=== PATIENT | male | born 1930 | race Hispanic/Latino ===

== ENCOUNTER 2020-04-16 14:28 | Emergency (ER) | payer MEDICARE ==
[2020-04-16] MEDS ORDERED: LORazepam 2 MG/ML VIAL ONE ×2 (16:59→21:58)
[2020-04-16] MEDS ORDERED: LORazepam 2 MG/ML VIAL IM ONE ×2 (17:03→17:38)
--- NOTE | 2020-04-16 17:49 | Emergency Department Report ---
ED Altered Mental Status HPI - General Chief Complaint: Altered Mental Status Stated Complaint: ALTERED MENTAL STATUS Time Seen by Provider: 04/16/20 16:28 Source: EMS Mode of arrival: Stretcher Limitations: Other - History of Present Illness Initial Comments: 89-year-old male, history of cervical radiculopathy, chronic back pain, diabetes, CHF, hypothyroidism sent from [facility] for mental health evaluation. Patient was apparently refusing care and being combative. He was found naked in the hallway, yelling, and pouring urine all over the floor. Patient was admitted to the facility 5 days ago. 3 days ago, patient was observed throwing things out of the window and attempting to climb out of the window. Note from [facility] states that patient's behaviors continue to be irrational and aggressive with periods of combativeness. MD Complaint: altered mental status -: days(s) (3) Severity: moderate Consistency of Symptoms: getting worse Context: unknown Associated Symptoms: denies: chest pain, headaches, nausea/vomiting, shortness of breath - Related Data Home Medications Medication Instructions Recorded Confirmed Last Taken Alogliptin Benzoate 25 mg PO DAILY 04/18/20 04/18/20 Unknown Docusate Sodium [Colace CAP] 100 mg PO BID 04/18/20 04/18/20 Unknown Ferrous Fumarate (Nf) 324 mg PO DAILY 04/18/20 04/18/20 Unknown Furosemide 20 mg PO DAILY 04/18/20 04/18/20 Unknown Lantus Solostar 100 units SQ QPM 04/18/20 04/18/20 Unknown Lisinopril 5 mg PO DAILY 04/18/20 04/18/20 Unknown Melatonin 3 mg PO QHS 04/18/20 04/18/20 Unknown Omeprazole 40 mg PO DAILY 04/18/20 04/18/20 Unknown Tylenol 650 mg PO Q6H PRN 04/18/20 04/18/20 Unknown Vitamin D3 1,000 unit PO DAILY 04/18/20 04/18/20 Unknown metFORMIN 500 mg PO BID 04/18/20 04/18/20 Unknown traMADoL [Ultram] 50 mg PO Q6HR PRN 04/18/20 04/18/20 Unknown Previous Rx's Medication Instructions Recorded Last Taken Type risperiDONE [RisperDAL] 0.25 mg PO QAM #30 tab 04/17/20 Unknown Rx risperiDONE [RisperDAL] 0.5 mg PO QPM #30 tablet 04/17/20 Unknown Rx Allergies Allergy/AdvReac Type Severity Reaction Status Date / Time aspirin Allergy Unknown Verified 04/16/20 14:46 ED Review of Systems ROS: Stated complaint: ALTERED MENTAL STATUS Other details as noted in HPI Comment: All other systems reviewed and negative Respiratory: denies: shortness of breath Cardiovascular: denies: chest pain Gastrointestinal: denies: abdominal pain, vomiting, diarrhea Musculoskeletal: other (reports chronic back pain) Neurological: denies: headache ED Past Medical Hx - Past Medical History Previous Medical History?: Yes Hx Congestive Heart Failure: Yes Hx Diabetes: Yes 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 - Social History Smoking Status: Unknown if ever smoked - Medications Home Medications: Home Medications Medication Instructions Recorded Confirmed Last Taken Type risperiDONE [RisperDAL] 0.25 mg PO QAM #30 tab 04/17/20 04/18/20 Unknown Rx risperiDONE [RisperDAL] 0.5 mg PO QPM #30 tablet 04/17/20 04/18/20 Unknown Rx Alogliptin Benzoate 25 mg PO DAILY 04/18/20 04/18/20 Unknown History Docusate Sodium [Colace CAP] 100 mg PO BID 04/18/20 04/18/20 Unknown History Ferrous Fumarate (Nf) 324 mg PO DAILY 04/18/20 04/18/20 Unknown History Furosemide 20 mg PO DAILY 04/18/20 04/18/20 Unknown History Lantus Solostar 100 units SQ QPM 04/18/20 04/18/20 Unknown History Lisinopril 5 mg PO DAILY 04/18/20 04/18/20 Unknown History Melatonin 3 mg PO QHS 04/18/20 04/18/20 Unknown History Omeprazole 40 mg PO DAILY 04/18/20 04/18/20 Unknown History Tylenol 650 mg PO Q6H PRN 04/18/20 04/18/20 Unknown History Vitamin D3 1,000 unit PO DAILY 04/18/20 04/18/20 Unknown History metFORMIN 500 mg PO BID 04/18/20 04/18/20 Unknown History traMADoL [Ultram] 50 mg PO Q6HR PRN 04/18/20 04/18/20 Unknown History ED Physical Exam - General Limitations: Other General appearance: alert, in no apparent distress - Head Head exam: Present: atraumatic, normocephalic - Eye Eye exam: Present: normal appearance, EOMI - ENT ENT exam: Present: mucous membranes moist - Neck Neck exam: Present: normal inspection - Respiratory Respiratory exam: Present: normal lung sounds bilaterally. Absent: respiratory distress - Cardiovascular Cardiovascular Exam: Present: regular rate, normal rhythm - GI/Abdominal GI/Abdominal exam: Present: soft. Absent: distended, tenderness - Extremities Exam Extremities exam: Present: normal inspection - Neurological Exam Neurological exam: Present: alert, altered (confused) - Psychiatric Psychiatric exam: Present: agitated - Skin Skin exam: Present: warm, dry, intact, normal color ED Course Vital Signs 04/16/20 04/16/20 04/17/20 14:41 22:07 01:08 Temperature 97.7 F Pulse Rate 69 74 74 Respiratory 18 17 17 Rate Blood Pressure 139/71 121/78 145/45 [Left] O2 Sat by Pulse 100 97 97 Oximetry 04/17/20 04/17/20 04/17/20 04:08 08:39 13:57 Temperature Pulse Rate 71 65 55 L Respiratory 16 16 16 Rate Blood Pressure 139/71 135/51 115/52 [Left] O2 Sat by Pulse 98 95 98 Oximetry 04/17/20 17:44 Temperature Pulse Rate 84 Respiratory 16 Rate Blood Pressure 123/46 [Left] O2 Sat by Pulse 96 Oximetry - Lab Data Result diagrams: 04/16/20 18:09 04/16/20 18:09 Lab Results 04/16/20 04/16/20 04/16/20 Range/Units 18:09 18:09 18:09 WBC 7.1 (4.5-11.0) K/mm3 RBC 4.06 (3.65-5.03) M/mm3 Hgb 9.5 L (11.8-15.2) gm/dl Hct 30.0 L (35.5-45.6) % MCV 74 L (84-94) fl MCH 23 L (28-32) pg MCHC 32 (32-34) % RDW 16.9 H (13.2-15.2) % Plt Count 237 (140-440) K/mm3 Lymph % (Auto) 11.3 L (13.4-35.0) % [place] % (Auto) 9.6 H (0.0-7.3) % Eos % (Auto) 2.2 (0.0-4.3) % Baso % (Auto) 0.2 (0.0-1.8) % Lymph # 0.8 L (1.2-5.4) K/mm3 [place] # 0.7 (0.0-0.8) K/mm3 Eos # 0.2 (0.0-0.4) K/mm3 Baso # 0.0 (0.0-0.1) K/mm3 Seg Neutrophils % 76.7 H (40.0-70.0) % Seg Neutrophils # 5.4 (1.8-7.7) K/mm3 Sodium 132 L (137-145) mmol/L Potassium 4.8 (3.6-5.0) mmol/L Chloride 95.1 L (98-107) mmol/L Carbon Dioxide 23 (22-30) mmol/L Anion Gap 19 mmol/L BUN 34 H (9-20) mg/dL Creatinine 1.1 (0.8-1.5) mg/dL Estimated GFR > 60 ml/min BUN/Creatinine Ratio 31 % Glucose 205 H (75-100) mg/dL POC Glucose (70-105) Calcium 9.4 (8.4-10.2) mg/dL Total Bilirubin 0.30 (0.1-1.2) mg/dL Direct Bilirubin < 0.2 (0-0.2) mg/dL Indirect Bilirubin 0.1 mg/dL AST 21 (5-40) units/L ALT 18 (7-56) units/L Alkaline Phosphatase 70 (35-129) units/L Total Protein 6.9 (6.3-8.2) g/dL Albumin 3.6 L (3.9-5) g/dL Albumin/Globulin Ratio 1.1 % Urine Color (Yellow) Urine Turbidity (Clear) Urine pH (5.0-7.0) Ur Specific [employer] (1.003-1.030) Urine Protein (Negative) mg/dL Urine Glucose (UA) (Negative) mg/dL Urine Ketones (Negative) mg/dL Urine Blood (Negative) Urine Nitrite (Negative) Urine Bilirubin (Negative) Urine Urobilinogen (<2.0) mg/dL Ur Leukocyte Esterase (Negative) Urine WBC (Auto) (0.0-6.0) /HPF Urine RBC (Auto) (0.0-6.0) /HPF U Epithel Cells (Auto) (0-13.0) /HPF Salicylates < 0.3 L (2.8-20.0) mg/dL Urine Opiates Screen Urine Methadone Screen Acetaminophen (10.0-30.0) ug/mL Ur Barbiturates Screen Ur Phencyclidine Scrn Ur Amphetamines Screen U Benzodiazepines Scrn Urine Cocaine Screen U Marijuana (THC) Screen Drugs of Abuse Note Plasma/Serum Alcohol (0-0.07) % 04/16/20 04/16/20 04/16/20 Range/Units 18:09 18:09 18:53 WBC (4.5-11.0) K/mm3 RBC (3.65-5.03) M/mm3 Hgb (11.8-15.2) gm/dl Hct (35.5-45.6) % MCV (84-94) fl MCH (28-32) pg MCHC (32-34) % RDW (13.2-15.2) % Plt Count (140-440) K/mm3 Lymph % (Auto) (13.4-35.0) % [place] % (Auto) (0.0-7.3) % Eos % (Auto) (0.0-4.3) % Baso % (Auto) (0.0-1.8) % Lymph # (1.2-5.4) K/mm3 [place] # (0.0-0.8) K/mm3 Eos # (0.0-0.4) K/mm3 Baso # (0.0-0.1) K/mm3 Seg Neutrophils % (40.0-70.0) % Seg Neutrophils # (1.8-7.7) K/mm3 Sodium (137-145) mmol/L Potassium (3.6-5.0) mmol/L Chloride (98-107) mmol/L Carbon Dioxide (22-30) mmol/L Anion Gap mmol/L BUN (9-20) mg/dL Creatinine (0.8-1.5) mg/dL Estimated GFR ml/min BUN/Creatinine Ratio % Glucose (75-100) mg/dL POC Glucose (70-105) Calcium (8.4-10.2) mg/dL Total Bilirubin (0.1-1.2) mg/dL Direct Bilirubin (0-0.2) mg/dL Indirect Bilirubin mg/dL AST (5-40) units/L ALT (7-56) units/L Alkaline Phosphatase (35-129) units/L Total Protein (6.3-8.2) g/dL Albumin (3.9-5) g/dL Albumin/Globulin Ratio % Urine Color Straw (Yellow) Urine Turbidity Clear (Clear) Urine pH 6.0 (5.0-7.0) Ur Specific [employer] 1.006 (1.003-1.030) Urine Protein <15 mg/dl (Negative) mg/dL Urine Glucose (UA) Neg (Negative) mg/dL Urine Ketones Neg (Negative) mg/dL Urine Blood Neg (Negative) Urine Nitrite Neg (Negative) Urine Bilirubin Neg (Negative) Urine Urobilinogen < 2.0 (<2.0) mg/dL Ur Leukocyte Esterase Neg (Negative) Urine WBC (Auto) 1.0 (0.0-6.0) /HPF Urine RBC (Auto) < 1.0 (0.0-6.0) /HPF U Epithel Cells (Auto) < 1.0 (0-13.0) /HPF Salicylates (2.8-20.0) mg/dL Urine Opiates Screen Urine Methadone Screen Acetaminophen < 5.0 L (10.0-30.0) ug/mL Ur Barbiturates Screen Ur Phencyclidine Scrn Ur Amphetamines Screen U Benzodiazepines Scrn Urine Cocaine Screen U Marijuana (THC) Screen Drugs of Abuse Note Plasma/Serum Alcohol < 0.01 (0-0.07) % 04/16/20 04/17/20 04/17/20 Range/Units 18:53 18:16 21:07 WBC (4.5-11.0) K/mm3 RBC (3.65-5.03) M/mm3 Hgb (11.8-15.2) gm/dl Hct (35.5-45.6) % MCV (84-94) fl MCH (28-32) pg MCHC (32-34) % RDW (13.2-15.2) % Plt Count (140-440) K/mm3 Lymph % (Auto) (13.4-35.0) % [place] % (Auto) (0.0-7.3) % Eos % (Auto) (0.0-4.3) % Baso % (Auto) (0.0-1.8) % Lymph # (1.2-5.4) K/mm3 [place] # (0.0-0.8) K/mm3 Eos # (0.0-0.4) K/mm3 Baso # (0.0-0.1) K/mm3 Seg Neutrophils % (40.0-70.0) % Seg Neutrophils # (1.8-7.7) K/mm3 Sodium (137-145) mmol/L Potassium (3.6-5.0) mmol/L Chloride (98-107) mmol/L Carbon Dioxide (22-30) mmol/L Anion Gap mmol/L BUN (9-20) mg/dL Creatinine (0.8-1.5) mg/dL Estimated GFR ml/min BUN/Creatinine Ratio % Glucose (75-100) mg/dL POC Glucose 355 H 385 H (70-105) Calcium (8.4-10.2) mg/dL Total Bilirubin (0.1-1.2) mg/dL Direct Bilirubin (0-0.2) mg/dL Indirect Bilirubin mg/dL AST (5-40) units/L ALT (7-56) units/L Alkaline Phosphatase (35-129) units/L Total Protein (6.3-8.2) g/dL Albumin (3.9-5) g/dL Albumin/Globulin Ratio % Urine Color (Yellow) Urine Turbidity (Clear) Urine pH (5.0-7.0) Ur Specific [employer] (1.003-1.030) Urine Protein (Negative) mg/dL Urine Glucose (UA) (Negative) mg/dL Urine Ketones (Negative) mg/dL Urine Blood (Negative) Urine Nitrite (Negative) Urine Bilirubin (Negative) Urine Urobilinogen (<2.0) mg/dL Ur Leukocyte Esterase (Negative) Urine WBC (Auto) (0.0-6.0) /HPF Urine RBC (Auto) (0.0-6.0) /HPF U Epithel Cells (Auto) (0-13.0) /HPF Salicylates (2.8-20.0) mg/dL Urine Opiates Screen Presumptive negative Urine Methadone Screen Presumptive negative Acetaminophen (10.0-30.0) ug/mL Ur Barbiturates Screen Presumptive negative Ur Phencyclidine Scrn Presumptive negative Ur Amphetamines Screen Presumptive negative U Benzodiazepines Scrn Presumptive negative Urine Cocaine Screen Presumptive negative U Marijuana (THC) Screen Presumptive negative Drugs of Abuse Note Disclamer Plasma/Serum Alcohol (0-0.07) % - Radiology Data Radiology results: report reviewed, image reviewed - Medical Decision Making 89 yo M sent to ED for mental health examination due to bizarre behavior. Workup in ED unremarkable. No evidence of infection. Sodium slightly low, so IV fluids given. Pt is medically clear for mental health evaluation. - Differential Diagnosis dementia, UTI, intracranial abnormality Critical care attestation.: If time is entered above; I have spent that time in minutes in the direct care of this critically ill patient, excluding procedure time. ED Disposition Clinical Impression: Behavioral disorder Disposition: DC-01 TO HOME OR SELFCARE Is pt being admited?: No Condition: Stable Prescriptions: risperiDONE [RisperDAL] 0.25 mg PO QAM #30 tab risperiDONE [RisperDAL] 0.5 mg PO QPM #30 tablet Referrals: BUNNY VASQUEZ MD [Primary Care Provider] - 3-5 Days
[2020-04-16 18:33] LABS: Basophils % (Auto) 0.2 % (0.0-1.8); Eosinophils # (Auto) 0.2 K/mm3 (0.0-0.4); Eosinophils % (Auto) 2.2 % (0.0-4.3); Hemoglobin 9.5 gm/dl (11.8-15.2); Lymphocytes # (Auto) 0.8 K/mm3 (1.2-5.4); Lymphocytes % (Auto) 11.3 % (13.4-35.0); Mean Corpuscular HGB Conc 32 % (32-34); Mean Corpuscular Volume 74 fl (84-94); Monocytes # (Auto) 0.7 K/mm3 (0.0-0.8); Monocytes % (Auto) 9.6 % (0.0-7.3); Platelet Count 237 K/mm3 (140-440); Red Blood Count 4.06 M/mm3 (3.65-5.03); Red Cell Distribution Width 16.9 % (13.2-15.2)
[2020-04-16 18:47] LABS: Alanine Aminotransferase 18 units/L (7-56); Albumin 3.6 g/dL (3.9-5); BUN/Creatinine Ratio 31; Blood Urea Nitrogen 34 mg/dL (9-20); Calcium 9.4 mg/dL (8.4-10.2); Hemolysis Index 5
[2020-04-16 18:48] LABS: Bilirubin,Direct < 0.2 mg/dL (0-0.2)
[2020-04-16 19:07] LABS: Bilirubin,Urine NEG (Negative); Blood,Urine NEG (Negative); Color,Urine Straw (Yellow); Protein,Urine <15 mg/dL mg/dL (Negative); RBC,Urine < 1.0 /HPF (0.0-6.0); Urobilinogen,Urine < 2.0 mg/dL (<2.0)
[2020-04-16 19:15] LABS: Amphetamine Screen,Urine PRESUMPTIVE NEGATIVE; Benzodiazepines Screen,Urine PRESUMPTIVE NEGATIVE; Cannabinoid Screen,Urine PRESUMPTIVE NEGATIVE; Cocaine Screen,Urine PRESUMPTIVE NEGATIVE; Methadone Screen,Urine PRESUMPTIVE NEGATIVE; Opiate Screen,Urine PRESUMPTIVE NEGATIVE
[2020-04-16] MEDS ORDERED: SODIUM CHLORIDE 0.9% 1000 ML 1,000 ML IV ONE (19:37)
--- NOTE | 2020-04-16 20:38 | Cat Scan Report ---
CT HEAD WITHOUT CONTRAST INDICATION / CLINICAL INFORMATION: AMS. TECHNIQUE: All CT scans at this location are performed using CT dose reduction for ALARA by means of automated e xposure control. COMPARISON: None available. FINDINGS: HEMORRHAGE: No evidence of intracranial hemorrhage or extra-axial fluid collection. EXTRA-AXIAL SPACES: Cortical sulci and sylvian fissures are enlarged reflecting a degree of parenchym al volume loss which is within normal limits for the patient's age of . Basilar cisterns have an unre markable appearance. VENTRICULAR SYSTEM: The third and lateral ventricles are enlarged reflecting presence of age related parenchymal volume loss. CEREBRAL PARENCHYMA: Periventricular and deep white matter lucency is observed. This is probably seco ndary to microvascular ischemic change. There is no indication of recent infarction. No areas of ence phalomalacia are identified. MIDLINE SHIFT OR HERNIATION: There is no mass effect. CEREBELLUM / BRAINSTEM: Brainstem has an unremarkable appearance. Age related cerebellar atrophy is n oted. INTRACRANIAL VESSELS:Calcified atherosclerotic plaque is present along the course of the cavernous se gments of both internal carotid arteries. Similar findings are seen at the distal vertebral arteries. ORBITS: visualized portions of the orbits have an unremarkable appearance. SOFT TISSUES of HEAD: No significant abnormality. CALVARIUM: Evaluation of bone windows reveals no abnormalities. PARANASAL SINUSES / MASTOID AIR CELLS: Opacification of the left frontal sinus is noted. Possibility of left frontal sinusitis should be considered. Paranasal sinuses otherwise appear clear. Normal pneu matization of the mastoid air cells and middle ear cavities is observed. ADDITIONAL FINDINGS: None. IMPRESSION: 1. Age-related involutional changes of parenchymal volume loss and microvascular ischemic change. 2. Opacification of the left frontal sinus. Consider possible left frontal sinusitis. 3. No acute intracranial abnormality. Signer Name: Dat Woodall MD Signed: 04/16/2020 8:34 PM Workstation Name: [id number]
[2020-04-16] MEDS ORDERED: LORazepam 2 MG/ML VIAL IV ONE (22:07)
--- NOTE | 2020-04-17 11:22 | Consultation ---
History of Present Illness - Reason for Consult Consult date: 04/17/20 Reason for consult: MHE Requesting physician: LENNY LAGUNAS - Chief Complaint Chief complaint: AMS - History of Present Psychiatric Illness Per ED Provider: 89-year-old male, history of cervical radiculopathy, chronic back pain, diabetes, CHF, hypothyroidism sent from [facility] for mental health evaluation. Patient was apparently refusing care and being combative. He was found naked in the hallway, yelling, and pouring urine all over the floor. Patient was admitted to the facility 5 days ago. 3 days ago, patient was observed throwing things out of the window and attempting to climb out of the window. Note from intermediate states that patient's behaviors continue to be irrational and aggressive with periods of combativeness. HPI Patient is a 89 year old male with no known past psychiatric history, presented from nursing facility due to combative behavior and altered mental status. 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 ED Providers and previous medical records reviewed. PAST PSYCHIATRIC HISTORY Diagnoses: None indicated Suicide attempts or Self-harm behavior: n/a Prior psychiatric hospitalizations: unknown Substance Abuse history: n/a Previous psychiatric medications tried: n/a Outpatient treatment: n/a PAST MEDICAL HISTORY: DM, CHF, and hypothyroidsm. Family Psychiatric History: None reported or documented SOCIAL HISTORY Marital Status: unknown Living Arrangements: From Nursing Facility Employment Status: unemployed based on history Access to guns/weapons: n/a Education: n/a History of Abuse: n/a Legal History: n/a REVIEW OF SYSTEMS ROS cannot be reliably obtained from the patient due to her confusion and somnolence. MENTAL STATUS EXAMINATION General Appearance and Behavior: Age appropriate, good hygiene, naked, lying in bed, poor eye contact, polite but uncooperative with questioning Psychomotor Behavior: No Psychomotor agitation Mood: n/a Affect and affective range: flat Thought Process: Tangential, Illogical, Fragmented and Loose associations Thought Content: Illogical Speech: low volume, difficulty to understand, abnormalities in production of speech, confused Intellectual Functioning: Poor Suicidal Ideation: n/a Homicidal Ideation: n/a Impulse Control: Impaired Insight and Judgment: Impaired Memory: Short term memory impaired, half-way memory impaired, and Prospective memory impaired Attention: Sustained attention impaired, and Divided attention impaired Orientation: Alert, confused, and demented RECOMMENDATIONS MEDICATIONS: Continue pt home meds Risks, benefits and alternatives of medications discussed with the patient, questions answered and consent obtained from patient. PSYCHOTHERAPY: Supportive psychotherapy provided MEDICAL: Per primary team DELIRIUM PRECAUTIONS: Please re-orient patient frequently, keep lights on during the day, and minimize benzodiazepines and opiates as these medications could worsen patient's confusion. 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 If cleared by neuro, can be admitted for dementia with Beh distrubatxes LEGAL STATUS: 1013 rescinded FOLLOW-UP: Will Sign off Thank you for the consult. Please contact with any questions and/or concerns. Medications and Allergies Allergies Allergy/AdvReac Type Severity Reaction Status Date / Time aspirin Allergy Unknown Verified 04/16/20 14:46 Mental Status Exam - Vital signs Last Vital Signs Temp 97.7 F 04/16/20 14:41 Pulse 65 04/17/20 08:39 Resp 16 04/17/20 08:39 BP 135/51 04/17/20 08:39 Pulse Ox 95 04/17/20 08:39 Results Result Diagrams: 04/16/20 18:09 04/16/20 18:09 Abnormal lab results 04/16/20 04/16/20 04/16/20 Range/Units 18:09 18:09 18:09 Hgb 9.5 L (11.8-15.2) gm/dl Hct 30.0 L (35.5-45.6) % MCV 74 L (84-94) fl MCH 23 L (28-32) pg RDW 16.9 H (13.2-15.2) % Lymph % (Auto) 11.3 L (13.4-35.0) % [place] % (Auto) 9.6 H (0.0-7.3) % Lymph # 0.8 L (1.2-5.4) K/mm3 Seg Neutrophils % 76.7 H (40.0-70.0) % Sodium 132 L (137-145) mmol/L Chloride 95.1 L (98-107) mmol/L BUN 34 H (9-20) mg/dL Glucose 205 H (75-100) mg/dL Albumin 3.6 L (3.9-5) g/dL Salicylates < 0.3 L (2.8-20.0) mg/dL Acetaminophen (10.0-30.0) ug/mL 04/16/20 Range/Units 18:09 Hgb (11.8-15.2) gm/dl Hct (35.5-45.6) % MCV (84-94) fl MCH (28-32) pg RDW (13.2-15.2) % Lymph % (Auto) (13.4-35.0) % [place] % (Auto) (0.0-7.3) % Lymph # (1.2-5.4) K/mm3 Seg Neutrophils % (40.0-70.0) % Sodium (137-145) mmol/L Chloride (98-107) mmol/L BUN (9-20) mg/dL Glucose (75-100) mg/dL Albumin (3.9-5) g/dL Salicylates (2.8-20.0) mg/dL Acetaminophen < 5.0 L (10.0-30.0) ug/mL All other labs normal.
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
[2020-04-17 17:45] VITALS: BP 123/46
--- NOTE | 2020-04-17 19:33 | XRay Report ---
CHEST 1 VIEW INDICATION: Altered mental status. Rule out infection. COMPARISON: None FINDINGS: SUPPORT DEVICES: None. HEART: Within normal limits. LUNGS/PLEURA: No acute air space or interstitial disease. ADDITIONAL FINDINGS: None. IMPRESSION: 1. No acute findings. Signer Name: Oskar Bird MD Signed: 04/17/2020 7:29 PM Workstation Name: [id number]
--- NOTE | 2020-04-17 20:10 | Event Note ---
Date: 04/17/20 Patient was evaluated at 6 PM Patient able to move all 4 extremities Not agitated Coherent Wants to go back to the [facility] Alert and oriented to time and place and person. Patient pleading that he wants to go back to [facility] facility Patient has history of dementia with agitation which can be treated at the [facility] facility The family does not want admission to [facility] for stabilization They want to sign out AMA if necessary. Patient stable for discharge MRI can be done as an outpatient but at this point it is not necessary Risperdal 0.2 5 in the morning and 1.5 at 6 PM as discharge medication.
[2020-04-17] MEDS ORDERED: INSULIN REGULAR, HUMAN 100 UNITS/1 ML SUB-Q ONE (20:57)
== END 2020-04-17 21:08 | disposition home or self-care (01) ==
LOC: ED 14:28 → UNDOADMIN 04-17 22:55 → 5A 04-17 22:55
DX: F91.9 Conduct disorder, unspecified (principal); I50.9 Heart failure, unspecified; E11.9 Type 2 diabetes mellitus without complications; Z79.899 Other long term (current) drug therapy; Z88.6 Allergy status to analgesic agent
CPT/HCPCS: 36415; 70450; 71045; 80048; 80076; 80307; 81001; 82962; 85025; 95819; 96361; 96372; 96374; 99285; J2060; J7030; 80320; G0480; J1815

== ENCOUNTER 2020-04-18 14:05 | Inpatient (IN) | payer MEDICARE ==
[2020-04-18] MEDS ORDERED: SODIUM CHLORIDE 0.9% 1000 ML 1,000 ML IV ONE ×3 (16:03→16:10)
--- NOTE | 2020-04-18 16:46 | Event Note ---
Date: 04/18/20 Called for consultation patient had been prior seen by my colleague adjusted insulin therapy as blood sugar is elevated. Called back about some work-up that needs to be done in acute care setting and also need admission is required notified my colleague Dr. Arriaga.
[2020-04-18] MEDS ORDERED: NON-FORMULARY EACH (Omeprazole 40 MG) PO SCH (22:00)
[2020-04-18] MEDS ORDERED: VITAMIN D3 1000 UNIT PO SCH (22:00)
[2020-04-19] MEDS ORDERED: DEXTROSE 50% IN WATER (25GM) 50 ML SYRINGE IV PRN (00:54)
[2020-04-19] MEDS: INSULIN REGULAR, HUMAN 100 UNITS/1 ML SUB-Q SCH ×5 (01:18→21:50)
[2020-04-19] MEDS: risperiDONE 0.25 MG TAB PO SCH ×3 (01:20→21:49)
[2020-04-19] MEDS: DOCUSATE SODIUM 100 MG CAP PO SCH ×3 (01:20→21:49)
[2020-04-19 06:14] LABS: Basophils % (Auto) 0.7 % (0.0-1.8); Eosinophils # (Auto) 0.1 K/mm3 (0.0-0.4); Eosinophils % (Auto) 1.9 % (0.0-4.3); Hematocrit 25.9 % (35.5-45.6); Hemoglobin 8.2 gm/dl (11.8-15.2); Lymphocytes # (Auto) 0.9 K/mm3 (1.2-5.4); Lymphocytes % (Auto) 14.2 % (13.4-35.0); Mean Corpuscular HGB Conc 32 % (32-34); Mean Corpuscular Volume 74 fl (84-94); Monocytes # (Auto) 0.6 K/mm3 (0.0-0.8); Monocytes % (Auto) 9.8 % (0.0-7.3); Platelet Count 234 K/mm3 (140-440); Red Blood Count 3.48 M/mm3 (3.65-5.03)
[2020-04-19 07:10] LABS: Alanine Aminotransferase 15 units/L (7-56); Albumin 3.1 g/dL (3.9-5); BUN/Creatinine Ratio 27; Blood Urea Nitrogen 27 mg/dL (9-20); Calcium 8.9 mg/dL (8.4-10.2); Chol/HDL Ratio 2.67 %; HDL Cholesterol 49 mg/dL (40-59); Hemolysis Index 9; LDL Cholesterol,Direct 76 mg/dL (50-130)
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
[2020-04-19] MEDS ORDERED: SODIUM CHLORIDE 0.9% 1000 ML 1,000 ML IV SCH (07:30)
[2020-04-19] MEDS: LORazepam 2 MG/ML VIAL IV PRN (08:00)
--- NOTE | 2020-04-19 09:20 | History and Physical Report ---
History of Present Illness Date of examination: 04/18/20 Date of admission: 04/18/20 14:09 Chief complaint: Altered sensorium and agitation History of present illness: 89-year-old male was apparently doing well till 1 week ago. Became very agitated and altered sensorium. Sudden onset. Patient evaluated in the emergency room and there is a concern for acute cerebrovascular accident with a differential diagnosis of meningeal infection. Patient was admitted to [facility] and transferred to regular medical floor for further evaluation and treatment. Past History Past Medical History: diabetes, heart failure, hypertension Past Surgical History: Other Social history: full code Family history: hypertension Medications and Allergies Allergies Allergy/AdvReac Type Severity Reaction Status Date / Time aspirin Allergy Unknown Verified 04/16/20 14:46 Home Medications Medication Instructions Recorded Confirmed Last Taken Type Alogliptin Benzoate 25 mg PO DAILY 04/18/20 04/18/20 Unknown History Docusate Sodium [Colace CAP] 100 mg PO BID 04/18/20 04/18/20 Unknown History Ferrous Fumarate (Nf) 324 mg PO DAILY 04/18/20 04/18/20 Unknown History Furosemide 20 mg PO DAILY 04/18/20 04/18/20 Unknown History Insulin Regular, Human [HumuLIN R] 0 units SUB-Q ACHS units 04/18/20 Unknown Rx Lantus Solostar 100 units SQ QPM 04/18/20 04/18/20 Unknown History Lisinopril 5 mg PO DAILY 04/18/20 04/18/20 Unknown History Melatonin 3 mg PO QHS 04/18/20 04/18/20 Unknown History Omeprazole 40 mg PO DAILY 04/18/20 04/18/20 Unknown History Vitamin D3 1,000 unit PO DAILY 04/18/20 04/18/20 Unknown History metFORMIN 500 mg PO BID 04/18/20 04/18/20 Unknown History risperiDONE [RisperDAL] 0.5 mg PO BID #60 tablet 04/18/20 Unknown Rx traMADoL [Ultram 50 MG tab] 50 mg PO Q6HR PRN 04/18/20 04/18/20 Unknown History Active Meds: Active Medications Acetaminophen (Tylenol) 650 mg PO Q4H PRN PRN Reason: Pain MILD(1-3)/Fever >100.5/[place] Atorvastatin Calcium (Lipitor) 40 mg PO QHS [facility] Cholecalciferol (Vitamin D3) 1,000 unit PO DAILY [facility] Dextrose (D50w (25gm) Syringe) 50 ml IV Q30MIN PRN; Protocol PRN Reason: Hypoglycemia Docusate Sodium (Colace) 100 mg PO BID [facility] Last Admin: 04/19/20 01:20 Dose: 100 mg Documented by: Ferrous Sulfate (Feosol) 325 mg PO DAILY [facility] Furosemide (Lasix) 20 mg PO DAILY [facility] Sodium Chloride (Nacl 0.9% 1000 Ml) 1,000 mls @ 75 mls/hr IV DIRECT JOSELIN Stop: 04/19/20 20:49 Insulin Glargine (Lantus) 15 units SUB-Q QHS [facility] Insulin Human Regular (Humulin R) 0 units SUB-Q ACHS JOSELIN; Protocol Last Admin: 04/19/20 07:30 Dose: 8 units Documented by: Levothyroxine Sodium (Synthroid) 50 mcg PO DAILY@0600 [facility] Lisinopril (Zestril) 5 mg PO DAILY [facility] Lorazepam (Ativan) 1 mg IV Q4H PRN PRN Reason: Seizures Last Admin: 04/19/20 08:00 Dose: 1 mg Documented by: Miscellaneous Medication (Alogliptin Benzoate) 25 mg PO DAILY [facility] Ondansetron HCl (Zofran) 4 mg IV Q8H PRN PRN Reason: Nausea And Vomiting Pantoprazole Sodium (Protonix) 40 mg PO DAILY [facility] Risperidone (Risperdal) 0.5 mg PO BID [facility] Last Admin: 04/19/20 01:20 Dose: 0.5 mg Documented by: Sodium Chloride (Sodium Chloride Flush Syringe 10 Ml) 10 ml IV BID [facility] Last Admin: 04/19/20 01:20 Dose: 10 ml Documented by: Sodium Chloride (Sodium Chloride Flush Syringe 10 Ml) 10 ml IV PRN PRN PRN Reason: LINE FLUSH Last Admin: 04/19/20 01:19 Dose: 10 ml Documented by: Tramadol HCl (Ultram) 50 mg PO Q6HR PRN PRN Reason: Pain, Moderate (4-6) Review of Systems All systems: negative Neurological: change in mentation, memory loss, balance difficulties, other (Agitation) Psychiatric: memory loss, disorientation Exam - Constitutional Vitals: Temp Pulse Resp BP Pulse Ox 98.7 F 73 19 102/51 100 04/19/20 05:40 04/19/20 05:40 04/19/20 05:40 04/19/20 05:40 04/19/20 05:40 General appearance: Present: no acute distress, well-nourished - EENT Eyes: Present: PERRL ENT: hearing intact, clear oral mucosa - Neck Neck: Present: supple, normal ROM - Respiratory Respiratory effort: normal Respiratory: bilateral: CTA - Cardiovascular Heart rate: 76 Rhythm: regular (76) Heart Sounds: Present: S1 & S2. Absent: rub, click - Extremities Extremities: no ischemia, pulses intact, pulses symmetrical, No edema Peripheral Pulses: within normal limits - Abdominal General gastrointestinal: Present: soft, non-tender, non-distended, normal bowel sounds Male genitourinary: Present: normal - Rectal Rectal Exam: deferred - Integumentary Integumentary: Present: clear, warm, dry - Musculoskeletal Musculoskeletal: gait normal, strength equal bilaterally - Psychiatric Psychiatric: appropriate mood/affect, intact judgment & insight - Neurologic Neurologic: CNII-XII intact, moves all extremities - Allied Health Allied health notes reviewed: nursing, case management Results - Labs CBC & Chem 7: 04/19/20 05:14 04/19/20 05:14 Labs: Laboratory Last Values WBC 6.6 K/mm3 (4.5-11.0) 04/19/20 05:14 RBC 3.48 M/mm3 (3.65-5.03) L 04/19/20 05:14 Hgb 8.2 gm/dl (11.8-15.2) L 04/19/20 05:14 Hct 25.9 % (35.5-45.6) L 04/19/20 05:14 MCV 74 fl (84-94) L 04/19/20 05:14 MCH 24 pg (28-32) L 04/19/20 05:14 MCHC 32 % (32-34) 04/19/20 05:14 RDW 17.0 % (13.2-15.2) H 04/19/20 05:14 Plt Count 234 K/mm3 (140-440) 04/19/20 05:14 Lymph % (Auto) 14.2 % (13.4-35.0) 04/19/20 05:14 [place] % (Auto) 9.8 % (0.0-7.3) H 04/19/20 05:14 Eos % (Auto) 1.9 % (0.0-4.3) 04/19/20 05:14 Baso % (Auto) 0.7 % (0.0-1.8) 04/19/20 05:14 Lymph # 0.9 K/mm3 (1.2-5.4) L 04/19/20 05:14 [place] # 0.6 K/mm3 (0.0-0.8) 04/19/20 05:14 Eos # 0.1 K/mm3 (0.0-0.4) 04/19/20 05:14 Baso # 0.0 K/mm3 (0.0-0.1) 04/19/20 05:14 Seg Neutrophils % 73.4 % (40.0-70.0) H 04/19/20 05:14 Seg Neutrophils # 4.8 K/mm3 (1.8-7.7) 04/19/20 05:14 Sodium 135 mmol/L (137-145) L 04/19/20 05:14 Potassium 4.4 mmol/L (3.6-5.0) 04/19/20 05:14 Chloride 99.1 mmol/L (98-107) 04/19/20 05:14 Carbon Dioxide 24 mmol/L (22-30) 04/19/20 05:14 Anion Gap 16 mmol/L 04/19/20 05:14 BUN 27 mg/dL (9-20) H 04/19/20 05:14 Creatinine 1.0 mg/dL (0.8-1.5) 04/19/20 05:14 Estimated GFR > 60 ml/min 04/19/20 05:14 BUN/Creatinine Ratio 27 % 04/19/20 05:14 Glucose 325 mg/dL (75-100) H 04/19/20 05:14 POC Glucose 331 (70-105) H 04/19/20 08:01 Calcium 8.9 mg/dL (8.4-10.2) 04/19/20 05:14 Total Bilirubin 0.20 mg/dL (0.1-1.2) 04/19/20 05:14 AST 21 units/L (5-40) 04/19/20 05:14 ALT 15 units/L (7-56) 04/19/20 05:14 Alkaline Phosphatase 61 units/L (35-129) 04/19/20 05:14 Total Protein 5.9 g/dL (6.3-8.2) L 04/19/20 05:14 Albumin 3.1 g/dL (3.9-5) L 04/19/20 05:14 Albumin/Globulin Ratio 1.1 % 04/19/20 05:14 Triglycerides 103 mg/dL (2-149) 04/19/20 05:14 Cholesterol 131 mg/dL (50-199) 04/19/20 05:14 LDL Cholesterol Direct 76 mg/dL (50-130) 04/19/20 05:14 HDL Cholesterol 49 mg/dL (40-59) 04/19/20 05:14 Cholesterol/HDL Ratio 2.67 % 04/19/20 05:14 TSH 10.080 mlU/mL (0.270-4.200) H 04/19/20 07:57 Free T4 1.20 ng/dL (0.76-1.46) 04/19/20 07:57 - Imaging and Cardiology EKG: report reviewed CT Scan - head: report reviewed Imaging and Cardiology: Head CT 8 evaluated involutional changes of parenchymal volume loss and microvascular ischemic change Opacification of the left frontal sinus. Consider possible left frontal sinusitis No acute intracranial abnormality Prado/IV: Voiding Method Urinal IV Catheter Type [Right Peripheral IV Antecubital] Assessment and Plan Advance Directives: Yes (Full code) VTE prophylaxis?: Chemical Plan of care discussed with patient/family: Yes - Patient Problems (1) Acute encephalopathy Current Visit: Yes Status: Acute Plan to address problem: Differential diagnosis of cerebrovascular accident and meningeal infection Stroke work-up initiated LP if necessary (2) Acute CVA (cerebrovascular accident) Current Visit: Yes Status: Acute Plan to address problem: Possible frontal stroke cough and dementia and confusion Check MRI carotid duplex scan and echocardiogram Neurology consult requested (3) Hypertension Current Visit: Yes Status: Chronic Qualifiers: Hypertension type: essential hypertension Qualified Code(s): I10 - Essent ial (primary) hypertension Plan to address problem: Continue antihypertensives (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: Yes Status: Chronic Plan to address problem: Continue Lantus and short-acting insulin Check hemoglobin A1c Adjust insulin dosage (5) Agitation due to dementia Current Visit: Yes Status: Acute Plan to address problem: Psychiatric consultation (6) DVT prophylaxis Current Visit: Yes Status: Acute Plan to address problem: On heparin and GI prophylaxis
--- NOTE | 2020-04-19 09:32 | Progress Note ---
Assessment and Plan Day #2 CVA work-up in progress Patient is still agitated and confused psych consult requested - Patient Problems (1) Acute encephalopathy Current Visit: Yes Status: Acute Plan to address problem: Differential diagnosis of cerebrovascular accident and meningeal infection Stroke work-up initiated LP if necessary (2) Acute CVA (cerebrovascular accident) Current Visit: Yes Status: Acute Plan to address problem: Possible frontal stroke cough and dementia and confusion Check MRI carotid duplex scan and echocardiogram Neurology consult requested (3) Hypertension Current Visit: Yes Status: Chronic Qualifiers: Hypertension type: essential hypertension Qualified Code(s): I10 - Essential (primary) hypertension Plan to address problem: Continue antihypertensives (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: Yes Status: Chronic Plan to address problem: Continue Lantus and short-acting insulin Check hemoglobin A1c Adjust insulin dosage (5) Agitation due to dementia Current Visit: Yes Status: Acute Plan to address problem: Psychiatric consultation (6) DVT prophylaxis Current Visit: Yes Status: Acute Plan to address problem: On heparin and GI prophylaxis Subjective Date of service: 04/19/20 Principal diagnosis: Acute encephalopathy Interval history: Patient admitted for acute onset of confusion and agitation. Transferred from [facility] for evaluation of possible cerebrovascular accident and rule out meningeal infection. No fever. No neck stiffness. Work-up in progress. Objective - Constitutional Vitals: Vital Signs - 12hr 04/18/20 04/19/20 04/19/20 23:20 03:19 03:37 Temperature 98.5 F Pulse Rate 73 61 Pulse Rate [ 57 L Right Radial] Respiratory 18 Rate Blood Pressure 103/40 Blood Pressure 117/55 [Left] O2 Sat by Pulse 96 99 Oximetry 04/19/20 05:40 Temperature 98.7 F Pulse Rate 73 Pulse Rate [ Right Radial] Respiratory 19 Rate Blood Pressure 102/51 Blood Pressure [Left] O2 Sat by Pulse 100 Oximetry General appearance: Present: no acute distress, well-nourished - EENT Eyes: PERRL, EOM intact ENT: hearing intact, clear oral mucosa Ears: bilateral: normal - Neck Neck: supple, normal ROM - Respiratory Respiratory effort: normal Respiratory: bilateral: CTA - Breasts Breasts: normal - Cardiovascular Heart rate: 78 Rhythm: regular Heart Sounds: Present: S1 & S2. Absent: gallop, rub Extremities: pulses intact, No edema, normal color, Full ROM - Gastrointestinal General gastrointestinal: Present: soft, non-tender, non-distended, normal bowel sounds - Genitourinary Male genitourinary: normal - Integumentary Integumentary: clear, warm, dry - Musculoskeletal Musculoskeletal: 1, strength equal bilaterally - Neurologic Neurologic: CNII-XII intact, moves all extremities - Psychiatric Psychiatric: agitated, other (Intermittently alert and oriented) - Labs CBC & Chem 7: 04/19/20 05:14 04/19/20 05:14 Labs: Abnormal lab results 04/18/20 04/19/20 04/19/20 Range/Units 21:58 05:14 05:14 RBC 3.48 L (3.65-5.03) M/mm3 Hgb 8.2 L (11.8-15.2) gm/dl Hct 25.9 L (35.5-45.6) % MCV 74 L (84-94) fl MCH 24 L (28-32) pg RDW 17.0 H (13.2-15.2) % [place] % (Auto) 9.8 H (0.0-7.3) % Lymph # 0.9 L (1.2-5.4) K/mm3 Seg Neutrophils % 73.4 H (40.0-70.0) % Sodium 135 L (137-145) mmol/L BUN 27 H (9-20) mg/dL Glucose 325 H (75-100) mg/dL POC Glucose 330 H (70-105) Total Protein 5.9 L (6.3-8.2) g/dL Albumin 3.1 L (3.9-5) g/dL TSH (0.270-4.200) mlU/mL 04/19/20 04/19/20 Range/Units 07:57 08:01 RBC (3.65-5.03) M/mm3 Hgb (11.8-15.2) gm/dl Hct (35.5-45.6) % MCV (84-94) fl MCH (28-32) pg RDW (13.2-15.2) % [place] % (Auto) (0.0-7.3) % Lymph # (1.2-5.4) K/mm3 Seg Neutrophils % (40.0-70.0) % Sodium (137-145) mmol/L BUN (9-20) mg/dL Glucose (75-100) mg/dL POC Glucose 331 H (70-105) Total Protein (6.3-8.2) g/dL Albumin (3.9-5) g/dL TSH 10.080 H (0.270-4.200) mlU/mL
[2020-04-19] MEDS ORDERED: ALOGLIPTIN BENZOATE 25 MG PO SCH (10:00)
[2020-04-19] MEDS: LISINOPRIL 5 MG TAB PO SCH (10:00)
[2020-04-19] MEDS: FUROSEMIDE 20 MG TAB PO SCH (10:00)
[2020-04-19] MEDS: PANTOPRAZOLE 40 MG TAB PO SCH (10:00)
[2020-04-19] MEDS: FERROUS SULFATE 325 MG TAB PO SCH (10:00)
[2020-04-19] MEDS ORDERED: LISINOPRIL 5 MG PO SCH (10:00)
[2020-04-19] MEDS: CHOLECALCIFEROL (VIT D3) 1000 UNIT (25 mcg) TAB PO SCH (10:00)
[2020-04-19] MEDS ORDERED: FAMOTIDINE 20 MG/2 ML INJ IV SCH (10:00)
[2020-04-19] MEDS ORDERED: FERROUS FUMARATE 324 MG PO SCH (10:00)
[2020-04-19] MEDS ORDERED: ASPIRIN 325 MG TAB PO SCH (10:00)
[2020-04-19] MEDS ORDERED: NON-FORMULARY EACH (Furosemide 20 MG) PO SCH (10:00)
--- NOTE | 2020-04-19 11:36 | Consultation ---
History of Present Illness Consult date: 04/19/20 History of present illness: 89-year-old male and agitation presenting with altered mental status. Admitted for elevated blood sugar and further management. Patient denies any cardiac history. Past History Past Medical History: diabetes, heart failure, hypertension Past Surgical History: Other. denies: No surgical history Social history: full code. denies: no significant social history Family history: hypertension Medications and Allergies Allergies Allergy/AdvReac Type Severity Reaction Status Date / Time aspirin Allergy Unknown Verified 04/16/20 14:46 Home Medications Medication Instructions Recorded Confirmed Last Taken Type Alogliptin Benzoate 25 mg PO DAILY 04/18/20 04/18/20 Unknown History Docusate Sodium [Colace CAP] 100 mg PO BID 04/18/20 04/18/20 Unknown History Ferrous Fumarate (Nf) 324 mg PO DAILY 04/18/20 04/18/20 Unknown History Furosemide 20 mg PO DAILY 04/18/20 04/18/20 Unknown History Insulin Regular, Human [HumuLIN R] 0 units SUB-Q ACHS units 04/18/20 Unknown Rx Lantus Solostar 100 units SQ QPM 04/18/20 04/18/20 Unknown History Lisinopril 5 mg PO DAILY 04/18/20 04/18/20 Unknown History Melatonin 3 mg PO QHS 04/18/20 04/18/20 Unknown History Omeprazole 40 mg PO DAILY 04/18/20 04/18/20 Unknown History Vitamin D3 1,000 unit PO DAILY 04/18/20 04/18/20 Unknown History metFORMIN 500 mg PO BID 04/18/20 04/18/20 Unknown History risperiDONE [RisperDAL] 0.5 mg PO BID #60 tablet 04/18/20 Unknown Rx traMADoL [Ultram 50 MG tab] 50 mg PO Q6HR PRN 04/18/20 04/18/20 Unknown History Active Meds: Active Medications Acetaminophen (Tylenol) 650 mg PO Q4H PRN PRN Reason: Pain MILD(1-3)/Fever >100.5/[place] Atorvastatin Calcium (Lipitor) 40 mg PO QHS [facility] Cholecalciferol (Vitamin D3) 1,000 unit PO DAILY [facility] Last Admin: 04/19/20 10:00 Dose: 1,000 unit Documented by: Dextrose (D50w (25gm) Syringe) 50 ml IV Q30MIN PRN; Protocol PRN Reason: Hypoglycemia Docusate Sodium (Colace) 100 mg PO BID [facility] Last Admin: 04/19/20 10:00 Dose: 100 mg Documented by: Ferrous Sulfate (Feosol) 325 mg PO DAILY [facility] Last Admin: 04/19/20 10:00 Dose: 325 mg Documented by: Furosemide (Lasix) 20 mg PO DAILY [facility] Last Admin: 04/19/20 10:00 Dose: 20 mg Documented by: Sodium Chloride (Nacl 0.9% 1000 Ml) 1,000 mls @ 75 mls/hr IV DIRECT [facility] Stop: 04/19/20 20:49 Insulin Glargine (Lantus) 15 units SUB-Q QHS [facility] Insulin Human Regular (Humulin R) 0 units SUB-Q ACHS [facility]; Protocol Last Admin: 04/19/20 07:30 Dose: 8 units Documented by: Levothyroxine Sodium (Synthroid) 50 mcg PO DAILY@0600 [facility] Lisinopril (Zestril) 5 mg PO DAILY [facility] Last Admin: 04/19/20 10:00 Dose: 5 mg Documented by: Lorazepam (Ativan) 1 mg IV Q4H PRN PRN Reason: Seizures Last Admin: 04/19/20 08:00 Dose: 1 mg Documented by: Miscellaneous Medication (Alogliptin Benzoate) 25 mg PO DAILY [facility] Ondansetron HCl (Zofran) 4 mg IV Q8H PRN PRN Reason: Nausea And Vomiting Pantoprazole Sodium (Protonix) 40 mg PO DAILY [facility] Last Admin: 04/19/20 10:00 Dose: 40 mg Documented by: Risperidone (Risperdal) 0.5 mg PO BID [facility] Last Admin: 04/19/20 10:20 Dose: 0.5 mg Documented by: Sodium Chloride (Sodium Chloride Flush Syringe 10 Ml) 10 ml IV BID [facility] Last Admin: 04/19/20 10:00 Dose: 10 ml Documented by: Sodium Chloride (Sodium Chloride Flush Syringe 10 Ml) 10 ml IV PRN PRN PRN Reason: LINE FLUSH Last Admin: 04/19/20 01:19 Dose: 10 ml Documented by: Tramadol HCl (Ultram) 50 mg PO Q6HR PRN PRN Reason: Pain, Moderate (4-6) Physical Examination Vital Signs BP 72/39 04/18/20 17:45 HEENT: Positive: PERRL, Normocephaly, Mucus Membranes Moist Cardiac: Positive: Regular Rate, S1/S2, PMI, Laterally Displaced Lungs: Positive: clear to auscultation, No Wheeze, Rales, Rhonchi Neuro: Positive: Other (altered mental status) Abdomen: Positive: Soft Extremities: Absent: edema Results 04/19/20 05:14 04/19/20 05:14 Cardiac Enzymes 04/19/20 Range/Units 05:14 AST 21 (5-40) units/L Lipids 04/19/20 Range/Units 05:14 Triglycerides 103 (2-149) mg/dL Cholesterol 131 (50-199) mg/dL HDL Cholesterol 49 (40-59) mg/dL Cholesterol/HDL Ratio 2.67 % CBC 04/19/20 Range/Units 05:14 WBC 6.6 (4.5-11.0) K/mm3 RBC 3.48 L (3.65-5.03) M/mm3 Hgb 8.2 L (11.8-15.2) gm/dl Hct 25.9 L (35.5-45.6) % Plt Count 234 (140-440) K/mm3 Lymph # 0.9 L (1.2-5.4) K/mm3 [place] # 0.6 (0.0-0.8) K/mm3 Eos # 0.1 (0.0-0.4) K/mm3 Baso # 0.0 (0.0-0.1) K/mm3 Comprehensive Metabolic Panel 04/19/20 Range/Units 05:14 Sodium 135 L (137-145) mmol/L Potassium 4.4 (3.6-5.0) mmol/L Chloride 99.1 (98-107) mmol/L Carbon Dioxide 24 (22-30) mmol/L BUN 27 H (9-20) mg/dL Creatinine 1.0 (0.8-1.5) mg/dL Glucose 325 H (75-100) mg/dL Calcium 8.9 (8.4-10.2) mg/dL AST 21 (5-40) units/L ALT 15 (7-56) units/L Alkaline Phosphatase 61 (35-129) units/L Total Protein 5.9 L (6.3-8.2) g/dL Albumin 3.1 L (3.9-5) g/dL EKG interpretations - Telemetry EKG Rhythm: Sinus Rhythm Assessment and Plan 1. Altered mental status etiology probably metabolic 2. Type 2 diabetes mellitus 3. Prerenal azotemia likely secondary to dehydration 4. History of heart failure currently not in congestive heart failure Plan. Check BNP, check chest x-ray, check echocardiogram, check 12-lead EKG
--- NOTE | 2020-04-19 12:09 | Progress Note ---
Subjective Date of service: 04/19/20 Principal diagnosis: Acute encephalopathy Interval history: went over the EEG and there is diffuse slowing likely from encelphaloapthy plan to check the CT and In will follow patient with you Objective - Vital Sign Vital Signs - 12hr 04/19/20 04/19/20 04/19/20 03:19 03:37 05:40 Temperature 98.7 F Pulse Rate 61 73 Pulse Rate [ 57 L Right Radial] Respiratory 19 Rate Blood Pressure 103/40 102/51 O2 Sat by Pulse 99 100 Oximetry - Laboratory Findings CBC and BMP: 04/19/20 05:14 04/19/20 05:14 Abnormal Lab Findings: Abnormal Labs 04/18/20 04/19/20 04/19/20 21:58 05:14 05:14 RBC 3.48 L Hgb 8.2 L Hct 25.9 L MCV 74 L MCH 24 L RDW 17.0 H [place] % (Auto) 9.8 H Lymph # 0.9 L Seg Neutrophils % 73.4 H Sodium 135 L BUN 27 H Glucose 325 H POC Glucose 330 H Total Protein 5.9 L Albumin 3.1 L TSH 04/19/20 04/19/20 04/19/20 07:57 08:01 11:33 RBC Hgb Hct MCV MCH RDW [place] % (Auto) Lymph # Seg Neutrophils % Sodium BUN Glucose POC Glucose 331 H 195 H Total Protein Albumin TSH 10.080 H
[2020-04-19] MEDS: INSULIN GLARGINE 100 UNITS/ML SUB-Q SCH (21:49)
[2020-04-20] MEDS: LORazepam 2 MG/ML VIAL IV PRN (04:02)
[2020-04-20] MEDS: LEVOTHYROXINE 50 MCG TAB PO SCH (05:09)
[2020-04-20 05:14] LABS: Hematocrit 27.9 % (35.5-45.6); Hemoglobin 8.7 gm/dl (11.8-15.2); Mean Corpuscular HGB Conc 31 % (32-34); Mean Corpuscular Volume 74 fl (84-94); Platelet Count 264 K/mm3 (140-440); Red Blood Count 3.77 M/mm3 (3.65-5.03); Red Cell Distribution Width 16.9 % (13.2-15.2)
[2020-04-20 05:23] LABS: BUN/Creatinine Ratio 28; Blood Urea Nitrogen 22 mg/dL (9-20); Calcium 9.2 mg/dL (8.4-10.2); Hemolysis Index 1
[2020-04-20] MEDS: INSULIN REGULAR, HUMAN 100 UNITS/1 ML SUB-Q SCH ×4 (07:30→21:47)
[2020-04-20] MEDS: FUROSEMIDE 20 MG TAB PO SCH (09:34)
[2020-04-20] MEDS: CHOLECALCIFEROL (VIT D3) 1000 UNIT (25 mcg) TAB PO SCH (09:34)
[2020-04-20] MEDS: FERROUS SULFATE 325 MG TAB PO SCH (09:34)
[2020-04-20] MEDS: PANTOPRAZOLE 40 MG TAB PO SCH (09:34)
[2020-04-20] MEDS: LINAGLIPTIN 5 MG TAB PO SCH (09:34)
[2020-04-20] MEDS: LISINOPRIL 5 MG TAB PO SCH (09:34)
[2020-04-20] MEDS: DOCUSATE SODIUM 100 MG CAP PO SCH ×2 (09:34→21:45)
[2020-04-20] MEDS: risperiDONE 0.25 MG TAB PO SCH ×2 (09:34→21:44)
--- NOTE | 2020-04-20 09:58 | Progress Note ---
Assessment and Plan 1. Altered mental status etiology probably metabolic 2. Type 2 diabetes mellitus 3. Prerenal azotemia likely secondary to dehydration 4. History of heart failure currently not in congestive heart failure 5. Hypothyroid Plan. BNP 397 TSH 10.7 check chest x-ray, check echocardiogram, check 12-lead EKG Subjective Date of service: 04/20/20 Principal diagnosis: Acute encephalopathy Interval history: Alert confused Objective Vital Signs Temp Pulse Pulse Resp Resp BP Pulse Ox 04/20/20 05:27 98.1 F 75 18 117/63 97 04/19/20 22:19 98.5 F 73 18 128/62 95 04/19/20 22:00 67 17 17 97 04/19/20 15:45 97.2 F L 79 18 108/55 96 04/19/20 11:19 97.7 F 78 19 98/54 96 - Physical Examination HEENT: Positive: PERRL, Normocephaly, Mucus Membranes Moist Neck: Positive: neck supple. Negative: JVD/HJR Cardiac: Positive: Regular Rate, S1/S2, PMI, Dilated, Laterally Displaced Lungs: Positive: clear to auscultation, No Wheeze, Rales, Rhonchi Neuro: Positive: Other (altered mental status) Abdomen: Positive: Soft Extremities: Absent: edema - Labs and Meds CBC 04/20/20 Range/Units 04:39 WBC 4.9 (4.5-11.0) K/mm3 RBC 3.77 (3.65-5.03) M/mm3 Hgb 8.7 L (11.8-15.2) gm/dl Hct 27.9 L (35.5-45.6) % Plt Count 264 (140-440) K/mm3 Comprehensive Metabolic Panel 04/20/20 Range/Units 04:39 Sodium 139 (137-145) mmol/L Potassium 4.1 (3.6-5.0) mmol/L Chloride 102.7 (98-107) mmol/L Carbon Dioxide 25 (22-30) mmol/L BUN 22 H (9-20) mg/dL Creatinine 0.8 (0.8-1.5) mg/dL Glucose 171 H (75-100) mg/dL Calcium 9.2 (8.4-10.2) mg/dL - Imaging and Cardiology EKG: report reviewed
--- NOTE | 2020-04-20 11:12 | Consultation ---
History of Present Illness - Reason for Consult Consult date: 04/20/20 Reason for consult: AMS - History of Present Psychiatric Illness The patient's medical record was reviewed and the patient's progress discussed with the nursing staff. The nurse note states the patient was awake in bed agitated and trying to get out of bed and removing remote throwing it on the shabnam or also screaming, medicated with Ativan 1mg iv per MD order. Jj Hidalgo is an 89y/o male patient who is known to me from his recent admit to the [facility] floor. I attempted to interview the patient this morning, he is lying in bed. He is in restraints. He is asleep. He arouses, but would not e ngage long enough to complete the interview. His speech is garbled. The patient says he "feels terrible" when asked how was he feeling. He could not give any insight or history as to what is going on with him. He just stares off for the rest of the interview. PAST PSYCHIATRIC HISTORY Unable to give PAST MEDICAL HISTORY: Family Psychiatric History: None reported or documented SOCIAL HISTORY Unable to give REVIEW OF SYSTEMS Unable to obtain. MENTAL STATUS EXAMINATION unable to assess Assessment and Plan Dementia w/Behavioral Disturbance Treatment Plan No changes at this time Medical: Per primary Sitter: Defer to primary Disposition: TBD, it is my clinical opinion that the patient's sudden change in mental condition is likely due to underlying medical conditions. Will follow the patient's progress Thank you for this consult Medications and Allergies Allergies Allergy/AdvReac Type Severity Reaction Status Date / Time aspirin Allergy Unknown Verified 04/16/20 14:46 Home Medications Medication Instructions Recorded Confirmed Last Taken Type Alogliptin Benzoate 25 mg PO DAILY 04/18/20 04/18/20 Unknown History Docusate Sodium [Colace CAP] 100 mg PO BID 04/18/20 04/18/20 Unknown History Ferrous Fumarate (Nf) 324 mg PO DAILY 04/18/20 04/18/20 Unknown History Furosemide 20 mg PO DAILY 04/18/20 04/18/20 Unknown History Insulin Regular, Human [HumuLIN R] 0 units SUB-Q ACHS units 04/18/20 Unknown Rx Lantus Solostar 100 units SQ QPM 04/18/20 04/18/20 Unknown History Lisinopril 5 mg PO DAILY 04/18/20 04/18/20 Unknown History Melatonin 3 mg PO QHS 04/18/20 04/18/20 Unknown History Omeprazole 40 mg PO DAILY 04/18/20 04/18/20 Unknown History Vitamin D3 1,000 unit PO DAILY 04/18/20 04/18/20 Unknown History metFORMIN 500 mg PO BID 04/18/20 04/18/20 Unknown History risperiDONE [RisperDAL] 0.5 mg PO BID #60 tablet 04/18/20 Unknown Rx traMADoL [Ultram 50 MG tab] 50 mg PO Q6HR PRN 04/18/20 04/18/20 Unknown History Active Meds: Active Medications Acetaminophen (Tylenol) 650 mg PO Q4H PRN PRN Reason: Pain MILD(1-3)/Fever >100.5/[place] Atorvastatin Calcium (Lipitor) 40 mg PO QHS [facility] Last Admin: 04/19/20 21:49 Dose: 40 mg Documented by: Cholecalciferol (Vitamin D3) 1,000 unit PO DAILY [facility] Last Admin: 04/20/20 09:34 Dose: 1,000 unit Documented by: Dextrose (D50w (25gm) Syringe) 50 ml IV Q30MIN PRN; Protocol PRN Reason: Hypoglycemia Docusate Sodium (Colace) 100 mg PO BID [facility] Last Admin: 04/20/20 09:34 Dose: 100 mg Documented by: Ferrous Sulfate (Feosol) 325 mg PO DAILY [facility] Last Admin: 04/20/20 09:34 Dose: 325 mg Documented by: Furosemide (Lasix) 20 mg PO DAILY [facility] Last Admin: 04/20/20 09:34 Dose: 20 mg Documented by: Insulin [facility] ([facility]) [facility] Admin: 04/19/20 21:49 Dose: 15 units Documented by: Insulin Human Regular (Humulin R) 0 units SUB-Q [facility]; Protocol Last Admin: 04/20/20 07:30 Dose: 3 units Documented by: Levothyroxine Sodium (Synthroid) 50 mcg PO DAILY@0600 [facility] Last Admin: 04/20/20 05:09 Dose: 50 mcg Documented by: Linagliptin (Tradjenta) 5 mg PO QDAY [facility] Last Admin: 04/20/20 09:34 Dose: 5 mg Documented by: Lisinopril (Zestril) 5 mg PO DAILY [facility] Last Admin: 04/20/20 09:34 Dose: 5 mg Documented by: Lorazepam (Ativan) 1 mg IV Q4H PRN PRN Reason: Seizures Last Admin: 04/20/20 04:02 Dose: 1 mg Documented by: Ondansetron HCl (Zofran) 4 mg IV Q8H PRN PRN Reason: Nausea And Vomiting Pantoprazole Sodium (Protonix) 40 mg PO DAILY [facility] Last Admin: 04/20/20 09:34 Dose: 40 mg Documented by: Risperidone (Risperdal) 0.5 mg PO BID [facility] Last Admin: 04/20/20 09:34 Dose: 0.5 mg Documented by: Sodium Chloride (Sodium Chloride Flush Syringe 10 Ml) 10 ml IV BID [facility] Last Admin: 04/20/20 09:35 Dose: 10 ml Documented by: Sodium Chloride (Sodium Chloride Flush Syringe 10 Ml) 10 ml IV PRN PRN PRN Reason: LINE FLUSH Last Admin: 04/19/20 01:19 Dose: 10 ml Documented by: Tramadol HCl (Ultram) 50 mg PO Q6HR PRN PRN Reason: Pain, Moderate (4-6) Mental Status Exam - Vital signs Last Vital Signs Temp 98.1 F 04/20/20 05:27 Pulse 75 04/20/20 05:27 Resp 18 04/20/20 05:27 BP 117/63 04/20/20 05:27 Pulse Ox 97 04/20/20 05:27 Results Result Diagrams: 04/20/20 04:39 04/20/20 04:39 Abnormal lab results 04/19/20 04/19/20 04/19/20 Range/Units 11:33 15:56 21:42 Hgb (11.8-15.2) gm/dl Hct (35.5-45.6) % MCV (84-94) fl MCH (28-32) pg MCHC (32-34) % RDW (13.2-15.2) % BUN (9-20) mg/dL Glucose (75-100) mg/dL POC Glucose 195 H 185 H 321 H (70-105) 04/20/20 04/20/20 04/20/20 Range/Units 04:39 04:39 07:30 Hgb 8.7 L (11.8-15.2) gm/dl Hct 27.9 L (35.5-45.6) % MCV 74 L (84-94) fl MCH 23 L (28-32) pg MCHC 31 L (32-34) % RDW 16.9 H (13.2-15.2) % BUN 22 H (9-20) mg/dL Glucose 171 H (75-100) mg/dL POC Glucose 211 H (70-105) All other labs normal.
--- NOTE | 2020-04-20 17:42 | Vascular Lab Report ---
"DUPLEX DOPPLER ULTRASOUND CAROTID, BILATERAL INDICATION: stroke. FINDINGS: RIGHT CAROTID: Mild plaque Right CCA velocity: 89 cm/sec. Right ICA peak systolic velocity: 100 cm/sec. ICA/CCA PSV Ratio: 1.1. Right Vertebral Artery: Antegrade flow. LEFT CAROTID: Mild plaque Left CCA velocity: 96 cm/sec. Left ICA peak systolic velocity: 107 cm/sec. ICA/CCA PSV Ratio: 1.1. Left Vertebral Artery: Antegrade flow. IMPRESSION: 1. Right Internal Carotid Artery: Less than 50% diameter stenosis. 2. Left Internal Carotid Artery: Less than 50% diameter stenosis. Velocity criteria are extrapolated from diameter data as defined by the Society of Radiologists in Ul trasound Consensus Conference, Radiology 2003; 229;340-346. Degree of Stenosis (%) || ICA PSV (cm/sec) || Plaque estimate (%) || ICA/CCA PSV Ratio Normal <125 None <2.0 <50 <125 <50 <2.0 50-69 125-230 50 2.0-4.0 70 but less than 100 >230 50 >4.0 Near occlusion High, low, or none visible variable Total occlusion None visible; no lumen N/A Signer Name: Hitesh Raygoza MD Signed: 04/20/2020 5:37 PM Workstation Name: [id number]"
--- NOTE | 2020-04-20 19:23 | Progress Note ---
Assessment and Plan Day #2 CVA work-up in progress Patient is still agitated and confused psych consult requested Day #3 Waiting for MRI - Patient Problems (1) Acute encephalopathy Current Visit: Yes Status: Acute Plan to address problem: Differential diagnosis of cerebrovascular accident and meningeal infection Stroke work-up initiated LP if necessary (2) Acute CVA (cerebrovascular accident) Current Visit: Yes Status: Acute Plan to address problem: Possible frontal stroke cough and dementia and confusion Check MRI carotid duplex scan and echocardiogram Neurology consult requested (3) Hypertension Current Visit: Yes Status: Chronic Qualifiers: Hypertension type: essential hypertension Qualified Code(s): I10 - Essenti al (primary) hypertension Plan to address problem: Continue antihypertensives (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: Yes Status: Chronic Plan to address problem: Continue Lantus and short-acting insulin Check hemoglobin A1c Adjust insulin dosage (5) Agitation due to dementia Current Visit: Yes Status: Acute Plan to address problem: Psychiatric consultation (6) DVT prophylaxis Current Visit: Yes Status: Acute Plan to address problem: On heparin and GI prophylaxis Subjective Date of service: 04/20/20 Principal diagnosis: Acute encephalopathy Interval history: Patient admitted for acute onset of confusion and agitation. Transferred from [facility] for evaluation of possible cerebrovascular accident and rule out meningeal infection. No fever. No neck stiffness. Work-up in progress. Objective - Constitutional Vitals: Vital Signs - 12hr 04/20/20 04/20/20 11:35 17:04 Temperature 97.3 F L 97.6 F Pulse Rate 70 91 H Respiratory 18 18 Rate Blood Pressure 107/51 116/50 O2 Sat by Pulse 99 97 Oximetry General appearance: Present: no acute distress, well-nourished - EENT Eyes: PERRL, EOM intact ENT: hearing intact, clear oral mucosa Ears: bilateral: normal - Neck Neck: supple, normal ROM - Respiratory Respiratory effort: normal Respiratory: bilateral: CTA - Breasts Breasts: normal - Cardiovascular Rhythm: regular Heart Sounds: Present: S1 & S2. Absent: gallop, rub Extremities: pulses intact, No edema, normal color, Full ROM - Gastrointestinal General gastrointestinal: Present: soft, non-tender, non-distended, normal bowel sounds - Genitourinary Male genitourinary: normal - Integumentary Integumentary: clear, warm, dry - Musculoskeletal Musculoskeletal: 1, strength equal bilaterally - Neurologic Neurologic: moves all extremities - Psychiatric Psychiatric: memory intact, appropriate mood/affect, intact judgment & insight - Labs CBC & Chem 7: 04/20/20 04:39 04/20/20 04:39 Labs: Abnormal lab results 04/19/20 04/20/20 04/20/20 Range/Units 21:42 04:39 04:39 Hgb 8.7 L (11.8-15.2) gm/dl Hct 27.9 L (35.5-45.6) % MCV 74 L (84-94) fl MCH 23 L (28-32) pg MCHC 31 L (32-34) % RDW 16.9 H (13.2-15.2) % BUN 22 H (9-20) mg/dL Glucose 171 H (75-100) mg/dL POC Glucose 321 H (70-105) 04/20/20 04/20/20 04/20/20 Range/Units 07:30 11:47 17:19 Hgb (11.8-15.2) gm/dl Hct (35.5-45.6) % MCV (84-94) fl MCH (28-32) pg MCHC (32-34) % RDW (13.2-15.2) % BUN (9-20) mg/dL Glucose (75-100) mg/dL POC Glucose 211 H 126 H 196 H (70-105)
[2020-04-20] MEDS: INSULIN GLARGINE 100 UNITS/ML SUB-Q SCH (21:44)
[2020-04-20] MEDS ORDERED: risperiDONE 1 MG TAB PO SCH (22:00)
[2020-04-21] MEDS: LORazepam 2 MG/ML VIAL IV PRN ×3 (00:03→20:11)
[2020-04-21] MEDS: LEVOTHYROXINE 50 MCG TAB PO SCH (05:56)
[2020-04-21] MEDS: INSULIN REGULAR, HUMAN 100 UNITS/1 ML SUB-Q SCH ×4 (08:50→22:01)
[2020-04-21 11:23] LABS: INR 0.99 (0.87-1.13)
--- NOTE | 2020-04-21 11:28 | Progress Note ---
Assessment and Plan Abnormal ECG Altered mental status Hypothyroidism TSH 12.5 Diabetes Anemia An echo this admission reveals 4 chamber dilation with a decreased left ventricular systolic function, ejection fraction 40-45%. Negative bubble study. Subjective Date of service: 04/21/20 Principal diagnosis: Acute encephalopathy Interval history: Patient with reports of agitation this morning. Currently resting in bed comfortably with restraints in place. 12 lead ECG and telemetry strips reviewed. Objective Vital Signs Temp Pulse Pulse Resp Resp BP Pulse Ox 04/21/20 11:15 97.4 F L 54 L 18 115/52 97 04/21/20 06:47 63 04/21/20 05:16 97.6 F 63 18 101/45 100 04/20/20 22:00 66 16 16 96 04/20/20 21:18 99.0 F 85 20 112/60 97 04/20/20 17:04 97.6 F 91 H 18 116/50 97 04/20/20 11:35 97.3 F L 70 18 107/51 99 - Physical Examination General: No Apparent Distress Cardiac: Positive: Irregularly Regular Neuro: Positive: Other (altered mental status) Abdomen: Positive: Soft Extremities: Absent: edema - Labs and Meds Coagulation 04/21/20 Range/Units 10:35 PT 12.9 (12.2-14.9) Sec. INR 0.99 (0.87-1.13) - Imaging and Cardiology EKG: report reviewed
[2020-04-21] MEDS: FUROSEMIDE 20 MG TAB PO SCH (11:37)
[2020-04-21] MEDS: CHOLECALCIFEROL (VIT D3) 1000 UNIT (25 mcg) TAB PO SCH (11:38)
[2020-04-21] MEDS: DOCUSATE SODIUM 100 MG CAP PO SCH ×2 (11:38→21:17)
[2020-04-21] MEDS: PANTOPRAZOLE 40 MG TAB PO SCH (11:38)
[2020-04-21] MEDS: FERROUS SULFATE 325 MG TAB PO SCH (11:38)
[2020-04-21] MEDS: LINAGLIPTIN 5 MG TAB PO SCH (11:38)
[2020-04-21] MEDS: risperiDONE 0.25 MG TAB PO SCH ×2 (11:39→21:16)
[2020-04-21] MEDS: LISINOPRIL 5 MG TAB PO SCH (11:40)
--- NOTE | 2020-04-21 13:57 | Progress Note ---
Subjective Date of service: 04/21/20 Principal diagnosis: Acute encephalopathy Interval history: plan to check MRI if we can get partient to cooperate previously ativan was fairly effectiive and we may need that for sedation IMO plan to follow Objective - Vital Sign Vital Signs - 12hr 04/21/20 04/21/20 04/21/20 05:16 06:47 11:15 Temperature 97.6 F 97.4 F L Pulse Rate 63 63 54 L Respiratory 18 18 Rate Blood Pressure 101/45 115/52 O2 Sat by Pulse 100 97 Oximetry 04/21/20 11:40 Temperature Pulse Rate 54 L Respiratory Rate Blood Pressure 115/52 O2 Sat by Pulse Oximetry - Laboratory Findings CBC and BMP: 04/20/20 04:39 04/20/20 04:39 Abnormal Lab Findings: Abnormal Labs 04/18/20 04/19/20 04/19/20 21:58 05:14 05:14 RBC 3.48 L Hgb 8.2 L Hct 25.9 L MCV 74 L MCH 24 L MCHC RDW 17.0 H [place] % (Auto) 9.8 H Lymph # 0.9 L Seg Neutrophils % 73.4 H Sodium 135 L BUN 27 H Glucose 325 H POC Glucose 330 H Total Protein 5.9 L Albumin 3.1 L TSH 04/19/20 04/19/20 04/19/20 07:57 08:01 11:33 RBC Hgb Hct MCV MCH MCHC RDW [place] % (Auto) Lymph # Seg Neutrophils % Sodium BUN Glucose POC Glucose 331 H 195 H Total Protein Albumin TSH 10.080 H 04/19/20 04/19/20 04/20/20 15:56 21:42 04:39 RBC Hgb 8.7 L Hct 27.9 L MCV 74 L MCH 23 L MCHC 31 L RDW 16.9 H [place] % (Auto) Lymph # Seg Neutrophils % Sodium BUN Glucose POC Glucose 185 H 321 H Total Protein Albumin TSH 04/20/20 04/20/20 04/20/20 04:39 07:30 11:47 RBC Hgb Hct MCV MCH MCHC RDW [place] % (Auto) Lymph # Seg Neutrophils % Sodium BUN 22 H Glucose 171 H POC Glucose 211 H 126 H Total Protein Albumin TSH 04/20/20 04/20/20 04/21/20 17:19 21:33 08:16 RBC Hgb Hct MCV MCH MCHC RDW [place] % (Auto) Lymph # Seg Neutrophils % Sodium BUN Glucose POC Glucose 196 H 384 H 162 H Total Protein Albumin TSH 04/21/20 11:31 RBC Hgb Hct MCV MCH MCHC RDW [place] % (Auto) Lymph # Seg Neutrophils % Sodium BUN Glucose POC Glucose 133 H Total Protein Albumin TSH
--- NOTE | 2020-04-21 14:04 | Progress Note ---
Subjective Date of service: 04/21/20 Principal diagnosis: Acute encephalopathy Interval history: sorry for my prior note as I was going over chart further found the comment about metal arounf eye clearly can not take risk of MRI this is updated version Objective - Vital Sign Vital Signs - 12hr 04/21/20 04/21/20 04/21/20 05:16 06:47 11:15 Temperature 97.6 F 97.4 F L Pulse Rate 63 63 54 L Respiratory 18 18 Rate Blood Pressure 101/45 115/52 O2 Sat by Pulse 100 97 Oximetry 04/21/20 11:40 Temperature Pulse Rate 54 L Respiratory Rate Blood Pressure 115/52 O2 Sat by Pulse Oximetry - Laboratory Findings CBC and BMP: 04/20/20 04:39 04/20/20 04:39 Abnormal Lab Findings: Abnormal Labs 04/18/20 04/19/20 04/19/20 21:58 05:14 05:14 RBC 3.48 L Hgb 8.2 L Hct 25.9 L MCV 74 L MCH 24 L MCHC RDW 17.0 H [place] % (Auto) 9.8 H Lymph # 0.9 L Seg Neutrophils % 73.4 H Sodium 135 L BUN 27 H Glucose 325 H POC Glucose 330 H Total Protein 5.9 L Albumin 3.1 L TSH 04/19/20 04/19/20 04/19/20 07:57 08:01 11:33 RBC Hgb Hct MCV MCH MCHC RDW [place] % (Auto) Lymph # Seg Neutrophils % Sodium BUN Glucose POC Glucose 331 H 195 H Total Protein Albumin TSH 10.080 H 04/19/20 04/19/20 04/20/20 15:56 21:42 04:39 RBC Hgb 8.7 L Hct 27.9 L MCV 74 L MCH 23 L MCHC 31 L RDW 16.9 H [place] % (Auto) Lymph # Seg Neutrophils % Sodium BUN Glucose POC Glucose 185 H 321 H Total Protein Albumin TSH 04/20/20 04/20/20 04/20/20 04:39 07:30 11:47 RBC Hgb Hct MCV MCH MCHC RDW [place] % (Auto) Lymph # Seg Neutrophils % Sodium BUN 22 H Glucose 171 H POC Glucose 211 H 126 H Total Protein Albumin TSH 04/20/20 04/20/20 04/21/20 17:19 21:33 08:16 RBC Hgb Hct MCV MCH MCHC RDW [place] % (Auto) Lymph # Seg Neutrophils % Sodium BUN Glucose POC Glucose 196 H 384 H 162 H Total Protein Albumin TSH 04/21/20 11:31 RBC Hgb Hct MCV MCH MCHC RDW [place] % (Auto) Lymph # Seg Neutrophils % Sodium BUN Glucose POC Glucose 133 H Total Protein Albumin TSH
--- NOTE | 2020-04-21 16:17 | Magnetic Resonance Report ---
MRI BRAIN WITHOUT CONTRAST INDICATION / CLINICAL INFORMATION: Encephalopathy. Altered mental status with confusion. TECHNIQUE: Multiplanar, multisequence MR images of the brain were obtained. COMPARISON: Head CT 04/16/2020 FINDINGS: LIMITATION: Magnetic susceptibility artifact secondary to metallic pellet lodged in the right forehea d and its evaluation of the right frontal lobe and facial structures. This is most problematic on gra dient echo T2* weighted imaging and diffusion weighted scans but remains limiting factor on other pul se sequences as well. In addition patient motion artifact is limiting factor on this examination. BRAIN / INTRACRANIAL CONTENTS: Ventricles and cortical sulci are within normal limits for size and co nfiguration given the patient's stated age of 89 years. Periventricular and deep white matter hyperin tensities are noted consistent with age-related microvascular ischemic changes. There is no mass effe ct. All the pole punctate microhemorrhages are observed in the periphery of both cerebral hemispheres . Findings are most compatible with a diagnosis of amyloid angiopathy. No evidence of recent intracra nial hemorrhage or extra-axial fluid collection is seen. There is no indication of remote cortical in farction. Diffusion weighted scans are negative. There is no indication of acute ischemic injury. The brainstem and cerebellum have an unremarkable appearance. CRANIOCERVICAL JUNCTION: No abnormalities are identified at the craniocervical junction. VASCULAR FLOW-VOIDS: Normal flow-voids are present within the major intracranial vessels. ORBITS: Status post bilateral cataract surgery. Evaluation is limited due to magnetic susceptibility artifact of patient motion. SINUSES / MASTOIDS: Opacification of the left frontal sinus. Consider possible left frontal sinusitis . Maxillary sinuses, sphenoid sinuses and ethmoid air cells are largely free from inflammatory mucosa l disease. There is no indication of mastoiditis. IMPRESSION: 1. Multiple remote microhemorrhages in the periphery of both cerebral hemispheres most consistent wit h the diagnosis of amyloid angiopathy. 2. No acute intracranial abnormality. 3. Study is limited by magnetic susceptibility artifact originating from a metallic foreign body in t he right forehead. Study is also limited by patient motion artifact. Signer Name: Dat Woodall MD Signed: 04/21/2020 4:12 PM Workstation Name: [email or web address]
--- NOTE | 2020-04-21 17:07 | Magnetic Resonance Report ---
MRI BRAIN WITHOUT CONTRAST INDICATION / CLINICAL INFORMATION: Encephalopathy. Altered mental status with confusion. TECHNIQUE: Multiplanar, multisequence MR images of the brain were obtained. COMPARISON: Head CT 04/16 FINDINGS: LIMITATION: Magnetic susceptibility artifact secondary to metallic pellet lodged in the right forehea d and its evaluation of the right frontal lobe and facial structures. This is most problematic on gra dient echo T2* weighted imaging and diffusion weighted scans but remains limiting factor on other pul se sequences as well. In addition patient motion artifact is limiting factor on this examination. BRAIN / INTRACRANIAL CONTENTS: Ventricles and cortical sulci are within normal limits for size and co nfiguration given the patient's stated age of 89 years. Periventricular and deep white matter hyperin tensities are noted consistent with age-related microvascular ischemic changes. There is no mass effe ct. All the pole punctate microhemorrhages are observed in the periphery of both cerebral hemispheres . Findings are most compatible with a diagnosis of amyloid angiopathy. No evidence of recent intracra nial hemorrhage or extra-axial fluid collection is seen. There is no indication of remote cortical in farction. Diffusion weighted scans are negative. There is no indication of acute ischemic injury. Th e brainstem and cerebellum have an unremarkable appearance. CRANIOCERVICAL JUNCTION: No abnormalities are identified at the craniocervical junction. VASCULAR FLOW-VOIDS: Normal flow-voids are present within the major intracranial vessels. ORBITS: St atus post bilateral cataract surgery. Evaluation is limited due to magnetic susceptibility artifact o f patient motion. SINUSES / MASTOIDS: Opacification of the left frontal sinus. Consider possible left frontal sinusitis . Maxillary sinuses, sphenoid sinuses and ethmoid air cells are largely free from inflammatory mucosa l disease. There is no indication of mastoiditis. IMPRESSION: 1. Multiple remote microhemorrhages in the periphery of both cerebral hemispheres most consistent wit h the diagnosis of amyloid angiopathy. 2. No acute intracranial abnormality. 3. Study is limited by magnetic susceptibility artifact originating from a metallic foreign body in t he right forehead. Study is also limited by patient motion artifact. Signer Name: Dat Woodall MD Signed: 04/21/2020 5:03 PM Workstation Name: [email or web address]
[2020-04-21] MEDS: INSULIN GLARGINE 100 UNITS/ML SUB-Q SCH (22:00)
[2020-04-22] MEDS: LORazepam 2 MG/ML VIAL IV PRN ×2 (04:31→22:26)
[2020-04-22] MEDS: LEVOTHYROXINE 50 MCG TAB PO SCH (05:11)
--- NOTE | 2020-04-22 08:21 | Progress Note ---
Assessment and Plan Day #2 CVA work-up in progress Patient is still agitated and confused psych consult requested - Patient Problems (1) Acute encephalopathy Current Visit: Yes Status: Acute Plan to address problem: Differential diagnosis of cerebrovascular accident and meningeal infection Stroke work-up initiated MRI could not be done because of metal artifacts in the orbital region Patient is medically cleared to go to [facility] floor (2) Acute CVA (cerebrovascular accident) Current Visit: Yes Status: Acute Plan to address problem: Possible frontal stroke cough and dementia and confusion Check MRI carotid duplex scan and echocardiogram Neurology consult requested No acute CVA Patient moving all 4 extremities Patient is agitated intermittently Consistent with dementia with agitation Spoke with daughter extensively May need placement in senior care facility To talk to her again (3) Hypertension Current Visit: Yes Status: Chronic Qualifiers: Hypertension type: essential hypertension Qualified Code(s): I10 - Essential (primary) hypertension Plan to address problem: Continue antihypertensives (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: Yes Status: Chronic Plan to address problem: Continue Lantus and short-acting insulin Check hemoglobin A1c Adjust insulin dosage (5) Agitation due to dementia Current Visit: Yes Status: Acute Plan to address problem: Psychiatric consultation (6) DVT prophylaxis Current Visit: Yes Status: Acute Plan to address problem: On heparin and GI prophylaxis (7) Discharge planning issues Current Visit: Yes Status: Acute Plan to address problem: MRI could not be done because of metal artifacts in the orbital region Patient does not need LP Patient is medically cleared to go to [facility] or senior care facility Talked with daughter at length Daughter is agreeable for senior care facility Primary team and director case/manager social work to talk to the daughter again Subjective Date of service: 04/21/20 Principal diagnosis: Acute encephalopathy Interval history: Patient admitted for acute onset of confusion and agitation. Transferred from [facility] for evaluation of possible cerebrovascular accident and rule out meningeal infection. No fever. No neck stiffness. Work-up in progress. Patient alert and talking lucidly Objective - Constitutional Vitals: Vital Signs - 12hr 04/21/20 04/21/20 04/22/20 21:49 22:00 04:35 Temperature 98.9 F 98.5 F Pulse Rate 69 Pulse Rate [ 69 Right Radial] Respiratory 20 16 16 Rate Blood Pressure 120/52 130/53 O2 Sat by Pulse 95 97 Oximetry General appearance: Present: no acute distress, well-nourished - EENT Eyes: PERRL, EOM intact ENT: hearing intact, clear oral mucosa Ears: bilateral: normal - Neck Neck: supple, normal ROM - Respiratory Respiratory effort: normal Respiratory: bilateral: CTA - Breasts Breasts: normal - Cardiovascular Heart rate: 78 Rhythm: regular Heart Sounds: Present: S1 & S2. Absent: gallop, rub Extremities: pulses intact, No edema, normal color, Full ROM - Gastrointestinal General gastrointestinal: Present: soft, non-tender, non-distended, normal bowel sounds - Genitourinary Male genitourinary: normal - Integumentary Integumentary: clear, warm, dry - Musculoskeletal Musculoskeletal: 1, strength equal bilaterally - Neurologic Neurologic: moves all extremities - Psychiatric Psychiatric: memory intact, appropriate mood/affect, intact judgment & insight - Labs CBC & Chem 7: 04/20/20 04:39 04/20/20 04:39 Labs: Abnormal lab results 04/21/20 04/21/20 04/21/20 Range/Units 11:31 12:54 22:01 POC Glucose 133 H 229 H (70-105) Digoxin 0.3 L (0.9-2.0) ng/mL 04/22/20 Range/Units 07:41 POC Glucose 145 H (70-105) Digoxin (0.9-2.0) ng/mL
[2020-04-22] MEDS: INSULIN REGULAR, HUMAN 100 UNITS/1 ML SUB-Q SCH ×4 (08:25→23:46)
--- NOTE | 2020-04-22 09:54 | Progress Note ---
Assessment and Plan Abnormal ECG marked baseline artifact which causes difficulty with optimal interpretation of his ECGs Altered mental status Hypothyroidism TSH 12.5 Diabetes Anemia An echo this admission reveals 4 chamber dilation with a decreased left ventricular systolic function, ejection fraction 40-45%. Negative bubble study. Conservative cardiac management. Subjective Date of service: 04/22/20 Principal diagnosis: Acute encephalopathy Interval history: Patient is resting in bed comfortably with restraints in place. Digoxin level at 0.3. Blood pressure is stable. Objective Vital Signs Temp Pulse Pulse Resp BP Pulse Ox 04/22/20 04:35 98.5 F 69 16 130/53 97 04/21/20 22:00 69 16 95 04/21/20 21:49 98.9 F 20 120/52 04/21/20 17:01 98.0 F 74 18 111/64 96 04/21/20 11:40 54 L 115/52 04/21/20 11:15 97.4 F L 54 L 18 115/52 97 04/21/20 10:00 64 16 95 - Physical Examination General: No Apparent Distress Cardiac: Positive: Other (unable to interpret d/t baseline artifact) Neuro: Positive: Other (altered mental status) Extremities: Absent: edema - Labs and Meds Coagulation 04/21/20 Range/Units 10:35 PT 12.9 (12.2-14.9) Sec. INR 0.99 (0.87-1.13)
--- NOTE | 2020-04-22 11:39 | Progress Note ---
Assessment and Plan Assessment and plan: (1) Acute encephalopathy Current Visit: Yes Status: Acute Plan to address problem: Differential diagnosis of cerebrovascular accident and meningeal infection Stroke work-up initiated MRI could not be done because of metal artifacts in the orbital region Patient is medically cleared to go to [facility] (2) Acute CVA (cerebrovascular accident) Current Visit: Yes Status: Acute Plan to address problem: Possible frontal stroke cough and dementia and confusion Check MRI carotid duplex scan and echocardiogram Neurology consult requested No acute CVA Patient moving all 4 extremities Patient is agitated intermittently Consistent with dementia with agitation Spoke with daughter extensively May need placement in snf facility To talk to her again (3) Hypertension Current Visit: Yes Status: Chronic Qualifiers: Hypertension type: essential hypertension Qualified Code(s): I10 - Essential (primary) hypertension Plan to address problem: Continue antihypertensives (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: Yes Status: Chronic Plan to address problem: Continue Lantus and short-acting insulin Check hemoglobin A1c Adjust insulin dosage (5) Agitation due to dementia Current Visit: Yes Status: Acute Plan to address problem: Psychiatric consultation (6) DVT prophylaxis Current Visit: Yes Status: Acute Plan to address problem: On heparin and GI prophylaxis (7) Discharge planning issues Current Visit: Yes Status: Acute Plan to address problem: MRI could not be done because of metal artifacts in the orbital region Patient does not need LP Patient is medically cleared to go to [facility] or snf facility Talked with daughter at length Daughter is agreeable for snf facility Primary team and catalytic case operator/social services specialist to talk to the daughter again 04/22/2020. MRI reveals multiple remote microhemorrhages in the periphery of both cerebral hemispheres most consistent with a diagnosis of amyloid angiopathy. Await neurology recommendations. History Interval history: Pt confused Hospitalist Physical - Constitutional Vitals: Temp Pulse Resp BP Pulse Ox 98.5 F 69 16 130/53 97 04/22/20 04:35 04/22/20 04:35 04/22/20 04:35 04/22/20 04:35 04/22/20 04:35 General appearance: Present: no acute distress, well-nourished - EENT Eyes: Present: PERRL, EOM intact ENT: hearing intact, clear oral mucosa, dentition normal - Neck Neck: Present: supple, normal ROM - Respiratory Respiratory effort: normal Respiratory: bilateral: CTA - Cardiovascular Rhythm: regular Heart Sounds: Present: S1 & S2. Absent: gallop, rub - Extremities Extremities: no ischemia, No edema, Full ROM - Abdominal General gastrointestinal: soft, non-tender, non-distended, normal bowel sounds - Integumentary Integumentary: Present: clear, warm, dry - Neurologic Neurologic: CNII-XII intact, moves all extremities Results - Labs CBC & Chem 7: 04/20/20 04:39 04/20/20 04:39 Labs: Laboratory Last Values WBC 4.9 K/mm3 (4.5-11.0) 04/20/20 04:39 RBC 3.77 M/mm3 (3.65-5.03) 04/20/20 04:39 Hgb 8.7 gm/dl (11.8-15.2) L 04/20/20 04:39 Hct 27.9 % (35.5-45.6) L 04/20/20 04:39 MCV 74 fl (84-94) L 04/20/20 04:39 MCH 23 pg (28-32) L 04/20/20 04:39 MCHC 31 % (32-34) L 04/20/20 04:39 RDW 16.9 % (13.2-15.2) H 04/20/20 04:39 Plt Count 264 K/mm3 (140-440) 04/20/20 04:39 Lymph % (Auto) 14.2 % (13.4-35.0) 04/19/20 05:14 [place] % (Auto) 9.8 % (0.0-7.3) H 04/19/20 05:14 Eos % (Auto) 1.9 % (0.0-4.3) 04/19/20 05:14 Baso % (Auto) 0.7 % (0.0-1.8) 04/19/20 05:14 Lymph # 0.9 K/mm3 (1.2-5.4) L 04/19/20 05:14 [place] # 0.6 K/mm3 (0.0-0.8) 04/19/20 05:14 Eos # 0.1 K/mm3 (0.0-0.4) 04/19/20 05:14 Baso # 0.0 K/mm3 (0.0-0.1) 04/19/20 05:14 Seg Neutrophils % 73.4 % (40.0-70.0) H 04/19/20 05:14 Seg Neutrophils # 4.8 K/mm3 (1.8-7.7) 04/19/20 05:14 PT 12.9 Sec. (12.2-14.9) 04/21/20 10:35 INR 0.99 (0.87-1.13) 04/21/20 10:35 Sodium 139 mmol/L (137-145) 04/20/20 04:39 Potassium 4.1 mmol/L (3.6-5.0) 04/20/20 04:39 Chloride 102.7 mmol/L (98-107) 04/20/20 04:39 Carbon Dioxide 25 mmol/L (22-30) 04/20/20 04:39 Anion Gap 15 mmol/L 04/20/20 04:39 BUN 22 mg/dL (9-20) H 04/20/20 04:39 Creatinine 0.8 mg/dL (0.8-1.5) 04/20/20 04:39 Estimated GFR > 60 ml/min 04/20/20 04:39 BUN/Creatinine Ratio 28 % 04/20/20 04:39 Glucose 171 mg/dL (75-100) H 04/20/20 04:39 POC Glucose 145 (70-105) H 04/22/20 07:41 Calcium 9.2 mg/dL (8.4-10.2) 04/20/20 04:39 Total Bilirubin 0.20 mg/dL (0.1-1.2) 04/19/20 05:14 AST 21 units/L (5-40) 04/19/20 05:14 ALT 15 units/L (7-56) 04/19/20 05:14 Alkaline Phosphatase 61 units/L (35-129) 04/19/20 05:14 NT-Pro-B Natriuret Pep 387.1 pg/mL (0-900) 04/19/20 05:14 Total Protein 5.9 g/dL (6.3-8.2) L 04/19/20 05:14 Albumin 3.1 g/dL (3.9-5) L 04/19/20 05:14 Albumin/Globulin Ratio 1.1 % 04/19/20 05:14 Triglycerides 103 mg/dL (2-149) 04/19/20 05:14 Cholesterol 131 mg/dL (50-199) 04/19/20 05:14 LDL Cholesterol Direct 76 mg/dL (50-130) 04/19/20 05:14 HDL Cholesterol 49 mg/dL (40-59) 04/19/20 05:14 Cholesterol/HDL Ratio 2.67 % 04/19/20 05:14 TSH 10.080 mlU/mL (0.270-4.200) H 04/19/20 07:57 Free T4 1.20 ng/dL (0.76-1.46) 04/19/20 07:57 Digoxin 0.3 ng/mL (0.9-2.0) L 04/21/20 12:54 - Diagnostic Impressions Diagnostic Impressions: Echocardiogram 04/18/20 22:16 Transthoracic Echocardiogram Indication: stroke BP: 102/51 HR: 75 Conclusions *The left ventricular chamber size is mildly dilated. *Global left ventricular systolic function is mild to moderately decreased. *The estimated ejection fraction is 40-45%. *The left atrium is mild to moderately dilated. *The right heart chambers are mild to moderately dilated. *There is mild mitral regurgitation. *There is mild to moderate tricuspid regurgitation. *There is evidence of borderline pulmonary hypertension. *The right ventricular systolic pressure is calculated at 24 mmHg. *A patent foramen ovale is not demonstrated by agitated saline contrast. Findings Left Ventricle: The left ventricular chamber size is mildly dilated. Mild concentric left ventricular hypertrophy is observed. Global left ventricular systolic function is mild to moderately decreased. The estimated ejection fraction is 40-45%. Abnormal left ventricular diastolic function is observed. Left Atrium: The left atrium is mild to moderately dilated. Right Ventricle: The right ventricle is mild to moderately dilated. The right ventricular global systolic function is moderately reduced. Right Atrium: The right atrium is mildly dilated. A patent foramen ovale is not demonstrated by agitated saline contrast. Aortic Valve: The aortic valve is trileaflet. The aortic valve leaflets are mildly thickened. There is no evidence of aortic regurgitation. There is no evidence of aortic stenosis. Mitral Valve: The mitral valve leaflets are mildly thickened. There is mild mitral regurgitation. There is no evidence of mitral stenosis. Tricuspid Valve: The tricuspid valve leaflets are normal. There is mild to moderate tricuspid regurgitation. The right ventricular systolic pressure is calculated at 24 mmHg. There is evidence of borderline pulmonary hypertension. Pulmonic Valve: The pulmonic valve appears normal. There is trace pulmonic regurgitation. Pericardium: There is no pericardial effusion. Aorta: There is no dilatation of the aortic root. Venous: The inferior vena cava is not visualized. The inferior vena cava appears normal in size. Contrast: Intravenous agitated saline contrast was used to assess intracardiac shunting. Measurements Chambers 2D Name Value Normal Range IVSd (2D) 1.21 cm (0.6 - 1.1) LVPWd (2D) 1.21 cm (0.6 - 1.1) LVIDd (2D) 3.35 cm (3.7 - 5.6) LVIDs (2D) 2.44 cm (2 - 3.8) LV FS (2D) 27.09 % - EF Teichholz (2D) 53.99 % - Ao root diameter (2D) 4.05 cm (2 - 3.7) Volumes/Mass Name Value Normal Range LA ESV SP 4CH (A/L) 60.11 ml - LA ESV SP 2CH (A/L) 60.34 ml - LA ESV BP (A/L) 64.62 ml - LA ESV SP 4CH (MOD) 55.46 ml - LA ESV SP 2CH (MOD) 56.14 ml - LA ESV BP (MOD) 59.51 ml - LA ESV BP (MOD) index 33.25 ml/m2 - LV EDV SP 4CH (MOD) 125.55 ml - LV ESV SP 4CH (MOD) 48.88 ml - EF SP 4CH (MOD) 61.07 % - LV EDV SP 2CH (MOD) 107.05 ml - LV ESV SP 2CH (MOD) 63.77 ml - EF SP 2CH (MOD) 40.43 % - LV EDV BP 116.16 ml - LV ESV BP 57.68 ml - BP EF (MOD) 50.34 % - Diastolic/Systolic Function Name Value Normal Range MV E-wave Vmax 0.54 m/sec - MV deceleration time 147.66 msec - MV A-wave Vmax 0.66 m/sec - MV E:A ratio 0.82 ratio - Aortic Valve Name Value Normal Range AV Vmax 0.86 m/sec - AV VTI 11.37 cm - AV peak gradient 2.97 mmHg - AV mean gradient 1.5 mmHg - LVOT diameter 2.01 cm - LVOT Vmax 0.44 m/sec - LVOT VTI 7.57 cm - LVOT peak gradient 0.78 mmHg - LVOT mean gradient 0.46 mmHg - SV LVOT 24.03 ml - NARINDER (continuity Vmax) 1.63 cm2 - NARINDER (continuity VTI) 2.11 cm2 - Ascending Ao 3.72 cm - Tricuspid Valve Name Value Normal Range TR Vmax 2.31 m/sec - TR peak gradient 21 mmHg - RAP 3 mmHg - RVSP 24 mmHg - Pulmonic Valve/Qp:Qs Name Value Normal Range PV Vmax 1.11 m/sec - PV peak gradient 4.89 mmHg - RVOT Vmax 0.85 m/sec - RVOT peak gradient 2.87 mmHg - PV acceleration time 114.18 msec - [place]/IV: Voiding Method Condom Catheter IV Catheter Type [Right INT / Saline Lock Antecubital] Active Medications - Current Medications Current Medications: Generic Name Dose Route Start Last Admin Trade Name Freq PRN Reason Stop Dose Admin Acetaminophen 650 mg 04/18/20 22:06 Tylenol PO Q4H PRN Pain MILD(1-3)/Fever >100.5/[place] Atorvastatin Calcium 40 mg 04/19/20 22:00 04/21/20 21:17 Lipitor PO 40 mg QHS JOSELIN Administration Cholecalciferol 1,000 unit 04/19/20 10:00 04/21/20 11:38 Vitamin D3 PO 1,000 unit DAILY JOSELIN Administration Dextrose 50 ml 04/19/20 00:54 D50w (25gm) Syringe IV Q30MIN PRN Hypoglycemia Protocol Docusate Sodium 100 mg 04/18/20 22:00 04/21/20 21:17 Colace PO 100 mg BID JOSELIN Administration Ferrous Sulfate 325 mg 04/19/20 10:00 04/21/20 11:38 Feosol PO 325 mg DAILY JOSELIN Administration Furosemide 20 mg 04/19/20 10:00 04/21/20 11:37 Lasix PO 20 mg DAILY JOSELIN Administration Insulin Glargine 15 units 04/19/20 22:00 04/21/20 22:00 Lantus SUB-Q 15 units QHS JOSELIN Administration Insulin Human Regular 0 units 04/19/20 01:15 04/22/20 08:25 Humulin R SUB-Q Not Given ACHS [facility] Protocol Levothyroxine Sodium 50 mcg 04/20/20 06:00 04/22/20 05:11 Synthroid PO 50 mcg DAILY@0600 JOSELIN Administration Linagliptin 5 mg 04/20/20 10:00 04/21/20 11:38 Tradjenta PO 5 mg QDAY JOSELIN Administration Lisinopril 5 mg 04/19/20 10:00 04/21/20 11:40 Zestril PO Not Given DAILY JOSELIN Lorazepam 1 mg 04/19/20 07:36 04/22/20 04:31 Ativan IV 1 mg Q4H PRN Administration Seizures Ondansetron HCl 4 mg 04/18/20 22:06 Zofran IV Q8H PRN Nausea And Vomiting Pantoprazole Sodium 40 mg 04/19/20 10:00 04/21/20 11:38 Protonix PO 40 mg DAILY JOSELIN Administration Risperidone 0.5 mg 04/20/20 22:00 04/21/20 21:16 Risperdal PO 0.5 mg BID JOSELIN Administration Sodium Chloride 10 ml 04/18/20 23:00 04/21/20 21:18 Sodium Chloride Flush Syringe 10 Ml IV 10 ml BID JOSELIN Administration Sodium Chloride 10 ml 04/18/20 22:06 04/19/20 01:19 Sodium Chloride Flush Syringe 10 Ml IV 10 ml PRN PRN Administration LINE FLUSH Tramadol HCl 50 mg 04/18/20 21:57 Ultram PO Q6HR PRN Pain, Moderate (4-6)
[2020-04-22] MEDS: FUROSEMIDE 20 MG TAB PO SCH (12:31)
[2020-04-22] MEDS: CHOLECALCIFEROL (VIT D3) 1000 UNIT (25 mcg) TAB PO SCH (12:31)
[2020-04-22] MEDS: LISINOPRIL 5 MG TAB PO SCH (12:31)
[2020-04-22] MEDS: FERROUS SULFATE 325 MG TAB PO SCH (12:32)
[2020-04-22] MEDS: DOCUSATE SODIUM 100 MG CAP PO SCH ×2 (12:32→23:47)
[2020-04-22] MEDS: LINAGLIPTIN 5 MG TAB PO SCH (12:37)
[2020-04-22] MEDS: risperiDONE 0.25 MG TAB PO SCH ×2 (12:37→22:26)
[2020-04-22] MEDS: PANTOPRAZOLE 40 MG TAB PO SCH (12:37)
[2020-04-22] MEDS: INSULIN GLARGINE 100 UNITS/ML SUB-Q SCH (22:26)
[2020-04-23] MEDS: traMADol 50 MG TAB PO PRN ×2 (02:00→04:59)
[2020-04-23] MEDS: ONDANSETRON 4 MG/2 ML INJ IV PRN (02:41)
[2020-04-23] MEDS: LORazepam 2 MG/ML VIAL IV PRN (05:00)
[2020-04-23] MEDS: LEVOTHYROXINE 50 MCG TAB PO SCH (05:00)
[2020-04-23] MEDS: INSULIN REGULAR, HUMAN 100 UNITS/1 ML SUB-Q SCH ×4 (07:39→23:15)
--- NOTE | 2020-04-23 09:29 | Progress Note ---
Assessment and Plan Assessment and plan: (1) Acute encephalopathy Current Visit: Yes Status: Acute Plan to address problem: Differential diagnosis of cerebrovascular accident and meningeal infection Stroke work-up initiated MRI could not be done because of metal artifacts in the orbital region Patient is medically cleared to go to [facility] floor (2) cerebral amyloid angiopathy. Current Visit: Yes Status: Acute Plan to address problem: MRI reveals multiple remote microhemorrhages in the periphery of both cerebral hemispheres most consistent with a diagnosis of amyloid angiopathy. Neurology following. No acute CVA placement in [facility] (3) Hypertension Current Visit: Yes Status: Chronic Qualifiers: Hypertension type: essential hypertension Qualified Code(s): I10 - Essential (primary) hypertension Plan to address problem: Continue antihypertensives (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: Yes Status: Chronic Plan to address problem: Continue Lantus and short-acting insulin Check hemoglobin A1c Adjust insulin dosage (5) Agitation due to dementia Current Visit: Yes Status: Acute Plan to address problem: Psychiatric consultation (6) DVT prophylaxis Current Visit: Yes Status: Acute Plan to address problem: On heparin and GI prophylaxis (7) mild protein calorie malnutrition 04/22/2020. MRI reveals multiple remote microhemorrhages in the periphery of both cerebral hemispheres most consistent with a diagnosis of amyloid angiopathy. Await neurology recommendations. 04/23/2020. We will avoid all anticoagulation. D/c Ativan and start Seroquel 25mg BID. Await placement History Interval history: Pt confused Hospitalist Physical - Constitutional Vitals: Temp Pulse Resp BP Pulse Ox 97.9 F 58 L 20 117/40 98 04/23/20 05:57 04/23/20 05:57 04/23/20 05:57 04/23/20 05:57 04/23/20 05:57 General appearance: Present: no acute distress, well-nourished - EENT Eyes: Present: PERRL, EOM intact ENT: hearing intact, clear oral mucosa, dentition normal - Neck Neck: Present: supple, normal ROM - Respiratory Respiratory effort: normal Respiratory: bilateral: CTA - Cardiovascular Rhythm: regular Heart Sounds: Present: S1 & S2. Absent: gallop, rub - Extremities Extremities: no ischemia, No edema, Full ROM - Abdominal General gastrointestinal: soft, non-tender, non-distended, normal bowel sounds - Integumentary Integumentary: Present: clear, warm, dry - Neurologic Neurologic: CNII-XII intact, moves all extremities Results - Labs CBC & Chem 7: 04/20/20 04:39 04/20/20 04:39 Labs: Laboratory Last Values WBC 4.9 K/mm3 (4.5-11.0) 04/20/20 04:39 RBC 3.77 M/mm3 (3.65-5.03) 04/20/20 04:39 Hgb 8.7 gm/dl (11.8-15.2) L 04/20/20 04:39 Hct 27.9 % (35.5-45.6) L 04/20/20 04:39 MCV 74 fl (84-94) L 04/20/20 04:39 MCH 23 pg (28-32) L 04/20/20 04:39 MCHC 31 % (32-34) L 04/20/20 04:39 RDW 16.9 % (13.2-15.2) H 04/20/20 04:39 Plt Count 264 K/mm3 (140-440) 04/20/20 04:39 Lymph % (Auto) 14.2 % (13.4-35.0) 04/19/20 05:14 [place] % (Auto) 9.8 % (0.0-7.3) H 04/19/20 05:14 Eos % (Auto) 1.9 % (0.0-4.3) 04/19/20 05:14 Baso % (Auto) 0.7 % (0.0-1.8) 04/19/20 05:14 Lymph # 0.9 K/mm3 (1.2-5.4) L 04/19/20 05:14 [place] # 0.6 K/mm3 (0.0-0.8) 04/19/20 05:14 Eos # 0.1 K/mm3 (0.0-0.4) 04/19/20 05:14 Baso # 0.0 K/mm3 (0.0-0.1) 04/19/20 05:14 Seg Neutrophils % 73.4 % (40.0-70.0) H 04/19/20 05:14 Seg Neutrophils # 4.8 K/mm3 (1.8-7.7) 04/19/20 05:14 PT 12.9 Sec. (12.2-14.9) 04/21/20 10:35 INR 0.99 (0.87-1.13) 04/21/20 10:35 Sodium 139 mmol/L (137-145) 04/20/20 04:39 Potassium 4.1 mmol/L (3.6-5.0) 04/20/20 04:39 Chloride 102.7 mmol/L (98-107) 04/20/20 04:39 Carbon Dioxide 25 mmol/L (22-30) 04/20/20 04:39 Anion Gap 15 mmol/L 04/20/20 04:39 BUN 22 mg/dL (9-20) H 04/20/20 04:39 Creatinine 0.8 mg/dL (0.8-1.5) 04/20/20 04:39 Estimated GFR > 60 ml/min 04/20/20 04:39 BUN/Creatinine Ratio 28 % 04/20/20 04:39 Glucose 171 mg/dL (75-100) H 04/20/20 04:39 POC Glucose 229 (70-105) H 04/23/20 07:40 Calcium 9.2 mg/dL (8.4-10.2) 04/20/20 04:39 Total Bilirubin 0.20 mg/dL (0.1-1.2) 04/19/20 05:14 AST 21 units/L (5-40) 04/19/20 05:14 ALT 15 units/L (7-56) 04/19/20 05:14 Alkaline Phosphatase 61 units/L (35-129) 04/19/20 05:14 NT-Pro-B Natriuret Pep 387.1 pg/mL (0-900) 04/19/20 05:14 Total Protein 5.9 g/dL (6.3-8.2) L 04/19/20 05:14 Albumin 3.1 g/dL (3.9-5) L 04/19/20 05:14 Albumin/Globulin Ratio 1.1 % 04/19/20 05:14 Triglycerides 103 mg/dL (2-149) 04/19/20 05:14 Cholesterol 131 mg/dL (50-199) 04/19/20 05:14 LDL Cholesterol Direct 76 mg/dL (50-130) 04/19/20 05:14 HDL Cholesterol 49 mg/dL (40-59) 04/19/20 05:14 Cholesterol/HDL Ratio 2.67 % 04/19/20 05:14 TSH 10.080 mlU/mL (0.270-4.200) H 04/19/20 07:57 Free T4 1.20 ng/dL (0.76-1.46) 04/19/20 07:57 Digoxin 0.3 ng/mL (0.9-2.0) L 04/21/20 12:54 - Diagnostic Impressions Diagnostic Impressions: Echocardiogram 04/18/20 22:16 Transthoracic Echocardiogram Indication: stroke BP: 102/51 HR: 75 Conclusions *The left ventricular chamber size is mildly dilated. *Global left ventricular systolic function is mild to moderately decreased. *The estimated ejection fraction is 40-45%. *The left atrium is mild to moderately dilated. *The right heart chambers are mild to moderately dilated. *There is mild mitral regurgitation. *There is mild to moderate tricuspid regurgitation. *There is evidence of borderline pulmonary hypertension. *The right ventricular systolic pressure is calculated at 24 mmHg. *A patent foramen ovale is not demonstrated by agitated saline contrast. Findings Left Ventricle: The left ventricular chamber size is mildly dilated. Mild concentric left ventricular hypertrophy is observed. Global left ventricular systolic function is mild to moderately decreased. The estimated ejection fraction is 40-45%. Abnormal left ventricular diastolic function is observed. Left Atrium: The left atrium is mild to moderately dilated. Right Ventricle: The right ventricle is mild to moderately dilated. The right ventricular global systolic function is moderately reduced. Right Atrium: The right atrium is mildly dilated. A patent foramen ovale is not demonstrated by agitated saline contrast. Aortic Valve: The aortic valve is trileaflet. The aortic valve leaflets are mildly thickened. There is no evidence of aortic regurgitation. There is no evidence of aortic stenosis. Mitral Valve: The mitral valve leaflets are mildly thickened. There is mild mitral regurgitation. There is no evidence of mitral stenosis. Tricuspid Valve: The tricuspid valve leaflets are normal. There is mild to moderate tricuspid regurgitation. The right ventricular systolic pressure is calculated at 24 mmHg. There is evidence of borderline pulmonary hypertension. Pulmonic Valve: The pulmonic valve appears normal. There is trace pulmonic regurgitation. Pericardium: There is no pericardial effusion. Aorta: There is no dilatation of the aortic root. Venous: The inferior vena cava is not visualized. The inferior vena cava appears normal in size. Contrast: Intravenous agitated saline contrast was used to assess intracardiac shunting. Measurements Chambers 2D Name Value Normal Range IVSd (2D) 1.21 cm (0.6 - 1.1) LVPWd (2D) 1.21 cm (0.6 - 1.1) LVIDd (2D) 3.35 cm (3.7 - 5.6) LVIDs (2D) 2.44 cm (2 - 3.8) LV FS (2D) 27.09 % - EF Teichholz (2D) 53.99 % - Ao root diameter (2D) 4.05 cm (2 - 3.7) Volumes/Mass Name Value Normal Range LA ESV SP 4CH (A/L) 60.11 ml - LA ESV SP 2CH (A/L) 60.34 ml - LA ESV BP (A/L) 64.62 ml - LA ESV SP 4CH (MOD) 55.46 ml - LA ESV SP 2CH (MOD) 56.14 ml - LA ESV BP (MOD) 59.51 ml - LA ESV BP (MOD) index 33.25 ml/m2 - LV EDV SP 4CH (MOD) 125.55 ml - LV ESV SP 4CH (MOD) 48.88 ml - EF SP 4CH (MOD) 61.07 % - LV EDV SP 2CH (MOD) 107.05 ml - LV ESV SP 2CH (MOD) 63.77 ml - EF SP 2CH (MOD) 40.43 % - LV EDV BP 116.16 ml - LV ESV BP 57.68 ml - BP EF (MOD) 50.34 % - Diastolic/Systolic Function Name Value Normal Range MV E-wave Vmax 0.54 m/sec - MV deceleration time 147.66 msec - MV A-wave Vmax 0.66 m/sec - MV E:A ratio 0.82 ratio - Aortic Valve Name Value Normal Range AV Vmax 0.86 m/sec - AV VTI 11.37 cm - AV peak gradient 2.97 mmHg - AV mean gradient 1.5 mmHg - LVOT diameter 2.01 cm - LVOT Vmax 0.44 m/sec - LVOT VTI 7.57 cm - LVOT peak gradient 0.78 mmHg - LVOT mean gradient 0.46 mmHg - SV LVOT 24.03 ml - NARINDER (continuity Vmax) 1.63 cm2 - NARINDER (continuity VTI) 2.11 cm2 - Ascending Ao 3.72 cm - Tricuspid Valve Name Value Normal Range TR Vmax 2.31 m/sec - TR peak gradient 21 mmHg - RAP 3 mmHg - RVSP 24 mmHg - Pulmonic Valve/Qp:Qs Name Value Normal Range PV Vmax 1.11 m/sec - PV peak gradient 4.89 mmHg - RVOT Vmax 0.85 m/sec - RVOT peak gradient 2.87 mmHg - PV acceleration time 114.18 msec - [place]/IV: Voiding Method Diaper IV Catheter Type [Left Hand] Peripheral IV IV Catheter Type [Right Hand] Peripheral IV IV Catheter Type [Right INT / Saline Lock Antecubital] Active Medications - Current Medications Current Medications: Generic Name Dose Route Start Last Admin Trade Name Freq PRN Reason Stop Dose Admin Acetaminophen 650 mg 04/18/20 22:06 Tylenol PO Q4H PRN Pain MILD(1-3)/Fever >100.5/[place] Atorvastatin Calcium 40 mg 04/19/20 22:00 04/22/20 22:26 Lipitor PO 40 mg QHS JOSELIN Administration Cholecalciferol 1,000 unit 04/19/20 10:00 04/22/20 12:31 Vitamin D3 PO 1,000 unit DAILY JOSELIN Administration Dextrose 50 ml 04/19/20 00:54 D50w (25gm) Syringe IV Q30MIN PRN Hypoglycemia Protocol Docusate Sodium 100 mg 04/18/20 22:00 04/22/20 23:47 Colace PO 100 mg BID JOSELIN Administration Ferrous Sulfate 325 mg 04/19/20 10:00 04/22/20 12:32 Feosol PO 325 mg DAILY JOSELIN Administration Furosemide 20 mg 04/19/20 10:00 04/22/20 12:31 Lasix PO 20 mg DAILY JOSELIN Administration Insulin Glargine 15 units 04/19/20 22:00 04/22/20 22:26 Lantus SUB-Q 15 units QHS JOSELIN Administration Insulin Human Regular 0 units 04/19/20 01:15 04/23/20 07:39 Humulin R SUB-Q 4 units ACHS JOSELIN Administration Protocol Levothyroxine Sodium 50 mcg 04/20/20 06:00 04/23/20 05:00 Synthroid PO 50 mcg DAILY@0600 JOSELIN Administration Linagliptin 5 mg 04/20/20 10:00 04/22/20 12:37 Tradjenta PO 5 mg QDAY JOSELIN Administration Lisinopril 5 mg 04/19/20 10:00 04/22/20 12:31 Zestril PO 5 mg DAILY JOSELIN Administration Lorazepam 1 mg 04/19/20 07:36 04/23/20 05:00 Ativan IV 0.5 mg Q4H PRN Administration Seizures Ondansetron HCl 4 mg 04/18/20 22:06 04/23/20 02:41 Zofran IV 4 mg Q8H PRN Administration Nausea And Vomiting Pantoprazole Sodium 40 mg 04/19/20 10:00 04/22/20 12:37 Protonix PO 40 mg DAILY JOSELIN Administration Risperidone 0.5 mg 04/20/20 22:00 04/22/20 22:26 Risperdal PO 0.5 mg BID JOSELIN Administration Sodium Chloride 10 ml 04/18/20 23:00 04/22/20 23:47 Sodium Chloride Flush Syringe 10 Ml IV Not Given BID JOSELIN Sodium Chloride 10 ml 04/18/20 22:06 04/19/20 01:19 Sodium Chloride Flush Syringe 10 Ml IV 10 ml PRN PRN Administration LINE FLUSH Tramadol HCl 50 mg 04/18/20 21:57 04/23/20 04:59 Ultram PO 50 mg Q6HR PRN Administration Pain, Moderate (4-6)
--- NOTE | 2020-04-23 10:13 | Progress Note ---
Assessment and Plan Abnormal ECG marked baseline artifact which causes difficulty with optimal interpretation of his ECGs Altered mental status Hypothyroidism TSH 12.5 Diabetes Anemia An echo this admission reveals 4 chamber dilation with a decreased left ventricular systolic function, ejection fraction 40-45%. Negative bubble study. Avoid AV elisha blocking agents. Otherwise, conservative cardiac management. Subjective Date of service: 04/23/20 Principal diagnosis: Acute encephalopathy Interval history: No interval cardiac changes. Objective Vital Signs Temp Pulse Resp BP Pulse Ox 04/23/20 05:57 97.9 F 58 L 20 117/40 98 04/22/20 23:41 98.4 F 80 20 138/60 99 04/22/20 12:31 69 133/63 04/22/20 11:37 97.5 F L 69 18 133/63 96 - Physical Examination General: No Apparent Distress Cardiac: Positive: Regular Rate, Other (with baseline artifact)
[2020-04-23] MEDS: FERROUS SULFATE 325 MG TAB PO SCH (10:42)
[2020-04-23] MEDS: DOCUSATE SODIUM 100 MG CAP PO SCH ×2 (10:42→23:15)
[2020-04-23] MEDS: CHOLECALCIFEROL (VIT D3) 1000 UNIT (25 mcg) TAB PO SCH (10:42)
[2020-04-23] MEDS: risperiDONE 0.25 MG TAB PO SCH ×2 (10:43→23:15)
[2020-04-23] MEDS: QUEtiapine 25 MG TAB PO SCH ×2 (10:43→23:15)
[2020-04-23] MEDS: LINAGLIPTIN 5 MG TAB PO SCH (10:44)
[2020-04-23] MEDS: PANTOPRAZOLE 40 MG TAB PO SCH (10:44)
[2020-04-23] MEDS: FUROSEMIDE 20 MG TAB PO SCH (10:45)
[2020-04-23] MEDS: LISINOPRIL 5 MG TAB PO SCH (10:46)
[2020-04-23] MEDS: INSULIN GLARGINE 100 UNITS/ML SUB-Q SCH (23:16)
[2020-04-24] MEDS: traMADol 50 MG TAB PO PRN ×2 (00:18→22:38)
[2020-04-24] MEDS: LEVOTHYROXINE 50 MCG TAB PO SCH (05:37)
[2020-04-24] MEDS: INSULIN REGULAR, HUMAN 100 UNITS/1 ML SUB-Q SCH ×4 (09:06→22:39)
[2020-04-24] MEDS: FUROSEMIDE 20 MG TAB PO SCH (09:10)
[2020-04-24] MEDS: LISINOPRIL 5 MG TAB PO SCH (09:11)
[2020-04-24] MEDS: FERROUS SULFATE 325 MG TAB PO SCH (09:20)
[2020-04-24] MEDS: PANTOPRAZOLE 40 MG TAB PO SCH (09:20)
[2020-04-24] MEDS: CHOLECALCIFEROL (VIT D3) 1000 UNIT (25 mcg) TAB PO SCH (09:20)
[2020-04-24] MEDS: DOCUSATE SODIUM 100 MG CAP PO SCH ×2 (09:21→22:39)
[2020-04-24] MEDS: LINAGLIPTIN 5 MG TAB PO SCH (09:59)
[2020-04-24] MEDS: risperiDONE 0.25 MG TAB PO SCH ×2 (09:59→22:39)
[2020-04-24] MEDS: QUEtiapine 25 MG TAB PO SCH ×2 (09:59→22:38)
--- NOTE | 2020-04-24 09:59 | Progress Note ---
Assessment and Plan Assessment and plan: (1) Acute encephalopathy Current Visit: Yes Status: Acute Plan to address problem: Differential diagnosis of cerebrovascular accident and meningeal infection Stroke work-up initiated MRI could not be done because of metal artifacts in the orbital region Patient is medically cleared to go to [facility] floor (2) cerebral amyloid angiopathy. Current Visit: Yes Status: Acute Plan to address problem: MRI reveals multiple remote microhemorrhages in the periphery of both cerebral hemispheres most consistent with a diagnosis of amyloid angiopathy. Neurology following. 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 MRI reveals multiple remote microhemorrhages in the periphery of both cerebral hemispheres most consistent with a diagnosis of amyloid angiopathy. Await neurology recommendations. 04/23/2020. We will avoid all anticoagulation. D/c Ativan and start Seroquel 25mg BID. Await placement 04/24/2020. I had a long discussion with the patient's daughter with regards to diagnosis. Continue Seroquel for now. Await placement. History Interval history: Pt confused Hospitalist Physical - Constitutional Vitals: Temp Pulse Resp BP Pulse Ox 97.2 F L 57 L 16 90/43 95 04/24/20 04:42 04/24/20 04:42 04/24/20 04:42 04/24/20 04:42 04/24/20 08:00 General appearance: Present: no acute distress, well-nourished - EENT Eyes: Present: PERRL, EOM intact ENT: hearing intact, clear oral mucosa, dentition normal - Neck Neck: Present: supple, normal ROM - Respiratory Respiratory effort: normal Respiratory: bilateral: CTA - Cardiovascular Rhythm: regular Heart Sounds: Present: S1 & S2. Absent: gallop, rub - Extremities Extremities: no ischemia, No edema, Full ROM - Abdominal General gastrointestinal: soft, non-tender, non-distended, normal bowel sounds - Integumentary Integumentary: Present: clear, warm, dry - Neurologic Neurologic: CNII-XII intact, moves all extremities Results - Labs CBC & Chem 7: 04/20/20 04:39 04/20/20 04:39 Labs: Laboratory Last Values WBC 4.9 K/mm3 (4.5-11.0) 04/20/20 04:39 RBC 3.77 M/mm3 (3.65-5.03) 04/20/20 04:39 Hgb 8.7 gm/dl (11.8-15.2) L 04/20/20 04:39 Hct 27.9 % (35.5-45.6) L 04/20/20 04:39 MCV 74 fl (84-94) L 04/20/20 04:39 MCH 23 pg (28-32) L 04/20/20 04:39 MCHC 31 % (32-34) L 04/20/20 04:39 RDW 16.9 % (13.2-15.2) H 04/20/20 04:39 Plt Count 264 K/mm3 (140-440) 04/20/20 04:39 Lymph % (Auto) 14.2 % (13.4-35.0) 04/19/20 05:14 [place] % (Auto) 9.8 % (0.0-7.3) H 04/19/20 05:14 Eos % (Auto) 1.9 % (0.0-4.3) 04/19/20 05:14 Baso % (Auto) 0.7 % (0.0-1.8) 04/19/20 05:14 Lymph # 0.9 K/mm3 (1.2-5.4) L 04/19/20 05:14 [place] # 0.6 K/mm3 (0.0-0.8) 04/19/20 05:14 Eos # 0.1 K/mm3 (0.0-0.4) 04/19/20 05:14 Baso # 0.0 K/mm3 (0.0-0.1) 04/19/20 05:14 Seg Neutrophils % 73.4 % (40.0-70.0) H 04/19/20 05:14 Seg Neutrophils # 4.8 K/mm3 (1.8-7.7) 04/19/20 05:14 PT 12.9 Sec. (12.2-14.9) 04/21/20 10:35 INR 0.99 (0.87-1.13) 04/21/20 10:35 Sodium 139 mmol/L (137-145) 04/20/20 04:39 Potassium 4.1 mmol/L (3.6-5.0) 04/20/20 04:39 Chloride 102.7 mmol/L (98-107) 04/20/20 04:39 Carbon Dioxide 25 mmol/L (22-30) 04/20/20 04:39 Anion Gap 15 mmol/L 04/20/20 04:39 BUN 22 mg/dL (9-20) H 04/20/20 04:39 Creatinine 0.8 mg/dL (0.8-1.5) 04/20/20 04:39 Estimated GFR > 60 ml/min 04/20/20 04:39 BUN/Creatinine Ratio 28 % 04/20/20 04:39 Glucose 171 mg/dL (75-100) H 04/20/20 04:39 POC Glucose 107 (70-105) H 04/24/20 07:28 Calcium 9.2 mg/dL (8.4-10.2) 04/20/20 04:39 Total Bilirubin 0.20 mg/dL (0.1-1.2) 04/19/20 05:14 AST 21 units/L (5-40) 04/19/20 05:14 ALT 15 units/L (7-56) 04/19/20 05:14 Alkaline Phosphatase 61 units/L (35-129) 04/19/20 05:14 NT-Pro-B Natriuret Pep 387.1 pg/mL (0-900) 04/19/20 05:14 Total Protein 5.9 g/dL (6.3-8.2) L 04/19/20 05:14 Albumin 3.1 g/dL (3.9-5) L 04/19/20 05:14 Albumin/Globulin Ratio 1.1 % 04/19/20 05:14 Triglycerides 103 mg/dL (2-149) 04/19/20 05:14 Cholesterol 131 mg/dL (50-199) 04/19/20 05:14 LDL Cholesterol Direct 76 mg/dL (50-130) 04/19/20 05:14 HDL Cholesterol 49 mg/dL (40-59) 04/19/20 05:14 Cholesterol/HDL Ratio 2.67 % 04/19/20 05:14 TSH 10.080 mlU/mL (0.270-4.200) H 04/19/20 07:57 Free T4 1.20 ng/dL (0.76-1.46) 04/19/20 07:57 Digoxin 0.3 ng/mL (0.9-2.0) L 04/21/20 12:54 - Diagnostic Impressions Diagnostic Impressions: Echocardiogram 04/18/20 22:16 Transthoracic Echocardiogram Indication: stroke BP: 102/51 HR: 75 Conclusions *The left ventricular chamber size is mildly dilated. *Global left ventricular systolic function is mild to moderately decreased. *The estimated ejection fraction is 40-45%. *The left atrium is mild to moderately dilated. *The right heart chambers are mild to moderately dilated. *There is mild mitral regurgitation. *There is mild to moderate tricuspid regurgitation. *There is evidence of borderline pulmonary hypertension. *The right ventricular systolic pressure is calculated at 24 mmHg. *A patent foramen ovale is not demonstrated by agitated saline contrast. Findings Left Ventricle: The left ventricular chamber size is mildly dilated. Mild concentric left ventricular hypertrophy is observed. Global left ventricular systolic function is mild to moderately decreased. The estimated ejection fraction is 40-45%. Abnormal left ventricular diastolic function is observed. Left Atrium: The left atrium is mild to moderately dilated. Right Ventricle: The right ventricle is mild to moderately dilated. The right ventricular global systolic function is moderately reduced. Right Atrium: The right atrium is mildly dilated. A patent foramen ovale is not demonstrated by agitated saline contrast. Aortic Valve: The aortic valve is trileaflet. The aortic valve leaflets are mildly thickened. There is no evidence of aortic regurgitation. There is no evidence of aortic stenosis. Mitral Valve: The mitral valve leaflets are mildly thickened. There is mild mitral regurgitation. There is no evidence of mitral stenosis. Tricuspid Valve: The tricuspid valve leaflets are normal. There is mild to moderate tricuspid regurgitation. The right ventricular systolic pressure is calculated at 24 mmHg. There is evidence of borderline pulmonary hypertension. Pulmonic Valve: The pulmonic valve appears normal. There is trace pulmonic regurgitation. Pericardium: There is no pericardial effusion. Aorta: There is no dilatation of the aortic root. Venous: The inferior vena cava is not visualized. The inferior vena cava appears normal in size. Contrast: Intravenous agitated saline contrast was used to assess intracardiac shunting. Measurements Chambers 2D Name Value Normal Range IVSd (2D) 1.21 cm (0.6 - 1.1) LVPWd (2D) 1.21 cm (0.6 - 1.1) LVIDd (2D) 3.35 cm (3.7 - 5.6) LVIDs (2D) 2.44 cm (2 - 3.8) LV FS (2D) 27.09 % - EF Teichholz (2D) 53.99 % - Ao root diameter (2D) 4.05 cm (2 - 3.7) Volumes/Mass Name Value Normal Range LA ESV SP 4CH (A/L) 60.11 ml - LA ESV SP 2CH (A/L) 60.34 ml - LA ESV BP (A/L) 64.62 ml - LA ESV SP 4CH (MOD) 55.46 ml - LA ESV SP 2CH (MOD) 56.14 ml - LA ESV BP (MOD) 59.51 ml - LA ESV BP (MOD) index 33.25 ml/m2 - LV EDV SP 4CH (MOD) 125.55 ml - LV ESV SP 4CH (MOD) 48.88 ml - EF SP 4CH (MOD) 61.07 % - LV EDV SP 2CH (MOD) 107.05 ml - LV ESV SP 2CH (MOD) 63.77 ml - EF SP 2CH (MOD) 40.43 % - LV EDV BP 116.16 ml - LV ESV BP 57.68 ml - BP EF (MOD) 50.34 % - Diastolic/Systolic Function Name Value Normal Range MV E-wave Vmax 0.54 m/sec - MV deceleration time 147.66 msec - MV A-wave Vmax 0.66 m/sec - MV E:A ratio 0.82 ratio - Aortic Valve Name Value Normal Range AV Vmax 0.86 m/sec - AV VTI 11.37 cm - AV peak gradient 2.97 mmHg - AV mean gradient 1.5 mmHg - LVOT diameter 2.01 cm - LVOT Vmax 0.44 m/sec - LVOT VTI 7.57 cm - LVOT peak gradient 0.78 mmHg - LVOT mean gradient 0.46 mmHg - SV LVOT 24.03 ml - NARINDER (continuity Vmax) 1.63 cm2 - NARINDER (continuity VTI) 2.11 cm2 - Ascending Ao 3.72 cm - Tricuspid Valve Name Value Normal Range TR Vmax 2.31 m/sec - TR peak gradient 21 mmHg - RAP 3 mmHg - RVSP 24 mmHg - Pulmonic Valve/Qp:Qs Name Value Normal Range PV Vmax 1.11 m/sec - PV peak gradient 4.89 mmHg - RVOT Vmax 0.85 m/sec - RVOT peak gradient 2.87 mmHg - PV acceleration time 114.18 msec - [place]/IV: Voiding Method Incontinent IV Catheter Type [Right Upper INT / Saline Lock arm] IV Catheter Type [Left Hand] Peripheral IV IV Catheter Type [Right Hand] Peripheral IV IV Catheter Type [Right INT / Saline Lock Antecubital] Active Medications - Current Medications Current Medications: Generic Name Dose Route Start Last Admin Trade Name Freq PRN Reason Stop Dose Admin Acetaminophen 650 mg 04/18/20 22:06 Tylenol PO Q4H PRN Pain MILD(1-3)/Fever >100.5/[place] Atorvastatin Calcium 40 mg 04/19/20 22:00 04/23/20 23:15 Lipitor PO 40 mg QHS JOSELIN Administration Cholecalciferol 1,000 unit 04/19/20 10:00 04/24/20 09:20 Vitamin D3 PO 1,000 unit DAILY JOSELIN Administration Dextrose 50 ml 04/19/20 00:54 D50w (25gm) Syringe IV Q30MIN PRN Hypoglycemia Protocol Docusate Sodium 100 mg 04/18/20 22:00 04/24/20 09:21 Colace PO 100 mg BID JOSELIN Administration Ferrous Sulfate 325 mg 04/19/20 10:00 04/24/20 09:20 Feosol PO 325 mg DAILY JOSELIN Administration Furosemide 20 mg 04/19/20 10:00 04/24/20 09:10 Lasix PO Not Given DAILY JOSELIN Insulin Glargine 15 units 04/19/20 22:00 04/23/20 23:16 Lantus SUB-Q Not Given QHS [facility] Insulin Human Regular 0 units 04/19/20 01:15 04/24/20 09:06 Humulin R SUB-Q Not Given ACHS [facility] Protocol Levothyroxine Sodium 50 mcg 04/20/20 06:00 04/24/20 05:37 Synthroid PO 50 mcg DAILY@0600 JOSELIN Administration Linagliptin 5 mg 04/20/20 10:00 04/23/20 10:44 Tradjenta PO 5 mg QDAY JOSELIN Administration Lisinopril 5 mg 04/19/20 10:00 04/24/20 09:11 Zestril PO Not Given DAILY JOSELIN Ondansetron HCl 4 mg 04/18/20 22:06 04/23/20 02:41 Zofran IV 4 mg Q8H PRN Administration Nausea And Vomiting Pantoprazole Sodium 40 mg 04/19/20 10:00 04/24/20 09:20 Protonix PO 40 mg DAILY JOSELIN Administration Quetiapine Fumarate 25 mg 04/23/20 10:00 04/23/20 23:15 Seroquel PO 25 mg BID JOSELIN Administration Risperidone 0.5 mg 04/20/20 22:00 04/23/20 23:15 Risperdal PO 0.5 mg BID JOSELIN Administration Sodium Chloride 10 ml 04/18/20 23:00 04/24/20 09:21 Sodium Chloride Flush Syringe 10 Ml IV 10 ml BID JOSELIN Administration Sodium Chloride 10 ml 04/18/20 22:06 04/19/20 01:19 Sodium Chloride Flush Syringe 10 Ml IV 10 ml PRN PRN Administration LINE FLUSH Tramadol HCl 50 mg 04/18/20 21:57 04/24/20 00:18 Ultram PO 50 mg Q6HR PRN Administration Pain, Moderate (4-6)
--- NOTE | 2020-04-24 10:11 | Progress Note ---
Assessment and Plan Abnormal ECG marked baseline artifact which causes difficulty with optimal interpretation of his ECGs Altered mental status Hypothyroidism TSH 12.5 Diabetes Anemia An echo this admission reveals 4 chamber dilation with a decreased left ventricular systolic function, ejection fraction 40-45%. Negative bubble study. Avoid AV elisha blocking agents. Conservative cardiac management. Subjective Date of service: 04/24/20 Principal diagnosis: Acute encephalopathy Interval history: Patient is resting in bed with eyes closed. Objective Vital Signs Temp Pulse Resp BP Pulse Ox 04/24/20 08:00 95 04/24/20 04:42 97.2 F L 57 L 16 90/43 96 04/24/20 00:26 97.4 F L 64 16 105/53 99 04/23/20 17:04 97.2 F L 55 L 18 112/57 99 04/23/20 11:30 97.3 F L 53 L 18 102/48 99 04/23/20 10:46 58 L 117/40 - Physical Examination General: No Apparent Distress Cardiac: Positive: Regular Rate Extremities: Absent: edema
[2020-04-24] MEDS: INSULIN GLARGINE 100 UNITS/ML SUB-Q SCH (22:40)
[2020-04-25] MEDS: ONDANSETRON 4 MG/2 ML INJ IV PRN (01:57)
[2020-04-25] MEDS: ACETAMINOPHEN 325 MG TAB PO PRN (01:57)
[2020-04-25] MEDS: LEVOTHYROXINE 50 MCG TAB PO SCH (06:29)
[2020-04-25] MEDS: INSULIN REGULAR, HUMAN 100 UNITS/1 ML SUB-Q SCH ×4 (08:21→21:26)
--- NOTE | 2020-04-25 09:17 | Progress Note ---
Assessment and Plan Abnormal ECG marked baseline artifact which causes difficulty with optimal interpretation of his ECGs Altered mental status Hypothyroidism TSH 12.5 Diabetes Anemia An echo this admission reveals 4 chamber dilation with a decreased left ventricular systolic function, ejection fraction 40-45%. Negative bubble study. Avoid AV elisha blocking agents. Conservative cardiac management. Subjective Date of service: 04/25/20 Principal diagnosis: Acute encephalopathy Interval history: Patient is sitting up in bed, alert with confusion. No cardiac complaints. Objective Vital Signs Temp Pulse Pulse Resp BP BP Pulse Ox 04/25/20 08:11 16 04/25/20 06:11 68 120/54 97 04/25/20 04:39 98.2 F 61 18 86/40 94 04/25/20 01:57 18 04/24/20 22:53 98.5 F 75 18 124/49 96 04/24/20 22:38 18 04/24/20 22:00 75 96 04/24/20 16:57 114/47 04/24/20 16:53 63 98 04/24/20 16:44 98.5 F 16 96/39 04/24/20 10:12 97.8 F 63 16 102/38 96 - Physical Examination General: No Apparent Distress HEENT: Positive: PERRL Neck: Positive: neck supple Cardiac: Positive: Regular Rate, Other (baseline artifact) Neuro: Positive: Other (altered mental status) Extremities: Absent: edema
--- NOTE | 2020-04-25 09:47 | Progress Note ---
Assessment and Plan Assessment and plan: (1) Acute encephalopathy Current Visit: Yes Status: Acute Plan to address problem: Differential diagnosis of cerebrovascular accident and meningeal infection Stroke work-up initiated MRI could not be done because of metal artifacts in the orbital region Patient is medically cleared to go to [facility] floor (2) cerebral amyloid angiopathy. Current Visit: Yes Status: Acute Plan to address problem: MRI reveals multiple remote microhemorrhages in the periphery of both cerebral hemispheres most consistent with a diagnosis of amyloid angiopathy. Neurology following. No acute CVA placement in care home facility (3) Hypertension Current Visit: Yes Status: Chronic Qualifiers: Hypertension type: essential hypertension Qualified Code(s): I10 - Essential (primary) hypertension Plan to address problem: Continue antihypertensives (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: Yes Status: Chronic Plan to address problem: Continue Lantus and short-acting insulin Check hemoglobin A1c Adjust insulin dosage (5) Agitation due to dementia Current Visit: Yes Status: Acute Plan to address problem: Psychiatric consultation (6) DVT prophylaxis Current Visit: Yes Status: Acute Plan to address problem: On heparin and GI prophylaxis (7) mild protein calorie malnutrition 04/22/2020. MRI reveals multiple remote microhemorrhages in the periphery of both cerebral hemispheres most consistent with a diagnosis of amyloid angiopathy. Await neurology recommendations. 04/23/2020. We will avoid all anticoagulation. D/c Ativan and start Seroquel 25mg BID. Await placement 04/24/2020. I had a long discussion with the patient's daughter with regards to diagnosis. Continue Seroquel for now. Await placement. 04/25/2020. Patient will have further attempts working with PT/OT today given his improved mentation. Consider discharge home await PT/OT evaluation History Interval history: Pt much more alert and oriented today. Hospitalist Physical - Constitutional Vitals: Temp Pulse Resp BP Pulse Ox 98.2 F 68 16 120/54 97 04/25/20 04:39 04/25/20 06:11 04/25/20 08:11 04/25/20 06:11 04/25/20 06:11 General appearance: Present: no acute distress, well-nourished - EENT Eyes: Present: PERRL, EOM intact ENT: hearing intact, clear oral mucosa, dentition normal - Neck Neck: Present: supple, normal ROM - Respiratory Respiratory effort: normal Respiratory: bilateral: CTA - Cardiovascular Rhythm: regular Heart Sounds: Present: S1 & S2. Absent: gallop, rub - Extremities Extremities: no ischemia, No edema, Full ROM - Abdominal General gastrointestinal: soft, non-tender, non-distended, normal bowel sounds - Integumentary Integumentary: Present: clear, warm, dry - Neurologic Neurologic: CNII-XII intact, moves all extremities Results - Labs CBC & Chem 7: 04/20/20 04:39 04/20/20 04:39 Labs: Laboratory Last Values WBC 4.9 K/mm3 (4.5-11.0) 04/20/20 04:39 RBC 3.77 M/mm3 (3.65-5.03) 04/20/20 04:39 Hgb 8.7 gm/dl (11.8-15.2) L 04/20/20 04:39 Hct 27.9 % (35.5-45.6) L 04/20/20 04:39 MCV 74 fl (84-94) L 04/20/20 04:39 MCH 23 pg (28-32) L 04/20/20 04:39 MCHC 31 % (32-34) L 04/20/20 04:39 RDW 16.9 % (13.2-15.2) H 04/20/20 04:39 Plt Count 264 K/mm3 (140-440) 04/20/20 04:39 Lymph % (Auto) 14.2 % (13.4-35.0) 04/19/20 05:14 [place] % (Auto) 9.8 % (0.0-7.3) H 04/19/20 05:14 Eos % (Auto) 1.9 % (0.0-4.3) 04/19/20 05:14 Baso % (Auto) 0.7 % (0.0-1.8) 04/19/20 05:14 Lymph # 0.9 K/mm3 (1.2-5.4) L 04/19/20 05:14 [place] # 0.6 K/mm3 (0.0-0.8) 04/19/20 05:14 Eos # 0.1 K/mm3 (0.0-0.4) 04/19/20 05:14 Baso # 0.0 K/mm3 (0.0-0.1) 04/19/20 05:14 Seg Neutrophils % 73.4 % (40.0-70.0) H 04/19/20 05:14 Seg Neutrophils # 4.8 K/mm3 (1.8-7.7) 04/19/20 05:14 PT 12.9 Sec. (12.2-14.9) 04/21/20 10:35 INR 0.99 (0.87-1.13) 04/21/20 10:35 Sodium 139 mmol/L (137-145) 04/20/20 04:39 Potassium 4.1 mmol/L (3.6-5.0) 04/20/20 04:39 Chloride 102.7 mmol/L (98-107) 04/20/20 04:39 Carbon Dioxide 25 mmol/L (22-30) 04/20/20 04:39 Anion Gap 15 mmol/L 04/20/20 04:39 BUN 22 mg/dL (9-20) H 04/20/20 04:39 Creatinine 0.8 mg/dL (0.8-1.5) 04/20/20 04:39 Estimated GFR > 60 ml/min 04/20/20 04:39 BUN/Creatinine Ratio 28 % 04/20/20 04:39 Glucose 171 mg/dL (75-100) H 04/20/20 04:39 POC Glucose 99 (70-105) 04/25/20 08:21 Calcium 9.2 mg/dL (8.4-10.2) 04/20/20 04:39 Total Bilirubin 0.20 mg/dL (0.1-1.2) 04/19/20 05:14 AST 21 units/L (5-40) 04/19/20 05:14 ALT 15 units/L (7-56) 04/19/20 05:14 Alkaline Phosphatase 61 units/L (35-129) 04/19/20 05:14 NT-Pro-B Natriuret Pep 387.1 pg/mL (0-900) 04/19/20 05:14 Total Protein 5.9 g/dL (6.3-8.2) L 04/19/20 05:14 Albumin 3.1 g/dL (3.9-5) L 04/19/20 05:14 Albumin/Globulin Ratio 1.1 % 04/19/20 05:14 Triglycerides 103 mg/dL (2-149) 04/19/20 05:14 Cholesterol 131 mg/dL (50-199) 04/19/20 05:14 LDL Cholesterol Direct 76 mg/dL (50-130) 04/19/20 05:14 HDL Cholesterol 49 mg/dL (40-59) 04/19/20 05:14 Cholesterol/HDL Ratio 2.67 % 04/19/20 05:14 TSH 10.080 mlU/mL (0.270-4.200) H 04/19/20 07:57 Free T4 1.20 ng/dL (0.76-1.46) 04/19/20 07:57 Digoxin 0.3 ng/mL (0.9-2.0) L 04/21/20 12:54 - Diagnostic Impressions Diagnostic Impressions: Echocardiogram 04/18/20 22:16 Transthoracic Echocardiogram Indication: stroke BP: 102/51 HR: 75 Conclusions *The left ventricular chamber size is mildly dilated. *Global left ventricular systolic function is mild to moderately decreased. *The estimated ejection fraction is 40-45%. *The left atrium is mild to moderately dilated. *The right heart chambers are mild to moderately dilated. *There is mild mitral regurgitation. *There is mild to moderate tricuspid regurgitation. *There is evidence of borderline pulmonary hypertension. *The right ventricular systolic pressure is calculated at 24 mmHg. *A patent foramen ovale is not demonstrated by agitated saline contrast. Findings Left Ventricle: The left ventricular chamber size is mildly dilated. Mild concentric left ventricular hypertrophy is observed. Global left ventricular systolic function is mild to moderately decreased. The estimated ejection fraction is 40-45%. Abnormal left ventricular diastolic function is observed. Left Atrium: The left atrium is mild to moderately dilated. Right Ventricle: The right ventricle is mild to moderately dilated. The right ventricular global systolic function is moderately reduced. Right Atrium: The right atrium is mildly dilated. A patent foramen ovale is not demonstrated by agitated saline contrast. Aortic Valve: The aortic valve is trileaflet. The aortic valve leaflets are mildly thickened. There is no evidence of aortic regurgitation. There is no evidence of aortic stenosis. Mitral Valve: The mitral valve leaflets are mildly thickened. There is mild mitral regurgitation. There is no evidence of mitral stenosis. Tricuspid Valve: The tricuspid valve leaflets are normal. There is mild to moderate tricuspid regurgitation. The right ventricular systolic pressure is calculated at 24 mmHg. There is evidence of borderline pulmonary hypertension. Pulmonic Valve: The pulmonic valve appears normal. There is trace pulmonic regurgitation. Pericardium: There is no pericardial effusion. Aorta: There is no dilatation of the aortic root. Venous: The inferior vena cava is not visualized. The inferior vena cava appears normal in size. Contrast: Intravenous agitated saline contrast was used to assess intracardiac shunting. Measurements Chambers 2D Name Value Normal Range IVSd (2D) 1.21 cm (0.6 - 1.1) LVPWd (2D) 1.21 cm (0.6 - 1.1) LVIDd (2D) 3.35 cm (3.7 - 5.6) LVIDs (2D) 2.44 cm (2 - 3.8) LV FS (2D) 27.09 % - EF Teichholz (2D) 53.99 % - Ao root diameter (2D) 4.05 cm (2 - 3.7) Volumes/Mass Name Value Normal Range LA ESV SP 4CH (A/L) 60.11 ml - LA ESV SP 2CH (A/L) 60.34 ml - LA ESV BP (A/L) 64.62 ml - LA ESV SP 4CH (MOD) 55.46 ml - LA ESV SP 2CH (MOD) 56.14 ml - LA ESV BP (MOD) 59.51 ml - LA ESV BP (MOD) index 33.25 ml/m2 - LV EDV SP 4CH (MOD) 125.55 ml - LV ESV SP 4CH (MOD) 48.88 ml - EF SP 4CH (MOD) 61.07 % - LV EDV SP 2CH (MOD) 107.05 ml - LV ESV SP 2CH (MOD) 63.77 ml - EF SP 2CH (MOD) 40.43 % - LV EDV BP 116.16 ml - LV ESV BP 57.68 ml - BP EF (MOD) 50.34 % - Diastolic/Systolic Function Name Value Normal Range MV E-wave Vmax 0.54 m/sec - MV deceleration time 147.66 msec - MV A-wave Vmax 0.66 m/sec - MV E:A ratio 0.82 ratio - Aortic Valve Name Value Normal Range AV Vmax 0.86 m/sec - AV VTI 11.37 cm - AV peak gradient 2.97 mmHg - AV mean gradient 1.5 mmHg - LVOT diameter 2.01 cm - LVOT Vmax 0.44 m/sec - LVOT VTI 7.57 cm - LVOT peak gradient 0.78 mmHg - LVOT mean gradient 0.46 mmHg - SV LVOT 24.03 ml - NARINDER (continuity Vmax) 1.63 cm2 - NARINDER (continuity VTI) 2.11 cm2 - Ascending Ao 3.72 cm - Tricuspid Valve Name Value Normal Range TR Vmax 2.31 m/sec - TR peak gradient 21 mmHg - RAP 3 mmHg - RVSP 24 mmHg - Pulmonic Valve/Qp:Qs Name Value Normal Range PV Vmax 1.11 m/sec - PV peak gradient 4.89 mmHg - RVOT Vmax 0.85 m/sec - RVOT peak gradient 2.87 mmHg - PV acceleration time 114.18 msec - [place]/IV: Voiding Method Incontinent IV Catheter Type [Right Upper INT / Saline Lock arm] IV Catheter Type [Left Hand] Peripheral IV IV Catheter Type [Right Hand] Peripheral IV IV Catheter Type [Right INT / Saline Lock Antecubital] Active Medications - Current Medications Current Medications: Generic Name Dose Route Start Last Admin Trade Name Freq PRN Reason Stop Dose Admin Acetaminophen 650 mg 04/18/20 22:06 04/25/20 01:57 Tylenol PO 650 mg Q4H PRN Administration Pain MILD(1-3)/Fever >100.5/[place] Atorvastatin Calcium 40 mg 04/19/20 22:00 04/24/20 22:38 Lipitor PO 40 mg QHS JOSELIN Administration Cholecalciferol 1,000 unit 04/19/20 10:00 04/24/20 09:20 Vitamin D3 PO 1,000 unit DAILY JOSELIN Administration Dextrose 50 ml 04/19/20 00:54 D50w (25gm) Syringe IV Q30MIN PRN Hypoglycemia Protocol Docusate Sodium 100 mg 04/18/20 22:00 04/24/20 22:39 Colace PO 100 mg BID JOSELNI Administration Ferrous Sulfate 325 mg 04/19/20 10:00 04/24/20 09:20 Feosol PO 325 mg DAILY JOSELIN Administration Furosemide 20 mg 04/19/20 10:00 04/24/20 09:10 Lasix PO Not Given DAILY [facility] Insulin Glargine 15 units 04/19/20 22:00 04/24/20 22:40 Lantus SUB-Q 15 units QHS JOSELIN Administration Insulin Human Regular 0 units 04/19/20 01:15 04/25/20 08:21 Humulin R SUB-Q Not Given ACHS [facility] Protocol Levothyroxine Sodium 50 mcg 04/20/20 06:00 04/25/20 06:29 Synthroid PO 50 mcg DAILY@0600 JOSELIN Administration Linagliptin 5 mg 04/20/20 10:00 04/24/20 09:59 Tradjenta PO Not Given QDAY [facility] Lisinopril 5 mg 04/19/20 10:00 04/24/20 09:11 Zestril PO Not Given DAILY JOSELIN Ondansetron HCl 4 mg 04/18/20 22:06 04/25/20 01:57 Zofran IV 4 mg Q8H PRN Administration Nausea And Vomiting Pantoprazole Sodium 40 mg 04/19/20 10:00 04/24/20 09:20 Protonix PO 40 mg DAILY JOSELIN Administration Quetiapine Fumarate 25 mg 04/23/20 10:00 04/24/20 22:38 Seroquel PO 25 mg BID JOSELIN Administration Risperidone 0.5 mg 04/20/20 22:00 04/24/20 22:39 Risperdal PO 0.5 mg BID JOSELIN Administration Sodium Chloride 10 ml 04/18/20 23:00 04/24/20 22:40 Sodium Chloride Flush Syringe 10 Ml IV 10 ml BID JOSELIN Administration Sodium Chloride 10 ml 04/18/20 22:06 04/19/20 01:19 Sodium Chloride Flush Syringe 10 Ml IV 10 ml PRN PRN Administration LINE FLUSH Tramadol HCl 50 mg 04/18/20 21:57 04/24/20 22:38 Ultram PO 50 mg Q6HR PRN Administration Pain, Moderate (4-6) Nutrition/Malnutrition Assess - Dietary Evaluation Nutrition/Malnutrition Findings: Nutrition Notes Start: 04/24/20 12:48 Freq: Status: Active Protocol: Document 04/24/20 12:48 LM (Rec: 04/24/20 13:09 LM [id number]) Nutrition Notes Need for Assessment generated from: MD Order Initial or Follow up Assessment Current Diagnosis Diabetes,Hypertension,Heart Failure Other Pertinent Diagnosis acute encephalopathy Current Diet pureed Labs/Tests Reviewed Pertinent Medications Reviewed Height 5 ft 6 in Weight 61.2 kg [place] Body Weight (kg) 64.54 BMI 21.7 Weight Status Appropriate Subjective/Other Information MD consult for malnutrition. RN stated that she was about to feed pt at time of visit. Noticed pt with poor intakes in chart. Pt with clavicle wasting. Burn Absent Trauma Absent Difficulty In Swallowing,Chewing Minimum of two criteria Yes Body Fat Depletion Mild depletion (non-severe) Muscle Mass Mild Depletion (non-severe) #1 Nutrition Diagnosis Malnutrition Etiology encephalopathy As Evidenced by Signs and Symptoms muscle and fat wasting Is patient on ventilator? No Is Patient Ambulatory and/or Out of Bed No REE-([facility]-confined to bed) [phone] Calculation Used for Recommendations [facility] Additional Notes Protein: 73-92g (1.2-1.5g/kg) Fluid: 1ml/kcal Nutrition Intervention Change Diet Order: continue Add Supplement/Snack (indicate name/kcal Ensure Enlive BID /protein ) Provides kCal: 700 Provides Protein (gm) 40 Goal #1 Meet at least 80% of energy and protein needs Anticipated Discharge Needs: unable to determine at this time Follow-Up By: 04/28/20 Additional Comments F/U for PO/ONS intakes
[2020-04-25] MEDS: FERROUS SULFATE 325 MG TAB PO SCH (09:52)
[2020-04-25] MEDS: PANTOPRAZOLE 40 MG TAB PO SCH (09:53)
[2020-04-25] MEDS: CHOLECALCIFEROL (VIT D3) 1000 UNIT (25 mcg) TAB PO SCH (09:53)
[2020-04-25] MEDS: DOCUSATE SODIUM 100 MG CAP PO SCH ×2 (09:53→21:17)
[2020-04-25] MEDS: FUROSEMIDE 20 MG TAB PO SCH (11:30)
[2020-04-25] MEDS: LISINOPRIL 5 MG TAB PO SCH (11:31)
[2020-04-25] MEDS: LINAGLIPTIN 5 MG TAB PO SCH (11:31)
[2020-04-25] MEDS: QUEtiapine 25 MG TAB PO SCH ×2 (11:32→21:18)
[2020-04-25] MEDS: risperiDONE 0.25 MG TAB PO SCH ×2 (12:25→21:28)
[2020-04-25] MEDS: traMADol 50 MG TAB PO PRN (21:18)
[2020-04-25] MEDS: INSULIN GLARGINE 100 UNITS/ML SUB-Q SCH (21:26)
[2020-04-26] MEDS: INSULIN REGULAR, HUMAN 100 UNITS/1 ML SUB-Q SCH ×4 (07:30→22:00)
[2020-04-26] MEDS: LEVOTHYROXINE 50 MCG TAB PO SCH (07:42)
[2020-04-26] MEDS: PANTOPRAZOLE 40 MG TAB PO SCH ×2 (08:53→13:25)
[2020-04-26] MEDS: FERROUS SULFATE 325 MG TAB PO SCH ×2 (08:53→13:24)
[2020-04-26] MEDS: LISINOPRIL 5 MG TAB PO SCH ×2 (08:54→13:26)
[2020-04-26] MEDS: QUEtiapine 25 MG TAB PO SCH ×3 (08:54→21:38)
[2020-04-26] MEDS: FUROSEMIDE 20 MG TAB PO SCH ×2 (08:54→13:24)
[2020-04-26] MEDS: risperiDONE 0.25 MG TAB PO SCH ×3 (08:55→21:37)
[2020-04-26] MEDS: DOCUSATE SODIUM 100 MG CAP PO SCH ×3 (08:55→21:37)
[2020-04-26] MEDS: CHOLECALCIFEROL (VIT D3) 1000 UNIT (25 mcg) TAB PO SCH ×2 (08:55→13:25)
[2020-04-26] MEDS: LINAGLIPTIN 5 MG TAB PO SCH ×2 (08:57→13:25)
--- NOTE | 2020-04-26 09:10 | Progress Note ---
Assessment and Plan Assessment and plan: (1) Acute encephalopathy Current Visit: Yes Status: Acute Plan to address problem: Differential diagnosis of cerebrovascular accident and meningeal infection Stroke work-up initiated MRI could not be done because of metal artifacts in the orbital region Patient is medically cleared to go to [facility] floor (2) cerebral amyloid angiopathy. Current Visit: Yes Status: Acute Plan to address problem: MRI reveals multiple remote microhemorrhages in the periphery of both cerebral hemispheres most consistent with a diagnosis of amyloid angiopathy. Neurology following. No acute CVA placement in [facility] facility (3) Hypertension Current Visit: Yes Status: Chronic Qualifiers: Hypertension type: essential hypertension Qualified Code(s): I10 - Essential (primary) hypertension Plan to address problem: Continue antihypertensives (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: Yes Status: Chronic Plan to address problem: Continue Lantus and short-acting insulin Check hemoglobin A1c Adjust insulin dosage (5) Agitation due to dementia Current Visit: Yes Status: Acute Plan to address problem: Psychiatric consultation (6) DVT prophylaxis Current Visit: Yes Status: Acute Plan to address problem: On heparin and GI prophylaxis (7) mild protein calorie malnutrition 04/22/2020. MRI reveals multiple remote microhemorrhages in the periphery of both cerebral hemispheres most consistent with a diagnosis of amyloid angiopathy. Await neurology recommendations. 04/23/2020. We will avoid all anticoagulation. D/c Ativan and start Seroquel 25mg BID. Await placement 04/24/2020. I had a long discussion with the patient's daughter with regards to diagnosis. Continue Seroquel for now. Await placement. 04/25/2020. Patient will have further attempts working with PT/OT today given his improved mentation. Consider discharge home await PT/OT evaluation. 04/26/2020. Physical therapy has evaluated the patient and recommends subacute rehab. [facility]. History Interval history: No new issues overnight. Hospitalist Physical - Constitutional Vitals: Temp Pulse Resp BP Pulse Ox 99.1 F 78 20 126/58 98 04/25/20 21:22 04/26/20 08:54 04/25/20 21:22 04/26/20 08:54 04/25/20 21:22 General appearance: Present: no acute distress, well-nourished - EENT Eyes: Present: PERRL, EOM intact ENT: hearing intact, clear oral mucosa, dentition normal - Neck Neck: Present: supple, normal ROM - Respiratory Respiratory effort: normal Respiratory: bilateral: CTA - Cardiovascular Rhythm: regular Heart Sounds: Present: S1 & S2. Absent: gallop, rub - Extremities Extremities: no ischemia, No edema, Full ROM - Abdominal General gastrointestinal: soft, non-tender, non-distended, normal bowel sounds - Integumentary Integumentary: Present: clear, warm, dry - Neurologic Neurologic: CNII-XII intact, moves all extremities Results - Labs CBC & Chem 7: 04/20/20 04:39 04/20/20 04:39 Labs: Laboratory Last Values WBC 4.9 K/mm3 (4.5-11.0) 04/20/20 04:39 RBC 3.77 M/mm3 (3.65-5.03) 04/20/20 04:39 Hgb 8.7 gm/dl (11.8-15.2) L 04/20/20 04:39 Hct 27.9 % (35.5-45.6) L 04/20/20 04:39 MCV 74 fl (84-94) L 04/20/20 04:39 MCH 23 pg (28-32) L 04/20/20 04:39 MCHC 31 % (32-34) L 04/20/20 04:39 RDW 16.9 % (13.2-15.2) H 04/20/20 04:39 Plt Count 264 K/mm3 (140-440) 04/20/20 04:39 Lymph % (Auto) 14.2 % (13.4-35.0) 04/19/20 05:14 [place] % (Auto) 9.8 % (0.0-7.3) H 04/19/20 05:14 Eos % (Auto) 1.9 % (0.0-4.3) 04/19/20 05:14 Baso % (Auto) 0.7 % (0.0-1.8) 04/19/20 05:14 Lymph # 0.9 K/mm3 (1.2-5.4) L 04/19/20 05:14 [place] # 0.6 K/mm3 (0.0-0.8) 04/19/20 05:14 Eos # 0.1 K/mm3 (0.0-0.4) 04/19/20 05:14 Baso # 0.0 K/mm3 (0.0-0.1) 04/19/20 05:14 Seg Neutrophils % 73.4 % (40.0-70.0) H 04/19/20 05:14 Seg Neutrophils # 4.8 K/mm3 (1.8-7.7) 04/19/20 05:14 PT 12.9 Sec. (12.2-14.9) 04/21/20 10:35 INR 0.99 (0.87-1.13) 04/21/20 10:35 Sodium 139 mmol/L (137-145) 04/20/20 04:39 Potassium 4.1 mmol/L (3.6-5.0) 04/20/20 04:39 Chloride 102.7 mmol/L (98-107) 04/20/20 04:39 Carbon Dioxide 25 mmol/L (22-30) 04/20/20 04:39 Anion Gap 15 mmol/L 04/20/20 04:39 BUN 22 mg/dL (9-20) H 04/20/20 04:39 Creatinine 0.8 mg/dL (0.8-1.5) 04/20/20 04:39 Estimated GFR > 60 ml/min 04/20/20 04:39 BUN/Creatinine Ratio 28 % 04/20/20 04:39 Glucose 171 mg/dL (75-100) H 04/20/20 04:39 POC Glucose 84 (70-105) 04/26/20 08:11 Calcium 9.2 mg/dL (8.4-10.2) 04/20/20 04:39 Total Bilirubin 0.20 mg/dL (0.1-1.2) 04/19/20 05:14 AST 21 units/L (5-40) 04/19/20 05:14 ALT 15 units/L (7-56) 04/19/20 05:14 Alkaline Phosphatase 61 units/L (35-129) 04/19/20 05:14 NT-Pro-B Natriuret Pep 387.1 pg/mL (0-900) 04/19/20 05:14 Total Protein 5.9 g/dL (6.3-8.2) L 04/19/20 05:14 Albumin 3.1 g/dL (3.9-5) L 04/19/20 05:14 Albumin/Globulin Ratio 1.1 % 04/19/20 05:14 Triglycerides 103 mg/dL (2-149) 04/19/20 05:14 Cholesterol 131 mg/dL (50-199) 04/19/20 05:14 LDL Cholesterol Direct 76 mg/dL (50-130) 04/19/20 05:14 HDL Cholesterol 49 mg/dL (40-59) 04/19/20 05:14 Cholesterol/HDL Ratio 2.67 % 04/19/20 05:14 TSH 10.080 mlU/mL (0.270-4.200) H 04/19/20 07:57 Free T4 1.20 ng/dL (0.76-1.46) 04/19/20 07:57 Digoxin 0.3 ng/mL (0.9-2.0) L 04/21/20 12:54 - Diagnostic Impressions Diagnostic Impressions: Echocardiogram 04/18/20 22:16 Transthoracic Echocardiogram Indication: stroke BP: 102/51 HR: 75 Conclusions *The left ventricular chamber size is mildly dilated. *Global left ventricular systolic function is mild to moderately decreased. *The estimated ejection fraction is 40-45%. *The left atrium is mild to moderately dilated. *The right heart chambers are mild to moderately dilated. *There is mild mitral regurgitation. *There is mild to moderate tricuspid regurgitation. *There is evidence of borderline pulmonary hypertension. *The right ventricular systolic pressure is calculated at 24 mmHg. *A patent foramen ovale is not demonstrated by agitated saline contrast. Findings Left Ventricle: The left ventricular chamber size is mildly dilated. Mild concentric left ventricular hypertrophy is observed. Global left ventricular systolic function is mild to moderately decreased. The estimated ejection fraction is 40-45%. Abnormal left ventricular diastolic function is observed. Left Atrium: The left atrium is mild to moderately dilated. Right Ventricle: The right ventricle is mild to moderately dilated. The right ventricular global systolic function is moderately reduced. Right Atrium: The right atrium is mildly dilated. A patent foramen ovale is not demonstrated by agitated saline contrast. Aortic Valve: The aortic valve is trileaflet. The aortic valve leaflets are mildly thickened. There is no evidence of aortic regurgitation. There is no evidence of aortic stenosis. Mitral Valve: The mitral valve leaflets are mildly thickened. There is mild mitral regurgitation. There is no evidence of mitral stenosis. Tricuspid Valve: The tricuspid valve leaflets are normal. There is mild to moderate tricuspid regurgitation. The right ventricular systolic pressure is calculated at 24 mmHg. There is evidence of borderline pulmonary hypertension. Pulmonic Valve: The pulmonic valve appears normal. There is trace pulmonic regurgitation. Pericardium: There is no pericardial effusion. Aorta: There is no dilatation of the aortic root. Venous: The inferior vena cava is not visualized. The inferior vena cava appears normal in size. Contrast: Intravenous agitated saline contrast was used to assess intracardiac shunting. Measurements Chambers 2D Name Value Normal Range IVSd (2D) 1.21 cm (0.6 - 1.1) LVPWd (2D) 1.21 cm (0.6 - 1.1) LVIDd (2D) 3.35 cm (3.7 - 5.6) LVIDs (2D) 2.44 cm (2 - 3.8) LV FS (2D) 27.09 % - EF Teichholz (2D) 53.99 % - Ao root diameter (2D) 4.05 cm (2 - 3.7) Volumes/Mass Name Value Normal Range LA ESV SP 4CH (A/L) 60.11 ml - LA ESV SP 2CH (A/L) 60.34 ml - LA ESV BP (A/L) 64.62 ml - LA ESV SP 4CH (MOD) 55.46 ml - LA ESV SP 2CH (MOD) 56.14 ml - LA ESV BP (MOD) 59.51 ml - LA ESV BP (MOD) index 33.25 ml/m2 - LV EDV SP 4CH (MOD) 125.55 ml - LV ESV SP 4CH (MOD) 48.88 ml - EF SP 4CH (MOD) 61.07 % - LV EDV SP 2CH (MOD) 107.05 ml - LV ESV SP 2CH (MOD) 63.77 ml - EF SP 2CH (MOD) 40.43 % - LV EDV BP 116.16 ml - LV ESV BP 57.68 ml - BP EF (MOD) 50.34 % - Diastolic/Systolic Function Name Value Normal Range MV E-wave Vmax 0.54 m/sec - MV deceleration time 147.66 msec - MV A-wave Vmax 0.66 m/sec - MV E:A ratio 0.82 ratio - Aortic Valve Name Value Normal Range AV Vmax 0.86 m/sec - AV VTI 11.37 cm - AV peak gradient 2.97 mmHg - AV mean gradient 1.5 mmHg - LVOT diameter 2.01 cm - LVOT Vmax 0.44 m/sec - LVOT VTI 7.57 cm - LVOT peak gradient 0.78 mmHg - LVOT mean gradient 0.46 mmHg - SV LVOT 24.03 ml - NARINDER (continuity Vmax) 1.63 cm2 - NARINDER (continuity VTI) 2.11 cm2 - Ascending Ao 3.72 cm - Tricuspid Valve Name Value Normal Range TR Vmax 2.31 m/sec - TR peak gradient 21 mmHg - RAP 3 mmHg - RVSP 24 mmHg - Pulmonic Valve/Qp:Qs Name Value Normal Range PV Vmax 1.11 m/sec - PV peak gradient 4.89 mmHg - RVOT Vmax 0.85 m/sec - RVOT peak gradient 2.87 mmHg - PV acceleration time 114.18 msec - [place]/IV: Voiding Method Condom Catheter IV Catheter Type [Right Upper INT / Saline Lock arm] IV Catheter Type [Left Hand] Peripheral IV IV Catheter Type [Right Hand] Peripheral IV IV Catheter Type [Right INT / Saline Lock Antecubital] Active Medications - Current Medications Current Medications: Generic Name Dose Route Start Last Admin Trade Name Freq PRN Reason Stop Dose Admin Acetaminophen 650 mg 04/18/20 22:06 04/25/20 01:57 Tylenol PO 650 mg Q4H PRN Administration Pain MILD(1-3)/Fever >100.5/[place] Atorvastatin Calcium 40 mg 04/19/20 22:00 04/25/20 21:17 Lipitor PO 40 mg QHS JOSELIN Administration Cholecalciferol 1,000 unit 04/19/20 10:00 04/26/20 08:55 Vitamin D3 PO 1,000 unit DAILY JOSELIN Administration Dextrose 50 ml 04/19/20 00:54 D50w (25gm) Syringe IV Q30MIN PRN Hypoglycemia Protocol Docusate Sodium 100 mg 04/18/20 22:00 04/26/20 08:55 Colace PO 100 mg BID JOSELIN Administration Ferrous Sulfate 325 mg 04/19/20 10:00 04/26/20 08:53 Feosol PO 325 mg DAILY JOSELIN Administration Furosemide 20 mg 04/19/20 10:00 04/26/20 08:54 Lasix PO 20 mg DAILY JOSELIN Administration Insulin Glargine 15 units 04/19/20 22:00 04/25/20 21:26 Lantus SUB-Q 15 units QHS JOSELIN Administration Insulin Human Regular 0 units 04/19/20 01:15 04/26/20 07:30 Humulin R SUB-Q [facility] Protocol Levothyroxine Sodium 50 mcg 04/20/20 06:00 04/26/20 07:42 Synthroid PO 50 mcg DAILY@0600 JOSELIN Administration Linagliptin 5 mg 04/20/20 10:00 04/26/20 08:57 Tradjenta PO 5 mg QDAY JOSELIN Administration Lisinopril 5 mg 04/19/20 10:00 04/26/20 08:54 Zestril PO 5 mg DAILY JOSELIN Administration Ondansetron HCl 4 mg 04/18/20 22:06 04/25/20 01:57 Zofran IV 4 mg Q8H PRN Administration Nausea And Vomiting Pantoprazole Sodium 40 mg 04/19/20 10:00 04/26/20 08:53 Protonix PO 40 mg DAILY JOSELIN Administration Quetiapine Fumarate 25 mg 04/23/20 10:00 04/26/20 08:54 Seroquel PO 25 mg BID JOSELIN Administration Risperidone 0.5 mg 04/20/20 22:00 04/26/20 08:55 Risperdal PO 0.5 mg BID JOSELIN Administration Sodium Chloride 10 ml 04/18/20 23:00 04/26/20 08:56 Sodium Chloride Flush Syringe 10 Ml IV 10 ml BID JOSELIN Administration Sodium Chloride 10 ml 04/18/20 22:06 04/19/20 01:19 Sodium Chloride Flush Syringe 10 Ml IV 10 ml PRN PRN Administration LINE FLUSH Tramadol HCl 50 mg 04/18/20 21:57 04/25/20 21:18 Ultram PO 50 mg Q6HR PRN Administration Pain, Moderate (4-6) Nutrition/Malnutrition Assess - Dietary Evaluation Nutrition/Malnutrition Findings: Nutrition Notes Start: 04/24/20 12:48 Freq: Status: Active Protocol: Document 04/24/20 12:48 LM (Rec: 04/24/20 13:09 LM [id number]) Nutrition Notes Need for Assessment generated from: MD Order Initial or Follow up Assessment Current Diagnosis Diabetes,Hypertension,Heart Failure Other Pertinent Diagnosis acute encephalopathy Current Diet pureed Labs/Tests Reviewed Pertinent Medications Reviewed Height 5 ft 6 in Weight 61.2 kg [place] Body Weight (kg) 64.54 BMI 21.7 Weight Status Appropriate Subjective/Other Information MD consult for malnutrition. RN stated that she was about to feed pt at time of visit. Noticed pt with poor intakes in chart. Pt with clavicle wasting. Burn Absent Trauma Absent Difficulty In Swallowing,Chewing Minimum of two criteria Yes Body Fat Depletion Mild depletion (non-severe) Muscle Mass Mild Depletion (non-severe) #1 Nutrition Diagnosis Malnutrition Etiology encephalopathy As Evidenced by Signs and Symptoms muscle and fat wasting Is patient on ventilator? No Is Patient Ambulatory and/or Out of Bed No REE-([place]-confined to bed) [phone] Calculation Used for Recommendations [facility] Additional Notes Protein: 73-92g (1.2-1.5g/kg) Fluid: 1ml/kcal Nutrition Intervention Change Diet Order: continue Add Supplement/Snack (indicate name/kcal Ensure Enlive BID /protein ) Provides kCal: 700 Provides Protein (gm) 40 Goal #1 Meet at least 80% of energy and protein needs Anticipated Discharge Needs: unable to determine at this time Follow-Up By: 04/28/20 Additional Comments F/U for PO/ONS intakes
--- NOTE | 2020-04-26 11:15 | Progress Note ---
Subjective Date of service: 04/26/20 Principal diagnosis: Acute encephalopathy Interval history: WANTS TO GO HOME Objective Vital Signs Temp Pulse Resp BP Pulse Ox 04/26/20 08:54 78 126/58 04/25/20 21:22 99.1 F 75 20 123/60 98 04/25/20 17:24 97.4 F L 72 18 60/40 95 04/25/20 11:31 103/48 04/25/20 11:17 97.4 F L 61 18 80/51 98 - Physical Examination General: No Apparent Distress HEENT: Positive: PERRL Neck: Positive: neck supple Cardiac: Positive: Irregularly Regular Lungs: Positive: clear to auscultation Neuro: Positive: Other (altered mental status) Abdomen: Positive: Soft Extremities: Absent: edema - Imaging and Cardiology EKG: report reviewed
[2020-04-26] MEDS ORDERED: SODIUM CHLORIDE 0.9% 250ML 250 ML IV ONE (12:30)
--- NOTE | 2020-04-26 14:36 | Progress Note ---
Subjective Date of service: 04/26/20 Principal diagnosis: Acute encephalopathy Interval history: he is more alert and no longer agitated at times memory seems improverd but he is very inapprpriatye [facility] to proceeding rec's Objective - Vital Sign Vital Signs - 12hr 04/26/20 04/26/20 04/26/20 08:54 11:25 14:31 Temperature 97.2 F L Pulse Rate 78 65 73 Respiratory 18 20 Rate Blood Pressure 126/58 86/35 Blood Pressure 134/66 [Left] O2 Sat by Pulse 99 Oximetry - Laboratory Findings CBC and BMP: 04/20/20 04:39 04/20/20 04:39 Abnormal Lab Findings: Abnormal Labs 04/18/20 04/19/20 04/19/20 21:58 05:14 05:14 RBC 3.48 L Hgb 8.2 L Hct 25.9 L MCV 74 L MCH 24 L MCHC RDW 17.0 H [place] % (Auto) 9.8 H Lymph # 0.9 L Seg Neutrophils % 73.4 H Sodium 135 L BUN 27 H Glucose 325 H POC Glucose 330 H Total Protein 5.9 L Albumin 3.1 L TSH Digoxin 04/19/20 04/19/20 04/19/20 07:57 08:01 11:33 RBC Hgb Hct MCV MCH MCHC RDW [place] % (Auto) Lymph # Seg Neutrophils % Sodium BUN Glucose POC Glucose 331 H 195 H Total Protein Albumin TSH 10.080 H Digoxin 04/19/20 04/19/20 04/20/20 15:56 21:42 04:39 RBC Hgb 8.7 L Hct 27.9 L MCV 74 L MCH 23 L MCHC 31 L RDW 16.9 H [place] % (Auto) Lymph # Seg Neutrophils % Sodium BUN Glucose POC Glucose 185 H 321 H Total Protein Albumin TSH Digoxin 04/20/20 04/20/20 04/20/20 04:39 07:30 11:47 RBC Hgb Hct MCV MCH MCHC RDW [place] % (Auto) Lymph # Seg Neutrophils % Sodium BUN 22 H Glucose 171 H POC Glucose 211 H 126 H Total Protein Albumin TSH Digoxin 04/20/20 04/20/20 04/21/20 17:19 21:33 08:16 RBC Hgb Hct MCV MCH MCHC RDW [place] % (Auto) Lymph # Seg Neutrophils % Sodium BUN Glucose POC Glucose 196 H 384 H 162 H Total Protein Albumin TSH Digoxin 04/21/20 04/21/20 04/21/20 11:31 12:54 22:01 RBC Hgb Hct MCV MCH MCHC RDW [place] % (Auto) Lymph # Seg Neutrophils % Sodium BUN Glucose POC Glucose 133 H 229 H Total Protein Albumin TSH Digoxin 0.3 L 04/22/20 04/22/20 04/22/20 07:41 11:47 16:54 RBC Hgb Hct MCV MCH MCHC RDW [place] % (Auto) Lymph # Seg Neutrophils % Sodium BUN Glucose POC Glucose 145 H 148 H 167 H Total Protein Albumin TSH Digoxin 04/22/20 04/23/20 04/23/20 23:53 07:40 17:15 RBC Hgb Hct MCV MCH MCHC RDW [place] % (Auto) Lymph # Seg Neutrophils % Sodium BUN Glucose POC Glucose 208 H 229 H 109 H Total Protein Albumin TSH Digoxin 04/23/20 04/24/20 04/24/20 23:06 07:28 12:22 RBC Hgb Hct MCV MCH MCHC RDW [place] % (Auto) Lymph # Seg Neutrophils % Sodium BUN Glucose POC Glucose 106 H 107 H 106 H Total Protein Albumin TSH Digoxin 04/24/20 04/24/20 04/25/20 16:54 22:02 12:21 RBC Hgb Hct MCV MCH MCHC RDW [place] % (Auto) Lymph # Seg Neutrophils % Sodium BUN Glucose POC Glucose 200 H 310 H 234 H Total Protein Albumin TSH Digoxin 04/25/20 04/25/20 04/26/20 17:22 21:35 11:39 RBC Hgb Hct MCV MCH MCHC RDW [place] % (Auto) Lymph # Seg Neutrophils % Sodium BUN Glucose POC Glucose 264 H 266 H 242 H Total Protein Albumin TSH Digoxin
--- NOTE | 2020-04-26 14:41 | Consultation ---
History of Present Illness - Reason for Consult Consult date: 04/26/20 - History of Present Illness I did review trhe MRI scan and there is evidence of amyloid angiopathy that is c/w dx of dementia this is age related treatment supportive care only Past History Past Medical History: diabetes, heart failure, hypertension Past Surgical History: Other. denies: No surgical history Social history: full code. denies: no significant social history Family history: hypertension Medications and Allergies Allergies Allergy/AdvReac Type Severity Reaction Status Date / Time aspirin Allergy Unknown Verified 04/16/20 14:46 Home Medications Medication Instructions Recorded Confirmed Last Taken Type Alogliptin Benzoate 25 mg PO DAILY 04/18/20 04/20/20 Unknown History Docusate Sodium [Colace CAP] 100 mg PO BID 04/18/20 04/20/20 Unknown History Ferrous Fumarate (Nf) 324 mg PO DAILY 04/18/20 04/20/20 Unknown History Furosemide 20 mg PO DAILY 04/18/20 04/20/20 Unknown History Insulin Regular, Human [HumuLIN R] 0 units SUB-Q ACHS units 04/18/20 04/20/20 Unknown Rx Lantus Solostar 100 units SQ QPM 04/18/20 04/20/20 Unknown History Lisinopril 5 mg PO DAILY 04/18/20 04/20/20 Unknown History Melatonin 3 mg PO QHS 04/18/20 04/20/20 Unknown History Omeprazole 40 mg PO DAILY 04/18/20 04/20/20 Unknown History Vitamin D3 1,000 unit PO DAILY 04/18/20 04/20/20 Unknown History metFORMIN 500 mg PO BID 04/18/20 04/20/20 Unknown History risperiDONE [RisperDAL] 0.5 mg PO BID #60 tablet 04/18/20 04/20/20 Unknown Rx traMADoL [Ultram 50 MG tab] 50 mg PO Q6HR PRN 04/18/20 04/20/20 Unknown History Active Meds: Active Medications Acetaminophen (Tylenol) 650 mg PO Q4H PRN PRN Reason: Pain MILD(1-3)/Fever >100.5/[place] Last Admin: 04/25/20 01:57 Dose: 650 mg Documented by: Atorvastatin Calcium (Lipitor) 40 mg PO QHS [facility] Last Admin: 04/25/20 21:17 Dose: 40 mg Documented by: Cholecalciferol (Vitamin D3) 1,000 unit PO DAILY [facility] Last Admin: 04/26/20 13:25 Dose: Not Given Documented by: Dextrose (D50w (25gm) Syringe) 50 ml IV Q30MIN PRN; Protocol PRN Reason: Hypoglycemia Docusate Sodium (Colace) 100 mg PO BID [facility] Last Admin: 04/26/20 13:24 Dose: Not Given Documented by: Ferrous Sulfate (Feosol) 325 mg PO DAILY [facility] Last Admin: 04/26/20 13:24 Dose: Not Given Documented by: Furosemide (Lasix) 20 mg PO DAILY [facility] Last Admin: 04/26/20 13:24 Dose: Not Given Documented by: Insulin Glargine (Lantus) 15 units SUB-Q QHS [facility] Last Admin: 04/25/20 21:26 Dose: 15 units Documented by: Insulin Human Regular (Humulin R) 0 units SUB-Q ACHS [facility]; Protocol Last Admin: 04/26/20 11:30 Dose: 4 units Documented by: Levothyroxine Sodium (Synthroid) 50 mcg PO DAILY@0600 [facility] Last Admin: 04/26/20 07:42 Dose: 50 mcg Documented by: Linagliptin (Tradjenta) 5 mg PO QDAY [facility] Last Admin: 04/26/20 13:25 Dose: Not Given Documented by: Lisinopril (Zestril) 5 mg PO DAILY [facility] Last Admin: 04/26/20 13:26 Dose: Not Given Documented by: Ondansetron HCl (Zofran) 4 mg IV Q8H PRN PRN Reason: Nausea And Vomiting Last Admin: 04/25/20 01:57 Dose: 4 mg Documented by: Pantoprazole Sodium (Protonix) 40 mg PO DAILY [facility] Last Admin: 04/26/20 13:25 Dose: Not Given Documented by: Quetiapine Fumarate (Seroquel) 25 mg PO BID [facility] Last Admin: 04/26/20 13:25 Dose: Not Given Documented by: Risperidone (Risperdal) 0.5 mg PO BID [facility] Last Admin: 04/26/20 13:25 Dose: Not Given Documented by: Sodium Chloride (Sodium Chloride Flush Syringe 10 Ml) 10 ml IV BID [facility] Last Admin: 04/26/20 13:25 Dose: Not Given Documented by: Sodium Chloride (Sodium Chloride Flush Syringe 10 Ml) 10 ml IV PRN PRN PRN Reason: LINE FLUSH Last Admin: 04/19/20 01:19 Dose: 10 ml Documented by: Tramadol HCl (Ultram) 50 mg PO Q6HR PRN PRN Reason: Pain, Moderate (4-6) Last Admin: 04/25/20 21:18 Dose: 50 mg Documented by: Exam - Constitutional Vitals: Temp Pulse Resp BP Pulse Ox 97.2 F L 73 20 134/66 99 04/26/20 11:25 04/26/20 14:31 04/26/20 14:31 04/26/20 14:31 04/26/20 11:25 Results - Labs CBC & Chem 7: 04/20/20 04:39 04/20/20 04:39 Labs: Abnormal lab results 04/25/20 04/25/20 04/26/20 Range/Units 17:22 21:35 11:39 POC Glucose 264 H 266 H 242 H (70-105)
[2020-04-26] MEDS: INSULIN GLARGINE 100 UNITS/ML SUB-Q SCH (22:00)
[2020-04-27] MEDS: traMADol 50 MG TAB PO PRN (04:43)
[2020-04-27] MEDS: LEVOTHYROXINE 50 MCG TAB PO SCH (05:05)
[2020-04-27] MEDS ORDERED: LORazepam 2 MG/ML VIAL IV ONE (06:29)
[2020-04-27] MEDS: INSULIN REGULAR, HUMAN 100 UNITS/1 ML SUB-Q SCH ×4 (07:33→23:24)
[2020-04-27] MEDS: PANTOPRAZOLE 40 MG TAB PO SCH ×2 (08:49→17:24)
[2020-04-27] MEDS: FERROUS SULFATE 325 MG TAB PO SCH ×2 (08:49→17:24)
[2020-04-27] MEDS: LISINOPRIL 5 MG TAB PO SCH ×2 (08:49→17:25)
[2020-04-27] MEDS: DOCUSATE SODIUM 100 MG CAP PO SCH ×3 (08:50→22:12)
[2020-04-27] MEDS: FUROSEMIDE 20 MG TAB PO SCH ×2 (08:50→17:24)
[2020-04-27] MEDS: QUEtiapine 25 MG TAB PO SCH ×2 (08:50→17:26)
[2020-04-27] MEDS: risperiDONE 0.25 MG TAB PO SCH ×3 (08:50→22:11)
[2020-04-27] MEDS: CHOLECALCIFEROL (VIT D3) 1000 UNIT (25 mcg) TAB PO SCH ×2 (08:50→17:25)
[2020-04-27] MEDS: LINAGLIPTIN 5 MG TAB PO SCH ×2 (08:51→17:25)
--- NOTE | 2020-04-27 09:02 | Progress Note ---
Assessment and Plan Assessment and plan: (1) Acute encephalopathy Current Visit: Yes Status: Acute Plan to address problem: Differential diagnosis of cerebrovascular accident and meningeal infection Stroke work-up initiated MRI could not be done because of metal artifacts in the orbital region Patient is medically cleared to go to [facility] floor (2) cerebral amyloid angiopathy. Current Visit: Yes Status: Acute Plan to address problem: MRI reveals multiple remote microhemorrhages in the periphery of both cerebral hemispheres most consistent with a diagnosis of amyloid angiopathy. Neurology following. No acute CVA placement in correction facility (3) Hypertension Current Visit: Yes Status: Chronic Qualifiers: Hypertension type: essential hypertension Qualified Code(s): I10 - Essential (primary) hypertension Plan to address problem: Continue antihypertensives (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: Yes Status: Chronic Plan to address problem: Continue Lantus and short-acting insulin Check hemoglobin A1c Adjust insulin dosage (5) Agitation due to dementia Current Visit: Yes Status: Acute Plan to address problem: Psychiatric consultation (6) DVT prophylaxis Current Visit: Yes Status: Acute Plan to address problem: On heparin and GI prophylaxis (7) mild protein calorie malnutrition 04/22/2020. MRI reveals multiple remote microhemorrhages in the periphery of both cerebral hemispheres most consistent with a diagnosis of amyloid angiopathy. Await neurology recommendations. 04/23/2020. We will avoid all anticoagulation. D/c Ativan and start Seroquel 25mg BID. Await placement 04/24/2020. I had a long discussion with the patient's daughter with regards to diagnosis. Continue Seroquel for now. Await placement. 04/25/2020. Patient will have further attempts working with PT/OT today given his improved mentation. Consider discharge home await PT/OT evaluation. 04/26/2020. Physical therapy has evaluated the patient and recommends subacute rehab. Case management reports Sebastien Trent-Reviewing referral. 04/27/2020. Awaiting subacute rehab placement. History Interval history: No new issues overnight. Hospitalist Physical - Constitutional Vitals: Temp Pulse Resp BP Pulse Ox 97.3 F L 72 18 120/60 98 04/27/20 03:01 04/27/20 08:49 04/27/20 03:01 04/27/20 08:49 04/27/20 03:01 General appearance: Present: no acute distress, well-nourished - EENT Eyes: Present: PERRL, EOM intact ENT: hearing intact, clear oral mucosa, dentition normal - Neck Neck: Present: supple, normal ROM - Respiratory Respiratory effort: normal Respiratory: bilateral: CTA - Cardiovascular Rhythm: regular Heart Sounds: Present: S1 & S2. Absent: gallop, rub - Extremities Extremities: no ischemia, No edema, Full ROM - Abdominal General gastrointestinal: soft, non-tender, non-distended, normal bowel sounds - Integumentary Integumentary: Present: clear, warm, dry - Neurologic Neurologic: CNII-XII intact, moves all extremities Results - Labs CBC & Chem 7: 04/20/20 04:39 04/20/20 04:39 Labs: Laboratory Last Values WBC 4.9 K/mm3 (4.5-11.0) 04/20/20 04:39 RBC 3.77 M/mm3 (3.65-5.03) 04/20/20 04:39 Hgb 8.7 gm/dl (11.8-15.2) L 04/20/20 04:39 Hct 27.9 % (35.5-45.6) L 04/20/20 04:39 MCV 74 fl (84-94) L 04/20/20 04:39 MCH 23 pg (28-32) L 04/20/20 04:39 MCHC 31 % (32-34) L 04/20/20 04:39 RDW 16.9 % (13.2-15.2) H 04/20/20 04:39 Plt Count 264 K/mm3 (140-440) 04/20/20 04:39 Lymph % (Auto) 14.2 % (13.4-35.0) 04/19/20 05:14 Anderson % (Auto) 9.8 % (0.0-7.3) H 04/19/20 05:14 Eos % (Auto) 1.9 % (0.0-4.3) 04/19/20 05:14 Baso % (Auto) 0.7 % (0.0-1.8) 04/19/20 05:14 Lymph # 0.9 K/mm3 (1.2-5.4) L 04/19/20 05:14 Anderson # 0.6 K/mm3 (0.0-0.8) 04/19/20 05:14 Eos # 0.1 K/mm3 (0.0-0.4) 04/19/20 05:14 Baso # 0.0 K/mm3 (0.0-0.1) 04/19/20 05:14 Seg Neutrophils % 73.4 % (40.0-70.0) H 04/19/20 05:14 Seg Neutrophils # 4.8 K/mm3 (1.8-7.7) 04/19/20 05:14 PT 12.9 Sec. (12.2-14.9) 04/21/20 10:35 INR 0.99 (0.87-1.13) 04/21/20 10:35 Sodium 139 mmol/L (137-145) 04/20/20 04:39 Potassium 4.1 mmol/L (3.6-5.0) 04/20/20 04:39 Chloride 102.7 mmol/L (98-107) 04/20/20 04:39 Carbon Dioxide 25 mmol/L (22-30) 04/20/20 04:39 Anion Gap 15 mmol/L 04/20/20 04:39 BUN 22 mg/dL (9-20) H 04/20/20 04:39 Creatinine 0.8 mg/dL (0.8-1.5) 04/20/20 04:39 Estimated GFR > 60 ml/min 04/20/20 04:39 BUN/Creatinine Ratio 28 % 04/20/20 04:39 Glucose 171 mg/dL (75-100) H 04/20/20 04:39 POC Glucose 236 (70-105) H 04/27/20 07:44 Calcium 9.2 mg/dL (8.4-10.2) 04/20/20 04:39 Total Bilirubin 0.20 mg/dL (0.1-1.2) 04/19/20 05:14 AST 21 units/L (5-40) 04/19/20 05:14 ALT 15 units/L (7-56) 04/19/20 05:14 Alkaline Phosphatase 61 units/L (35-129) 04/19/20 05:14 NT-Pro-B Natriuret Pep 387.1 pg/mL (0-900) 04/19/20 05:14 Total Protein 5.9 g/dL (6.3-8.2) L 04/19/20 05:14 Albumin 3.1 g/dL (3.9-5) L 04/19/20 05:14 Albumin/Globulin Ratio 1.1 % 04/19/20 05:14 Triglycerides 103 mg/dL (2-149) 04/19/20 05:14 Cholesterol 131 mg/dL (50-199) 04/19/20 05:14 LDL Cholesterol Direct 76 mg/dL (50-130) 04/19/20 05:14 HDL Cholesterol 49 mg/dL (40-59) 04/19/20 05:14 Cholesterol/HDL Ratio 2.67 % 04/19/20 05:14 TSH 10.080 mlU/mL (0.270-4.200) H 04/19/20 07:57 Free T4 1.20 ng/dL (0.76-1.46) 04/19/20 07:57 Digoxin 0.3 ng/mL (0.9-2.0) L 04/21/20 12:54 - Diagnostic Impressions Diagnostic Impressions: Echocardiogram 04/18/20 22:16 Transthoracic Echocardiogram Indication: stroke BP: 102/51 HR: 75 Conclusions *The left ventricular chamber size is mildly dilated. *Global left ventricular systolic function is mild to moderately decreased. *The estimated ejection fraction is 40-45%. *The left atrium is mild to moderately dilated. *The right heart chambers are mild to moderately dilated. *There is mild mitral regurgitation. *There is mild to moderate tricuspid regurgitation. *There is evidence of borderline pulmonary hypertension. *The right ventricular systolic pressure is calculated at 24 mmHg. *A patent foramen ovale is not demonstrated by agitated saline contrast. Findings Left Ventricle: The left ventricular chamber size is mildly dilated. Mild concentric left ventricular hypertrophy is observed. Global left ventricular systolic function is mild to moderately decreased. The estimated ejection fraction is 40-45%. Abnormal left ventricular diastolic function is observed. Left Atrium: The left atrium is mild to moderately dilated. Right Ventricle: The right ventricle is mild to moderately dilated. The right ventricular global systolic function is moderately reduced. Right Atrium: The right atrium is mildly dilated. A patent foramen ovale is not demonstrated by agitated saline contrast. Aortic Valve: The aortic valve is trileaflet. The aortic valve leaflets are mildly thickened. There is no evidence of aortic regurgitation. There is no evidence of aortic stenosis. Mitral Valve: The mitral valve leaflets are mildly thickened. There is mild mitral regurgitation. There is no evidence of mitral stenosis. Tricuspid Valve: The tricuspid valve leaflets are normal. There is mild to moderate tricuspid regurgitation. The right ventricular systolic pressure is calculated at 24 mmHg. There is evidence of borderline pulmonary hypertension. Pulmonic Valve: The pulmonic valve appears normal. There is trace pulmonic regurgitation. Pericardium: There is no pericardial effusion. Aorta: There is no dilatation of the aortic root. Venous: The inferior vena cava is not visualized. The inferior vena cava appears normal in size. Contrast: Intravenous agitated saline contrast was used to assess intracardiac shunting. Measurements Chambers 2D Name Value Normal Range IVSd (2D) 1.21 cm (0.6 - 1.1) LVPWd (2D) 1.21 cm (0.6 - 1.1) LVIDd (2D) 3.35 cm (3.7 - 5.6) LVIDs (2D) 2.44 cm (2 - 3.8) LV FS (2D) 27.09 % - EF Teichholz (2D) 53.99 % - Ao root diameter (2D) 4.05 cm (2 - 3.7) Volumes/Mass Name Value Normal Range LA ESV SP 4CH (A/L) 60.11 ml - LA ESV SP 2CH (A/L) 60.34 ml - LA ESV BP (A/L) 64.62 ml - LA ESV SP 4CH (MOD) 55.46 ml - LA ESV SP 2CH (MOD) 56.14 ml - LA ESV BP (MOD) 59.51 ml - LA ESV BP (MOD) index 33.25 ml/m2 - LV EDV SP 4CH (MOD) 125.55 ml - LV ESV SP 4CH (MOD) 48.88 ml - EF SP 4CH (MOD) 61.07 % - LV EDV SP 2CH (MOD) 107.05 ml - LV ESV SP 2CH (MOD) 63.77 ml - EF SP 2CH (MOD) 40.43 % - LV EDV BP 116.16 ml - LV ESV BP 57.68 ml - BP EF (MOD) 50.34 % - Diastolic/Systolic Function Name Value Normal Range MV E-wave Vmax 0.54 m/sec - MV deceleration time 147.66 msec - MV A-wave Vmax 0.66 m/sec - MV E:A ratio 0.82 ratio - Aortic Valve Name Value Normal Range AV Vmax 0.86 m/sec - AV VTI 11.37 cm - AV peak gradient 2.97 mmHg - AV mean gradient 1.5 mmHg - LVOT diameter 2.01 cm - LVOT Vmax 0.44 m/sec - LVOT VTI 7.57 cm - LVOT peak gradient 0.78 mmHg - LVOT mean gradient 0.46 mmHg - SV LVOT 24.03 ml - NARINDER (continuity Vmax) 1.63 cm2 - NARINDER (continuity VTI) 2.11 cm2 - Ascending Ao 3.72 cm - Tricuspid Valve Name Value Normal Range TR Vmax 2.31 m/sec - TR peak gradient 21 mmHg - RAP 3 mmHg - RVSP 24 mmHg - Pulmonic Valve/Qp:Qs Name Value Normal Range PV Vmax 1.11 m/sec - PV peak gradient 4.89 mmHg - RVOT Vmax 0.85 m/sec - RVOT peak gradient 2.87 mmHg - PV acceleration time 114.18 msec - [place]/IV: Voiding Method Condom Catheter IV Catheter Type [Right Upper INT / Saline Lock arm] IV Catheter Type [Left Hand] Peripheral IV IV Catheter Type [Right Hand] Peripheral IV IV Catheter Type [Right INT / Saline Lock Antecubital] Active Medications - Current Medications Current Medications: Generic Name Dose Route Start Last Admin Trade Name Freq PRN Reason Stop Dose Admin Acetaminophen 650 mg 04/18/20 22:06 04/25/20 01:57 Tylenol PO 650 mg Q4H PRN Administration Pain MILD(1-3)/Fever >100.5/[place] Atorvastatin Calcium 40 mg 04/19/20 22:00 04/26/20 21:37 Lipitor PO 40 mg QHS JOSELIN Administration Cholecalciferol 1,000 unit 04/19/20 10:00 04/27/20 08:50 Vitamin D3 PO 1,000 unit DAILY JOSELIN Administration Dextrose 50 ml 04/19/20 00:54 D50w (25gm) Syringe IV Q30MIN PRN Hypoglycemia Protocol Docusate Sodium 100 mg 04/18/20 22:00 04/27/20 08:50 Colace PO 100 mg BID JOSELIN Administration Ferrous Sulfate 325 mg 04/19/20 10:00 04/27/20 08:49 Feosol PO 325 mg DAILY JOSELIN Administration Furosemide 20 mg 04/19/20 10:00 04/27/20 08:50 Lasix PO 20 mg DAILY JOSELIN Administration Insulin Glargine 15 units 04/19/20 22:00 04/26/20 22:00 Lantus SUB-Q 15 units QHS JOSELIN Administration Insulin Human Regular 0 units 04/19/20 01:15 04/27/20 07:33 Humulin R SUB-Q 4 units ACHS JOSELIN Administration Protocol Levothyroxine Sodium 50 mcg 04/20/20 06:00 04/27/20 05:05 Synthroid PO 50 mcg DAILY@0600 JOSELIN Administration Linagliptin 5 mg 04/20/20 10:00 04/27/20 08:51 Tradjenta PO 5 mg QDAY JOSELIN Administration Lisinopril 5 mg 04/19/20 10:00 04/27/20 08:49 Zestril PO 5 mg DAILY JOSELIN Administration Ondansetron HCl 4 mg 04/18/20 22:06 04/25/20 01:57 Zofran IV 4 mg Q8H PRN Administration Nausea And Vomiting Pantoprazole Sodium 40 mg 04/19/20 10:00 04/27/20 08:49 Protonix PO 40 mg DAILY JOSELIN Administration Quetiapine Fumarate 25 mg 04/23/20 10:00 04/27/20 08:50 Seroquel PO 25 mg BID JOSELIN Administration Risperidone 0.5 mg 04/20/20 22:00 04/27/20 08:50 Risperdal PO 0.5 mg BID JOSELIN Administration Sodium Chloride 10 ml 04/18/20 23:00 04/27/20 08:51 Sodium Chloride Flush Syringe 10 Ml IV 10 ml BID JOSELIN Administration Sodium Chloride 10 ml 04/18/20 22:06 04/19/20 01:19 Sodium Chloride Flush Syringe 10 Ml IV 10 ml PRN PRN Administration LINE FLUSH Tramadol HCl 50 mg 04/18/20 21:57 04/27/20 04:43 Ultram PO 50 mg Q6HR PRN Administration Pain, Moderate (4-6) Nutrition/Malnutrition Assess - Dietary Evaluation Nutrition/Malnutrition Findings: Nutrition Notes Start: 04/24/20 12:48 Freq: Status: Active Protocol: Document 04/24/20 12:48 LM (Rec: 04/24/20 13:09 LM [email or web address]) Nutrition Notes Need for Assessment generated from: MD Order Initial or Follow up Assessment Current Diagnosis Diabetes,Hypertension,Heart Failure Other Pertinent Diagnosis acute encephalopathy Current Diet pureed Labs/Tests Reviewed Pertinent Medications Reviewed Height 5 ft 6 in Weight 61.2 kg [place] Body Weight (kg) 64.54 BMI 21.7 Weight Status Appropriate Subjective/Other Information MD consult for malnutrition. RN stated that she was about to feed pt at time of visit. Noticed pt with poor intakes in chart. Pt with clavicle wasting. Burn Absent Trauma Absent Difficulty In Swallowing,Chewing Minimum of two criteria Yes Body Fat Depletion Mild depletion (non-severe) Muscle Mass Mild Depletion (non-severe) #1 Nutrition Diagnosis Malnutrition Etiology encephalopathy As Evidenced by Signs and Symptoms muscle and fat wasting Is patient on ventilator? No Is Patient Ambulatory and/or Out of Bed No REE-([facility]-confined to bed) [phone] Calculation Used for Recommendations [facility] Additional Notes Protein: 73-92g (1.2-1.5g/kg) Fluid: 1ml/kcal Nutrition Intervention Change Diet Order: continue Add Supplement/Snack (indicate name/kcal Ensure Enlive BID /protein ) Provides kCal: 700 Provides Protein (gm) 40 Goal #1 Meet at least 80% of energy and protein needs Anticipated Discharge Needs: unable to determine at this time Follow-Up By: 04/28/20 Additional Comments F/U for PO/ONS intakes
--- NOTE | 2020-04-27 10:54 | Progress Note ---
Assessment and Plan - Patient Problems (1) Agitation due to dementia Current Visit: Yes Status: Acute (2) Hypertension Current Visit: Yes Status: Chronic Qualifiers: Hypertension type: essential hypertension Qualified Code(s): I10 - Essential (primary) hypertension (3) Insulin dependent diabetes mellitus Current Visit: Yes Status: Chronic Subjective Date of service: 04/27/20 Principal diagnosis: Acute encephalopathy Interval history: WANTS TO GO HOME Objective Vital Signs Temp Pulse Resp BP BP Pulse Ox 04/27/20 08:49 72 120/60 04/27/20 03:01 97.3 F L 72 18 120/54 98 04/26/20 16:29 98.0 F 72 18 123/54 96 04/26/20 14:31 73 20 134/66 04/26/20 11:25 97.2 F L 65 18 86/35 99 - Physical Examination General: No Apparent Distress HEENT: Positive: PERRL Neck: Positive: neck supple Cardiac: Positive: Reg Rate and Rhythm Lungs: Positive: clear to auscultation Neuro: Positive: Other (altered mental status) Abdomen: Positive: Soft Extremities: Absent: edema - Imaging and Cardiology EKG: report reviewed
--- NOTE | 2020-04-27 11:37 | Progress Note ---
Subjective - Reason for Consult Consult date: 04/27/20 Reason for consult: MHE Requesting physician: YESIKA WILSON - Chief Complaint Chief complaint: Per Floor Nurse: received awake alert x1 very confused talking out hollering out Psych Progress HPI Patient seen in room awake but disorganized, confused and hyperverbal. No orientation. MENTAL STATUS EXAMINATION General Appearance and Behavior: Age appropriate, dishelved, fair hygiene, wearing appropriate clothes, lying in bed, poor eye contact, uncooperative with questioning. Cooperation: uncooperative Psychomotor Behavior: Psychomotor agitation Mood: n/a Affect and affective range: elated Thought Process: Tangential, Rambling, Pressured, Blocked, Fragmented and Loose associations Thought Content: delusional Speech: Normal volume, Regular rate and rhythm Intellectual Functioning: fair Suicidal Ideation: n/a Homicidal Ideation: n/a Impulse Control: Impaired Insight and Judgment: Impaired Memory: poor Attention: Divided attention Orientation: Alert but disoriented. Treatment Plan: RECOMMENDATIONS MEDICATIONS: Olazanpine 2.5mg and Risperidone started. Risks, benefits and alternatives of medications discussed with the patient, questions answered and consent obtained from patient. PSYCHOTHERAPY: Supportive psychotherapy provided MEDICAL: Per primary team DELIRIUM PRECAUTIONS: Please re-orient patient frequently, keep lights on during the day, and minimize benzodiazepines and opiates as these medications could worsen patient's confusion. 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 Please contact with any questions and/or concerns. Mental Status Exam - Vital signs Last Vital Signs Temp 97.3 F L 04/27/20 03:01 Pulse 72 04/27/20 08:49 Resp 18 04/27/20 03:01 BP 120/60 04/27/20 08:49 Pulse Ox 98 04/27/20 03:01
[2020-04-27] MEDS: traZODone 50 MG TAB PO SCH (22:11)
[2020-04-27] MEDS: INSULIN GLARGINE 100 UNITS/ML SUB-Q SCH (23:25)
[2020-04-28] MEDS: traMADol 50 MG TAB PO PRN (05:47)
[2020-04-28] MEDS: LEVOTHYROXINE 50 MCG TAB PO SCH (05:48)
[2020-04-28] MEDS: INSULIN REGULAR, HUMAN 100 UNITS/1 ML SUB-Q SCH ×4 (08:54→21:50)
[2020-04-28] MEDS: FERROUS SULFATE 325 MG TAB PO SCH (10:07)
[2020-04-28] MEDS: PANTOPRAZOLE 40 MG TAB PO SCH (10:07)
[2020-04-28] MEDS: CHOLECALCIFEROL (VIT D3) 1000 UNIT (25 mcg) TAB PO SCH (10:07)
[2020-04-28] MEDS: DOCUSATE SODIUM 100 MG CAP PO SCH ×2 (10:07→21:51)
--- NOTE | 2020-04-28 10:15 | Progress Note ---
Subjective - Reason for Consult Consult date: 04/28/20 Reason for consult: MHE Requesting physician: YESIKA WILSON - Chief Complaint Chief complaint: Per Floor Nurse: Pt noted siting at the edge of the bed., trying to get out of b ed. He is agitated and behaving hostile towards nurses.. Pt is trying to hit staff when he is being touched to assist back into bed. Pt encouraged to get back into bed for safety. he was finally assisted into bed with 2 persons assist. Due night medications administered. Psych Progress HPI Patient seen in room today, sleepy, barely responding to verbal stimuli but no distress. MENTAL STATUS EXAMINATION General Appearance and Behavior: Somnolent and sleepy Cooperation: n/a Psychomotor Behavior: No psychomotor agitation Mood: n/a Affect and affective range: flat Thought Process: unknown Thought Content: unknown Speech: n/a Intellectual Functioning: fair Suicidal Ideation: n/a Homicidal Ideation: n/a Impulse Control: Impaired Insight and Judgment: Impaired Memory: poor Attention: Divided attention Orientation: Alert but disoriented. Treatment Plan: RECOMMENDATIONS Will titrate down current medications. MEDICATIONS: Olanzapine .25mg QHS and Risperidone .5mg QAM Risks, benefits and alternatives of medications discussed with the patient, questions answered and consent obtained from patient. PSYCHOTHERAPY: Supportive psychotherapy provided MEDICAL: Per primary team DELIRIUM PRECAUTIONS: Please re-orient patient frequently, keep lights on during the day, and minimize benzodiazepines and opiates as these medications could worsen patient's confusion. 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 LEGAL STATUS: Voluntary FOLLOW-UP: Will continue to follow Thank you for the consult. Please contact with any questions and/or concerns. Mental Status Exam - Vital signs Last Vital Signs Temp 97.3 F L 04/28/20 05:41 Pulse 72 04/28/20 05:41 Resp 18 04/28/20 05:41 BP 118/56 04/28/20 05:41 Pulse Ox 98 04/28/20 05:41
--- NOTE | 2020-04-28 10:21 | Progress Note ---
Assessment and Plan Assessment and plan: (1) Acute encephalopathy Current Visit: Yes Status: Acute Plan to address problem: Differential diagnosis of cerebrovascular accident and meningeal infection Stroke work-up initiated MRI could not be done because of metal artifacts in the orbital region Patient is medically cleared to go to [facility] floor (2) cerebral amyloid angiopathy. Current Visit: Yes Status: Acute Plan to address problem: MRI reveals multiple remote microhemorrhages in the periphery of both cerebral hemispheres most consistent with a diagnosis of amyloid angiopathy. Neurology following. No acute CVA placement in jail facility (3) Hypertension Current Visit: Yes Status: Chronic Qualifiers: Hypertension type: essential hypertension Qualified Code(s): I10 - Essential (primary) hypertension Plan to address problem: Continue antihypertensives (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: Yes Status: Chronic Plan to address problem: Continue Lantus and short-acting insulin Check hemoglobin A1c Adjust insulin dosage (5) Agitation due to dementia Current Visit: Yes Status: Acute Plan to address problem: Psychiatric consultation (6) DVT prophylaxis Current Visit: Yes Status: Acute Plan to address problem: On heparin and GI prophylaxis (7) mild protein calorie malnutrition 04/22/2020. MRI reveals multiple remote microhemorrhages in the periphery of both cerebral hemispheres most consistent with a diagnosis of amyloid angiopathy. Await neurology recommendations. 04/23/2020. We will avoid all anticoagulation. D/c Ativan and start Seroquel 25mg BID. Await placement 04/24/2020. I had a long discussion with the patient's daughter with regards to diagnosis. Continue Seroquel for now. Await placement. 04/25/2020. Patient will have further attempts working with PT/OT today given his improved mentation. Consider discharge home await PT/OT evaluation. 04/26/2020. Physical therapy has evaluated the patient and recommends subacute rehab. [facility]. 04/27/2020. Awaiting subacute rehab placement. 04/28/2020. Physical therapy has evaluated the patient and recommends subacute rehab. Nutrition following regarding caloric intake. History Interval history: No new issues overnight. Hospitalist Physical - Constitutional Vitals: Temp Pulse Resp BP Pulse Ox 97.3 F L 72 18 118/56 98 04/28/20 05:41 04/28/20 05:41 04/28/20 05:41 04/28/20 05:41 04/28/20 05:41 General appearance: Present: no acute distress, well-nourished - EENT Eyes: Present: PERRL, EOM intact ENT: hearing intact, clear oral mucosa, dentition normal - Neck Neck: Present: supple, normal ROM - Respiratory Respiratory effort: normal Respiratory: bilateral: CTA - Cardiovascular Rhythm: regular Heart Sounds: Present: S1 & S2. Absent: gallop, rub - Extremities Extremities: no ischemia, No edema, Full ROM - Abdominal General gastrointestinal: soft, non-tender, non-distended, normal bowel sounds - Integumentary Integumentary: Present: clear, warm, dry - Neurologic Neurologic: CNII-XII intact, moves all extremities Results - Labs CBC & Chem 7: 04/20/20 04:39 04/20/20 04:39 Labs: Laboratory Last Values WBC 4.9 K/mm3 (4.5-11.0) 04/20/20 04:39 RBC 3.77 M/mm3 (3.65-5.03) 04/20/20 04:39 Hgb 8.7 gm/dl (11.8-15.2) L 04/20/20 04:39 Hct 27.9 % (35.5-45.6) L 04/20/20 04:39 MCV 74 fl (84-94) L 04/20/20 04:39 MCH 23 pg (28-32) L 04/20/20 04:39 MCHC 31 % (32-34) L 04/20/20 04:39 RDW 16.9 % (13.2-15.2) H 04/20/20 04:39 Plt Count 264 K/mm3 (140-440) 04/20/20 04:39 Lymph % (Auto) 14.2 % (13.4-35.0) 04/19/20 05:14 Scott % (Auto) 9.8 % (0.0-7.3) H 04/19/20 05:14 Eos % (Auto) 1.9 % (0.0-4.3) 04/19/20 05:14 Baso % (Auto) 0.7 % (0.0-1.8) 04/19/20 05:14 Lymph # 0.9 K/mm3 (1.2-5.4) L 04/19/20 05:14 Scott # 0.6 K/mm3 (0.0-0.8) 04/19/20 05:14 Eos # 0.1 K/mm3 (0.0-0.4) 04/19/20 05:14 Baso # 0.0 K/mm3 (0.0-0.1) 04/19/20 05:14 Seg Neutrophils % 73.4 % (40.0-70.0) H 04/19/20 05:14 Seg Neutrophils # 4.8 K/mm3 (1.8-7.7) 04/19/20 05:14 PT 12.9 Sec. (12.2-14.9) 04/21/20 10:35 INR 0.99 (0.87-1.13) 04/21/20 10:35 Sodium 139 mmol/L (137-145) 04/20/20 04:39 Potassium 4.1 mmol/L (3.6-5.0) 04/20/20 04:39 Chloride 102.7 mmol/L (98-107) 04/20/20 04:39 Carbon Dioxide 25 mmol/L (22-30) 04/20/20 04:39 Anion Gap 15 mmol/L 04/20/20 04:39 BUN 22 mg/dL (9-20) H 04/20/20 04:39 Creatinine 0.8 mg/dL (0.8-1.5) 04/20/20 04:39 Estimated GFR > 60 ml/min 04/20/20 04:39 BUN/Creatinine Ratio 28 % 04/20/20 04:39 Glucose 171 mg/dL (75-100) H 04/20/20 04:39 POC Glucose 98 (70-105) 04/28/20 09:08 Calcium 9.2 mg/dL (8.4-10.2) 04/20/20 04:39 Total Bilirubin 0.20 mg/dL (0.1-1.2) 04/19/20 05:14 AST 21 units/L (5-40) 04/19/20 05:14 ALT 15 units/L (7-56) 04/19/20 05:14 Alkaline Phosphatase 61 units/L (35-129) 04/19/20 05:14 NT-Pro-B Natriuret Pep 387.1 pg/mL (0-900) 04/19/20 05:14 Total Protein 5.9 g/dL (6.3-8.2) L 04/19/20 05:14 Albumin 3.1 g/dL (3.9-5) L 04/19/20 05:14 Albumin/Globulin Ratio 1.1 % 04/19/20 05:14 Triglycerides 103 mg/dL (2-149) 04/19/20 05:14 Cholesterol 131 mg/dL (50-199) 04/19/20 05:14 LDL Cholesterol Direct 76 mg/dL (50-130) 04/19/20 05:14 HDL Cholesterol 49 mg/dL (40-59) 04/19/20 05:14 Cholesterol/HDL Ratio 2.67 % 04/19/20 05:14 TSH 10.080 mlU/mL (0.270-4.200) H 04/19/20 07:57 Free T4 1.20 ng/dL (0.76-1.46) 04/19/20 07:57 Digoxin 0.3 ng/mL (0.9-2.0) L 04/21/20 12:54 - Diagnostic Impressions Diagnostic Impressions: Echocardiogram 04/18/20 22:16 Transthoracic Echocardiogram Indication: stroke BP: 102/51 HR: 75 Conclusions *The left ventricular chamber size is mildly dilated. *Global left ventricular systolic function is mild to moderately decreased. *The estimated ejection fraction is 40-45%. *The left atrium is mild to moderately dilated. *The right heart chambers are mild to moderately dilated. *There is mild mitral regurgitation. *There is mild to moderate tricuspid regurgitation. *There is evidence of borderline pulmonary hypertension. *The right ventricular systolic pressure is calculated at 24 mmHg. *A patent foramen ovale is not demonstrated by agitated saline contrast. Findings Left Ventricle: The left ventricular chamber size is mildly dilated. Mild concentric left ventricular hypertrophy is observed. Global left ventricular systolic function is mild to moderately decreased. The estimated ejection fraction is 40-45%. Abnormal left ventricular diastolic function is observed. Left Atrium: The left atrium is mild to moderately dilated. Right Ventricle: The right ventricle is mild to moderately dilated. The right ventricular global systolic function is moderately reduced. Right Atrium: The right atrium is mildly dilated. A patent foramen ovale is not demonstrated by agitated saline contrast. Aortic Valve: The aortic valve is trileaflet. The aortic valve leaflets are mildly thickened. There is no evidence of aortic regurgitation. There is no evidence of aortic stenosis. Mitral Valve: The mitral valve leaflets are mildly thickened. There is mild mitral regurgitation. There is no evidence of mitral stenosis. Tricuspid Valve: The tricuspid valve leaflets are normal. There is mild to moderate tricuspid regurgitation. The right ventricular systolic pressure is calculated at 24 mmHg. There is evidence of borderline pulmonary hypertension. Pulmonic Valve: The pulmonic valve appears normal. There is trace pulmonic regurgitation. Pericardium: There is no pericardial effusion. Aorta: There is no dilatation of the aortic root. Venous: The inferior vena cava is not visualized. The inferior vena cava appears normal in size. Contrast: Intravenous agitated saline contrast was used to assess intracardiac shunting. Measurements Chambers 2D Name Value Normal Range IVSd (2D) 1.21 cm (0.6 - 1.1) LVPWd (2D) 1.21 cm (0.6 - 1.1) LVIDd (2D) 3.35 cm (3.7 - 5.6) LVIDs (2D) 2.44 cm (2 - 3.8) LV FS (2D) 27.09 % - EF Teichholz (2D) 53.99 % - Ao root diameter (2D) 4.05 cm (2 - 3.7) Volumes/Mass Name Value Normal Range LA ESV SP 4CH (A/L) 60.11 ml - LA ESV SP 2CH (A/L) 60.34 ml - LA ESV BP (A/L) 64.62 ml - LA ESV SP 4CH (MOD) 55.46 ml - LA ESV SP 2CH (MOD) 56.14 ml - LA ESV BP (MOD) 59.51 ml - LA ESV BP (MOD) index 33.25 ml/m2 - LV EDV SP 4CH (MOD) 125.55 ml - LV ESV SP 4CH (MOD) 48.88 ml - EF SP 4CH (MOD) 61.07 % - LV EDV SP 2CH (MOD) 107.05 ml - LV ESV SP 2CH (MOD) 63.77 ml - EF SP 2CH (MOD) 40.43 % - LV EDV BP 116.16 ml - LV ESV BP 57.68 ml - BP EF (MOD) 50.34 % - Diastolic/Systolic Function Name Value Normal Range MV E-wave Vmax 0.54 m/sec - MV deceleration time 147.66 msec - MV A-wave Vmax 0.66 m/sec - MV E:A ratio 0.82 ratio - Aortic Valve Name Value Normal Range AV Vmax 0.86 m/sec - AV VTI 11.37 cm - AV peak gradient 2.97 mmHg - AV mean gradient 1.5 mmHg - LVOT diameter 2.01 cm - LVOT Vmax 0.44 m/sec - LVOT VTI 7.57 cm - LVOT peak gradient 0.78 mmHg - LVOT mean gradient 0.46 mmHg - SV LVOT 24.03 ml - NARINDER (continuity Vmax) 1.63 cm2 - NARINDER (continuity VTI) 2.11 cm2 - Ascending Ao 3.72 cm - Tricuspid Valve Name Value Normal Range TR Vmax 2.31 m/sec - TR peak gradient 21 mmHg - RAP 3 mmHg - RVSP 24 mmHg - Pulmonic Valve/Qp:Qs Name Value Normal Range PV Vmax 1.11 m/sec - PV peak gradient 4.89 mmHg - RVOT Vmax 0.85 m/sec - RVOT peak gradient 2.87 mmHg - PV acceleration time 114.18 msec - [place]/IV: Voiding Method Condom Catheter IV Catheter Type [Right Upper INT / Saline Lock arm] IV Catheter Type [Left Hand] Peripheral IV IV Catheter Type [Right Hand] Peripheral IV IV Catheter Type [Right INT / Saline Lock Antecubital] Active Medications - Current Medications Current Medications: Generic Name Dose Route Start Last Admin Trade Name Freq PRN Reason Stop Dose Admin Acetaminophen 650 mg 04/18/20 22:06 04/25/20 01:57 Tylenol PO 650 mg Q4H PRN Administration Pain MILD(1-3)/Fever >100.5/[place] Atorvastatin Calcium 40 mg 04/19/20 22:00 04/27/20 22:11 Lipitor PO 40 mg QHS JOSELIN Administration Cholecalciferol 1,000 unit 04/19/20 10:00 04/28/20 10:07 Vitamin D3 PO 1,000 unit DAILY JOSELIN Administration Dextrose 50 ml 04/19/20 00:54 D50w (25gm) Syringe IV Q30MIN PRN Hypoglycemia Protocol Docusate Sodium 100 mg 04/18/20 22:00 04/28/20 10:07 Colace PO 100 mg BID JOSELIN Administration Ferrous Sulfate 325 mg 04/19/20 10:00 04/28/20 10:07 Feosol PO 325 mg DAILY JOSELIN Administration Furosemide 20 mg 04/19/20 10:00 04/27/20 17:24 Lasix PO Not Given DAILY JOSELIN Insulin Glargine 15 units 04/19/20 22:00 04/27/20 23:25 Lantus SUB-Q 15 units QHS JOSELIN Administration Insulin Human Regular 0 units 04/19/20 01:15 04/28/20 08:54 Humulin R SUB-Q Not Given ACHS [facility] Protocol Levothyroxine Sodium 50 mcg 04/20/20 06:00 04/28/20 05:48 Synthroid PO 50 mcg DAILY@0600 JOSELIN Administration Linagliptin 5 mg 04/20/20 10:00 04/27/20 17:25 Tradjenta PO Not Given QDAY [facility] Lisinopril 5 mg 04/19/20 10:00 04/27/20 17:25 Zestril PO Not Given DAILY [facility] Olanzapine 5 mg 04/28/20 10:15 Zyprexa PO QHS [facility] Ondansetron HCl 4 mg 04/18/20 22:06 04/25/20 01:57 Zofran IV 4 mg Q8H PRN Administration Nausea And Vomiting Pantoprazole Sodium 40 mg 04/19/20 10:00 04/28/20 10:07 Protonix PO 40 mg DAILY JOSELIN Administration Risperidone 1 mg 04/27/20 22:00 04/27/20 22:11 Risperdal PO 1 mg BID JOSELIN Administration Sodium Chloride 10 ml 04/18/20 23:00 04/27/20 22:13 Sodium Chloride Flush Syringe 10 Ml IV 10 ml BID JOSELIN Administration Sodium Chloride 10 ml 04/18/20 22:06 04/19/20 01:19 Sodium Chloride Flush Syringe 10 Ml IV 10 ml PRN PRN Administration LINE FLUSH Tramadol HCl 50 mg 04/18/20 21:57 04/28/20 05:47 Ultram PO 50 mg Q6HR PRN Administration Pain, Moderate (4-6) Trazodone HCl 50 mg 04/27/20 22:00 04/27/20 22:11 Desyrel PO 50 mg QHS JOSELIN Administration Nutrition/Malnutrition Assess - Dietary Evaluation Nutrition/Malnutrition Findings: Nutrition Notes Start: 04/24/20 12:48 Freq: Status: Active Protocol: Document 04/24/20 12:48 LM (Rec: 04/24/20 13:09 LM [id number]) Nutrition Notes Need for Assessment generated from: MD Order Initial or Follow up Assessment Current Diagnosis Diabetes,Hypertension,Heart Failure Other Pertinent Diagnosis acute encephalopathy Current Diet pureed Labs/Tests Reviewed Pertinent Medications Reviewed Height 5 ft 6 in Weight 61.2 kg [place] Body Weight (kg) 64.54 BMI 21.7 Weight Status Appropriate Subjective/Other Information MD consult for malnutrition. RN stated that she was about to feed pt at time of visit. Noticed pt with poor intakes in chart. Pt with clavicle wasting. Burn Absent Trauma Absent Difficulty In Swallowing,Chewing Minimum of two criteria Yes Body Fat Depletion Mild depletion (non-severe) Muscle Mass Mild Depletion (non-severe) #1 Nutrition Diagnosis Malnutrition Etiology encephalopathy As Evidenced by Signs and Symptoms muscle and fat wasting Is patient on ventilator? No Is Patient Ambulatory and/or Out of Bed No REE-(Beckham-St. Jeor-confined to bed) [phone] Calculation [facility] Additional Notes Protein: 73-92g (1.2-1.5g/kg) Fluid: 1ml/kcal Nutrition Intervention Change Diet Order: continue Add Supplement/Snack (indicate name/kcal Ensure Enlive BID /protein ) Provides kCal: 700 Provides Protein (gm) 40 Goal #1 Meet at least 80% of energy and protein needs Anticipated Discharge Needs: unable to determine at this time Follow-Up By: 04/28/20 Additional Comments F/U for PO/ONS intakes
--- NOTE | 2020-04-28 10:25 | Progress Note ---
Assessment and Plan Abnormal ECG marked baseline artifact which causes difficulty with optimal interpretation of his ECGs Altered mental status Dementia Hypothyroidism TSH 12.5 Diabetes Anemia Hypertension An echo this admission reveals 4 chamber dilation with a decreased left ventricular systolic function, ejection fraction 40-45%. Negative bubble study. Avoid AV elisha blocking agents. Conservative cardiac management. Subjective Date of service: 04/28/20 Principal diagnosis: Acute encephalopathy Interval history: Patient resting in bed with eyes closed. Wrists restraints are in place. Objective Vital Signs Temp Pulse Resp BP BP Pulse Ox 04/28/20 05:41 97.3 F L 72 18 118/56 98 04/27/20 23:11 97.4 F L 59 L 18 123/52 96 04/27/20 17:00 98.0 F 58 L 20 119/55 98 - Physical Examination General: No Apparent Distress Neck: Positive: neck supple, trachea midline Cardiac: Positive: Regular Rate, Other (baseline artifact) Neuro: Positive: Other (altered mental status) Extremities: Absent: edema
[2020-04-28] MEDS: risperiDONE 0.25 MG TAB PO SCH (10:30)
[2020-04-28] MEDS: LISINOPRIL 5 MG TAB PO SCH (10:31)
[2020-04-28] MEDS: FUROSEMIDE 20 MG TAB PO SCH (10:31)
[2020-04-28] MEDS: LINAGLIPTIN 5 MG TAB PO SCH (10:32)
[2020-04-28] MEDS ORDERED: risperiDONE 0.25 MG TAB PO SCH (13:00)
[2020-04-28] MEDS: ACETAMINOPHEN 325 MG TAB PO PRN (21:49)
[2020-04-28] MEDS: INSULIN GLARGINE 100 UNITS/ML SUB-Q SCH (21:50)
[2020-04-28] MEDS: traZODone 50 MG TAB PO SCH (21:51)
[2020-04-29] MEDS: LEVOTHYROXINE 50 MCG TAB PO SCH (06:06)
--- NOTE | 2020-04-29 07:19 | Progress Note ---
Subjective - Reason for Consult Consult date: 04/29/20 Reason for consult: MHE Requesting physician: YESIKA WILSON - Chief Complaint Chief complaint: Per Floor Nurse: Received pt without restraints. He agrees to fallow direction. He doesn't appear to be trying to pull on any of his line. Restraints was discontinued at 20:00. Psych Progress HPI Patient seen this a.m., he is more alert awake and oriented. Unable to make specific request about his own care. Patient states he thinks he can care for himself and wants to know when he will be discharged to go home, that he also gets care from people to come to his place and takes care of him. Patient reported he is aware that he is in a facility, told me that is got a daughter and his son that usually checks up on him. Patient is no longer in restraints MENTAL STATUS EXAMINATION General Appearance and Behavior: Somnolent and sleepy Cooperation: n/a Psychomotor Behavior: No psychomotor agitation Mood: n/a Affect and affective range: flat Thought Process: unknown Thought Content: unknown Speech: n/a Intellectual Functioning: fair Suicidal Ideation: n/a Homicidal Ideation: n/a Impulse Control: Impaired Insight and Judgment: Impaired Memory: poor Attention: Divided attention Orientation: Alert but disoriented. Treatment Plan: RECOMMENDATIONS Improve mentation observed. COntinue current medications upon discharge. Increase Risperidone to BID, will monitor for changes tomorrow. MEDICATIONS: Olanzapine .25mg QHS and Risperidone .5mg BID Risks, benefits and alternatives of medications discussed with the patient, questions answered and consent obtained from patient. PSYCHOTHERAPY: Supportive psychotherapy provided MEDICAL: Per primary team DELIRIUM PRECAUTIONS: Please re-orient patient frequently, keep lights on during the day, and minimize benzodiazepines and opiates as these medications could worsen patient's confusion. PROCESS EXCELLENCE MANAGER: Per medical team DISPOSITION: Recommend disposition to senior living facility once medically stable. LEGAL STATUS: Voluntary FOLLOW-UP: Will follow Thank you for the consult. Please contact with any questions and/or concerns. Mental Status Exam - Vital signs Last Vital Signs Temp 97.6 F 04/28/20 16:40 Pulse 66 04/29/20 05:58 Resp 18 04/29/20 05:58 BP 118/46 04/29/20 05:58 Pulse Ox 66 L 04/29/20 05:58
[2020-04-29] MEDS ORDERED: risperiDONE 0.25 MG TAB PO SCH ×2 (10:00)
[2020-04-29] MEDS: INSULIN REGULAR, HUMAN 100 UNITS/1 ML SUB-Q SCH ×4 (10:07→21:36)
--- NOTE | 2020-04-29 10:21 | Progress Note ---
Assessment and Plan Abnormal ECG marked baseline artifact which causes difficulty with optimal interpretation of his ECGs Altered mental status Dementia Hypothyroidism TSH 12.5 Diabetes Anemia Hypertension An echo this admission reveals 4 chamber dilation with a decreased left ventricular systolic function, ejection fraction 40-45%. Negative bubble study. Avoid AV elisha blocking agents. Otherwise, conservative cardiac management. Subjective Date of service: 04/29/20 Principal diagnosis: Acute encephalopathy Interval history: No interval cardiac changes. Objective Vital Signs Temp Pulse Pulse Resp BP BP Pulse Ox 04/29/20 05:58 66 18 118/46 66 L 04/29/20 01:58 49 L 16 100 04/28/20 16:40 97.6 F 49 L 16 113/48 100 04/28/20 11:02 97.9 F 43 L 20 121/55 93 04/28/20 10:31 111/51 04/28/20 10:29 111/51 - Physical Examination General: No Apparent Distress Cardiac: Positive: Regular Rate Neuro: Positive: Other (altered mental status) Extremities: Absent: edema
[2020-04-29] MEDS: PANTOPRAZOLE 40 MG TAB PO SCH (10:29)
[2020-04-29] MEDS: FERROUS SULFATE 325 MG TAB PO SCH (10:29)
[2020-04-29] MEDS: LISINOPRIL 5 MG TAB PO SCH (10:29)
[2020-04-29] MEDS: DOCUSATE SODIUM 100 MG CAP PO SCH ×2 (10:29→21:36)
[2020-04-29] MEDS: CHOLECALCIFEROL (VIT D3) 1000 UNIT (25 mcg) TAB PO SCH (10:30)
[2020-04-29] MEDS: FUROSEMIDE 20 MG TAB PO SCH (10:30)
[2020-04-29] MEDS: LINAGLIPTIN 5 MG TAB PO SCH (13:14)
--- NOTE | 2020-04-29 14:49 | Progress Note ---
Assessment and Plan Assessment and plan: --Acute metabolic encephalopathy; Mild improvement, unable to do MRI due to metal pieces Continue supportive care --History of cerebral amyloid angiopathy; MRI cerebral myeloid angiopathy, study not complete due to metallic pieces Neurology following continue supportive care No acute CVA. --Hypertension; moderate control, continue current antihypertensives and PRN medications --Type 2 diabetes mellitus; Accu-Chek sliding scale coverage ADA diet and Lantus insulin A1c 12.6,, supportive care, home health nurse for disease monitoring at discharge --Severe dementia; Continue current management, fall precautions --Mild malnutrition; nutrition supplements, supportive care --DVT prophylaxis; Lovenox --Full CODE STATUS; --DC planning; awaiting subacute rehab placement 04/22/2020. MRI reveals multiple remote microhemorrhages in the periphery of both cerebral hemispheres most consistent with a diagnosis of amyloid angiopathy. Await neurology recommendations. 04/23/2020. We will avoid all anticoagulation. D/c Ativan and start Seroquel 25mg BID. Await placement 04/24/2020. I had a long discussion with the patient's daughter with regards to diagnosis. Continue Seroquel for now. Await placement. 04/25/2020. Patient will have further attempts working with PT/OT today given his improved mentation. Consider discharge home await PT/OT evaluation. 04/26/2020. Physical therapy has evaluated the patient and recommends subacute rehab. Case management reports [facility]-Reviewing referral. 04/27/2020. Awaiting subacute rehab placement. 04/28/2020. Physical therapy has evaluated the patient and recommends subacute rehab. Nutrition following regarding caloric intake 04/29/2020: Patient is medically stable ,awaiting placement, [facility] reviewing for admission Plan of care reviewed with the patient his nurse and the case management History Interval history: I have seen and examined the patient at the bedside this morning Patient's chart medications tests and reports reviewed Patient is anxious to go home, Pending placement No new complaints, no new overnight events reported by the nursing Vital signs reviewed Hospitalist Physical - Constitutional Vitals: Temp Pulse Resp BP Pulse Ox 97.6 F 66 18 115/46 66 L 04/28/20 16:40 04/29/20 10:29 04/29/20 05:58 04/29/20 10:29 04/29/20 05:58 General appearance: Present: no acute distress, well-nourished, other (Confused at times) - EENT Eyes: Present: PERRL, EOM intact - Neck Neck: Present: supple, normal ROM - Respiratory Respiratory effort: normal Respiratory: bilateral: diminished, negative: rales, rhonchi, wheezing - Cardiovascular Rhythm: regular Heart Sounds: Present: S1 & S2 - Extremities Extremities: no ischemia, No edema - Abdominal General gastrointestinal: soft, non-tender, non-distended, normal bowel sounds - Integumentary Integumentary: Present: clear, warm - Psychiatric Psychiatric: appropriate mood/affect, cooperative - Neurologic Neurologic: CNII-XII intact, moves all extremities Results - Labs CBC & Chem 7: 04/20/20 04:39 04/20/20 04:39 Labs: Laboratory Last Values WBC 4.9 K/mm3 (4.5-11.0) 04/20/20 04:39 RBC 3.77 M/mm3 (3.65-5.03) 04/20/20 04:39 Hgb 8.7 gm/dl (11.8-15.2) L 04/20/20 04:39 Hct 27.9 % (35.5-45.6) L 04/20/20 04:39 MCV 74 fl (84-94) L 04/20/20 04:39 MCH 23 pg (28-32) L 04/20/20 04:39 MCHC 31 % (32-34) L 04/20/20 04:39 RDW 16.9 % (13.2-15.2) H 04/20/20 04:39 Plt Count 264 K/mm3 (140-440) 04/20/20 04:39 Lymph % (Auto) 14.2 % (13.4-35.0) 04/19/20 05:14 [place] % (Auto) 9.8 % (0.0-7.3) H 04/19/20 05:14 Eos % (Auto) 1.9 % (0.0-4.3) 04/19/20 05:14 Baso % (Auto) 0.7 % (0.0-1.8) 04/19/20 05:14 Lymph # 0.9 K/mm3 (1.2-5.4) L 04/19/20 05:14 [place] # 0.6 K/mm3 (0.0-0.8) 04/19/20 05:14 Eos # 0.1 K/mm3 (0.0-0.4) 04/19/20 05:14 Baso # 0.0 K/mm3 (0.0-0.1) 04/19/20 05:14 Seg Neutrophils % 73.4 % (40.0-70.0) H 04/19/20 05:14 Seg Neutrophils # 4.8 K/mm3 (1.8-7.7) 04/19/20 05:14 PT 12.9 Sec. (12.2-14.9) 04/21/20 10:35 INR 0.99 (0.87-1.13) 04/21/20 10:35 Sodium 139 mmol/L (137-145) 04/20/20 04:39 Potassium 4.1 mmol/L (3.6-5.0) 04/20/20 04:39 Chloride 102.7 mmol/L (98-107) 04/20/20 04:39 Carbon Dioxide 25 mmol/L (22-30) 04/20/20 04:39 Anion Gap 15 mmol/L 04/20/20 04:39 BUN 22 mg/dL (9-20) H 04/20/20 04:39 Creatinine 0.8 mg/dL (0.8-1.5) 04/20/20 04:39 Estimated GFR > 60 ml/min 04/20/20 04:39 BUN/Creatinine Ratio 28 % 04/20/20 04:39 Glucose 171 mg/dL (75-100) H 04/20/20 04:39 POC Glucose 206 (70-105) H 04/29/20 11:25 Calcium 9.2 mg/dL (8.4-10.2) 04/20/20 04:39 Total Bilirubin 0.20 mg/dL (0.1-1.2) 04/19/20 05:14 AST 21 units/L (5-40) 04/19/20 05:14 ALT 15 units/L (7-56) 04/19/20 05:14 Alkaline Phosphatase 61 units/L (35-129) 04/19/20 05:14 NT-Pro-B Natriuret Pep 387.1 pg/mL (0-900) 04/19/20 05:14 Total Protein 5.9 g/dL (6.3-8.2) L 04/19/20 05:14 Albumin 3.1 g/dL (3.9-5) L 04/19/20 05:14 Albumin/Globulin Ratio 1.1 % 04/19/20 05:14 Triglycerides 103 mg/dL (2-149) 04/19/20 05:14 Cholesterol 131 mg/dL (50-199) 04/19/20 05:14 LDL Cholesterol Direct 76 mg/dL (50-130) 04/19/20 05:14 HDL Cholesterol 49 mg/dL (40-59) 04/19/20 05:14 Cholesterol/HDL Ratio 2.67 % 04/19/20 05:14 TSH 10.080 mlU/mL (0.270-4.200) H 04/19/20 07:57 Free T4 1.20 ng/dL (0.76-1.46) 04/19/20 07:57 Digoxin 0.3 ng/mL (0.9-2.0) L 04/21/20 12:54 - Diagnostic Impressions Diagnostic Impressions: Echocardiogram 04/18/20 22:16 Transthoracic Echocardiogram Indication: stroke BP: 102/51 HR: 75 Conclusions *The left ventricular chamber size is mildly dilated. *Global left ventricular systolic function is mild to moderately decreased. *The estimated ejection fraction is 40-45%. *The left atrium is mild to moderately dilated. *The right heart chambers are mild to moderately dilated. *There is mild mitral regurgitation. *There is mild to moderate tricuspid regurgitation. *There is evidence of borderline pulmonary hypertension. *The right ventricular systolic pressure is calculated at 24 mmHg. *A patent foramen ovale is not demonstrated by agitated saline contrast. Findings Left Ventricle: The left ventricular chamber size is mildly dilated. Mild concentric left ventricular hypertrophy is observed. Global left ventricular systolic function is mild to moderately decreased. The estimated ejection fraction is 40-45%. Abnormal left ventricular diastolic function is observed. Left Atrium: The left atrium is mild to moderately dilated. Right Ventricle: The right ventricle is mild to moderately dilated. The right ventricular global systolic function is moderately reduced. Right Atrium: The right atrium is mildly dilated. A patent foramen ovale is not demonstrated by agitated saline contrast. Aortic Valve: The aortic valve is trileaflet. The aortic valve leaflets are mildly thickened. There is no evidence of aortic regurgitation. There is no evidence of aortic stenosis. Mitral Valve: The mitral valve leaflets are mildly thickened. There is mild mitral regurgitation. There is no evidence of mitral stenosis. Tricuspid Valve: The tricuspid valve leaflets are normal. There is mild to moderate tricuspid regurgitation. The right ventricular systolic pressure is calculated at 24 mmHg. There is evidence of borderline pulmonary hypertension. Pulmonic Valve: The pulmonic valve appears normal. There is trace pulmonic regurgitation. Pericardium: There is no pericardial effusion. Aorta: There is no dilatation of the aortic root. Venous: The inferior vena cava is not visualized. The inferior vena cava appears normal in size. Contrast: Intravenous agitated saline contrast was used to assess intracardiac shunting. Measurements Chambers 2D Name Value Normal Range IVSd (2D) 1.21 cm (0.6 - 1.1) LVPWd (2D) 1.21 cm (0.6 - 1.1) LVIDd (2D) 3.35 cm (3.7 - 5.6) LVIDs (2D) 2.44 cm (2 - 3.8) LV FS (2D) 27.09 % - EF Teichholz (2D) 53.99 % - Ao root diameter (2D) 4.05 cm (2 - 3.7) Volumes/Mass Name Value Normal Range LA ESV SP 4CH (A/L) 60.11 ml - LA ESV SP 2CH (A/L) 60.34 ml - LA ESV BP (A/L) 64.62 ml - LA ESV SP 4CH (MOD) 55.46 ml - LA ESV SP 2CH (MOD) 56.14 ml - LA ESV BP (MOD) 59.51 ml - LA ESV BP (MOD) index 33.25 ml/m2 - LV EDV SP 4CH (MOD) 125.55 ml - LV ESV SP 4CH (MOD) 48.88 ml - EF SP 4CH (MOD) 61.07 % - LV EDV SP 2CH (MOD) 107.05 ml - LV ESV SP 2CH (MOD) 63.77 ml - EF SP 2CH (MOD) 40.43 % - LV EDV BP 116.16 ml - LV ESV BP 57.68 ml - BP EF (MOD) 50.34 % - Diastolic/Systolic Function Name Value Normal Range MV E-wave Vmax 0.54 m/sec - MV deceleration time 147.66 msec - MV A-wave Vmax 0.66 m/sec - MV E:A ratio 0.82 ratio - Aortic Valve Name Value Normal Range AV Vmax 0.86 m/sec - AV VTI 11.37 cm - AV peak gradient 2.97 mmHg - AV mean gradient 1.5 mmHg - LVOT diameter 2.01 cm - LVOT Vmax 0.44 m/sec - LVOT VTI 7.57 cm - LVOT peak gradient 0.78 mmHg - LVOT mean gradient 0.46 mmHg - SV LVOT 24.03 ml - NARINDER (continuity Vmax) 1.63 cm2 - NARINDER (continuity VTI) 2.11 cm2 - Ascending Ao 3.72 cm - Tricuspid Valve Name Value Normal Range TR Vmax 2.31 m/sec - TR peak gradient 21 mmHg - RAP 3 mmHg - RVSP 24 mmHg - Pulmonic Valve/Qp:Qs Name Value Normal Range PV Vmax 1.11 m/sec - PV peak gradient 4.89 mmHg - RVOT Vmax 0.85 m/sec - RVOT peak gradient 2.87 mmHg - PV acceleration time 114.18 msec - [place]/IV: Voiding Method Urinal IV Catheter Type [Right Upper INT / Saline Lock arm] IV Catheter Type [Left Hand] Peripheral IV IV Catheter Type [Right Hand] Peripheral IV IV Catheter Type [Right INT / Saline Lock Antecubital] Active Medications - Current Medications Current Medications: Generic Name Dose Route Start Last Admin Trade Name Freq PRN Reason Stop Dose Admin Acetaminophen 650 mg 04/18/20 22:06 04/28/20 21:49 Tylenol PO 650 mg Q4H PRN Administration Pain MILD(1-3)/Fever >100.5/[place]IN Atorvastatin Calcium 40 mg 04/19/20 22:00 04/28/20 21:51 Lipitor PO 40 mg QHS JOSELIN Administration Cholecalciferol 1,000 unit 04/19/20 10:00 04/29/20 10:30 Vitamin D3 PO 1,000 unit DAILY JOSELIN Administration Dextrose 50 ml 04/19/20 00:54 D50w (25gm) Syringe IV Q30MIN PRN Hypoglycemia Protocol Docusate Sodium 100 mg 04/18/20 22:00 04/29/20 10:29 Colace PO 100 mg BID JOSELIN Administration Ferrous Sulfate 325 mg 04/19/20 10:00 04/29/20 10:29 Feosol PO 325 mg DAILY JOSELIN Administration Furosemide 20 mg 04/19/20 10:00 04/29/20 10:30 Lasix PO 20 mg DAILY JOSELIN Administration Insulin Glargine 15 units 04/19/20 22:00 04/28/20 21:50 Lantus SUB-Q 15 units QHS JOSELIN Administration Insulin Human Regular 0 units 04/19/20 01:15 04/29/20 12:49 Humulin R SUB-Q 4 units ACHS JOSELIN Administration Protocol Levothyroxine Sodium 50 mcg 04/20/20 06:00 04/29/20 06:06 Synthroid PO 50 mcg DAILY@0600 JOSELIN Administration Linagliptin 5 mg 04/20/20 10:00 04/29/20 13:14 Tradjenta PO 5 mg QDAY JOSELIN Administration Lisinopril 5 mg 04/19/20 10:00 04/29/20 10:29 Zestril PO 5 mg DAILY JOSELIN Administration Olanzapine 2.5 mg 04/28/20 22:00 04/28/20 21:51 Zyprexa PO 2.5 mg QHS JOSELIN Administration Ondansetron HCl 4 mg 04/18/20 22:06 04/25/20 01:57 Zofran IV 4 mg Q8H PRN Administration Nausea And Vomiting Pantoprazole Sodium 40 mg 04/19/20 10:00 04/29/20 10:29 Protonix PO 40 mg DAILY JOSELIN Administration Risperidone 0.75 mg 04/29/20 22:00 Risperdal PO BID JOSELIN Sodium Chloride 10 ml 04/18/20 23:00 04/29/20 10:32 Sodium Chloride Flush Syringe 10 Ml IV 10 ml BID JOSELIN Administration Sodium Chloride 10 ml 04/18/20 22:06 04/19/20 01:19 Sodium Chloride Flush Syringe 10 Ml IV 10 ml PRN PRN Administration LINE FLUSH Trazodone HCl 50 mg 04/27/20 22:00 04/28/20 21:51 Desyrel PO 50 mg QHS JOSELIN Administration Nutrition/Malnutrition Assess - Dietary Evaluation Nutrition/Malnutrition Findings: Nutrition Notes Start: 04/24/20 12:48 Freq: Status: Active Protocol: Document 04/28/20 11:19 LP (Rec: 04/28/20 11:22 LP [email or web address]) Nutrition Notes Initial or Follow up Reassessment Current Diagnosis Diabetes,Hypertension,Heart Failure Other Pertinent Diagnosis acute encephalopathy Current Diet pureed/consistent CHO Labs/Tests Reviewed Pertinent Medications Lasix Height 5 ft 6 in Weight 65 kg [place] Body Weight (kg) 64.54 BMI 23.1 Weight Status Appropriate Subjective/Other Information Pt consuming 75-100% of meals. Percent of energy/protein needs met: 100%/100% Burn Absent Trauma Absent Minimum of two criteria Yes Body Fat Depletion Mild depletion (non-severe) Muscle Mass Mild Depletion (non-severe) #1 Nutrition Diagnosis Malnutrition Diagnosis Progress(for reassessment Continues documentation) Is patient on ventilator? No Is Patient Ambulatory and/or Out of Bed No REE-([place]-St. Jeor-confined to bed) 1528.872 Calculation Used for Recommendations [facility] Additional Notes Protein: 73-92g (1.2-1.5g/kg) Fluid: 1ml/kcal Nutrition Intervention Change Diet Order: continue Add Supplement/Snack (indicate name/kcal Ensure Enlive BID /protein ) Provides kCal: 700 Provides Protein (gm) 40 Goal #1 Meet at least 80% of energy and protein needs Anticipated Discharge Needs: unable to determine at this time Follow-Up By: 05/01/20 Additional Comments Follow for intakes
[2020-04-29] MEDS: ONDANSETRON 4 MG/2 ML INJ IV PRN (16:04)
[2020-04-29] MEDS: traZODone 50 MG TAB PO SCH (21:36)
[2020-04-29] MEDS: risperiDONE 0.25 MG TAB PO SCH (21:37)
[2020-04-29] MEDS: INSULIN GLARGINE 100 UNITS/ML SUB-Q SCH (21:38)
[2020-04-30] MEDS: ONDANSETRON 4 MG/2 ML INJ IV PRN (03:26)
[2020-04-30] MEDS: LEVOTHYROXINE 50 MCG TAB PO SCH (06:08)
[2020-04-30] MEDS: INSULIN REGULAR, HUMAN 100 UNITS/1 ML SUB-Q SCH ×4 (07:30→23:32)
[2020-04-30] MEDS: PANTOPRAZOLE 40 MG TAB PO SCH (09:20)
[2020-04-30] MEDS: CHOLECALCIFEROL (VIT D3) 1000 UNIT (25 mcg) TAB PO SCH (09:21)
[2020-04-30] MEDS: FUROSEMIDE 20 MG TAB PO SCH (09:21)
[2020-04-30] MEDS: DOCUSATE SODIUM 100 MG CAP PO SCH (09:21)
[2020-04-30] MEDS: FERROUS SULFATE 325 MG TAB PO SCH (09:21)
[2020-04-30] MEDS: LINAGLIPTIN 5 MG TAB PO SCH (09:22)
[2020-04-30] MEDS: risperiDONE 0.25 MG TAB PO SCH ×2 (09:22→21:56)
[2020-04-30] MEDS: LISINOPRIL 5 MG TAB PO SCH (10:00)
[2020-04-30] MEDS ORDERED: ENOXAPARIN 30 MG/0.3 ML INJ SUB-Q SCH (10:00)
--- NOTE | 2020-04-30 10:34 | Progress Note ---
<CORDELIA GREENE - Last Filed: 04/30/20 10:33> Assessment and Plan Abnormal ECG marked baseline artifact which causes difficulty with optimal interpretation of his ECGs Altered mental status Dementia Hypothyroidism TSH 12.5 Diabetes Anemia Hypertension An echo this admission reveals 4 chamber dilation with a decreased left ventri cular systolic function, ejection fraction 40-45%. Negative bubble study. Avoid AV elisha blocking agents. Otherwise, conservative cardiac management. Subjective Date of service: 04/30/20 Principal diagnosis: Acute encephalopathy Interval history: No interval cardiac changes. Awaits placement. Objective Vital Signs Temp Pulse Resp BP Pulse Ox 04/30/20 05:15 98.5 F 88 18 113/53 94 04/29/20 21:21 98.7 F 80 16 134/46 98 04/29/20 16:19 98.2 F 74 18 134/49 99 - Physical Examination General: No Apparent Distress HEENT: Positive: PERRL Cardiac: Positive: Regular Rate Extremities: Absent: edema <HAN RAVI - Last Filed: 05/01/20 06:19> Assessment and Plan - Patient Problems (1) Agitation due to dementia Current Visit: Yes Status: Acute (2) Hypertension Current Visit: Yes Status: Chronic Qualifiers: Hypertension type: essential hypertension Qualified Code(s): I10 - Essential (primary) hypertension (3) Insulin dependent diabetes mellitus Current Visit: Yes Status: Chronic Objective Vital Signs Temp Pulse Resp BP BP Pulse Ox 05/01/20 05:56 97.8 F 91 H 18 100/56 100 04/30/20 23:53 18 04/30/20 22:09 98.2 F 74 20 136/107 97 04/30/20 22:00 18 04/30/20 16:44 99.1 F 80 18 101/45 94 04/30/20 11:45 98.4 F 87 20 117/55 90 04/30/20 10:00 100/58 - Labs and Meds CBC 05/01/20 Range/Units 04:42 WBC 15.0 H (4.5-11.0) K/mm3 RBC 2.67 L (3.65-5.03) M/mm3 Hgb 6.2 L (11.8-15.2) gm/dl Hct 19.9 L* (35.5-45.6) % Plt Count 201 (140-440) K/mm3
--- NOTE | 2020-04-30 12:00 | Progress Note ---
Subjective - Reason for Consult Consult date: 04/30/20 Reason for consult: MHE Requesting physician: YESIKA WILSON - Chief Complaint Chief complaint: Per Floor Nurse: Received patient trying to get out of bed, patient is confuse a nd very combative. He always taken the the remote monitor off and unable to follow command. Pm meds given and will continue to monitor patient. Psych Progress HPI Patient seen in room, sleeping, respond to loud verbal stimuli and had thrown up on himself and on the floor. Nurse notified about clean up. MENTAL STATUS EXAMINATION General Appearance and Behavior: Somnolent and sleepy Cooperation: n/a Psychomotor Behavior: No psychomotor agitation Mood: n/a Affect and affective range: flat Thought Process: unknown Thought Content: unknown Speech: n/a Intellectual Functioning: fair Suicidal Ideation: n/a Homicidal Ideation: n/a Impulse Control: Impaired Insight and Judgment: Impaired Memory: poor Attention: Divided attention Orientation: Alert but disoriented. Treatment Plan: RECOMMENDATIONS MEDICATIONS: Olanzapine .25mg QHS and Risperidone .75mg BID (Patient to be discharged on current medications Melatonin PRN for sleep Risks, benefits and alternatives of medications discussed with the patient, questions answered and consent obtained from patient. PSYCHOTHERAPY: Supportive psychotherapy provided MEDICAL: Per primary team DELIRIUM PRECAUTIONS: Please re-orient patient frequently, keep lights on during the day, and minimize benzodiazepines and opiates as these medications could worsen patient's confusion. MANAGER SIX SIGMA: Per medical team DISPOSITION: Recommend disposition to skilled nursing facility once medically stable. LEGAL STATUS: Voluntary FOLLOW-UP: Will sign off Thank you for the consult. Please contact with any questions and/or concerns. Mental Status Exam - Vital signs Last Vital Signs Temp 98.5 F 04/30/20 05:15 Pulse 88 04/30/20 05:15 Resp 18 04/30/20 05:15 BP 113/53 04/30/20 05:15 Pulse Ox 94 04/30/20 05:15
[2020-04-30] MEDS: SODIUM CHLORIDE 0.9% 1000 ML 1,000 ML IV SCH (16:28)
--- NOTE | 2020-04-30 17:26 | Gastroenterology Consultation ---
History of Present Illness - Reason for Consult Consult date: 04/30/20 Coffee Ground Emesis Requesting physician: CECILIA CHRISTINA - History of Present Illness The patient is an 89 yo male with dementia/behavioral disturbance, awaiting placement. Today he had a single episode of CGE, and has tolerated his diet since then. He denies N/V/abdominal pain, but is very sleepy. Psych has recently adjusted his meds. Of note, he is on a daily iron table for chronic anemia. He has no family members available for history. Of note, no BM has been documented since admission. He has passed on melena or hematochezia. It is unclear if he has had endoscopy/colonoscopy in the past. There have been no fevers and vitals are stable. Past History Past Medical History: diabetes, heart failure, hypertension, other (dementia with behavioral disturbance) Past Surgical History: denies: No surgical history Social history: full code. denies: no significant social history Family history: hypertension Medications and Allergies Allergies Allergy/AdvReac Type Severity Reaction Status Date / Time aspirin Allergy Unknown Verified 04/16/20 14:46 Home Medications Medication Instructions Recorded Confirmed Last Taken Type Alogliptin Benzoate 25 mg PO DAILY 04/18/20 04/27/20 Unknown History Docusate Sodium [Colace CAP] 100 mg PO BID 04/18/20 04/27/20 Unknown History Ferrous Fumarate (Nf) 324 mg PO DAILY 04/18/20 04/27/20 Unknown History Furosemide 20 mg PO DAILY 04/18/20 04/27/20 Unknown History Insulin Regular, Human [HumuLIN R] 0 units SUB-Q ACHS units 04/18/20 04/27/20 Unknown Rx Lantus Solostar 100 units SQ QPM 04/18/20 04/27/20 Unknown History Lisinopril 5 mg PO DAILY 04/18/20 04/27/20 Unknown History Melatonin 3 mg PO QHS 04/18/20 04/27/20 Unknown History Omeprazole 40 mg PO DAILY 04/18/20 04/27/20 Unknown History Vitamin D3 1,000 unit PO DAILY 04/18/20 04/27/20 Unknown History metFORMIN 500 mg PO BID 04/18/20 04/27/20 Unknown History risperiDONE [RisperDAL] 0.5 mg PO BID #60 tablet 04/18/20 04/27/20 Unknown Rx traMADoL [Ultram 50 MG tab] 50 mg PO Q6HR PRN 04/18/20 04/27/20 Unknown History Active Meds: Active Medications Acetaminophen (Tylenol) 650 mg PO Q4H PRN PRN Reason: Pain MILD(1-3)/Fever >100.5/[place] Last Admin: 04/28/20 21:49 Dose: 650 mg Documented by: Atorvastatin Calcium (Lipitor) 40 mg PO QHS [facility] Last Admin: 04/29/20 21:41 Dose: 40 mg Documented by: Cholecalciferol (Vitamin D3) 1,000 unit PO DAILY [facility] Last Admin: 04/30/20 09:21 Dose: 1,000 unit Documented by: Dextrose (D50w (25gm) Syringe) 50 ml IV Q30MIN PRN; Protocol PRN Reason: Hypoglycemia Docusate Sodium (Colace) 100 mg PO BID [facility] Last Admin: 04/30/20 09:21 Dose: 100 mg Documented by: Enoxaparin Sodium (Enoxaparin) 40 mg SUB-Q QDAY@1000 [facility] Furosemide (Lasix) 20 mg PO DAILY [facility] Last Admin: 04/30/20 09:21 Dose: 20 mg Documented by: Sodium Chloride (Nacl 0.9% 1000 Ml) 1,000 mls @ 75 mls/hr IV DIRECT [facility] Last Admin: 04/30/20 16:28 Dose: 75 mls/hr Documented by: Insulin Glargine (Lantus) 15 units SUB-Q QHS [facility] Last Admin: 04/29/20 21:38 Dose: 15 units Documented by: Insulin Human Regular (Humulin R) 0 units SUB-Q [facility]; Protocol Last Admin: 04/30/20 16:30 Dose: 10 units Documented by: Levothyroxine Sodium (Synthroid) 50 mcg PO DAILY@0600 [facility] Last Admin: 04/30/20 06:08 Dose: 50 mcg Documented by: Linagliptin (Tradjenta) 5 mg PO QDAY [facility] Last Admin: 04/30/20 09:22 Dose: 5 mg Documented by: Lisinopril (Zestril) 5 mg PO DAILY [facility] Last Admin: 04/30/20 10:00 Dose: Not Given Documented by: Multivitamins/Minerals (Theragran-M Tab) 1 each PO QDAY [facility] Olanzapine (Zyprexa) 2.5 mg PO QHS [facility] Last Admin: 04/29/20 21:37 Dose: 2.5 mg Documented by: Ondansetron HCl (Zofran) 4 mg IV Q8H PRN PRN Reason: Nausea And Vomiting Last Admin: 04/30/20 03:26 Dose: 4 mg Documented by: Pantoprazole Sodium (Protonix) 40 mg PO DAILY [facility] Last Admin: 04/30/20 09:20 Dose: 40 mg Documented by: Risperidone (Risperdal) 0.75 mg PO BID [facility] Last Admin: 04/30/20 09:22 Dose: 0.75 mg Documented by: Sodium Chloride (Sodium Chloride Flush Syringe 10 Ml) 10 ml IV BID [facility] Last Admin: 04/30/20 09:22 Dose: 10 ml Documented by: Sodium Chloride (Sodium Chloride Flush Syringe 10 Ml) 10 ml IV PRN PRN PRN Reason: LINE FLUSH Last Admin: 04/19/20 01:19 Dose: 10 ml Documented by: I HAVE REVIEWED/RECONCILED MEDICATIONS Review of Systems - Review of Systems ROS unobtainable: due to mental status Exam - Constitutional Vital Signs: Temp Pulse Resp BP Pulse Ox 98.4 F 87 20 117/55 90 04/30/20 11:45 04/30/20 11:45 04/30/20 11:45 04/30/20 11:45 04/30/20 11:45 General appearance: no acute distress - EENT Eyes: PERRL, EOM intact ENT: hearing intact, poor dentition, no thrush - Neck Neck: supple, normal ROM - Respiratory Respiratory effort: normal Respiratory: bilateral: CTA - Cardiovascular Rhythm: regular Heart Sounds: Present: S1 & S2 Extremities: no ischemia - Gastrointestinal General gastrointestinal: Present: soft, non-tender, distended (mild distention, and stool palpated) - Integumentary Integumentary: Present: clear, warm - Neurologic Neurological: disoriented - Labs CBC & Chem 7: 04/20/20 04:39 04/20/20 04:39 Lab Results: Laboratory Results - last 24 hr 04/29/20 04/30/20 04/30/20 21:39 08:11 09:04 POC Glucose 300 H 106 H Coronavirus (PCR) Negative 04/30/20 04/30/20 12:22 17:01 POC Glucose 224 H 358 H Coronavirus (PCR) Assessment and Plan - Patient Problems (1) Coffee ground emesis Current Visit: Yes Status: Acute Plan to address problem: - Episode x 1, and patient was on oral iron pills. - Anemia appears chronic and has not dropped measurably. - Exam bland, but does have palpable stool, and no BM noted since admit. - Will d/c iron due to constipation and tendency to nausea, and start daily laxative regimen. - Will check stool burden with KUB. - OK to continue clears, and advance to full liquids tomorrow, if stable and no further vomiting.
[2020-04-30] MEDS ORDERED: POLYETHYLENE GLYCOL 3350 17 GM POWDER PO ONE (18:00)
--- NOTE | 2020-04-30 19:25 | XRay Report ---
ABDOMEN 1 VIEW(S) INDICATION / CLINICAL INFORMATION: Nausea and vomiting, constipation. COMPARISON: None available. FINDINGS: TUBES / LINES: None. BOWEL GAS PATTERN/EXTRALUMINAL GAS: No dilated loops of bowel. Moderate constipation. No pneumatosis or secondary signs of free air. 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 Significant left convex scoliosis with th e apex at the L1-2 level. IMPRESSION: 1. Moderate constipation without acute abnormality. Signer Name: Dalton Coffman MD Signed: 04/30/2020 7:20 PM Workstation Name: [id number]
--- NOTE | 2020-04-30 21:10 | Progress Note ---
Assessment and Plan Assessment and plan: --Coffee-ground emesis; this morning Closely monitor H&H, hemodynamics IV Protonix, clear liquid diet, GI consult --Acute metabolic encephalopathy; Mild improvement, unable to do MRI due to metal pieces Continue supportive care --History of cerebral amyloid angiopathy; MRI cerebral myeloid angiopathy, study not complete due to metallic pieces Neurology following continue supportive care No acute CVA. --Hypertension; moderate control, continue current antihypertensives and PRN medications --Type 2 diabetes mellitus; Accu-Chek sliding scale coverage ADA diet and Lantus insulin A1c 12.6,, supportive care, home health nurse for disease monitoring at discharge --Severe dementia; Continue current management, fall precautions --Mild malnutrition; nutrition supplements, supportive care --DVT prophylaxis; Lovenox --Full CODE STATUS; --DC planning; awaiting subacute rehab placement 04/22/2020. MRI reveals multiple remote microhemorrhages in the periphery of both cerebral hemispheres most consistent with a diagnosis of amyloid angiopathy. Await neurology recommendations. 04/23/2020. We will avoid all anticoagulation. D/c Ativan and start Seroquel 25mg BID. Await placement 04/24/2020. I had a long discussion with the patient's daughter with regards to diagnosis. Continue Seroquel for now. Await placement. 04/25/2020. Patient will have further attempts working with PT/OT today given his improved mentation. Consider discharge home await PT/OT evaluation. 04/26/2020. Physical therapy has evaluated the patient and recommends subacute rehab. Case management reports [facility]-Reviewing referral. 04/27/2020. Awaiting subacute rehab placement. 04/28/2020. Physical therapy has evaluated the patient and recommends subacute rehab. Nutrition following regarding caloric intake 04/29/2020: Patient is medically stable ,awaiting placement, [facility] for admission 04/30/20; patient had coffee-ground emesis this morning, mild distress, IV Protoni x, GI consult Plan of care reviewed with the patient his nurse and the case management History Interval history: Patient seen and examined at the bedside this afternoon Patient's chart and medications reviewed Patient had coffee-ground emesis this morning In mild distress, vital signs reviewed Hospitalist Physical - Constitutional Vitals: Temp Pulse Resp BP Pulse Ox 99.1 F 80 18 101/45 94 04/30/20 16:44 04/30/20 16:44 04/30/20 16:44 04/30/20 16:44 04/30/20 16:44 General appearance: Present: no acute distress, well-nourished, other (Confused at times) - EENT Eyes: Present: PERRL, EOM intact - Neck Neck: Present: supple, normal ROM - Respiratory Respiratory effort: normal Respiratory: bilateral: diminished, negative: rales, rhonchi, wheezing - Cardiovascular Rhythm: regular Heart Sounds: Present: S1 & S2 - Extremities Extremities: no ischemia, No edema - Abdominal General gastrointestinal: soft, non-tender, non-distended, normal bowel sounds - Integumentary Integumentary: Present: clear, warm - Psychiatric Psychiatric: appropriate mood/affect, cooperative - Neurologic Neurologic: CNII-XII intact, moves all extremities Results - Labs CBC & Chem 7: 04/20/20 04:39 04/20/20 04:39 Labs: Laboratory Last Values WBC 4.9 K/mm3 (4.5-11.0) 04/20/20 04:39 RBC 3.77 M/mm3 (3.65-5.03) 04/20/20 04:39 Hgb 8.7 gm/dl (11.8-15.2) L 04/20/20 04:39 Hct 27.9 % (35.5-45.6) L 04/20/20 04:39 MCV 74 fl (84-94) L 04/20/20 04:39 MCH 23 pg (28-32) L 04/20/20 04:39 MCHC 31 % (32-34) L 04/20/20 04:39 RDW 16.9 % (13.2-15.2) H 04/20/20 04:39 Plt Count 264 K/mm3 (140-440) 04/20/20 04:39 Lymph % (Auto) 14.2 % (13.4-35.0) 04/19/20 05:14 Mcmullen % (Auto) 9.8 % (0.0-7.3) H 04/19/20 05:14 Eos % (Auto) 1.9 % (0.0-4.3) 04/19/20 05:14 Baso % (Auto) 0.7 % (0.0-1.8) 04/19/20 05:14 Lymph # 0.9 K/mm3 (1.2-5.4) L 04/19/20 05:14 Mcmullen # 0.6 K/mm3 (0.0-0.8) 04/19/20 05:14 Eos # 0.1 K/mm3 (0.0-0.4) 04/19/20 05:14 Baso # 0.0 K/mm3 (0.0-0.1) 04/19/20 05:14 Seg Neutrophils % 73.4 % (40.0-70.0) H 04/19/20 05:14 Seg Neutrophils # 4.8 K/mm3 (1.8-7.7) 04/19/20 05:14 PT 12.9 Sec. (12.2-14.9) 04/21/20 10:35 INR 0.99 (0.87-1.13) 04/21/20 10:35 Sodium 139 mmol/L (137-145) 04/20/20 04:39 Potassium 4.1 mmol/L (3.6-5.0) 04/20/20 04:39 Chloride 102.7 mmol/L (98-107) 04/20/20 04:39 Carbon Dioxide 25 mmol/L (22-30) 04/20/20 04:39 Anion Gap 15 mmol/L 04/20/20 04:39 BUN 22 mg/dL (9-20) H 04/20/20 04:39 Creatinine 0.8 mg/dL (0.8-1.5) 04/20/20 04:39 Estimated GFR > 60 ml/min 04/20/20 04:39 BUN/Creatinine Ratio 28 % 04/20/20 04:39 Glucose 171 mg/dL (75-100) H 04/20/20 04:39 POC Glucose 358 (70-105) H 04/30/20 17:01 Calcium 9.2 mg/dL (8.4-10.2) 04/20/20 04:39 Total Bilirubin 0.20 mg/dL (0.1-1.2) 04/19/20 05:14 AST 21 units/L (5-40) 04/19/20 05:14 ALT 15 units/L (7-56) 04/19/20 05:14 Alkaline Phosphatase 61 units/L (35-129) 04/19/20 05:14 NT-Pro-B Natriuret Pep 387.1 pg/mL (0-900) 04/19/20 05:14 Total Protein 5.9 g/dL (6.3-8.2) L 04/19/20 05:14 Albumin 3.1 g/dL (3.9-5) L 04/19/20 05:14 Albumin/Globulin Ratio 1.1 % 04/19/20 05:14 Triglycerides 103 mg/dL (2-149) 04/19/20 05:14 Cholesterol 131 mg/dL (50-199) 04/19/20 05:14 LDL Cholesterol Direct 76 mg/dL (50-130) 04/19/20 05:14 HDL Cholesterol 49 mg/dL (40-59) 04/19/20 05:14 Cholesterol/HDL Ratio 2.67 % 04/19/20 05:14 TSH 10.080 mlU/mL (0.270-4.200) H 04/19/20 07:57 Free T4 1.20 ng/dL (0.76-1.46) 04/19/20 07:57 Digoxin 0.3 ng/mL (0.9-2.0) L 04/21/20 12:54 Coronavirus (PCR) Negative (Negative) 04/30/20 09:04 - Diagnostic Impressions Diagnostic Impressions: Echocardiogram 04/18/20 22:16 Transthoracic Echocardiogram Indication: stroke BP: 102/51 HR: 75 Conclusions *The left ventricular chamber size is mildly dilated. *Global left ventricular systolic function is mild to moderately decreased. *The estimated ejection fraction is 40-45%. *The left atrium is mild to moderately dilated. *The right heart chambers are mild to moderately dilated. *There is mild mitral regurgitation. *There is mild to moderate tricuspid regurgitation. *There is evidence of borderline pulmonary hypertension. *The right ventricular systolic pressure is calculated at 24 mmHg. *A patent foramen ovale is not demonstrated by agitated saline contrast. Findings Left Ventricle: The left ventricular chamber size is mildly dilated. Mild concentric left ventricular hypertrophy is observed. Global left ventricular systolic function is mild to moderately decreased. The estimated ejection fraction is 40-45%. Abnormal left ventricular diastolic function is observed. Left Atrium: The left atrium is mild to moderately dilated. Right Ventricle: The right ventricle is mild to moderately dilated. The right ventricular global systolic function is moderately reduced. Right Atrium: The right atrium is mildly dilated. A patent foramen ovale is not demonstrated by agitated saline contrast. Aortic Valve: The aortic valve is trileaflet. The aortic valve leaflets are mildly thickened. There is no evidence of aortic regurgitation. There is no evidence of aortic stenosis. Mitral Valve: The mitral valve leaflets are mildly thickened. There is mild mitral regurgitation. There is no evidence of mitral stenosis. Tricuspid Valve: The tricuspid valve leaflets are normal. There is mild to moderate tricuspid regurgitation. The right ventricular systolic pressure is calculated at 24 mmHg. There is evidence of borderline pulmonary hypertension. Pulmonic Valve: The pulmonic valve appears normal. There is trace pulmonic regurgitation. Pericardium: There is no pericardial effusion. Aorta: There is no dilatation of the aortic root. Venous: The inferior vena cava is not visualized. The inferior vena cava appears normal in size. Contrast: Intravenous agitated saline contrast was used to assess intracardiac shunting. Measurements Chambers 2D Name Value Normal Range IVSd (2D) 1.21 cm (0.6 - 1.1) LVPWd (2D) 1.21 cm (0.6 - 1.1) LVIDd (2D) 3.35 cm (3.7 - 5.6) LVIDs (2D) 2.44 cm (2 - 3.8) LV FS (2D) 27.09 % - EF Teichholz (2D) 53.99 % - Ao root diameter (2D) 4.05 cm (2 - 3.7) Volumes/Mass Name Value Normal Range LA ESV SP 4CH (A/L) 60.11 ml - LA ESV SP 2CH (A/L) 60.34 ml - LA ESV BP (A/L) 64.62 ml - LA ESV SP 4CH (MOD) 55.46 ml - LA ESV SP 2CH (MOD) 56.14 ml - LA ESV BP (MOD) 59.51 ml - LA ESV BP (MOD) index 33.25 ml/m2 - LV EDV SP 4CH (MOD) 125.55 ml - LV ESV SP 4CH (MOD) 48.88 ml - EF SP 4CH (MOD) 61.07 % - LV EDV SP 2CH (MOD) 107.05 ml - LV ESV SP 2CH (MOD) 63.77 ml - EF SP 2CH (MOD) 40.43 % - LV EDV BP 116.16 ml - LV ESV BP 57.68 ml - BP EF (MOD) 50.34 % - Diastolic/Systolic Function Name Value Normal Range MV E-wave Vmax 0.54 m/sec - MV deceleration time 147.66 msec - MV A-wave Vmax 0.66 m/sec - MV E:A ratio 0.82 ratio - Aortic Valve Name Value Normal Range AV Vmax 0.86 m/sec - AV VTI 11.37 cm - AV peak gradient 2.97 mmHg - AV mean gradient 1.5 mmHg - LVOT diameter 2.01 cm - LVOT Vmax 0.44 m/sec - LVOT VTI 7.57 cm - LVOT peak gradient 0.78 mmHg - LVOT mean gradient 0.46 mmHg - SV LVOT 24.03 ml - NARINDER (continuity Vmax) 1.63 cm2 - NARINDER (continuity VTI) 2.11 cm2 - Ascending Ao 3.72 cm - Tricuspid Valve Name Value Normal Range TR Vmax 2.31 m/sec - TR peak gradient 21 mmHg - RAP 3 mmHg - RVSP 24 mmHg - Pulmonic Valve/Qp:Qs Name Value Normal Range PV Vmax 1.11 m/sec - PV peak gradient 4.89 mmHg - RVOT Vmax 0.85 m/sec - RVOT peak gradient 2.87 mmHg - PV acceleration time 114.18 msec - [place]/IV: Voiding Method Urinal IV Catheter Type [Right Upper INT / Saline Lock arm] IV Catheter Type [Left Hand] Peripheral IV IV Catheter Type [Right Hand] INT / Saline Lock IV Catheter Type [Right INT / Saline Lock Antecubital] Active Medications - Current Medications Current Medications: Generic Name Dose Route Start Last Admin Trade Name Freq PRN Reason Stop Dose Admin Acetaminophen 650 mg 04/18/20 22:06 04/28/20 21:49 Tylenol PO 650 mg Q4H PRN Administration Pain MILD(1-3)/Fever >100.5/[place] Atorvastatin Calcium 40 mg 04/19/20 22:00 04/29/20 21:41 Lipitor PO 40 mg QHS JOSELIN Administration Cholecalciferol 1,000 unit 04/19/20 10:00 04/30/20 09:21 Vitamin D3 PO 1,000 unit DAILY JOSELIN Administration Dextrose 50 ml 04/19/20 00:54 D50w (25gm) Syringe IV Q30MIN PRN Hypoglycemia Protocol Enoxaparin Sodium 40 mg 05/01/20 10:00 Enoxaparin SUB-Q QDAY@1000 JOSELIN Furosemide 20 mg 04/19/20 10:00 04/30/20 09:21 Lasix PO 20 mg DAILY JOSELIN Administration Sodium Chloride 1,000 mls @ 75 mls/hr 04/30/20 15:45 04/30/20 16:28 Nacl 0.9% 1000 Ml IV 75 mls/hr DIRECT JOSELIN Administration Insulin Glargine 15 units 04/19/20 22:00 04/29/20 21:38 Lantus SUB-Q 15 units QHS JOSELIN Administration Insulin Human Regular 0 units 04/19/20 01:15 04/30/20 16:30 Humulin R SUB-Q 10 units ACHS JOSELIN Administration Protocol Levothyroxine Sodium 50 mcg 04/20/20 06:00 04/30/20 06:08 Synthroid PO 50 mcg DAILY@0600 JOSELIN Administration Linagliptin 5 mg 04/20/20 10:00 04/30/20 09:22 Tradjenta PO 5 mg QDAY JOSELIN Administration Lisinopril 5 mg 04/19/20 10:00 04/30/20 10:00 Zestril PO Not Given DAILY [facility] Multivitamins/Minerals 1 each 05/01/20 10:00 Theragran-M Tab PO QDAY JOSELIN Olanzapine 2.5 mg 04/28/20 22:00 04/29/20 21:37 Zyprexa PO 2.5 mg QHS JOSELIN Administration Ondansetron HCl 4 mg 04/18/20 22:06 04/30/20 03:26 Zofran IV 4 mg Q8H PRN Administration Nausea And Vomiting Pantoprazole Sodium 40 mg 04/19/20 10:00 04/30/20 09:20 Protonix PO 40 mg DAILY JOSELIN Administration Risperidone 0.75 mg 04/29/20 22:00 04/30/20 09:22 Risperdal PO 0.75 mg BID JOSELNI Administration Senna 17.2 mg 04/30/20 22:00 Senokot PO QHS JOSELIN Sodium Chloride 10 ml 04/18/20 23:00 04/30/20 09:22 Sodium Chloride Flush Syringe 10 Ml IV 10 ml BID JOSELIN Administration Sodium Chloride 10 ml 04/18/20 22:06 04/19/20 01:19 Sodium Chloride Flush Syringe 10 Ml IV 10 ml PRN PRN Administration LINE FLUSH Nutrition/Malnutrition Assess - Dietary Evaluation Nutrition/Malnutrition Findings: Nutrition Notes Start: 04/24/20 12:48 Freq: Status: Active Protocol: Document 04/28/20 11:19 LP (Rec: 04/28/20 11:22 LP [id number]) Nutrition Notes Initial or Follow up Reassessment Current Diagnosis Diabetes,Hypertension,Heart Failure Other Pertinent Diagnosis acute encephalopathy Current Diet pureed/consistent CHO Labs/Tests Reviewed Pertinent Medications Lasix Height 5 ft 6 in Weight 65 kg [place] Body Weight (kg) 64.54 BMI 23.1 Weight Status Appropriate Subjective/Other Information Pt consuming 75-100% of meals. Percent of energy/protein needs met: 100%/100% Burn Absent Trauma Absent Minimum of two criteria Yes Body Fat Depletion Mild depletion (non-severe) Muscle Mass Mild Depletion (non-severe) #1 Nutrition Diagnosis Malnutrition Diagnosis Progress(for reassessment Continues documentation) Is patient on ventilator? No Is Patient Ambulatory and/or Out of Bed No REE-([facility]-confined to bed) 1528.872 Calculation Used for Recommendations [facility] Additional Notes Protein: 73-92g (1.2-1.5g/kg) Fluid: 1ml/kcal Nutrition Intervention Change Diet Order: continue Add Supplement/Snack (indicate name/kcal Ensure Enlive BID /protein ) Provides kCal: 700 Provides Protein (gm) 40 Goal #1 Meet at least 80% of energy and protein needs Anticipated Discharge Needs: unable to determine at this time Follow-Up By: 05/01/20 Additional Comments Follow for intakes
[2020-04-30] MEDS: SENNOSIDES 8.6 MG TAB PO SCH (21:53)
[2020-04-30] MEDS: INSULIN GLARGINE 100 UNITS/ML SUB-Q SCH (23:32)
[2020-05-01] MEDS: SODIUM CHLORIDE 0.9% 1000 ML 1,000 ML IV SCH ×2 (04:37→22:23)
[2020-05-01 05:24] LABS: Hemoglobin 6.2 gm/dl (11.8-15.2); Mean Corpuscular HGB Conc 31 % (32-34); Mean Corpuscular Volume 75 fl (84-94); Platelet Count 201 K/mm3 (140-440); Red Blood Count 2.67 M/mm3 (3.65-5.03); Red Cell Distribution Width 19.3 % (13.2-15.2)
[2020-05-01 05:31] LABS: Hematocrit 19.9 % (35.5-45.6)
[2020-05-01] MEDS: LEVOTHYROXINE 50 MCG TAB PO SCH (06:26)
[2020-05-01] MEDS: INSULIN REGULAR, HUMAN 100 UNITS/1 ML SUB-Q SCH ×4 (07:30→22:46)
[2020-05-01] MEDS ORDERED: risperiDONE 0.25 MG TAB PO SCH ×2 (08:32→08:34)
--- NOTE | 2020-05-01 08:42 | Progress Note ---
Assessment and Plan Assessment and plan: --Acute blood loss anemia; due to coffee-ground emesis Hb 6.2, type and cross transfuse 1 unit PRBC Closely monitor --Coffee-ground emesis; this morning Closely monitor H&H, hemodynamics IV Protonix, clear liquid diet, GI evaluated the patient Possible EGD tomorrow --Acute metabolic encephalopathy; Mild improvement, unable to do MRI due to metal pieces Continue supportive care --History of cerebral amyloid angiopathy; MRI cerebral myeloid angiopathy, study not complete due to metallic pieces Neurology following continue supportive care No acute CVA. --Hypertension; moderate control, continue current antihypertensives and PRN medications --Type 2 diabetes mellitus; Accu-Chek sliding scale coverage ADA diet and Lantus insulin A1c 12.6,, supportive care, home health nurse for disease monitoring at discharge --Severe dementia; Continue current management, fall precautions --Mild malnutrition; nutrition supplements, supportive care --DVT prophylaxis; Lovenox --Full CODE STATUS; --DC planning; awaiting subacute rehab placement 04/22/2020. MRI reveals multiple remote microhemorrhages in the periphery of both cerebral hemispheres most consistent with a diagnosis of amyloid angiopa thy. Await neurology recommendations. 04/23/2020. We will avoid all anticoagulation. D/c Ativan and start Seroquel 25mg BID. Await placement 04/24/2020. I had a long discussion with the patient's daughter with regards to diagnosis. Continue Seroquel for now. Await placement. 04/25/2020. Patient will have further attempts working with PT/OT today given his improved mentation. Consider discharge home await PT/OT evaluation. 04/26/2020. Physical therapy has evaluated the patient and recommends subacute rehab. Case management reports [facility]-Reviewing referral. 04/27/2020. Awaiting subacute rehab placement. 04/28/2020. Physical therapy has evaluated the patient and recommends subacute rehab. Nutrition following regarding caloric intake 04/29/2020: Patient is medically stable ,awaiting placement, [facility] reviewing for admission 04/30/20; patient had coffee-ground emesis this morning, mild distress, IV Protonix, GI consult 05/01/20; no new episodes of coffee-ground emesis, anemia mild drop in H&H to 6.2 Type and cross, transfuse 1 unit PRBC closely monitor, endoscopy tomorrow per GI Plan of care reviewed with the patient his nurse and the case management History Interval history: Patient seen and examined at the bedside this morning Patient is more alert and awake No new episodes of coffee-ground emesis Hemoglobin dropped to 6.2 Patient is responding appropriately confused at times Vital signs reviewed Hospitalist Physical - Constitutional Vitals: Temp Pulse Resp BP Pulse Ox 97.8 F 91 H 18 100/56 100 05/01/20 05:56 05/01/20 05:56 05/01/20 05:56 05/01/20 05:56 05/01/20 05:56 General appearance: Present: no acute distress, well-nourished, other (Confused at times) - EENT Eyes: Present: PERRL, EOM intact - Neck Neck: Present: supple, normal ROM - Cardiovascular Rhythm: regular Heart Sounds: Present: S1 & S2 - Extremities Extremities: no ischemia, No edema - Abdominal General gastrointestinal: soft, non-tender, non-distended, normal bowel sounds - Integumentary Integumentary: Present: clear, warm - Psychiatric Psychiatric: appropriate mood/affect, cooperative - Neurologic Neurologic: moves all extremities Results - Labs CBC & Chem 7: 05/02/20 05:12 05/02/20 05:12 Labs: Laboratory Last Values WBC 15.0 K/mm3 (4.5-11.0) H 05/01/20 04:42 RBC 2.67 M/mm3 (3.65-5.03) L 05/01/20 04:42 Hgb 6.2 gm/dl (11.8-15.2) L 05/01/20 04:42 Hct 19.9 % (35.5-45.6) L* 05/01/20 04:42 MCV 75 fl (84-94) L 05/01/20 04:42 MCH 23 pg (28-32) L 05/01/20 04:42 MCHC 31 % (32-34) L 05/01/20 04:42 RDW 19.3 % (13.2-15.2) H 05/01/20 04:42 Plt Count 201 K/mm3 (140-440) 05/01/20 04:42 Lymph % (Auto) 14.2 % (13.4-35.0) 04/19/20 05:14 [place] % (Auto) 9.8 % (0.0-7.3) H 04/19/20 05:14 Eos % (Auto) 1.9 % (0.0-4.3) 04/19/20 05:14 Baso % (Auto) 0.7 % (0.0-1.8) 04/19/20 05:14 Lymph # 0.9 K/mm3 (1.2-5.4) L 04/19/20 05:14 [place] # 0.6 K/mm3 (0.0-0.8) 04/19/20 05:14 Eos # 0.1 K/mm3 (0.0-0.4) 04/19/20 05:14 Baso # 0.0 K/mm3 (0.0-0.1) 04/19/20 05:14 Seg Neutrophils % 73.4 % (40.0-70.0) H 04/19/20 05:14 Seg Neutrophils # 4.8 K/mm3 (1.8-7.7) 04/19/20 05:14 PT 12.9 Sec. (12.2-14.9) 04/21/20 10:35 INR 0.99 (0.87-1.13) 04/21/20 10:35 Sodium 139 mmol/L (137-145) 04/20/20 04:39 Potassium 4.1 mmol/L (3.6-5.0) 04/20/20 04:39 Chloride 102.7 mmol/L (98-107) 04/20/20 04:39 Carbon Dioxide 25 mmol/L (22-30) 04/20/20 04:39 Anion Gap 15 mmol/L 04/20/20 04:39 BUN 22 mg/dL (9-20) H 04/20/20 04:39 Creatinine 0.8 mg/dL (0.8-1.5) 04/20/20 04:39 Estimated GFR > 60 ml/min 04/20/20 04:39 BUN/Creatinine Ratio 28 % 04/20/20 04:39 Glucose 171 mg/dL (75-100) H 04/20/20 04:39 POC Glucose 287 (70-105) H 05/01/20 07:43 Calcium 9.2 mg/dL (8.4-10.2) 04/20/20 04:39 Total Bilirubin 0.20 mg/dL (0.1-1.2) 04/19/20 05:14 AST 21 units/L (5-40) 04/19/20 05:14 ALT 15 units/L (7-56) 04/19/20 05:14 Alkaline Phosphatase 61 units/L (35-129) 04/19/20 05:14 NT-Pro-B Natriuret Pep 387.1 pg/mL (0-900) 04/19/20 05:14 Total Protein 5.9 g/dL (6.3-8.2) L 04/19/20 05:14 Albumin 3.1 g/dL (3.9-5) L 04/19/20 05:14 Albumin/Globulin Ratio 1.1 % 04/19/20 05:14 Triglycerides 103 mg/dL (2-149) 04/19/20 05:14 Cholesterol 131 mg/dL (50-199) 04/19/20 05:14 LDL Cholesterol Direct 76 mg/dL (50-130) 04/19/20 05:14 HDL Cholesterol 49 mg/dL (40-59) 04/19/20 05:14 Cholesterol/HDL Ratio 2.67 % 04/19/20 05:14 TSH 10.080 mlU/mL (0.270-4.200) H 04/19/20 07:57 Free T4 1.20 ng/dL (0.76-1.46) 04/19/20 07:57 Digoxin 0.3 ng/mL (0.9-2.0) L 04/21/20 12:54 Coronavirus (PCR) Negative (Negative) 04/30/20 09:04 Blood Type AB POSITIVE 05/01/20 06:55 Antibody Screen Negative 05/01/20 06:55 Crossmatch See Detail 05/01/20 06:55 - Diagnostic Impressions Diagnostic Impressions: Echocardiogram 04/18/20 22:16 Transthoracic Echocardiogram Indication: stroke BP: 102/51 HR: 75 Conclusions *The left ventricular chamber size is mildly dilated. *Global left ventricular systolic function is mild to moderately decreased. *The estimated ejection fraction is 40-45%. *The left atrium is mild to moderately dilated. *The right heart chambers are mild to moderately dilated. *There is mild mitral regurgitation. *There is mild to moderate tricuspid regurgitation. *There is evidence of borderline pulmonary hypertension. *The right ventricular systolic pressure is calculated at 24 mmHg. *A patent foramen ovale is not demonstrated by agitated saline contrast. Findings Left Ventricle: The left ventricular chamber size is mildly dilated. Mild concentric left ventricular hypertrophy is observed. Global left ventricular systolic function is mild to moderately decreased. The estimated ejection fraction is 40-45%. Abnormal left ventricular diastolic function is observed. Left Atrium: The left atrium is mild to moderately dilated. Right Ventricle: The right ventricle is mild to moderately dilated. The right ventricular global systolic function is moderately reduced. Right Atrium: The right atrium is mildly dilated. A patent foramen ovale is not demonstrated by agitated saline contrast. Aortic Valve: The aortic valve is trileaflet. The aortic valve leaflets are mildly thickened. There is no evidence of aortic regurgitation. There is no evidence of aortic stenosis. Mitral Valve: The mitral valve leaflets are mildly thickened. There is mild mitral regurgitation. There is no evidence of mitral stenosis. Tricuspid Valve: The tricuspid valve leaflets are normal. There is mild to moderate tricuspid regurgitation. The right ventricular systolic pressure is calculated at 24 mmHg. There is evidence of borderline pulmonary hypertension. Pulmonic Valve: The pulmonic valve appears normal. There is trace pulmonic regurgitation. Pericardium: There is no pericardial effusion. Aorta: There is no dilatation of the aortic root. Venous: The inferior vena cava is not visualized. The inferior vena cava appears normal in size. Contrast: Intravenous agitated saline contrast was used to assess intracardiac shunting. Measurements Chambers 2D Name Value Normal Range IVSd (2D) 1.21 cm (0.6 - 1.1) LVPWd (2D) 1.21 cm (0.6 - 1.1) LVIDd (2D) 3.35 cm (3.7 - 5.6) LVIDs (2D) 2.44 cm (2 - 3.8) LV FS (2D) 27.09 % - EF Teichholz (2D) 53.99 % - Ao root diameter (2D) 4.05 cm (2 - 3.7) Volumes/Mass Name Value Normal Range LA ESV SP 4CH (A/L) 60.11 ml - LA ESV SP 2CH (A/L) 60.34 ml - LA ESV BP (A/L) 64.62 ml - LA ESV SP 4CH (MOD) 55.46 ml - LA ESV SP 2CH (MOD) 56.14 ml - LA ESV BP (MOD) 59.51 ml - LA ESV BP (MOD) index 33.25 ml/m2 - LV EDV SP 4CH (MOD) 125.55 ml - LV ESV SP 4CH (MOD) 48.88 ml - EF SP 4CH (MOD) 61.07 % - LV EDV SP 2CH (MOD) 107.05 ml - LV ESV SP 2CH (MOD) 63.77 ml - EF SP 2CH (MOD) 40.43 % - LV EDV BP 116.16 ml - LV ESV BP 57.68 ml - BP EF (MOD) 50.34 % - Diastolic/Systolic Function Name Value Normal Range MV E-wave Vmax 0.54 m/sec - MV deceleration time 147.66 msec - MV A-wave Vmax 0.66 m/sec - MV E:A ratio 0.82 ratio - Aortic Valve Name Value Normal Range AV Vmax 0.86 m/sec - AV VTI 11.37 cm - AV peak gradient 2.97 mmHg - AV mean gradient 1.5 mmHg - LVOT diameter 2.01 cm - LVOT Vmax 0.44 m/sec - LVOT VTI 7.57 cm - LVOT peak gradient 0.78 mmHg - LVOT mean gradient 0.46 mmHg - SV LVOT 24.03 ml - NARINDER (continuity Vmax) 1.63 cm2 - NARINDER (continuity VTI) 2.11 cm2 - Ascending Ao 3.72 cm - Tricuspid Valve Name Value Normal Range TR Vmax 2.31 m/sec - TR peak gradient 21 mmHg - RAP 3 mmHg - RVSP 24 mmHg - Pulmonic Valve/Qp:Qs Name Value Normal Range PV Vmax 1.11 m/sec - PV peak gradient 4.89 mmHg - RVOT Vmax 0.85 m/sec - RVOT peak gradient 2.87 mmHg - PV acceleration time 114.18 msec - [place]/IV: Voiding Method Incontinent IV Catheter Type [Right Upper INT / Saline Lock arm] IV Catheter Type [Left Hand] Peripheral IV IV Catheter Type [Right Hand] INT / Saline Lock IV Catheter Type [Right INT / Saline Lock Antecubital] Active Medications - Current Medications Current Medications: Generic Name Dose Route Start Last Admin Trade Name Freq PRN Reason Stop Dose Admin Acetaminophen 650 mg 04/18/20 22:06 04/28/20 21:49 Tylenol PO 650 mg Q4H PRN Administration Pain MILD(1-3)/Fever >100.5/[place] Atorvastatin Calcium 40 mg 04/19/20 22:00 04/30/20 21:53 Lipitor PO 40 mg QHS JOSELIN Administration Cholecalciferol 1,000 unit 04/19/20 10:00 04/30/20 09:21 Vitamin D3 PO 1,000 unit DAILY JOSELIN Administration Dextrose 50 ml 04/19/20 00:54 D50w (25gm) Syringe IV Q30MIN PRN Hypoglycemia Protocol Enoxaparin Sodium 40 mg 05/01/20 10:00 Enoxaparin SUB-Q QDAY@1000 JOSELIN Furosemide 20 mg 04/19/20 10:00 04/30/20 09:21 Lasix PO 20 mg DAILY JOSELIN Administration Sodium Chloride 1,000 mls @ 75 mls/hr 04/30/20 15:45 05/01/20 04:37 Nacl 0.9% 1000 Ml IV 75 mls/hr DIRECT JOSELIN Administration Sodium Chloride 500 mls @ 0 mls/hr 05/01/20 09:38 Nacl 0.9% 500 Ml IV ONCE JOSELIN As Directed Insulin Glargine 15 units 04/19/20 22:00 04/30/20 23:32 Lantus SUB-Q 15 units QHS JOSELIN Administration Insulin Human Regular 0 units 04/19/20 01:15 05/01/20 07:30 Humulin R SUB-Q 6 units ACHS JOSELIN Administration Protocol Levothyroxine Sodium 50 mcg 04/20/20 06:00 05/01/20 06:26 Synthroid PO 50 mcg DAILY@0600 JOSELIN Administration Linagliptin 5 mg 04/20/20 10:00 04/30/20 09:22 Tradjenta PO 5 mg QDAY JOSELIN Administration Lisinopril 5 mg 04/19/20 10:00 04/30/20 10:00 Zestril PO Not Given DAILY JOSELIN Multivitamins/Minerals 1 each 05/01/20 10:00 Theragran-M Tab PO QDAY JOSELIN Ondansetron HCl 4 mg 04/18/20 22:06 04/30/20 03:26 Zofran IV 4 mg Q8H PRN Administration Nausea And Vomiting Pantoprazole Sodium 40 mg 04/19/20 10:00 04/30/20 09:20 Protonix PO 40 mg DAILY JOSELIN Administration Risperidone 1 mg 05/01/20 10:00 Risperdal PO BID JOSELIN Senna 17.2 mg 04/30/20 22:00 04/30/20 21:53 Senokot PO 17.2 mg QHS JOSELIN Administration Sodium Chloride 10 ml 04/18/20 23:00 04/30/20 21:58 Sodium Chloride Flush Syringe 10 Ml IV 10 ml BID JOSELIN Administration Sodium Chloride 10 ml 04/18/20 22:06 04/19/20 01:19 Sodium Chloride Flush Syringe 10 Ml IV 10 ml PRN PRN Administration LINE FLUSH Nutrition/Malnutrition Assess - Dietary Evaluation Nutrition/Malnutrition Findings: Nutrition Notes Start: 04/24/20 12:48 Freq: Status: Active Protocol: Document 04/28/20 11:19 LP (Rec: 04/28/20 11:22 LP [email or web address]) Nutrition Notes Initial or Follow up Reassessment Current Diagnosis Diabetes,Hypertension,Heart Failure Other Pertinent Diagnosis acute encephalopathy Current Diet pureed/consistent CHO Labs/Tests Reviewed Pertinent Medications Lasix Height 5 ft 6 in Weight 65 kg [place] Body Weight (kg) 64.54 BMI 23.1 Weight Status Appropriate Subjective/Other Information Pt consuming 75-100% of meals. Percent of energy/protein needs met: 100%/100% Burn Absent Trauma Absent Minimum of two criteria Yes Body Fat Depletion Mild depletion (non-severe) Muscle Mass Mild Depletion (non-severe) #1 Nutrition Diagnosis Malnutrition Diagnosis Progress(for reassessment Continues documentation) Is patient on ventilator? No Is Patient Ambulatory and/or Out of Bed No REE-([place]-St Jeor-confined to bed) 3452.358 [facility] Additional Notes Protein: 73-92g (1.2-1.5g/kg) Fluid: 1ml/kcal Nutrition Intervention Change Diet Order: continue Add Supplement/Snack (indicate name/kcal Ensure Enlive BID /protein ) Provides kCal: 700 Provides Protein (gm) 40 Goal #1 Meet at least 80% of energy and protein needs Anticipated Discharge Needs: unable to determine at this time Follow-Up By: 05/01/20 Additional Comments Follow for intakes
[2020-05-01] MEDS: ENOXAPARIN 40 MG/0.4 ML INJ SUB-Q SCH (09:16)
[2020-05-01] MEDS: CHOLECALCIFEROL (VIT D3) 1000 UNIT (25 mcg) TAB PO SCH (09:16)
[2020-05-01] MEDS: PANTOPRAZOLE 40 MG TAB PO SCH (09:17)
[2020-05-01] MEDS: LISINOPRIL 5 MG TAB PO SCH (09:18)
[2020-05-01] MEDS: LINAGLIPTIN 5 MG TAB PO SCH (09:18)
[2020-05-01] MEDS: risperiDONE 0.25 MG TAB PO SCH ×2 (09:19→22:27)
[2020-05-01] MEDS: MULTIVITAMINS,THER W-MINERALS TAB PO SCH (09:20)
[2020-05-01] MEDS: FUROSEMIDE 20 MG TAB PO SCH (09:22)
[2020-05-01] MEDS: ONDANSETRON 4 MG/2 ML INJ IV PRN (09:29)
--- NOTE | 2020-05-01 10:20 | Progress Note ---
Assessment and Plan Abnormal ECG marked baseline artifact which causes difficulty with optimal interpretation of his ECGs Altered mental status Dementia Hypothyroidism TSH 12.5 Diabetes Severe Anemia Hypertension An echo this admission reveals 4 chamber dilation with a decreased left ventricular systolic function, ejection fraction 40-45%. Negative bubble study. Avoid AV elisha blocking agents. Otherwise, conservative cardiac management. Subjective Date of service: 05/01/20 Principal diagnosis: Acute encephalopathy Interval history: No cardiac events reported. Morning labs shows marked anemia, HCT 19.9. Blood pressure is stable. Objective Vital Signs Temp Pulse Resp BP BP Pulse Ox 05/01/20 05:56 97.8 F 91 H 18 100/56 100 04/30/20 23:53 18 04/30/20 22:09 98.2 F 74 20 136/107 97 04/30/20 22:00 18 04/30/20 16:44 99.1 F 80 18 101/45 94 04/30/20 11:45 98.4 F 87 20 117/55 90 - Physical Examination General: No Apparent Distress Cardiac: Positive: Regular Rate Neuro: Positive: Other (altered mental status) Extremities: Absent: edema - Labs and Meds CBC 05/01/20 Range/Units 04:42 WBC 15.0 H (4.5-11.0) K/mm3 RBC 2.67 L (3.65-5.03) M/mm3 Hgb 6.2 L (11.8-15.2) gm/dl Hct 19.9 L* (35.5-45.6) % Plt Count 201 (140-440) K/mm3
--- NOTE | 2020-05-01 13:43 | Gastroenterology Progress Note ---
Assessment and Plan - Patient Problems (1) Iron deficiency anemia Current Visit: Yes Status: Acute Plan to address problem: - Chronic per daughter Merle Blair; w/u mostly at [facility], and iron infusion + PRBC for years (last PRBC 07/2019 per daughter). - EGD (-) "a few years ago" but planned EGD/colon not completed at [place], but daughter does not know why. - Given acute drop, and severity of anemia, will plan EGD. - Discussed possible colonoscopy with daughter, and she does not want that done at present, unless EGD is negative and gross bleeding. - Also had a long d/w daughter about goals of care; she says she is medical power of deputy county attorney. The patient currently is full code. Subjective Date of service: 05/01/20 Principal diagnosis: Iron Def Anemia Interval history: The patient has had no further emesis. He denies N/V/abdominal pain. Objective - Constitutional Vitals: Temp Pulse Resp BP Pulse Ox 97.6 F 81 20 95/47 93 05/01/20 13:25 05/01/20 12:55 05/01/20 13:25 05/01/20 13:25 05/01/20 13:25 General appearance: no acute distress - Respiratory Respiratory effort: normal Respiratory: bilateral: CTA - Cardiovascular Rhythm: regular Heart Sounds: Present: S1 & S2 - Gastrointestinal General gastrointestinal: Present: soft, non-tender, non-distended - Labs CBC & Chem 7: 05/01/20 04:42 04/20/20 04:39 Labs: Laboratory Results - last 24 hr 04/30/20 04/30/20 04/30/20 09:04 17:01 23:29 WBC RBC Hgb Hct MCV MCH MCHC RDW Plt Count POC Glucose 358 H 242 H Coronavirus (PCR) Negative Blood Type Antibody Screen Crossmatch 05/01/20 05/01/20 05/01/20 04:42 06:55 07:43 WBC 15.0 H RBC 2.67 L Hgb 6.2 L Hct 19.9 L* MCV 75 L MCH 23 L MCHC 31 L RDW 19.3 H Plt Count 201 POC Glucose 287 H Coronavirus (PCR) Blood Type AB POSITIVE Antibody Screen Negative Crossmatch See Detail 05/01/20 11:31 WBC RBC Hgb Hct MCV MCH MCHC RDW Plt Count POC Glucose 442 H Coronavirus (PCR) Blood Type Antibody Screen Crossmatch
[2020-05-01] MEDS: LACTULOSE 20 GM/30 ML ORAL LIQD PO SCH (14:36)
[2020-05-01] MEDS: SODIUM CHLORIDE 0.9% 500 ML 500 ML IV SCH (14:38)
[2020-05-01] MEDS: ACETAMINOPHEN 325 MG TAB PO PRN (22:24)
[2020-05-01] MEDS: SENNOSIDES 8.6 MG TAB PO SCH (22:24)
[2020-05-01] MEDS: INSULIN GLARGINE 100 UNITS/ML SUB-Q SCH (22:46)
[2020-05-02 06:17] LABS: Hemoglobin 6.5 gm/dl (11.8-15.2); Mean Corpuscular HGB Conc 33 % (32-34); Mean Corpuscular Volume 79 fl (84-94); Platelet Count 194 K/mm3 (140-440); Red Blood Count 2.54 M/mm3 (3.65-5.03); Red Cell Distribution Width 21.7 % (13.2-15.2)
[2020-05-02 06:36] LABS: BUN/Creatinine Ratio 57; Blood Urea Nitrogen 51 mg/dL (9-20); Calcium 8.9 mg/dL (8.4-10.2); Hemolysis Index 35
[2020-05-02 07:12] LABS: Basophils % (Manual) 0 % (0.0-1.8); Total Cells Counted 100
[2020-05-02 07:13] LABS: Anisocytosis 1+; Burr Cells 2+; Eosinophils % (Manual) 0 % (0.0-4.3); Hypochromasia 1+; Ovalocytes Few; Platelet Estimate Consistent w Auto; Poikilocytosis 2+
[2020-05-02] MEDS: LEVOTHYROXINE 50 MCG TAB PO SCH (07:25)
[2020-05-02] MEDS: INSULIN REGULAR, HUMAN 100 UNITS/1 ML SUB-Q SCH ×4 (07:30→23:03)
[2020-05-02] MEDS ORDERED: SODIUM CHLORIDE 0.9% 1000 ML 1,000 ML IV SCH (08:30)
[2020-05-02] MEDS ORDERED: SODIUM CHLORIDE 0.9% 500 ML 500 ML IV SCH (09:30)
--- NOTE | 2020-05-02 09:30 | Progress Note ---
Assessment and Plan Assessment and plan: --Acute blood loss anemia; due to coffee-ground emesis Hb 6.2, type and cross transfuse 1 unit PRBC Closely monitor --Coffee-ground emesis; this morning Closely monitor H&H, hemodynamics IV Protonix, clear liquid diet, GI evaluated the patient Possible EGD tomorrow --Acute metabolic encephalopathy; Mild improvement, unable to do MRI due to metal pieces Continue supportive care --History of cerebral amyloid angiopathy; MRI cerebral myeloid angiopathy, study not complete due to metallic pieces Neurology following continue supportive care No acute CVA. --Hypertension; moderate control, continue current antihypertensives and PRN medications --Type 2 diabetes mellitus; Accu-Chek sliding scale coverage ADA diet and Lantus insulin A1c 12.6,, supportive care, home health nurse for disease monitoring at discharge --Severe dementia; Continue current management, fall precautions --Mild malnutrition; nutrition supplements, supportive care --DVT prophylaxis; Lovenox --Full CODE STATUS; --DC planning; awaiting subacute rehab placement 04/22/2020. MRI reveals multiple remote microhemorrhages in the periphery of both cerebral hemispheres most consistent with a diagnosis of amyloid angiopa thy. Await neurology recommendations. 04/23/2020. We will avoid all anticoagulation. D/c Ativan and start Seroquel 25mg BID. Await placement 04/24/2020. I had a long discussion with the patient's daughter with regards to diagnosis. Continue Seroquel for now. Await placement. 04/25/2020. Patient will have further attempts working with PT/OT today given his improved mentation. Consider discharge home await PT/OT evaluation. 04/26/2020. Physical therapy has evaluated the patient and recommends subacute rehab. Case management reports [facility]-Reviewing referral. 04/27/2020. Awaiting subacute rehab placement. 04/28/2020. Physical therapy has evaluated the patient and recommends subacute rehab. Nutrition following regarding caloric intake 04/29/2020: Patient is medically stable ,awaiting placement, [facility] reviewing for admission 04/30/20; patient had coffee-ground emesis this morning, mild distress, IV Protonix, GI consult 05/01/20; no new episodes of coffee-ground emesis, anemia mild drop in H&H to 6.2 Type and cross, transfuse 1 unit PRBC closely monitor, endoscopy tomorrow per GI 05/02/20: Patient scheduled for endoscopy, hemoglobin dropped again to 6.5, additional 1 unit PRBC transfusion Plan of care reviewed with the patient his nurse and the case management History Interval history: Patient seen and examined, Mild drop in H&H, received 1 unit PRBC yesterday Hb 6.5, additional unit of PRBC Vital signs noted Hospitalist Physical - Constitutional Vitals: Temp Pulse Resp BP Pulse Ox 97.3 F L 81 20 99/49 96 05/02/20 04:58 05/02/20 05:31 05/02/20 04:58 05/02/20 04:58 05/02/20 05:31 General appearance: Present: no acute distress, well-nourished, other (Confused at times) - EENT Eyes: Present: PERRL, EOM intact - Neck Neck: Present: supple, normal ROM - Respiratory Respiratory effort: normal Respiratory: bilateral: diminished, negative: rales, rhonchi, wheezing - Cardiovascular Rhythm: regular Heart Sounds: Present: S1 & S2 - Extremities Extremities: no ischemia, No edema - Abdominal General gastrointestinal: soft, non-tender, non-distended, normal bowel sounds - Integumentary Integumentary: Present: clear, warm - Psychiatric Psychiatric: appropriate mood/affect, cooperative - Neurologic Neurologic: moves all extremities Results - Labs CBC & Chem 7: 05/02/20 05:12 05/02/20 05:12 Labs: Laboratory Last Values WBC 16.2 K/mm3 (4.5-11.0) H 05/02/20 05:12 RBC 2.54 M/mm3 (3.65-5.03) L 05/02/20 05:12 Hgb 6.5 gm/dl (11.8-15.2) L 05/02/20 05:12 Hct 20.0 % (35.5-45.6) L 05/02/20 05:12 MCV 79 fl (84-94) L 05/02/20 05:12 MCH 26 pg (28-32) L 05/02/20 05:12 MCHC 33 % (32-34) 05/02/20 05:12 RDW 21.7 % (13.2-15.2) H 05/02/20 05:12 Plt Count 194 K/mm3 (140-440) 05/02/20 05:12 Lymph % (Auto) 14.2 % (13.4-35.0) 04/19/20 05:14 [place] % (Auto) 9.8 % (0.0-7.3) H 04/19/20 05:14 Eos % (Auto) 1.9 % (0.0-4.3) 04/19/20 05:14 Baso % (Auto) 0.7 % (0.0-1.8) 04/19/20 05:14 Lymph # 0.9 K/mm3 (1.2-5.4) L 04/19/20 05:14 [place] # 0.6 K/mm3 (0.0-0.8) 04/19/20 05:14 Eos # 0.1 K/mm3 (0.0-0.4) 04/19/20 05:14 Baso # 0.0 K/mm3 (0.0-0.1) 04/19/20 05:14 Add Manual Diff Complete 05/02/20 05:12 Total Counted 100 05/02/20 05:12 Seg Neutrophils % Heading And Priming Tool Setter 05/02/20 05:12 Seg Neuts % (Manual) 93.0 % (40.0-70.0) H 05/02/20 05:12 Band Neutrophils % 0 % 05/02/20 05:12 Lymphocytes % (Manual) 2.0 % (13.4-35.0) L 05/02/20 05:12 Reactive Lymphs % (Man) 0 % 05/02/20 05:12 Monocytes % (Manual) 5.0 % (0.0-7.3) 05/02/20 05:12 Eosinophils % (Manual) 0 % (0.0-4.3) 05/02/20 05:12 Basophils % (Manual) 0 % (0.0-1.8) 05/02/20 05:12 Metamyelocytes % 0 % 05/02/20 05:12 Myelocytes % 0 % 05/02/20 05:12 Promyelocytes % 0 % 05/02/20 05:12 Blast Cells % 0 % 05/02/20 05:12 Nucleated RBC % Not Reportable 05/02/20 05:12 Seg Neutrophils # 4.8 K/mm3 (1.8-7.7) 04/19/20 05:14 Seg Neutrophils # Man 15.1 K/mm3 (1.8-7.7) H 05/02/20 05:12 Band Neutrophils # 0.0 K/mm3 05/02/20 05:12 Lymphocytes # (Manual) 0.3 K/mm3 (1.2-5.4) L 05/02/20 05:12 Abs React Lymphs (Man) 0.0 K/mm3 05/02/20 05:12 Monocytes # (Manual) 0.8 K/mm3 (0.0-0.8) 05/02/20 05:12 Eosinophils # (Manual) 0.0 K/mm3 (0.0-0.4) 05/02/20 05:12 Basophils # (Manual) 0.0 K/mm3 (0.0-0.1) 05/02/20 05:12 Metamyelocytes # 0.0 K/mm3 05/02/20 05:12 Myelocytes # 0.0 K/mm3 05/02/20 05:12 Promyelocytes # 0.0 K/mm3 05/02/20 05:12 Blast Cells # 0.0 K/mm3 05/02/20 05:12 WBC Morphology Not Reportable 05/02/20 05:12 Hypersegmented Neuts Not Reportable 05/02/20 05:12 Hyposegmented Neuts Not Reportable 05/02/20 05:12 Hypogranular Neuts Not Reportable 05/02/20 05:12 Smudge Cells Not Reportable 05/02/20 05:12 Toxic Granulation Not Reportable 05/02/20 05:12 Toxic Vacuolation Not Reportable 05/02/20 05:12 Dohle Bodies Not Reportable 05/02/20 05:12 Pelger-Huet Anomaly Not Reportable 05/02/20 05:12 Phil Rods Not Reportable 05/02/20 05:12 Platelet Estimate Consistent w auto 05/02/20 05:12 Clumped Platelets Not Reportable 05/02/20 05:12 Plt Clumps, EDTA Not Reportable 05/02/20 05:12 Large Platelets Not Reportable 05/02/20 05:12 Giant Platelets Not Reportable 05/02/20 05:12 Platelet Satelliting Not Reportable 05/02/20 05:12 Plt Morphology Comment Not Reportable 05/02/20 05:12 RBC Morphology Not Reportable 05/02/20 05:12 Dimorphic RBCs Not Reportable 05/02/20 05:12 Polychromasia Not Reportable 05/02/20 05:12 Hypochromasia 1+ 05/02/20 05:12 Poikilocytosis 2+ 05/02/20 05:12 Anisocytosis 1+ 05/02/20 05:12 Microcytosis Not Reportable 05/02/20 05:12 Macrocytosis Not Reportable 05/02/20 05:12 Spherocytes Not Reportable 05/02/20 05:12 Pappenheimer Bodies Not Reportable 05/02/20 05:12 Sickle Cells Not Reportable 05/02/20 05:12 Target Cells Not Reportable 05/02/20 05:12 Tear Drop Cells Not Reportable 05/02/20 05:12 Ovalocytes Few 05/02/20 05:12 Helmet Cells Not Reportable 05/02/20 05:12 [place] Bodies Not Reportable 05/02/20 05:12 [place] Rings Not Reportable 05/02/20 05:12 [place] Cells 2+ 05/02/20 05:12 Bite Cells Not Reportable 05/02/20 05:12 Crenated Cell Not Reportable 05/02/20 05:12 Elliptocytes Not Reportable 05/02/20 05:12 Acanthocytes (Spur) Few 05/02/20 05:12 Rouleaux Not Reportable 05/02/20 05:12 Hemoglobin C Crystals Not Reportable 05/02/20 05:12 Schistocytes Not Reportable 05/02/20 05:12 Malaria parasites Not Reportable 05/02/20 05:12 Emigdio Bodies Not Reportable 05/02/20 05:12 Hem Pathologist Commnt No 05/02/20 05:12 PT 12.9 Sec. (12.2-14.9) 04/21/20 10:35 INR 0.99 (0.87-1.13) 04/21/20 10:35 Sodium 137 mmol/L (137-145) 05/02/20 05:12 Potassium 4.3 mmol/L (3.6-5.0) 05/02/20 05:12 Chloride 101.2 mmol/L (98-107) 05/02/20 05:12 Carbon Dioxide 23 mmol/L (22-30) 05/02/20 05:12 Anion Gap 17 mmol/L 05/02/20 05:12 BUN 51 mg/dL (9-20) H 05/02/20 05:12 Creatinine 0.9 mg/dL (0.8-1.5) 05/02/20 05:12 Estimated GFR > 60 ml/min 05/02/20 05:12 BUN/Creatinine Ratio 57 % 05/02/20 05:12 Glucose 245 mg/dL (75-100) H 05/02/20 05:12 POC Glucose 260 (70-105) H 05/02/20 08:23 Calcium 8.9 mg/dL (8.4-10.2) 05/02/20 05:12 Total Bilirubin 0.20 mg/dL (0.1-1.2) 04/19/20 05:14 AST 21 units/L (5-40) 04/19/20 05:14 ALT 15 units/L (7-56) 04/19/20 05:14 Alkaline Phosphatase 61 units/L (35-129) 04/19/20 05:14 NT-Pro-B Natriuret Pep 387.1 pg/mL (0-900) 04/19/20 05:14 Total Protein 5.9 g/dL (6.3-8.2) L 04/19/20 05:14 Albumin 3.1 g/dL (3.9-5) L 04/19/20 05:14 Albumin/Globulin Ratio 1.1 % 04/19/20 05:14 Triglycerides 103 mg/dL (2-149) 04/19/20 05:14 Cholesterol 131 mg/dL (50-199) 04/19/20 05:14 LDL Cholesterol Direct 76 mg/dL (50-130) 04/19/20 05:14 HDL Cholesterol 49 mg/dL (40-59) 04/19/20 05:14 Cholesterol/HDL Ratio 2.67 % 04/19/20 05:14 TSH 10.080 mlU/mL (0.270-4.200) H 04/19/20 07:57 Free T4 1.20 ng/dL (0.76-1.46) 04/19/20 07:57 Digoxin 0.3 ng/mL (0.9-2.0) L 04/21/20 12:54 Coronavirus (PCR) Negative (Negative) 04/30/20 09:04 Blood Type AB POSITIVE 05/01/20 06:55 Antibody Screen Negative 05/01/20 06:55 Crossmatch See Detail 05/01/20 06:55 Microbiology: Microbiology 05/02/20 Unknown Stool Stool Occult Blood (MAURY) - Final - Diagnostic Impressions Diagnostic Impressions: Echocardiogram 04/18/20 22:16 Transthoracic Echocardiogram Indication: stroke BP: 102/51 HR: 75 Conclusions *The left ventricular chamber size is mildly dilated. *Global left ventricular systolic function is mild to moderately decreased. *The estimated ejection fraction is 40-45%. *The left atrium is mild to moderately dilated. *The right heart chambers are mild to moderately dilated. *There is mild mitral regurgitation. *There is mild to moderate tricuspid regurgitation. *There is evidence of borderline pulmonary hypertension. *The right ventricular systolic pressure is calculated at 24 mmHg. *A patent foramen ovale is not demonstrated by agitated saline contrast. Findings Left Ventricle: The left ventricular chamber size is mildly dilated. Mild concentric left ventricular hypertrophy is observed. Global left ventricular systolic function is mild to moderately decreased. The estimated ejection fraction is 40-45%. Abnormal left ventricular diastolic function is observed. Left Atrium: The left atrium is mild to moderately dilated. Right Ventricle: The right ventricle is mild to moderately dilated. The right ventricular global systolic function is moderately reduced. Right Atrium: The right atrium is mildly dilated. A patent foramen ovale is not demonstrated by agitated saline contrast. Aortic Valve: The aortic valve is trileaflet. The aortic valve leaflets are mildly thickened. There is no evidence of aortic regurgitation. There is no evidence of aortic stenosis. Mitral Valve: The mitral valve leaflets are mildly thickened. There is mild mitral regurgitation. There is no evidence of mitral stenosis. Tricuspid Valve: The tricuspid valve leaflets are normal. There is mild to moderate tricuspid regurgitation. The right ventricular systolic pressure is calculated at 24 mmHg. There is evidence of borderline pulmonary hypertension. Pulmonic Valve: The pulmonic valve appears normal. There is trace pulmonic regurgitation. Pericardium: There is no pericardial effusion. Aorta: There is no dilatation of the aortic root. Venous: The inferior vena cava is not visualized. The inferior vena cava appears normal in size. Contrast: Intravenous agitated saline contrast was used to assess intracardiac shunting. Measurements Chambers 2D Name Value Normal Range IVSd (2D) 1.21 cm (0.6 - 1.1) LVPWd (2D) 1.21 cm (0.6 - 1.1) LVIDd (2D) 3.35 cm (3.7 - 5.6) LVIDs (2D) 2.44 cm (2 - 3.8) LV FS (2D) 27.09 % - EF Teichholz (2D) 53.99 % - Ao root diameter (2D) 4.05 cm (2 - 3.7) Volumes/Mass Name Value Normal Range LA ESV SP 4CH (A/L) 60.11 ml - LA ESV SP 2CH (A/L) 60.34 ml - LA ESV BP (A/L) 64.62 ml - LA ESV SP 4CH (MOD) 55.46 ml - LA ESV SP 2CH (MOD) 56.14 ml - LA ESV BP (MOD) 59.51 ml - LA ESV BP (MOD) index 33.25 ml/m2 - LV EDV SP 4CH (MOD) 125.55 ml - LV ESV SP 4CH (MOD) 48.88 ml - EF SP 4CH (MOD) 61.07 % - LV EDV SP 2CH (MOD) 107.05 ml - LV ESV SP 2CH (MOD) 63.77 ml - EF SP 2CH (MOD) 40.43 % - LV EDV BP 116.16 ml - LV ESV BP 57.68 ml - BP EF (MOD) 50.34 % - Diastolic/Systolic Function Name Value Normal Range MV E-wave Vmax 0.54 m/sec - MV deceleration time 147.66 msec - MV A-wave Vmax 0.66 m/sec - MV E:A ratio 0.82 ratio - Aortic Valve Name Value Normal Range AV Vmax 0.86 m/sec - AV VTI 11.37 cm - AV peak gradient 2.97 mmHg - AV mean gradient 1.5 mmHg - LVOT diameter 2.01 cm - LVOT Vmax 0.44 m/sec - LVOT VTI 7.57 cm - LVOT peak gradient 0.78 mmHg - LVOT mean gradient 0.46 mmHg - SV LVOT 24.03 ml - NARINDER (continuity Vmax) 1.63 cm2 - NARINDER (continuity VTI) 2.11 cm2 - Ascending Ao 3.72 cm - Tricuspid Valve Name Value Normal Range TR Vmax 2.31 m/sec - TR peak gradient 21 mmHg - RAP 3 mmHg - RVSP 24 mmHg - Pulmonic Valve/Qp:Qs Name Value Normal Range PV Vmax 1.11 m/sec - PV peak gradient 4.89 mmHg - RVOT Vmax 0.85 m/sec - RVOT peak gradient 2.87 mmHg - PV acceleration time 114.18 msec - [place]/IV: Voiding Method Condom Catheter IV Catheter Type [Left Upper Peripheral IV arm] IV Catheter Type [Right Upper INT / Saline Lock arm] IV Catheter Type [Left Hand] Peripheral IV IV Catheter Type [Right Hand] INT / Saline Lock IV Catheter Type [Right INT / Saline Lock Antecubital] Active Medications - Current Medications Current Medications: Generic Name Dose Route Start Last Admin Trade Name Freq PRN Reason Stop Dose Admin Acetaminophen 650 mg 04/18/20 22:06 05/01/20 22:24 Tylenol PO 650 mg Q4H PRN Administration Pain MILD(1-3)/Fever >100.5/[place] Atorvastatin Calcium 40 mg 04/19/20 22:00 05/01/20 22:24 Lipitor PO 40 mg QHS JOSELIN Administration Cholecalciferol 1,000 unit 04/19/20 10:00 05/01/20 09:16 Vitamin D3 PO 1,000 unit DAILY JOSELIN Administration Dextrose 50 ml 04/19/20 00:54 D50w (25gm) Syringe IV Q30MIN PRN Hypoglycemia Protocol Enoxaparin Sodium 40 mg 05/01/20 10:00 05/01/20 09:16 Enoxaparin SUB-Q 40 mg QDAY@1000 JOSELIN Administration Furosemide 20 mg 04/19/20 10:00 05/01/20 09:22 Lasix PO 20 mg DAILY JOSELIN Administration Sodium Chloride 1,000 mls @ 75 mls/hr 04/30/20 15:45 05/01/20 22:23 Nacl 0.9% 1000 Ml IV 75 mls/hr DIRECT JOSELIN Administration Sodium Chloride 500 mls @ 0 mls/hr 05/01/20 09:38 05/01/20 14:38 Nacl 0.9% 500 Ml IV 50 mls/hr ONCE JOSELIN Administration As Directed Sodium Chloride 1,000 mls @ 50 mls/hr 05/02/20 08:30 Nacl 0.9% 1000 Ml IV 05/03/20 08:29 DIRECT JOSELIN Sodium Chloride 500 mls @ 0 mls/hr 05/02/20 09:21 Nacl 0.9% 500 Ml IV 05/02/20 09:22 ONCE ONE As Directed Insulin Glargine 15 units 04/19/20 22:00 05/01/20 22:46 Lantus SUB-Q Not Given QHS JOSELIN Insulin Human Regular 0 units 04/19/20 01:15 05/01/20 22:46 Humulin R SUB-Q Not Given ACHS [facility] Protocol Lactulose 10 gm 05/01/20 14:00 05/01/20 14:36 Cephulac PO 05/03/20 10:01 10 gm QDAY JOSELIN Administration Levothyroxine Sodium 50 mcg 04/20/20 06:00 05/02/20 07:25 Synthroid PO Not Given DAILY@0600 JOSELIN Linagliptin 5 mg 04/20/20 10:00 05/01/20 09:18 Tradjenta PO 5 mg QDAY JOSELIN Administration Lisinopril 5 mg 04/19/20 10:00 05/01/20 09:18 Zestril PO Not Given DAILY [facility] Multivitamins/Minerals 1 each 05/01/20 10:00 05/01/20 09:20 Theragran-M Tab PO 1 each QDAY JOSELIN Administration Ondansetron HCl 4 mg 04/18/20 22:06 05/01/20 09:29 Zofran IV 4 mg Q8H PRN Administration Nausea And Vomiting Pantoprazole Sodium 40 mg 04/19/20 10:00 05/01/20 09:17 Protonix PO 40 mg DAILY JOSELIN Administration Risperidone 1 mg 05/01/20 10:00 05/01/20 22:27 Risperdal PO 1 mg BID JOSELIN Administration Senna 17.2 mg 04/30/20 22:00 05/01/20 22:24 Senokot PO 17.2 mg QHS JOSELIN Administration Sodium Chloride 10 ml 04/18/20 23:00 05/01/20 23:39 Sodium Chloride Flush Syringe 10 Ml IV 10 ml BID JOSELIN Administration Sodium Chloride 10 ml 04/18/20 22:06 04/19/20 01:19 Sodium Chloride Flush Syringe 10 Ml IV 10 ml PRN PRN Administration LINE FLUSH Nutrition/Malnutrition Assess - Dietary Evaluation Nutrition/Malnutrition Findings: Nutrition Notes Start: 04/24/20 12:48 Freq: Status: Active Protocol: Document 05/01/20 12:08 LM (Rec: 05/01/20 12:15 LM [id number]) Nutrition Notes Initial or Follow up Reassessment Current Diagnosis Diabetes,Hypertension,Heart Failure Other Pertinent Diagnosis coffee ground emesis, acute encephalopathy Current Diet clear liquid Labs/Tests POC glu 287 Pertinent Medications Humulin Lasix Height 5 ft 6 in Weight 65 kg [place] Body Weight (kg) 64.54 BMI 23.1 Weight Status Appropriate Subjective/Other Information Pt's diet downgraded to clear liq. Pt asleep at time of visit. Per chart pt consumed 25%. Burn Absent Trauma Absent Difficulty In Swallowing,Chewing Current % PO Negligible Minimum of two criteria Yes Body Fat Depletion Mild depletion (non-severe) Muscle Mass Mild Depletion (non-severe) #1 Nutrition Diagnosis Malnutrition Diagnosis Progress(for reassessment Continues documentation) Is patient on ventilator? No Is Patient Ambulatory and/or Out of Bed No REE-([place]-confined to bed) 1528.872 Calculation Used for Recommendations [facility] Additional Notes Protein: 73-92g (1.2-1.5g/kg) Fluid: 1ml/kcal Nutrition Intervention Change Diet Order: coninue current until able to advance Add Supplement/Snack (indicate name/kcal Ensure clear BID /protein ) Provides kCal: 480 Provides Protein (gm) 16 Goal #1 diet advancement Anticipated Discharge Needs: unable to determine at this time Follow-Up By: 05/05/20 Additional Comments F/U for intakes/diet advancement
[2020-05-02] MEDS ORDERED: LIDOCAINE MPF (2%) 20 MG/1 ML VIAL 5 ML ONE (09:42)
[2020-05-02] MEDS ORDERED: SODIUM CHLORIDE 0.9% 1000 ML 1,000 ML ONE (09:42)
[2020-05-02] MEDS: ENOXAPARIN 40 MG/0.4 ML INJ SUB-Q SCH (10:00)
[2020-05-02] MEDS: FUROSEMIDE 20 MG TAB PO SCH (10:00)
[2020-05-02] MEDS: risperiDONE 0.25 MG TAB PO SCH ×2 (10:00→22:05)
[2020-05-02] MEDS: LINAGLIPTIN 5 MG TAB PO SCH (10:00)
[2020-05-02] MEDS: PANTOPRAZOLE 40 MG TAB PO SCH (10:00)
[2020-05-02] MEDS: LACTULOSE 20 GM/30 ML ORAL LIQD PO SCH (10:00)
[2020-05-02] MEDS: LISINOPRIL 5 MG TAB PO SCH (10:00)
[2020-05-02] MEDS: MULTIVITAMINS,THER W-MINERALS TAB PO SCH (10:00)
[2020-05-02] MEDS: CHOLECALCIFEROL (VIT D3) 1000 UNIT (25 mcg) TAB PO SCH (10:00)
--- NOTE | 2020-05-02 10:09 | Anesthesia Day of Surgery ---
Anesthesia Day of Surgery - Day of Surgery Patient Examined: Yes Patient H&P Reviewed: Yes Patient is NPO: Yes
--- NOTE | 2020-05-02 10:09 | Anesthesia Consultation ---
Anesthesia Consult and Med Hx Date of service: 05/02/20 - Airway Anesthetic Teeth Evaluation: Poor ROM Head & Neck: Adequate Mental/Hyoid Distance: Adequate Mallampati Class: Class II Intubation Access Assessment: Probably Good - Pre-Operative Health Status ASA Pre-Surgery Classification: ASA3 Proposed Anesthetic Plan: MAC - Cardiovascular System Hx Hypertension: Yes (CHF) - Central Nervous System CVA: Yes Hx Psychiatric Problems: Yes (dementia) - Endocrine Hx Insulin Dependent Diabetes: Yes Hx Hypothyroidism: Yes - Other Systems Hx Obesity: No
[2020-05-02] MEDS ORDERED: propofoL 200 MG/20 ML VIAL IV ONE (10:59)
--- NOTE | 2020-05-02 11:41 | Post Operative Note ---
Pre-op diagnosis: Anemia Post-op diagnosis: other Findings: 1. Mild erosive esophagitis 2. 5 cm hiatal hernia 3. Few gastric polyps 4. Otherwise normal upper endoscopy Procedure: EGD Anesthesia: MAC Surgeon: ROSA SALCIDO Estimated blood loss: none Pathology: none Condition: stable Disposition: floor (Stool light liquid brown - and Hemoccult negative. Transfuse as needed. No further GI recommendations. Per daughter, has iron deficiency, so should stay on it chronically.)
--- NOTE | 2020-05-02 11:45 | Post Anesthesia Evaluation ---
- Post Anesthesia Evaluation Patient Participated: Yes Airway Patent: Yes Stable Respiratory Function: Yes Nausea/Vomiting: No Temp > 96.8F: Yes Pain Manageable: Yes Adequeate Hydration: Yes Anesthesia Complications: No Block Receding Appropriately: Not Applicable Patient on Ventilator: No
[2020-05-02] MEDS: SODIUM CHLORIDE 0.9% 500 ML 500 ML IV SCH (12:51)
--- NOTE | 2020-05-02 12:56 | Operative Report ---
PROCEDURE: Upper endoscopy. PREOPERATIVE DIAGNOSES: Anemia and coffee-ground emesis. POSTOPERATIVE DIAGNOSES: Erosive esophagitis and hiatal hernia and gastric polyp. SEDATION: MAC by Anesthesia. HISTORY: The patient is an 89-year-old man with dementia who had a bout of coffee-ground emesis, here in the hospital. His hemoglobin was dropped from 8.2-6.2. His stool is negative for occult blood and is like liquid brown. DESCRIPTION OF PROCEDURE: Indications, risks, and benefits were explained and consent was obtained from the patient's daughter, Merle Blair. The patient was placed in left lateral decubitus position and sedated. Video upper endoscope was passed through the mouth and oropharynx into the descending duodenum. Scope was then gradually withdrawn with close inspection of mucosa. FINDINGS: 1. Distal esophagus from 32-35 cm was erythematous and mildly friable consistent with erosive esophagitis. Remainder of esophagus was normal appearing. 2. A 5 cm hiatal hernia from 35-40 cm with no Daniel ulcers noted. 3. Few scattered proximal gastric body polyps noted that are benign appearing and looked like fundic gland polyps. 4. Remainder of gastric antrum, fundus, body, and cardia are normal appearing. 5. Normal appearing duodenal bulb and duodenum. The patient tolerated the procedure well without immediate complication. IMPRESSION: 1. Erosive esophagitis. 2. Hiatal hernia. 3. Gastric polyps. 4. Otherwise, normal endoscopy. PLAN: 1. Monitor H and H and transfuse as needed. 2. Chronic proton pump inhibitors. 3. Chronic iron supplementation -- this is based on daughter's report of a longstanding history of iron-deficiency anemia. She states that the patient had stopped taking his oral iron in the last few months and that he had been transfused last year as well. He may well have iron deficiency on the basis of the hiatal hernia and need chronic iron supplementation and monitoring. Alternatively, he may have poor absorption and may need intermittent IV iron supplementation. Since we do not have his records regarding prior workup of the anemia, I would put him on oral iron and have him followed up as an outpatient by his primary team. We will sign off. No further GI recommendations. JOB# [id number] HRC/NTS
[2020-05-02] MEDS: SENNOSIDES 8.6 MG TAB PO SCH (22:05)
[2020-05-02] MEDS: INSULIN GLARGINE 100 UNITS/ML SUB-Q SCH (23:02)
[2020-05-03] MEDS: SODIUM CHLORIDE 0.9% 1000 ML 1,000 ML IV SCH (00:54)
[2020-05-03] MEDS: LEVOTHYROXINE 50 MCG TAB PO SCH (05:00)
[2020-05-03 05:25] LABS: Basophils % (Auto) 0.1 % (0.0-1.8); Hematocrit 24.7 % (35.5-45.6); Lymphocytes # (Auto) 0.7 K/mm3 (1.2-5.4); Lymphocytes % (Auto) 4.6 % (13.4-35.0); Mean Corpuscular HGB Conc 32 % (32-34); Mean Corpuscular Volume 80 fl (84-94); Monocytes # (Auto) 1.5 K/mm3 (0.0-0.8); Monocytes % (Auto) 9.2 % (0.0-7.3); Platelet Count 207 K/mm3 (140-440); Red Blood Count 3.09 M/mm3 (3.65-5.03)
[2020-05-03 05:32] LABS: Red Cell Distribution Width 22.2 % (13.2-15.2)
[2020-05-03] MEDS: INSULIN REGULAR, HUMAN 100 UNITS/1 ML SUB-Q SCH ×4 (08:47→22:51)
[2020-05-03] MEDS: LACTULOSE 20 GM/30 ML ORAL LIQD PO SCH (09:07)
[2020-05-03] MEDS: PANTOPRAZOLE 40 MG TAB PO SCH (09:08)
[2020-05-03] MEDS: CHOLECALCIFEROL (VIT D3) 1000 UNIT (25 mcg) TAB PO SCH (09:08)
[2020-05-03] MEDS: LINAGLIPTIN 5 MG TAB PO SCH (09:08)
[2020-05-03] MEDS: FUROSEMIDE 20 MG TAB PO SCH (09:08)
[2020-05-03] MEDS: risperiDONE 0.25 MG TAB PO SCH (09:08)
[2020-05-03] MEDS: ENOXAPARIN 40 MG/0.4 ML INJ SUB-Q SCH (09:08)
[2020-05-03] MEDS: MULTIVITAMINS,THER W-MINERALS TAB PO SCH (09:08)
[2020-05-03] MEDS: LISINOPRIL 5 MG TAB PO SCH (09:09)
--- NOTE | 2020-05-03 10:53 | Progress Note ---
Assessment and Plan Assessment and plan: --Acute blood loss anemia; due to erosive esophagitis Hb 6.2, received total 2 units of PRBC, Hb today 8.0 Closely monitor --Erosive esophagitis; Protonix and supportive care --Coffee-ground emesis; GI evaluated, s/p EGD 1. Mild erosive esophagitis 2. 5 cm hiatal hernia 3. Few gastric polyps 4. Otherwise normal upper endoscopy --History of chronic anemia; continue iron supplements --Acute metabolic encephalopathy; Mild improvement, unable to do MRI due to metal pieces --History of cerebral amyloid angiopathy; MRI cerebral myeloid angiopathy, study not complete due to metallic pieces Neurology following continue supportive care No acute CVA. --Hypertension; moderate control, continue current antihypertensives and PRN medications --Type 2 diabetes mellitus; Accu-Chek sliding scale coverage ADA diet and Lantus insulin A1c 12.6,, supportive care, home health nurse for disease monitoring at discharge --Severe dementia; Continue current management, fall precautions --Mild malnutrition; nutrition supplements, supportive care --DVT prophylaxis; Lovenox --Full CODE STATUS; --PT recommends subacute rehab --DC planning; awaiting subacute rehab placement 04/22/2020. MRI reveals multiple remote microhemorrhages in the periphery of both cerebral hemispheres most consistent with a diagnosis of amyloid angiopathy. Await neurology recommendations. 04/23/2020. We will avoid all anticoagulation. D/c Ativan and start Seroquel 25mg BID. Await placement 04/24/2020. I had a long discussion with the patient's daughter with regards to diagnosis. Continue Seroquel for now. Await placement. 04/25/2020. Patient will have further attempts working with PT/OT today given his improved mentation. Consider discharge home await PT/OT evaluation. 04/26/2020. Physical therapy has evaluated the patient and recommends subacute rehab. Case management reports [facility]-Reviewing referral. 04/27/2020. Awaiting subacute rehab placement. 04/28/2020. Physical therapy has evaluated the patient and recommends subacute rehab. Nutrition following regarding caloric intake 04/29/2020: Patient is medically stable ,awaiting placement, [facility] reviewing for admission 04/30/20; patient had coffee-ground emesis this morning, mild distress, IV Protonix, GI consult 05/01/20; no new episodes of coffee-ground emesis, anemia mild drop in H&H to 6.2 Type and cross, transfuse 1 unit PRBC closely monitor, endoscopy tomorrow per GI 05/02/20: Patient had endoscopy, erosive esophagitis , received blood transfusion 05/03/20; received total 2 units of PRBC, hemoglobin 8.0 today Awaiting placement, possible discharge in 1 to 2 days when placement process is completed Plan of care reviewed with the patient his nurse and the case management History Interval history: Patient seen and examined at the bedside Patient's chart and medications reviewed Alert and awake confused at times Vital signs stable No new episodes of coffee-ground emesis or GI bleeding Hospitalist Physical - Constitutional Vitals: Temp Pulse Resp BP Pulse Ox 97.6 F 56 L 18 114/66 96 05/03/20 04:50 05/03/20 04:50 05/03/20 04:50 05/03/20 04:50 05/03/20 04:50 General appearance: Present: no acute distress, well-nourished, other (Confused at times) - EENT Eyes: Present: PERRL, EOM intact - Neck Neck: Present: supple, normal ROM - Respiratory Respiratory effort: normal Respiratory: bilateral: diminished, negative: rales, rhonchi, wheezing - Cardiovascular Rhythm: regular Heart Sounds: Present: S1 & S2 - Extremities Extremities: no ischemia, No edema - Abdominal General gastrointestinal: soft, non-tender, non-distended, normal bowel sounds - Integumentary Integumentary: Present: clear, warm - Psychiatric Psychiatric: appropriate mood/affect, other (Confused at times) - Neurologic Neurologic: moves all extremities Results - Labs CBC & Chem 7: 05/03/20 04:24 05/02/20 05:12 Labs: Laboratory Last Values WBC 16.1 K/mm3 (4.5-11.0) H 05/03/20 04:24 RBC 3.09 M/mm3 (3.65-5.03) L 05/03/20 04:24 Hgb 8.0 gm/dl (11.8-15.2) L 05/03/20 04:24 Hct 24.7 % (35.5-45.6) L 05/03/20 04:24 MCV 80 fl (84-94) L 05/03/20 04:24 MCH 26 pg (28-32) L 05/03/20 04:24 MCHC 32 % (32-34) 05/03/20 04:24 RDW 22.2 % (13.2-15.2) H 05/03/20 04:24 Plt Count 207 K/mm3 (140-440) 05/03/20 04:24 Lymph % (Auto) 4.6 % (13.4-35.0) L 05/03/20 04:24 [place] % (Auto) 9.2 % (0.0-7.3) H 05/03/20 04:24 Eos % (Auto) 0.0 % (0.0-4.3) 05/03/20 04:24 Baso % (Auto) 0.1 % (0.0-1.8) 05/03/20 04:24 Lymph # 0.7 K/mm3 (1.2-5.4) L 05/03/20 04:24 [place] # 1.5 K/mm3 (0.0-0.8) H 05/03/20 04:24 Eos # 0.0 K/mm3 (0.0-0.4) 05/03/20 04:24 Baso # 0.0 K/mm3 (0.0-0.1) 05/03/20 04:24 Add Manual Diff Complete 05/02/20 05:12 Total Counted 100 05/02/20 05:12 Seg Neutrophils % 86.1 % (40.0-70.0) H 05/03/20 04:24 Seg Neuts % (Manual) 93.0 % (40.0-70.0) H 05/02/20 05:12 Band Neutrophils % 0 % 05/02/20 05:12 Lymphocytes % (Manual) 2.0 % (13.4-35.0) L 05/02/20 05:12 Reactive Lymphs % (Man) 0 % 05/02/20 05:12 Monocytes % (Manual) 5.0 % (0.0-7.3) 05/02/20 05:12 Eosinophils % (Manual) 0 % (0.0-4.3) 05/02/20 05:12 Basophils % (Manual) 0 % (0.0-1.8) 05/02/20 05:12 Metamyelocytes % 0 % 05/02/20 05:12 Myelocytes % 0 % 05/02/20 05:12 Promyelocytes % 0 % 05/02/20 05:12 Blast Cells % 0 % 05/02/20 05:12 Nucleated RBC % Not Reportable 05/02/20 05:12 Seg Neutrophils # 13.8 K/mm3 (1.8-7.7) H 05/03/20 04:24 Seg Neutrophils # Man 15.1 K/mm3 (1.8-7.7) H 05/02/20 05:12 Band Neutrophils # 0.0 K/mm3 05/02/20 05:12 Lymphocytes # (Manual) 0.3 K/mm3 (1.2-5.4) L 05/02/20 05:12 Abs React Lymphs (Man) 0.0 K/mm3 05/02/20 05:12 Monocytes # (Manual) 0.8 K/mm3 (0.0-0.8) 05/02/20 05:12 Eosinophils # (Manual) 0.0 K/mm3 (0.0-0.4) 05/02/20 05:12 Basophils # (Manual) 0.0 K/mm3 (0.0-0.1) 05/02/20 05:12 Metamyelocytes # 0.0 K/mm3 05/02/20 05:12 Myelocytes # 0.0 K/mm3 05/02/20 05:12 Promyelocytes # 0.0 K/mm3 05/02/20 05:12 Blast Cells # 0.0 K/mm3 05/02/20 05:12 WBC Morphology Not Reportable 05/02/20 05:12 Hypersegmented Neuts Not Reportable 05/02/20 05:12 Hyposegmented Neuts Not Reportable 05/02/20 05:12 Hypogranular Neuts Not Reportable 05/02/20 05:12 Smudge Cells Not Reportable 05/02/20 05:12 Toxic Granulation Not Reportable 05/02/20 05:12 Toxic Vacuolation Not Reportable 05/02/20 05:12 Dohle Bodies Not Reportable 05/02/20 05:12 Pelger-Huet Anomaly Not Reportable 05/02/20 05:12 Phil Rods Not Reportable 05/02/20 05:12 Platelet Estimate Consistent w auto 05/02/20 05:12 Clumped Platelets Not Reportable 05/02/20 05:12 Plt Clumps, EDTA Not Reportable 05/02/20 05:12 Large Platelets Not Reportable 05/02/20 05:12 Giant Platelets Not Reportable 05/02/20 05:12 Platelet Satelliting Not Reportable 05/02/20 05:12 Plt Morphology Comment Not Reportable 05/02/20 05:12 RBC Morphology Not Reportable 05/02/20 05:12 Dimorphic RBCs Not Reportable 05/02/20 05:12 Polychromasia Not Reportable 05/02/20 05:12 Hypochromasia 1+ 05/02/20 05:12 Poikilocytosis 2+ 05/02/20 05:12 Anisocytosis 1+ 05/02/20 05:12 Microcytosis Not Reportable 05/02/20 05:12 Macrocytosis Not Reportable 05/02/20 05:12 Spherocytes Not Reportable 05/02/20 05:12 Pappenheimer Bodies Not Reportable 05/02/20 05:12 Sickle Cells Not Reportable 05/02/20 05:12 Target Cells Not Reportable 05/02/20 05:12 Tear Drop Cells Not Reportable 05/02/20 05:12 Ovalocytes Few 05/02/20 05:12 Helmet Cells Not Reportable 05/02/20 05:12 [place] Bodies Not Reportable 05/02/20 05:12 [place] Rings Not Reportable 05/02/20 05:12 [place] Cells 2+ 05/02/20 05:12 Bite Cells Not Reportable 05/02/20 05:12 Crenated Cell Not Reportable 05/02/20 05:12 Elliptocytes Not Reportable 05/02/20 05:12 Acanthocytes (Spur) Few 05/02/20 05:12 Rouleaux Not Reportable 05/02/20 05:12 Hemoglobin C Crystals Not Reportable 05/02/20 05:12 Schistocytes Not Reportable 05/02/20 05:12 Malaria parasites Not Reportable 05/02/20 05:12 Emigdio Bodies Not Reportable 05/02/20 05:12 Hem Pathologist Commnt No 05/02/20 05:12 PT 12.9 Sec. (12.2-14.9) 04/21/20 10:35 INR 0.99 (0.87-1.13) 04/21/20 10:35 Sodium 137 mmol/L (137-145) 05/02/20 05:12 Potassium 4.3 mmol/L (3.6-5.0) 05/02/20 05:12 Chloride 101.2 mmol/L (98-107) 05/02/20 05:12 Carbon Dioxide 23 mmol/L (22-30) 05/02/20 05:12 Anion Gap 17 mmol/L 05/02/20 05:12 BUN 51 mg/dL (9-20) H 05/02/20 05:12 Creatinine 0.9 mg/dL (0.8-1.5) 05/02/20 05:12 Estimated GFR > 60 ml/min 05/02/20 05:12 BUN/Creatinine Ratio 57 % 05/02/20 05:12 Glucose 245 mg/dL (75-100) H 05/02/20 05:12 POC Glucose 74 (70-105) 05/03/20 08:15 Calcium 8.9 mg/dL (8.4-10.2) 05/02/20 05:12 Total Bilirubin 0.20 mg/dL (0.1-1.2) 04/19/20 05:14 AST 21 units/L (5-40) 04/19/20 05:14 ALT 15 units/L (7-56) 04/19/20 05:14 Alkaline Phosphatase 61 units/L (35-129) 04/19/20 05:14 NT-Pro-B Natriuret Pep 387.1 pg/mL (0-900) 04/19/20 05:14 Total Protein 5.9 g/dL (6.3-8.2) L 04/19/20 05:14 Albumin 3.1 g/dL (3.9-5) L 04/19/20 05:14 Albumin/Globulin Ratio 1.1 % 04/19/20 05:14 Triglycerides 103 mg/dL (2-149) 04/19/20 05:14 Cholesterol 131 mg/dL (50-199) 04/19/20 05:14 LDL Cholesterol Direct 76 mg/dL (50-130) 04/19/20 05:14 HDL Cholesterol 49 mg/dL (40-59) 04/19/20 05:14 Cholesterol/HDL Ratio 2.67 % 04/19/20 05:14 TSH 10.080 mlU/mL (0.270-4.200) H 04/19/20 07:57 Free T4 1.20 ng/dL (0.76-1.46) 04/19/20 07:57 Digoxin 0.3 ng/mL (0.9-2.0) L 04/21/20 12:54 Coronavirus (PCR) Negative (Negative) 04/30/20 09:04 Blood Type AB POSITIVE 05/01/20 06:55 Antibody Screen Negative 05/01/20 06:55 Crossmatch See Detail 05/01/20 06:55 - Diagnostic Impressions Diagnostic Impressions: Echocardiogram 04/18/20 22:16 Transthoracic Echocardiogram Indication: stroke BP: 102/51 HR: 75 Conclusions *The left ventricular chamber size is mildly dilated. *Global left ventricular systolic function is mild to moderately decreased. *The estimated ejection fraction is 40-45%. *The left atrium is mild to moderately dilated. *The right heart chambers are mild to moderately dilated. *There is mild mitral regurgitation. *There is mild to moderate tricuspid regurgitation. *There is evidence of borderline pulmonary hypertension. *The right ventricular systolic pressure is calculated at 24 mmHg. *A patent foramen ovale is not demonstrated by agitated saline contrast. Findings Left Ventricle: The left ventricular chamber size is mildly dilated. Mild concentric left ventricular hypertrophy is observed. Global left ventricular systolic function is mild to moderately decreased. The estimated ejection fraction is 40-45%. Abnormal left ventricular diastolic function is observed. Left Atrium: The left atrium is mild to moderately dilated. Right Ventricle: The right ventricle is mild to moderately dilated. The right ventricular global systolic function is moderately reduced. Right Atrium: The right atrium is mildly dilated. A patent foramen ovale is not demonstrated by agitated saline contrast. Aortic Valve: The aortic valve is trileaflet. The aortic valve leaflets are mildly thickened. There is no evidence of aortic regurgitation. There is no evidence of aortic stenosis. Mitral Valve: The mitral valve leaflets are mildly thickened. There is mild mitral regurgitation. There is no evidence of mitral stenosis. Tricuspid Valve: The tricuspid valve leaflets are normal. There is mild to moderate tricuspid regurgitation. The right ventricular systolic pressure is calculated at 24 mmHg. There is evidence of borderline pulmonary hypertension. Pulmonic Valve: The pulmonic valve appears normal. There is trace pulmonic regurgitation. Pericardium: There is no pericardial effusion. Aorta: There is no dilatation of the aortic root. Venous: The inferior vena cava is not visualized. The inferior vena cava appears normal in size. Contrast: Intravenous agitated saline contrast was used to assess intracardiac shunting. Measurements Chambers 2D Name Value Normal Range IVSd (2D) 1.21 cm (0.6 - 1.1) LVPWd (2D) 1.21 cm (0.6 - 1.1) LVIDd (2D) 3.35 cm (3.7 - 5.6) LVIDs (2D) 2.44 cm (2 - 3.8) LV FS (2D) 27.09 % - EF Teichholz (2D) 53.99 % - Ao root diameter (2D) 4.05 cm (2 - 3.7) Volumes/Mass Name Value Normal Range LA ESV SP 4CH (A/L) 60.11 ml - LA ESV SP 2CH (A/L) 60.34 ml - LA ESV BP (A/L) 64.62 ml - LA ESV SP 4CH (MOD) 55.46 ml - LA ESV SP 2CH (MOD) 56.14 ml - LA ESV BP (MOD) 59.51 ml - LA ESV BP (MOD) index 33.25 ml/m2 - LV EDV SP 4CH (MOD) 125.55 ml - LV ESV SP 4CH (MOD) 48.88 ml - EF SP 4CH (MOD) 61.07 % - LV EDV SP 2CH (MOD) 107.05 ml - LV ESV SP 2CH (MOD) 63.77 ml - EF SP 2CH (MOD) 40.43 % - LV EDV BP 116.16 ml - LV ESV BP 57.68 ml - BP EF (MOD) 50.34 % - Diastolic/Systolic Function Name Value Normal Range MV E-wave Vmax 0.54 m/sec - MV deceleration time 147.66 msec - MV A-wave Vmax 0.66 m/sec - MV E:A ratio 0.82 ratio - Aortic Valve Name Value Normal Range AV Vmax 0.86 m/sec - AV VTI 11.37 cm - AV peak gradient 2.97 mmHg - AV mean gradient 1.5 mmHg - LVOT diameter 2.01 cm - LVOT Vmax 0.44 m/sec - LVOT VTI 7.57 cm - LVOT peak gradient 0.78 mmHg - LVOT mean gradient 0.46 mmHg - SV LVOT 24.03 ml - NARINDER (continuity Vmax) 1.63 cm2 - NARINDER (continuity VTI) 2.11 cm2 - Ascending Ao 3.72 cm - Tricuspid Valve Name Value Normal Range TR Vmax 2.31 m/sec - TR peak gradient 21 mmHg - RAP 3 mmHg - RVSP 24 mmHg - Pulmonic Valve/Qp:Qs Name Value Normal Range PV Vmax 1.11 m/sec - PV peak gradient 4.89 mmHg - RVOT Vmax 0.85 m/sec - RVOT peak gradient 2.87 mmHg - PV acceleration time 114.18 msec - [place]/IV: Voiding Method Incontinent IV Catheter Type [Left Upper Peripheral IV arm] IV Catheter Type [Right Upper INT / Saline Lock arm] IV Catheter Type [Left Hand] Peripheral IV IV Catheter Type [Right Hand] INT / Saline Lock IV Catheter Type [Right INT / Saline Lock Antecubital] Active Medications - Current Medications Current Medications: Generic Name Dose Route Start Last Admin Trade Name Freq PRN Reason Stop Dose Admin Acetaminophen 650 mg 04/18/20 22:06 05/01/20 22:24 Tylenol PO 650 mg Q4H PRN Administration Pain MILD(1-3)/Fever >100.5/[place] Atorvastatin Calcium 40 mg 04/19/20 22:00 05/02/20 22:05 Lipitor PO 40 mg QHS JOSELIN Administration Cholecalciferol 1,000 unit 04/19/20 10:00 05/03/20 09:08 Vitamin D3 PO 1,000 unit DAILY JOSELIN Administration Dextrose 50 ml 04/19/20 00:54 D50w (25gm) Syringe IV Q30MIN PRN Hypoglycemia Protocol Enoxaparin Sodium 40 mg 05/01/20 10:00 05/03/20 09:08 Enoxaparin SUB-Q 40 mg QDAY@1000 JOSELIN Administration Furosemide 20 mg 04/19/20 10:00 05/03/20 09:08 Lasix PO 20 mg DAILY JOSELIN Administration Sodium Chloride 1,000 mls @ 75 mls/hr 04/30/20 15:45 05/03/20 00:54 Nacl 0.9% 1000 Ml IV 75 mls/hr DIRECT JOSELIN Administration Sodium Chloride 500 mls @ 0 mls/hr 05/01/20 09:38 05/02/20 12:51 Nacl 0.9% 500 Ml IV 50 mls/hr ONCE JOSELIN Administration As Directed Insulin Glargine 15 units 04/19/20 22:00 05/02/20 23:02 Lantus SUB-Q 15 units QHS JOSELIN Administration Insulin Human Regular 0 units 04/19/20 01:15 05/03/20 08:47 Humulin R SUB-Q Not Given ACHS [facility] Protocol Levothyroxine Sodium 50 mcg 04/20/20 06:00 05/03/20 05:00 Synthroid PO 50 mcg DAILY@0600 JOSELIN Administration Linagliptin 5 mg 04/20/20 10:00 05/03/20 09:08 Tradjenta PO 5 mg QDAY JOSELIN Administration Lisinopril 5 mg 04/19/20 10:00 05/03/20 09:09 Zestril PO Not Given DAILY [facility] Multivitamins/Minerals 1 each 05/01/20 10:00 05/03/20 09:08 Theragran-M Tab PO 1 each QDAY JOSELIN Administration Ondansetron HCl 4 mg 04/18/20 22:06 05/01/20 09:29 Zofran IV 4 mg Q8H PRN Administration Nausea And Vomiting Pantoprazole Sodium 40 mg 04/19/20 10:00 05/03/20 09:08 Protonix PO 40 mg DAILY JOSELIN Administration Risperidone 1 mg 05/01/20 10:00 05/03/20 09:08 Risperdal PO 1 mg BID JOSELIN Administration Senna 17.2 mg 04/30/20 22:00 05/02/20 22:05 Senokot PO 17.2 mg QHS JOSELIN Administration Sodium Chloride 10 ml 04/18/20 23:00 05/03/20 09:09 Sodium Chloride Flush Syringe 10 Ml IV 10 ml BID JOSELIN Administration Sodium Chloride 10 ml 04/18/20 22:06 04/19/20 01:19 Sodium Chloride Flush Syringe 10 Ml IV 10 ml PRN PRN Administration LINE FLUSH Nutrition/Malnutrition Assess - Dietary Evaluation Nutrition/Malnutrition Findings: Nutrition Notes Start: 04/24/20 12:48 Freq: Status: Active Protocol: Document 07/02/20 12:08 LM (Rec: 05/01/20 12:15 LM [id number]) Nutrition Notes Initial or Follow up Reassessment Current Diagnosis Diabetes,Hypertension,Heart Failure Other Pertinent Diagnosis coffee ground emesis, acute encephalopathy Current Diet clear liquid Labs/Tests POC glu 287 Pertinent Medications Humulin Lasix Height 5 ft 6 in Weight 65 kg [place] Body Weight (kg) 64.54 BMI 23.1 Weight Status Appropriate Subjective/Other Information Pt's diet downgraded to clear liq. Pt asleep at time of visit. Per chart pt consumed 25%. Burn Absent Trauma Absent Difficulty In Swallowing,Chewing Current % PO Negligible Minimum of two criteria Yes Body Fat Depletion Mild depletion (non-severe) Muscle Mass Mild Depletion (non-severe) #1 Nutrition Diagnosis Malnutrition Diagnosis Progress(for reassessment Continues documentation) Is patient on ventilator? No Is Patient Ambulatory and/or Out of Bed No REE-([facility]-confined to bed) 1528.872 Calculation Used for Recommendations [facility] Additional Notes Protein: 73-92g (1.2-1.5g/kg) Fluid: 1ml/kcal Nutrition Intervention Change Diet Order: coninue current until able to advance Add Supplement/Snack (indicate name/kcal Ensure clear BID /protein ) Provides kCal: 480 Provides Protein (gm) 16 Goal #1 diet advancement Anticipated Discharge Needs: unable to determine at this time Follow-Up By: 05/05/20 Additional Comments F/U for intakes/diet advancement
--- NOTE | 2020-05-03 13:45 | Progress Note ---
Assessment and Plan 1. Coffee-ground emesis - one episode. Due to erosive esophagitis. Doing well at present. - continue PPI 2. Anemia - per daughter, pt has long hx of iron def anemia. May be due to hiatal hernia. Pt was to be on chronic iron and had apparently stopped it. - monitor H/H and transfuse as needed - will order iron levels - please f/u and replete either orally chronically or with IV boost if low. - may f/u subsequently as outpatient either with us or his usual MDs at the [place], etc. Will sign off. Please call as needed. Subjective Date of service: 05/03/20 Principal diagnosis: Iron Def Anemia Interval history: Pt confused, in restraints. No report of GI bleed. Objective - Constitutional Vitals: Vital Signs - 12hr 05/03/20 05/03/20 04:50 12:14 Temperature 97.6 F 98.6 F Pulse Rate 56 L 71 Respiratory 18 20 Rate Blood Pressure 114/66 120/53 O2 Sat by Pulse 96 94 Oximetry General appearance: Present: no acute distress, disheveled - EENT Eyes: PERRL, EOM intact - Gastrointestinal General gastrointestinal: Present: soft, non-tender - Labs CBC & Chem 7: 05/03/20 04:24 05/02/20 05:12 Labs: Abnormal lab results 05/01/20 05/02/20 05/02/20 Range/Units 06:55 16:38 22:06 WBC (4.5-11.0) K/mm3 RBC (3.65-5.03) M/mm3 Hgb (11.8-15.2) gm/dl Hct (35.5-45.6) % MCV (84-94) fl MCH (28-32) pg RDW (13.2-15.2) % Lymph % (Auto) (13.4-35.0) % [place] % (Auto) (0.0-7.3) % Lymph # (1.2-5.4) K/mm3 [place] # (0.0-0.8) K/mm3 Seg Neutrophils % (40.0-70.0) % Seg Neutrophils # (1.8-7.7) K/mm3 POC Glucose 297 H 205 H (70-105) Crossmatch See Detail 05/03/20 05/03/20 Range/Units 04:24 12:26 WBC 16.1 H (4.5-11.0) K/mm3 RBC 3.09 L (3.65-5.03) M/mm3 Hgb 8.0 L (11.8-15.2) gm/dl Hct 24.7 L (35.5-45.6) % MCV 80 L (84-94) fl MCH 26 L (28-32) pg RDW 22.2 H (13.2-15.2) % Lymph % (Auto) 4.6 L (13.4-35.0) % [place] % (Auto) 9.2 H (0.0-7.3) % Lymph # 0.7 L (1.2-5.4) K/mm3 [place] # 1.5 H (0.0-0.8) K/mm3 Seg Neutrophils % 86.1 H (40.0-70.0) % Seg Neutrophils # 13.8 H (1.8-7.7) K/mm3 POC Glucose 241 H (70-105) Crossmatch Medications & Allergies - Medications Allergies/Adverse Reactions: Allergies aspirin Allergy (Verified 04/16/20 14:46) Unknown Home Medications: Home Medications Medication Instructions Recorded Confirmed Last Taken Type Alogliptin Benzoate 25 mg PO DAILY 04/18/20 04/27/20 Unknown History Docusate Sodium [Colace CAP] 100 mg PO BID 04/18/20 04/27/20 Unknown History Ferrous Fumarate (Nf) 324 mg PO DAILY 04/18/20 04/27/20 Unknown History Furosemide 20 mg PO DAILY 04/18/20 04/27/20 Unknown History Insulin Regular, Human [HumuLIN R] 0 units SUB-Q ACHS units 04/18/20 04/27/20 Unknown Rx Lantus Solostar 100 units SQ QPM 04/18/20 04/27/20 Unknown History Lisinopril 5 mg PO DAILY 04/18/20 04/27/20 Unknown History Melatonin 3 mg PO QHS 04/18/20 04/27/20 Unknown History Omeprazole 40 mg PO DAILY 04/18/20 04/27/20 Unknown History Vitamin D3 1,000 unit PO DAILY 04/18/20 04/27/20 Unknown History metFORMIN 500 mg PO BID 04/18/20 04/27/20 Unknown History risperiDONE [RisperDAL] 0.5 mg PO BID #60 tablet 04/18/20 04/27/20 Unknown Rx traMADoL [Ultram 50 MG tab] 50 mg PO Q6HR PRN 04/18/20 04/27/20 Unknown History Active Medications: Generic Name Dose Route Start Last Admin Trade Name Freq PRN Reason Stop Dose Admin Acetaminophen 650 mg 04/18/20 22:06 05/01/20 22:24 Tylenol PO 650 mg Q4H PRN Administration Pain MILD(1-3)/Fever >100.5/[place] Atorvastatin Calcium 40 mg 04/19/20 22:00 05/02/20 22:05 Lipitor PO 40 mg QHS JOSELIN Administration Cholecalciferol 1,000 unit 04/19/20 10:00 05/03/20 09:08 Vitamin D3 PO 1,000 unit DAILY JOSELIN Administration Dextrose 50 ml 04/19/20 00:54 D50w (25gm) Syringe IV Q30MIN PRN Hypoglycemia Protocol Enoxaparin Sodium 40 mg 05/01/20 10:00 05/03/20 09:08 Enoxaparin SUB-Q 40 mg QDAY@1000 JOSELIN Administration Furosemide 20 mg 04/19/20 10:00 05/03/20 09:08 Lasix PO 20 mg DAILY JOSELIN Administration Sodium Chloride 1,000 mls @ 75 mls/hr 04/30/20 15:45 05/03/20 00:54 Nacl 0.9% 1000 Ml IV 75 mls/hr DIRECT JOSELIN Administration Sodium Chloride 500 mls @ 0 mls/hr 05/01/20 09:38 05/02/20 12:51 Nacl 0.9% 500 Ml IV 50 mls/hr ONCE JOSELIN Administration As Directed Insulin Glargine 15 units 04/19/20 22:00 05/02/20 23:02 Lantus SUB-Q 15 units QHS JOSELIN Administration Insulin Human Regular 0 units 04/19/20 01:15 05/03/20 12:20 Humulin R SUB-Q 4 units ACHS JOSELIN Administration Protocol Levothyroxine Sodium 50 mcg 04/20/20 06:00 05/03/20 05:00 Synthroid PO 50 mcg DAILY@0600 JOSELIN Administration Linagliptin 5 mg 04/20/20 10:00 05/03/20 09:08 Tradjenta PO 5 mg QDAY JOSELIN Administration Lisinopril 5 mg 04/19/20 10:00 05/03/20 09:09 Zestril PO Not Given DAILY JOSELIN Multivitamins/Minerals 1 each 05/01/20 10:00 05/03/20 09:08 Theragran-M Tab PO 1 each QDAY JOSELIN Administration Ondansetron HCl 4 mg 04/18/20 22:06 05/01/20 09:29 Zofran IV 4 mg Q8H PRN Administration Nausea And Vomiting Pantoprazole Sodium 40 mg 04/19/20 10:00 05/03/20 09:08 Protonix PO 40 mg DAILY JOSELIN Administration Risperidone 1 mg 05/03/20 22:00 Risperdal PO BID JOSELIN Senna 17.2 mg 04/30/20 22:00 05/02/20 22:05 Senokot PO 17.2 mg QHS JOSELIN Administration Sodium Chloride 10 ml 04/18/20 23:00 05/03/20 09:09 Sodium Chloride Flush Syringe 10 Ml IV 10 ml BID JOSELIN Administration Sodium Chloride 10 ml 04/18/20 22:06 04/19/20 01:19 Sodium Chloride Flush Syringe 10 Ml IV 10 ml PRN PRN Administration LINE FLUSH
[2020-05-03 14:57] LABS: Iron 8 ug/dL (49-181); Total Iron Binding Capacity 263 mcg/dL (250-450)
[2020-05-03] MEDS: SENNOSIDES 8.6 MG TAB PO SCH (22:22)
[2020-05-03] MEDS: risperiDONE 1 MG TAB PO SCH (22:23)
[2020-05-03] MEDS: INSULIN GLARGINE 100 UNITS/ML SUB-Q SCH (22:51)
[2020-05-04] MEDS: SODIUM CHLORIDE 0.9% 1000 ML 1,000 ML IV SCH (03:01)
[2020-05-04] MEDS: LEVOTHYROXINE 50 MCG TAB PO SCH (05:43)
[2020-05-04] MEDS: CHOLECALCIFEROL (VIT D3) 1000 UNIT (25 mcg) TAB PO SCH (09:39)
[2020-05-04] MEDS: ENOXAPARIN 40 MG/0.4 ML INJ SUB-Q SCH (09:39)
[2020-05-04] MEDS: MULTIVITAMINS,THER W-MINERALS TAB PO SCH (09:39)
[2020-05-04] MEDS: risperiDONE 1 MG TAB PO SCH ×2 (09:39→21:13)
[2020-05-04] MEDS: PANTOPRAZOLE 40 MG TAB PO SCH (09:39)
[2020-05-04] MEDS: INSULIN REGULAR, HUMAN 100 UNITS/1 ML SUB-Q SCH ×4 (09:40→23:50)
[2020-05-04] MEDS: LINAGLIPTIN 5 MG TAB PO SCH (09:44)
[2020-05-04] MEDS: FUROSEMIDE 20 MG TAB PO SCH (09:44)
[2020-05-04] MEDS: LISINOPRIL 5 MG TAB PO SCH (09:45)
[2020-05-04] MEDS ORDERED: DEXTRAN IV ONE (12:42)
[2020-05-04] MEDS ORDERED: DEXTROSE IV ONE (12:42)
--- NOTE | 2020-05-04 18:17 | Progress Note ---
Assessment and Plan Assessment and plan: --Iron deficiency anemia, very low levels of iron IV dextran recommended by GI, ferrous sulfate --Acute blood loss anemia; due to erosive esophagitis Hb 6.2, received total 2 units of PRBC, Hb today 8.0 Closely monitor --Erosive esophagitis; Protonix and supportive care --Coffee-ground emesis; s/p EGD 1. Mild erosive esophagitis 2. 5 cm hiatal hernia 3. Few gastric polyps 4. Otherwise normal upper endoscopy --History of chronic anemia; continue iron supplements --Acute metabolic encephalopathy; Mild improvement, unable to do MRI due to metal pieces --History of cerebral amyloid angiopathy; MRI cerebral myeloid angiopathy, study not complete due to metallic pieces Neurology following continue supportive care No acute CVA. --Hypertension; moderate control, continue current antihypertensives and PRN medications --Type 2 diabetes mellitus; Accu-Chek sliding scale coverage ADA diet and Lantus insulin A1c 12.6,, supportive care, home health nurse for disease monitoring at discharge --Severe dementia; Continue current management, fall precautions --Mild malnutrition; nutrition supplements, supportive care --DVT prophylaxis; Lovenox --Full CODE STATUS; --PT recommends subacute rehab --DC planning; awaiting subacute rehab placement 04/22/2020. MRI reveals multiple remote microhemorrhages in the periphery of both cerebral hemispheres most consistent with a diagnosis of amyloid angiopathy. Await neurology recommendations. 04/23/2020. We will avoid all anticoagulation. D/c Ativan and start Seroquel 25mg BID. Await placement 04/24/2020. I had a long discussion with the patient's daughter with regards to diagnosis. Continue Seroquel for now. Await placement. 04/25/2020. Patient will have further attempts working with PT/OT today given his improved mentation. Consider discharge home await PT/OT evaluation. 04/26/2020. Physical therapy has evaluated the patient and recommends subacute rehab. Case management reports [facility]-Reviewing 04/27/2020. Awaiting subacute rehab placement. 04/28/2020. Physical therapy has evaluated the patient and recommends subacute rehab. Nutrition following regarding caloric intake 04/29/2020: Patient is medically stable ,awaiting placement, [facility] reviewing for admission 04/30/20; patient had coffee-ground emesis this morning, mild distress, IV Protonix, GI consult 05/01/20; no new episodes of coffee-ground emesis, anemia mild drop in H&H to 6.2 Type and cross, transfuse 1 unit PRBC closely monitor, endoscopy tomorrow per GI 05/02/20: Patient had endoscopy, erosive esophagitis , received blood transfusion 05/03/20; received total 2 units of PRBC, hemoglobin 8.0 today Awaiting placement, possible discharge in 1 to 2 days when placement process is completed 05/04/20; iron deficiency anemia, low iron levels, IV dextran, ferrous sulfate Plan of care reviewed with the patient his nurse and the case management History Interval history: Seen and examined at the bedside this morning patient's medical records reviewed feels slightly better no new episodes of GI bleeding Hemoglobin low stable Vital signs reviewed Hospitalist Physical - Constitutional Vitals: Temp Pulse Resp BP Pulse Ox 98.4 F 96 H 20 101/64 97 05/04/20 16:00 05/04/20 16:00 05/04/20 16:00 05/04/20 16:00 05/04/20 16:00 General appearance: Present: no acute distress, well-nourished, other (Confused at times) - EENT Eyes: Present: PERRL, EOM intact - Neck Neck: Present: supple, normal ROM - Respiratory Respiratory effort: normal Respiratory: bilateral: diminished, negative: rales, rhonchi, wheezing - Cardiovascular Rhythm: regular Heart Sounds: Present: S1 & S2 - Extremities Extremities: no ischemia, No edema - Abdominal General gastrointestinal: soft, non-tender, non-distended, normal bowel sounds - Integumentary Integumentary: Present: clear, warm - Psychiatric Psychiatric: appropriate mood/affect, other (Confused at times) - Neurologic Neurologic: moves all extremities Results - Labs CBC & Chem 7: 05/03/20 04:24 05/02/20 05:12 Labs: Laboratory Last Values WBC 16.1 K/mm3 (4.5-11.0) H 05/03/20 04:24 RBC 3.09 M/mm3 (3.65-5.03) L 05/03/20 04:24 Hgb 8.0 gm/dl (11.8-15.2) L 05/03/20 04:24 Hct 24.7 % (35.5-45.6) L 05/03/20 04:24 MCV 80 fl (84-94) L 05/03/20 04:24 MCH 26 pg (28-32) L 05/03/20 04:24 MCHC 32 % (32-34) 05/03/20 04:24 RDW 22.2 % (13.2-15.2) H 05/03/20 04:24 Plt Count 207 K/mm3 (140-440) 05/03/20 04:24 Lymph % (Auto) 4.6 % (13.4-35.0) L 05/03/20 04:24 [place]imer % (Auto) 9.2 % (0.0-7.3) H 05/03/20 04:24 Eos % (Auto) 0.0 % (0.0-4.3) 05/03/20 04:24 Baso % (Auto) 0.1 % (0.0-1.8) 05/03/20 04:24 Lymph # 0.7 K/mm3 (1.2-5.4) L 05/03/20 04:24 Latimer # 1.5 K/mm3 (0.0-0.8) H 05/03/20 04:24 Eos # 0.0 K/mm3 (0.0-0.4) 05/03/20 04:24 Baso # 0.0 K/mm3 (0.0-0.1) 05/03/20 04:24 Add Manual Diff Complete 05/02/20 05:12 Total Counted 100 05/02/20 05:12 Seg Neutrophils % 86.1 % (40.0-70.0) H 05/03/20 04:24 Seg Neuts % (Manual) 93.0 % (40.0-70.0) H 05/02/20 05:12 Band Neutrophils % 0 % 05/02/20 05:12 Lymphocytes % (Manual) 2.0 % (13.4-35.0) L 05/02/20 05:12 Reactive Lymphs % (Man) 0 % 05/02/20 05:12 Monocytes % (Manual) 5.0 % (0.0-7.3) 05/02/20 05:12 Eosinophils % (Manual) 0 % (0.0-4.3) 05/02/20 05:12 Basophils % (Manual) 0 % (0.0-1.8) 05/02/20 05:12 Metamyelocytes % 0 % 05/02/20 05:12 Myelocytes % 0 % 05/02/20 05:12 Promyelocytes % 0 % 05/02/20 05:12 Blast Cells % 0 % 05/02/20 05:12 Nucleated RBC % Not Reportable 05/02/20 05:12 Seg Neutrophils # 13.8 K/mm3 (1.8-7.7) H 05/03/20 04:24 Seg Neutrophils # Man 15.1 K/mm3 (1.8-7.7) H 05/02/20 05:12 Band Neutrophils # 0.0 K/mm3 05/02/20 05:12 Lymphocytes # (Manual) 0.3 K/mm3 (1.2-5.4) L 05/02/20 05:12 Abs React Lymphs (Man) 0.0 K/mm3 05/02/20 05:12 Monocytes # (Manual) 0.8 K/mm3 (0.0-0.8) 05/02/20 05:12 Eosinophils # (Manual) 0.0 K/mm3 (0.0-0.4) 05/02/20 05:12 Basophils # (Manual) 0.0 K/mm3 (0.0-0.1) 05/02/20 05:12 Metamyelocytes # 0.0 K/mm3 05/02/20 05:12 Myelocytes # 0.0 K/mm3 05/02/20 05:12 Promyelocytes # 0.0 K/mm3 05/02/20 05:12 Blast Cells # 0.0 K/mm3 05/02/20 05:12 WBC Morphology Not Reportable 05/02/20 05:12 Hypersegmented Neuts Not Reportable 05/02/20 05:12 Hyposegmented Neuts Not Reportable 05/02/20 05:12 Hypogranular Neuts Not Reportable 05/02/20 05:12 Smudge Cells Not Reportable 05/02/20 05:12 Toxic Granulation Not Reportable 05/02/20 05:12 Toxic Vacuolation Not Reportable 05/02/20 05:12 Dohle Bodies Not Reportable 05/02/20 05:12 Pelger-Huet Anomaly Not Reportable 05/02/20 05:12 Phil Rods Not Reportable 05/02/20 05:12 Platelet Estimate Consistent w auto 05/02/20 05:12 Clumped Platelets Not Reportable 05/02/20 05:12 Plt Clumps, EDTA Not Reportable 05/02/20 05:12 Large Platelets Not Reportable 05/02/20 05:12 Giant Platelets Not Reportable 05/02/20 05:12 Platelet Satelliting Not Reportable 05/02/20 05:12 Plt Morphology Comment Not Reportable 05/02/20 05:12 RBC Morphology Not Reportable 05/02/20 05:12 Dimorphic RBCs Not Reportable 05/02/20 05:12 Polychromasia Not Reportable 05/02/20 05:12 Hypochromasia 1+ 05/02/20 05:12 Poikilocytosis 2+ 05/02/20 05:12 Anisocytosis 1+ 05/02/20 05:12 Microcytosis Not Reportable 05/02/20 05:12 Macrocytosis Not Reportable 05/02/20 05:12 Spherocytes Not Reportable 05/02/20 05:12 Pappenheimer Bodies Not Reportable 05/02/20 05:12 Sickle Cells Not Reportable 05/02/20 05:12 Target Cells Not Reportable 05/02/20 05:12 Tear Drop Cells Not Reportable 05/02/20 05:12 Ovalocytes Few 05/02/20 05:12 Helmet Cells Not Reportable 05/02/20 05:12 Noe-Buna Bodies Not Reportable 05/02/20 05:12 Forrest Rings Not Reportable 05/02/20 05:12 [place] Cells 2+ 05/02/20 05:12 Bite Cells Not Reportable 05/02/20 05:12 Crenated Cell Not Reportable 05/02/20 05:12 Elliptocytes Not Reportable 05/02/20 05:12 Acanthocytes (Spur) Few 05/02/20 05:12 Rouleaux Not Reportable 05/02/20 05:12 Hemoglobin C Crystals Not Reportable 05/02/20 05:12 Schistocytes Not Reportable 05/02/20 05:12 Malaria parasites Not Reportable 05/02/20 05:12 Emigdio Bodies Not Reportable 05/02/20 05:12 Hem Pathologist Commnt No 05/02/20 05:12 PT 12.9 Sec. (12.2-14.9) 04/21/20 10:35 INR 0.99 (0.87-1.13) 04/21/20 10:35 Sodium 137 mmol/L (137-145) 05/02/20 05:12 Potassium 4.3 mmol/L (3.6-5.0) 05/02/20 05:12 Chloride 101.2 mmol/L (98-107) 05/02/20 05:12 Carbon Dioxide 23 mmol/L (22-30) 05/02/20 05:12 Anion Gap 17 mmol/L 05/02/20 05:12 BUN 51 mg/dL (9-20) H 05/02/20 05:12 Creatinine 0.9 mg/dL (0.8-1.5) 05/02/20 05:12 Estimated GFR > 60 ml/min 05/02/20 05:12 BUN/Creatinine Ratio 57 % 05/02/20 05:12 Glucose 245 mg/dL (75-100) H 05/02/20 05:12 POC Glucose 304 (70-105) H 05/04/20 16:37 Calcium 8.9 mg/dL (8.4-10.2) 05/02/20 05:12 Iron 8 ug/dL (49-181) L 05/03/20 13:56 TIBC 263 mcg/dL (250-450) 05/03/20 13:56 Ferritin 62.9 ng/mL (13.0-400.0) 05/03/20 13:56 Total Bilirubin 0.20 mg/dL (0.1-1.2) 04/19/20 05:14 AST 21 units/L (5-40) 04/19/20 05:14 ALT 15 units/L (7-56) 04/19/20 05:14 Alkaline Phosphatase 61 units/L (35-129) 04/19/20 05:14 NT-Pro-B Natriuret Pep 387.1 pg/mL (0-900) 04/19/20 05:14 Total Protein 5.9 g/dL (6.3-8.2) L 04/19/20 05:14 Albumin 3.1 g/dL (3.9-5) L 04/19/20 05:14 Albumin/Globulin Ratio 1.1 % 04/19/20 05:14 Triglycerides 103 mg/dL (2-149) 04/19/20 05:14 Cholesterol 131 mg/dL (50-199) 04/19/20 05:14 LDL Cholesterol Direct 76 mg/dL (50-130) 04/19/20 05:14 HDL Cholesterol 49 mg/dL (40-59) 04/19/20 05:14 Cholesterol/HDL Ratio 2.67 % 04/19/20 05:14 Vitamin B12 1359 pg/mL (211-911) H 05/03/20 13:56 TSH 10.080 mlU/mL (0.270-4.200) H 04/19/20 07:57 Free T4 1.20 ng/dL (0.76-1.46) 04/19/20 07:57 Digoxin 0.3 ng/mL (0.9-2.0) L 04/21/20 12:54 Coronavirus (PCR) Negative (Negative) 04/30/20 09:04 Blood Type AB POSITIVE 05/01/20 06:55 Antibody Screen Negative 05/01/20 06:55 Crossmatch See Detail 05/01/20 06:55 - Diagnostic Impressions Diagnostic Impressions: Echocardiogram 04/18/20 22:16 Transthoracic Echocardiogram Indication: stroke BP: 102/51 HR: 75 Conclusions *The left ventricular chamber size is mildly dilated. *Global left ventricular systolic function is mild to moderately decreased. *The estimated ejection fraction is 40-45%. *The left atrium is mild to moderately dilated. *The right heart chambers are mild to moderately dilated. *There is mild mitral regurgitation. *There is mild to moderate tricuspid regurgitation. *There is evidence of borderline pulmonary hypertension. *The right ventricular systolic pressure is calculated at 24 mmHg. *A patent foramen ovale is not demonstrated by agitated saline contrast. Findings Left Ventricle: The left ventricular chamber size is mildly dilated. Mild concentric left ventricular hypertrophy is observed. Global left ventricular systolic function is mild to moderately decreased. The estimated ejection fraction is 40-45%. Abnormal left ventricular diastolic function is observed. Left Atrium: The left atrium is mild to moderately dilated. Right Ventricle: The right ventricle is mild to moderately dilated. The right ventricular global systolic function is moderately reduced. Right Atrium: The right atrium is mildly dilated. A patent foramen ovale is not demonstrated by agitated saline contrast. Aortic Valve: The aortic valve is trileaflet. The aortic valve leaflets are mildly thickened. There is no evidence of aortic regurgitation. There is no evidence of aortic stenosis. Mitral Valve: The mitral valve leaflets are mildly thickened. There is mild mitral regurgitation. There is no evidence of mitral stenosis. Tricuspid Valve: The tricuspid valve leaflets are normal. There is mild to moderate tricuspid regurgitation. The right ventricular systolic pressure is calculated at 24 mmHg. There is evidence of borderline pulmonary hypertension. Pulmonic Valve: The pulmonic valve appears normal. There is trace pulmonic regurgitation. Pericardium: There is no pericardial effusion. Aorta: There is no dilatation of the aortic root. Venous: The inferior vena cava is not visualized. The inferior vena cava appears normal in size. Contrast: Intravenous agitated saline contrast was used to assess intracardiac shunting. Measurements Chambers 2D Name Value Normal Range IVSd (2D) 1.21 cm (0.6 - 1.1) LVPWd (2D) 1.21 cm (0.6 - 1.1) LVIDd (2D) 3.35 cm (3.7 - 5.6) LVIDs (2D) 2.44 cm (2 - 3.8) LV FS (2D) 27.09 % - EF Teichholz (2D) 53.99 % - Ao root diameter (2D) 4.05 cm (2 - 3.7) Volumes/Mass Name Value Normal Range LA ESV SP 4CH (A/L) 60.11 ml - LA ESV SP 2CH (A/L) 60.34 ml - LA ESV BP (A/L) 64.62 ml - LA ESV SP 4CH (MOD) 55.46 ml - LA ESV SP 2CH (MOD) 56.14 ml - LA ESV BP (MOD) 59.51 ml - LA ESV BP (MOD) index 33.25 ml/m2 - LV EDV SP 4CH (MOD) 125.55 ml - LV ESV SP 4CH (MOD) 48.88 ml - EF SP 4CH (MOD) 61.07 % - LV EDV SP 2CH (MOD) 107.05 ml - LV ESV SP 2CH (MOD) 63.77 ml - EF SP 2CH (MOD) 40.43 % - LV EDV BP 116.16 ml - LV ESV BP 57.68 ml - BP EF (MOD) 50.34 % - Diastolic/Systolic Function Name Value Normal Range MV E-wave Vmax 0.54 m/sec - MV deceleration time 147.66 msec - MV A-wave Vmax 0.66 m/sec - MV E:A ratio 0.82 ratio - Aortic Valve Name Value Normal Range AV Vmax 0.86 m/sec - AV VTI 11.37 cm - AV peak gradient 2.97 mmHg - AV mean gradient 1.5 mmHg - LVOT diameter 2.01 cm - LVOT Vmax 0.44 m/sec - LVOT VTI 7.57 cm - LVOT peak gradient 0.78 mmHg - LVOT mean gradient 0.46 mmHg - SV LVOT 24.03 ml - NARINDER (continuity Vmax) 1.63 cm2 - NARINDER (continuity VTI) 2.11 cm2 - Ascending Ao 3.72 cm - Tricuspid Valve Name Value Normal Range TR Vmax 2.31 m/sec - TR peak gradient 21 mmHg - RAP 3 mmHg - RVSP 24 mmHg - Pulmonic Valve/Qp:Qs Name Value Normal Range PV Vmax 1.11 m/sec - PV peak gradient 4.89 mmHg - RVOT Vmax 0.85 m/sec - RVOT peak gradient 2.87 mmHg - PV acceleration time 114.18 msec - [place]/IV: Voiding Method Incontinent IV Catheter Type [Antecubital] INT / Saline Lock IV Catheter Type [Left Upper Peripheral IV arm] IV Catheter Type [Right Upper INT / Saline Lock arm] IV Catheter Type [Left Hand] Peripheral IV IV Catheter Type [Right Hand] INT / Saline Lock IV Catheter Type [Right INT / Saline Lock Antecubital] Active Medications - Current Medications Current Medications: Generic Name Dose Route Start Last Admin Trade Name Freq PRN Reason Stop Dose Admin Acetaminophen 650 mg 04/18/20 22:06 05/01/20 22:24 Tylenol PO 650 mg Q4H PRN Administration Pain MILD(1-3)/Fever >100.5/[place] Atorvastatin Calcium 40 mg 04/19/20 22:00 05/03/20 22:23 Lipitor PO 40 mg QHS JOSELIN Administration Cholecalciferol 1,000 unit 04/19/20 10:00 05/04/20 09:39 Vitamin D3 PO 1,000 unit DAILY JOSELIN Administration Dextrose 50 ml 04/19/20 00:54 D50w (25gm) Syringe IV Q30MIN PRN Hypoglycemia Protocol Enoxaparin Sodium 40 mg 05/01/20 10:00 05/04/20 09:39 Enoxaparin SUB-Q 40 mg QDAY@1000 JOSELIN Administration Furosemide 20 mg 04/19/20 10:00 05/04/20 09:44 Lasix PO Not Given DAILY JOSELIN Sodium Chloride 1,000 mls @ 75 mls/hr 04/30/20 15:45 05/04/20 03:01 Nacl 0.9% 1000 Ml IV 75 mls/hr DIRECT JOSELIN Administration Sodium Chloride 500 mls @ 0 mls/hr 05/01/20 09:38 05/02/20 12:51 Nacl 0.9% 500 Ml IV 50 mls/hr ONCE JOSELIN Administration As Directed Insulin Glargine 15 units 04/19/20 22:00 05/03/20 22:51 Lantus SUB-Q Not Given QHS [facility] Insulin Human Regular 0 units 04/19/20 01:15 05/04/20 13:20 Humulin R SUB-Q 8 units ACHS JOSELIN Administration Protocol Levothyroxine Sodium 50 mcg 04/20/20 06:00 05/04/20 05:43 Synthroid PO 50 mcg DAILY@0600 JOSELIN Administration Linagliptin 5 mg 04/20/20 10:00 05/04/20 09:44 Tradjenta PO 5 mg QDAY JOSELIN Administration Lisinopril 5 mg 04/19/20 10:00 05/04/20 09:45 Zestril PO Not Given DAILY [facility] Multivitamins/Minerals 1 each 05/01/20 10:00 05/04/20 09:39 Theragran-M Tab PO 1 each QDAY JOSELIN Administration Ondansetron HCl 4 mg 04/18/20 22:06 05/01/20 09:29 Zofran IV 4 mg Q8H PRN Administration Nausea And Vomiting Pantoprazole Sodium 40 mg 04/19/20 10:00 05/04/20 09:39 Protonix PO 40 mg DAILY JOSELIN Administration Risperidone 1 mg 05/03/20 22:00 05/04/20 09:39 Risperdal PO 1 mg BID JOSELIN Administration Senna 17.2 mg 04/30/20 22:00 07/04/20 22:22 Senokot PO 17.2 mg QHS JOSELIN Administration Sodium Chloride 10 ml 04/18/20 23:00 05/04/20 09:45 Sodium Chloride Flush Syringe 10 Ml IV Not Given BID JOSELIN Sodium Chloride 10 ml 04/18/20 22:06 04/19/20 01:19 Sodium Chloride Flush Syringe 10 Ml IV 10 ml PRN PRN Administration LINE FLUSH Nutrition/Malnutrition Assess - Dietary Evaluation Nutrition/Malnutrition Findings: Nutrition Notes Start: 04/24/20 12:48 Freq: Status: Active Protocol: Document 05/01/20 12:08 LM (Rec: 05/01/20 12:15 LM [id number]) Nutrition Notes Initial or Follow up Reassessment Current Diagnosis Diabetes,Hypertension,Heart Failure Other Pertinent Diagnosis coffee ground emesis, acute encephalopathy Current Diet clear liquid Labs/Tests POC glu 287 Pertinent Medications Humulin Lasix Height 5 ft 6 in Weight 65 kg [place] Body Weight (kg) 64.54 BMI 23.1 Weight Status Appropriate Subjective/Other Information Pt's diet downgraded to clear liq. Pt asleep at time of visit. Per chart pt consumed 25%. Burn Absent Trauma Absent Difficulty In Swallowing,Chewing Current % PO Negligible Minimum of two criteria Yes Body Fat Depletion Mild depletion (non-severe) Muscle Mass Mild Depletion (non-severe) #1 Nutrition Diagnosis Malnutrition Diagnosis Progress(for reassessment Continues documentation) Is patient on ventilator? No Is Patient Ambulatory and/or Out of Bed No REE-([facility]-confined to bed) 1528.872 Calculation Used for Recommendations [facility] Additional Notes Protein: 73-92g (1.2-1.5g/kg) Fluid: 1ml/kcal Nutrition Intervention Change Diet Order: coninue current until able to advance Add Supplement/Snack (indicate name/kcal Ensure clear BID /protein ) Provides kCal: 480 Provides Protein (gm) 16 Goal #1 diet advancement Anticipated Discharge Needs: unable to determine at this time Follow-Up By: 05/05/20 Additional Comments F/U for intakes/diet advancement
[2020-05-04] MEDS: SENNOSIDES 8.6 MG TAB PO SCH (21:13)
[2020-05-04] MEDS: INSULIN GLARGINE 100 UNITS/ML SUB-Q SCH (23:52)
[2020-05-05] MEDS: LEVOTHYROXINE 50 MCG TAB PO SCH (05:16)
[2020-05-05] MEDS: INSULIN REGULAR, HUMAN 100 UNITS/1 ML SUB-Q SCH ×4 (07:30→23:18)
[2020-05-05 08:59] LABS: Hematocrit 23.2 % (35.5-45.6); Hemoglobin 7.5 gm/dl (11.8-15.2)
[2020-05-05] MEDS: MULTIVITAMINS,THER W-MINERALS TAB PO SCH (11:15)
[2020-05-05] MEDS: CHOLECALCIFEROL (VIT D3) 1000 UNIT (25 mcg) TAB PO SCH (11:15)
[2020-05-05] MEDS: risperiDONE 1 MG TAB PO SCH ×2 (11:15→23:20)
[2020-05-05] MEDS: FUROSEMIDE 20 MG TAB PO SCH (11:15)
[2020-05-05] MEDS: LINAGLIPTIN 5 MG TAB PO SCH (11:16)
[2020-05-05] MEDS: LISINOPRIL 5 MG TAB PO SCH (11:16)
[2020-05-05] MEDS: PANTOPRAZOLE 40 MG TAB PO SCH (11:17)
[2020-05-05] MEDS: ENOXAPARIN 40 MG/0.4 ML INJ SUB-Q SCH (11:17)
[2020-05-05] MEDS: SODIUM CHLORIDE 0.9% 1000 ML 1,000 ML IV SCH (17:56)
--- NOTE | 2020-05-05 19:01 | Progress Note ---
Assessment and Plan Assessment and plan: --Acute metabolic encephalopathy; Mild improvement, unable to do MRI due to metal pieces Supportive care, probably his baseline --Acute blood loss anemia; due to erosive esophagitis Hb 6.2, received total 2 units of PRBC, Hb today 8.0 Closely monitor --Erosive esophagitis; Protonix and supportive care --Coffee-ground emesis; s/p EGD 1. Mild erosive esophagitis 2. 5 cm hiatal hernia 3. Few gastric polyps 4. Otherwise normal upper endoscopy --History of chronic anemia; continue iron supplements --Iron deficiency anemia, very low levels of iron IV dextran recommended by GI, ferrous sulfate --History of cerebral amyloid angiopathy; MRI cerebral myeloid angiopathy, study not complete due to metallic pieces Neurology following continue supportive care No acute CVA. --Hypertension; moderate control, continue current antihypertensives and PRN medications --Type 2 diabetes mellitus; Accu-Chek sliding scale coverage ADA diet and Lantus insulin A1c 12.6,, supportive care, home health nurse for disease monitoring at discharge --Severe dementia; Continue current management, fall precautions --Mild malnutrition; nutrition supplements, supportive care --DVT prophylaxis; Lovenox --Full CODE STATUS; --PT recommends subacute rehab --DC planning; awaiting subacute rehab placement 04/22/2020. MRI reveals multiple remote microhemorrhages in the periphery of both cerebral hemispheres most consistent with a diagnosis of amyloid angiopathy. Await neurology recommendations. 04/23/2020. We will avoid all anticoagulation. D/c Ativan and start Seroquel 25mg BID. Await placement 04/24/2020. I had a long discussion with the patient's daughter with regards to diagnosis. Continue Seroquel for now. Await placement. 04/25/2020. Patient will have further attempts working with PT/OT today given his improved mentation. Consider discharge home await PT/OT evaluation. 04/26/2020. Physical therapy has evaluated the patient and recommends subacute rehab. [facility] 04/27/2020. Awaiting subacute rehab placement. 04/28/2020. Physical therapy has evaluated the patient and recommends subacute rehab. Nutrition following regarding caloric intake 04/29/2020: Patient is medically stable ,awaiting placement, [facility] reviewing for admission 04/30/20; patient had coffee-ground emesis this morning, mild distress, IV Protonix, GI consult 05/01/20; no new episodes of coffee-ground emesis, anemia mild drop in H&H to 6.2 Type and cross, transfuse 1 unit PRBC closely monitor, endoscopy tomorrow per GI 05/02/20: Patient had endoscopy, erosive esophagitis , received blood transfusion 05/03/20; received total 2 units of PRBC, hemoglobin 8.0 today Awaiting placement, possible discharge in 1 to 2 days when placement process is completed 05/04/20; iron deficiency anemia, low iron levels, IV dextran, ferrous sulfate 05/05/20: Patient is medically stable, awaiting SNF placement Plan of care reviewed with the patient his nurse and the case management History Interval history: Patient seen and examined at the bedside this afternoon Patient is sleeping easily awakens, confused at times Frail elderly, not in acute distress Vital signs reviewed Hospitalist Physical - Constitutional Vitals: Temp Pulse Resp BP Pulse Ox 98.0 F 81 18 125/59 99 05/05/20 18:18 05/05/20 18:18 05/05/20 18:18 05/05/20 18:18 05/05/20 18:18 General appearance: Present: no acute distress, well-nourished, other (Confused at times) - EENT Eyes: Present: PERRL, EOM intact - Neck Neck: Present: supple, normal ROM - Respiratory Respiratory effort: normal Respiratory: bilateral: diminished, negative: rales, rhonchi, wheezing - Cardiovascular Rhythm: regular Heart Sounds: Present: S1 & S2 - Extremities Extremities: no ischemia, No edema - Abdominal General gastrointestinal: soft, non-tender, non-distended, normal bowel sounds - Integumentary Integumentary: Present: clear, warm - Psychiatric Psychiatric: appropriate mood/affect, cooperative - Neurologic Neurologic: CNII-XII intact, moves all extremities Results - Labs CBC & Chem 7: 05/05/20 08:38 05/02/20 05:12 Labs: Laboratory Last Values WBC 16.1 K/mm3 (4.5-11.0) H 05/03/20 04:24 RBC 3.09 M/mm3 (3.65-5.03) L 05/03/20 04:24 Hgb 7.5 gm/dl (11.8-15.2) L 05/05/20 08:38 Hct 23.2 % (35.5-45.6) L 05/05/20 08:38 MCV 80 fl (84-94) L 05/03/20 04:24 MCH 26 pg (28-32) L 05/03/20 04:24 MCHC 32 % (32-34) 05/03/20 04:24 RDW 22.2 % (13.2-15.2) H 05/03/20 04:24 Plt Count 207 K/mm3 (140-440) 05/03/20 04:24 Lymph % (Auto) 4.6 % (13.4-35.0) L 05/03/20 04:24 [place] % (Auto) 9.2 % (0.0-7.3) H 05/03/20 04:24 Eos % (Auto) 0.0 % (0.0-4.3) 05/03/20 04:24 Baso % (Auto) 0.1 % (0.0-1.8) 05/03/20 04:24 Lymph # 0.7 K/mm3 (1.2-5.4) L 05/03/20 04:24 [place] # 1.5 K/mm3 (0.0-0.8) H 05/03/20 04:24 Eos # 0.0 K/mm3 (0.0-0.4) 05/03/20 04:24 Baso # 0.0 K/mm3 (0.0-0.1) 05/03/20 04:24 Add Manual Diff Complete 05/02/20 05:12 Total Counted 100 05/02/20 05:12 Seg Neutrophils % 86.1 % (40.0-70.0) H 05/03/20 04:24 Seg Neuts % (Manual) 93.0 % (40.0-70.0) H 05/02/20 05:12 Band Neutrophils % 0 % 05/02/20 05:12 Lymphocytes % (Manual) 2.0 % (13.4-35.0) L 05/02/20 05:12 Reactive Lymphs % (Man) 0 % 05/02/20 05:12 Monocytes % (Manual) 5.0 % (0.0-7.3) 05/02/20 05:12 Eosinophils % (Manual) 0 % (0.0-4.3) 05/02/20 05:12 Basophils % (Manual) 0 % (0.0-1.8) 05/02/20 05:12 Metamyelocytes % 0 % 05/02/20 05:12 Myelocytes % 0 % 05/02/20 05:12 Promyelocytes % 0 % 05/02/20 05:12 Blast Cells % 0 % 05/02/20 05:12 Nucleated RBC % Not Reportable 05/02/20 05:12 Seg Neutrophils # 13.8 K/mm3 (1.8-7.7) H 05/03/20 04:24 Seg Neutrophils # Man 15.1 K/mm3 (1.8-7.7) H 05/02/20 05:12 Band Neutrophils # 0.0 K/mm3 05/02/20 05:12 Lymphocytes # (Manual) 0.3 K/mm3 (1.2-5.4) L 05/02/20 05:12 Abs React Lymphs (Man) 0.0 K/mm3 05/02/20 05:12 Monocytes # (Manual) 0.8 K/mm3 (0.0-0.8) 05/02/20 05:12 Eosinophils # (Manual) 0.0 K/mm3 (0.0-0.4) 05/02/20 05:12 Basophils # (Manual) 0.0 K/mm3 (0.0-0.1) 05/02/20 05:12 Metamyelocytes # 0.0 K/mm3 05/02/20 05:12 Myelocytes # 0.0 K/mm3 05/02/20 05:12 Promyelocytes # 0.0 K/mm3 05/02/20 05:12 Blast Cells # 0.0 K/mm3 05/02/20 05:12 WBC Morphology Not Reportable 05/02/20 05:12 Hypersegmented Neuts Not Reportable 05/02/20 05:12 Hyposegmented Neuts Not Reportable 05/02/20 05:12 Hypogranular Neuts Not Reportable 05/02/20 05:12 Smudge Cells Not Reportable 05/02/20 05:12 Toxic Granulation Not Reportable 05/02/20 05:12 Toxic Vacuolation Not Reportable 05/02/20 05:12 Dohle Bodies Not Reportable 05/02/20 05:12 Pelger-Huet Anomaly Not Reportable 05/02/20 05:12 Phil Rods Not Reportable 05/02/20 05:12 Platelet Estimate Consistent w auto 05/02/20 05:12 Clumped Platelets Not Reportable 05/02/20 05:12 Plt Clumps, EDTA Not Reportable 05/02/20 05:12 Large Platelets Not Reportable 05/02/20 05:12 Giant Platelets Not Reportable 05/02/20 05:12 Platelet Satelliting Not Reportable 05/02/20 05:12 Plt Morphology Comment Not Reportable 05/02/20 05:12 RBC Morphology Not Reportable 05/02/20 05:12 Dimorphic RBCs Not Reportable 05/02/20 05:12 Polychromasia Not Reportable 05/02/20 05:12 Hypochromasia 1+ 05/02/20 05:12 Poikilocytosis 2+ 05/02/20 05:12 Anisocytosis 1+ 05/02/20 05:12 Microcytosis Not Reportable 05/02/20 05:12 Macrocytosis Not Reportable 05/02/20 05:12 Spherocytes Not Reportable 05/02/20 05:12 Pappenheimer Bodies Not Reportable 05/02/20 05:12 Sickle Cells Not Reportable 05/02/20 05:12 Target Cells Not Reportable 05/02/20 05:12 Tear Drop Cells Not Reportable 05/02/20 05:12 Ovalocytes Few 05/02/20 05:12 Helmet Cells Not Reportable 05/02/20 05:12 Noe-Sisters Bodies Not Reportable 05/02/20 05:12 Sabina Rings Not Reportable 05/02/20 05:12 Aliyah Cells 2+ 05/02/20 05:12 Bite Cells Not Reportable 05/02/20 05:12 Crenated Cell Not Reportable 05/02/20 05:12 Elliptocytes Not Reportable 05/02/20 05:12 Acanthocytes (Spur) Few 05/02/20 05:12 Rouleaux Not Reportable 05/02/20 05:12 Hemoglobin C Crystals Not Reportable 05/02/20 05:12 Schistocytes Not Reportable 05/02/20 05:12 Malaria parasites Not Reportable 05/02/20 05:12 Emigdio Bodies Not Reportable 05/02/20 05:12 Hem Pathologist Commnt No 05/02/20 05:12 PT 12.9 Sec. (12.2-14.9) 04/21/20 10:35 INR 0.99 (0.87-1.13) 04/21/20 10:35 Sodium 137 mmol/L (137-145) 05/02/20 05:12 Potassium 4.3 mmol/L (3.6-5.0) 05/02/20 05:12 Chloride 101.2 mmol/L (98-107) 05/02/20 05:12 Carbon Dioxide 23 mmol/L (22-30) 05/02/20 05:12 Anion Gap 17 mmol/L 05/02/20 05:12 BUN 51 mg/dL (9-20) H 05/02/20 05:12 Creatinine 0.9 mg/dL (0.8-1.5) 05/02/20 05:12 Estimated GFR > 60 ml/min 05/02/20 05:12 BUN/Creatinine Ratio 57 % 05/02/20 05:12 Glucose 245 mg/dL (75-100) H 05/02/20 05:12 POC Glucose 156 (70-105) H 05/05/20 17:29 Calcium 8.9 mg/dL (8.4-10.2) 05/02/20 05:12 Iron 8 ug/dL (49-181) L 05/03/20 13:56 TIBC 263 mcg/dL (250-450) 05/03/20 13:56 Ferritin 62.9 ng/mL (13.0-400.0) 05/03/20 13:56 Total Bilirubin 0.20 mg/dL (0.1-1.2) 04/19/20 05:14 AST 21 units/L (5-40) 04/19/20 05:14 ALT 15 units/L (7-56) 04/19/20 05:14 Alkaline Phosphatase 61 units/L (35-129) 04/19/20 05:14 NT-Pro-B Natriuret Pep 387.1 pg/mL (0-900) 04/19/20 05:14 Total Protein 5.9 g/dL (6.3-8.2) L 04/19/20 05:14 Albumin 3.1 g/dL (3.9-5) L 04/19/20 05:14 Albumin/Globulin Ratio 1.1 % 04/19/20 05:14 Triglycerides 103 mg/dL (2-149) 04/19/20 05:14 Cholesterol 131 mg/dL (50-199) 04/19/20 05:14 LDL Cholesterol Direct 76 mg/dL (50-130) 04/19/20 05:14 HDL Cholesterol 49 mg/dL (40-59) 04/19/20 05:14 Cholesterol/HDL Ratio 2.67 % 04/19/20 05:14 Vitamin B12 1359 pg/mL (211-911) H 05/03/20 13:56 TSH 10.080 mlU/mL (0.270-4.200) H 04/19/20 07:57 Free T4 1.20 ng/dL (0.76-1.46) 04/19/20 07:57 Digoxin 0.3 ng/mL (0.9-2.0) L 04/21/20 12:54 Coronavirus (PCR) Negative (Negative) 04/30/20 09:04 Blood Type AB POSITIVE 05/01/20 06:55 Antibody Screen Negative 05/01/20 06:55 Crossmatch See Detail 05/01/20 06:55 - Diagnostic Impressions Diagnostic Impressions: Echocardiogram 04/18/20 22:16 Transthoracic Echocardiogram Indication: stroke BP: 102/51 HR: 75 Conclusions *The left ventricular chamber size is mildly dilated. *Global left ventricular systolic function is mild to moderately decreased. *The estimated ejection fraction is 40-45%. *The left atrium is mild to moderately dilated. *The right heart chambers are mild to moderately dilated. *There is mild mitral regurgitation. *There is mild to moderate tricuspid regurgitation. *There is evidence of borderline pulmonary hypertension. *The right ventricular systolic pressure is calculated at 24 mmHg. *A patent foramen ovale is not demonstrated by agitated saline contrast. Findings Left Ventricle: The left ventricular chamber size is mildly dilated. Mild concentric left ventricular hypertrophy is observed. Global left ventricular systolic function is mild to moderately decreased. The estimated ejection fraction is 40-45%. Abnormal left ventricular diastolic function is observed. Left Atrium: The left atrium is mild to moderately dilated. Right Ventricle: The right ventricle is mild to moderately dilated. The right ventricular global systolic function is moderately reduced. Right Atrium: The right atrium is mildly dilated. A patent foramen ovale is not demonstrated by agitated saline contrast. Aortic Valve: The aortic valve is trileaflet. The aortic valve leaflets are mildly thickened. There is no evidence of aortic regurgitation. There is no evidence of aortic stenosis. Mitral Valve: The mitral valve leaflets are mildly thickened. There is mild mitral regurgitation. There is no evidence of mitral stenosis. Tricuspid Valve: The tricuspid valve leaflets are normal. There is mild to moderate tricuspid regurgitation. The right ventricular systolic pressure is calculated at 24 mmHg. There is evidence of borderline pulmonary hypertension. Pulmonic Valve: The pulmonic valve appears normal. There is trace pulmonic regurgitation. Pericardium: There is no pericardial effusion. Aorta: There is no dilatation of the aortic root. Venous: The inferior vena cava is not visualized. The inferior vena cava appears normal in size. Contrast: Intravenous agitated saline contrast was used to assess intracardiac shunting. Measurements Chambers 2D Name Value Normal Range IVSd (2D) 1.21 cm (0.6 - 1.1) LVPWd (2D) 1.21 cm (0.6 - 1.1) LVIDd (2D) 3.35 cm (3.7 - 5.6) LVIDs (2D) 2.44 cm (2 - 3.8) LV FS (2D) 27.09 % - EF Teichholz (2D) 53.99 % - Ao root diameter (2D) 4.05 cm (2 - 3.7) Volumes/Mass Name Value Normal Range LA ESV SP 4CH (A/L) 60.11 ml - LA ESV SP 2CH (A/L) 60.34 ml - LA ESV BP (A/L) 64.62 ml - LA ESV SP 4CH (MOD) 55.46 ml - LA ESV SP 2CH (MOD) 56.14 ml - LA ESV BP (MOD) 59.51 ml - LA ESV BP (MOD) index 33.25 ml/m2 - LV EDV SP 4CH (MOD) 125.55 ml - LV ESV SP 4CH (MOD) 48.88 ml - EF SP 4CH (MOD) 61.07 % - LV EDV SP 2CH (MOD) 107.05 ml - LV ESV SP 2CH (MOD) 63.77 ml - EF SP 2CH (MOD) 40.43 % - LV EDV BP 116.16 ml - LV ESV BP 57.68 ml - BP EF (MOD) 50.34 % - Diastolic/Systolic Function Name Value Normal Range MV E-wave Vmax 0.54 m/sec - MV deceleration time 147.66 msec - MV A-wave Vmax 0.66 m/sec - MV E:A ratio 0.82 ratio - Aortic Valve Name Value Normal Range AV Vmax 0.86 m/sec - AV VTI 11.37 cm - AV peak gradient 2.97 mmHg - AV mean gradient 1.5 mmHg - LVOT diameter 2.01 cm - LVOT Vmax 0.44 m/sec - LVOT VTI 7.57 cm - LVOT peak gradient 0.78 mmHg - LVOT mean gradient 0.46 mmHg - SV LVOT 24.03 ml - NARINDER (continuity Vmax) 1.63 cm2 - NARINDER (continuity VTI) 2.11 cm2 - Ascending Ao 3.72 cm - Tricuspid Valve Name Value Normal Range TR Vmax 2.31 m/sec - TR peak gradient 21 mmHg - RAP 3 mmHg - RVSP 24 mmHg - Pulmonic Valve/Qp:Qs Name Value Normal Range PV Vmax 1.11 m/sec - PV peak gradient 4.89 mmHg - RVOT Vmax 0.85 m/sec - RVOT peak gradient 2.87 mmHg - PV acceleration time 114.18 msec - [place]/IV: Voiding Method Condom Catheter IV Catheter Type [Antecubital] INT / Saline Lock IV Catheter Type [Left Upper Peripheral IV arm] IV Catheter Type [Right Upper INT / Saline Lock arm] IV Catheter Type [Left Hand] Peripheral IV IV Catheter Type [Right Hand] INT / Saline Lock IV Catheter Type [Right INT / Saline Lock Antecubital] Active Medications - Current Medications Current Medications: Generic Name Dose Route Start Last Admin Trade Name Freq PRN Reason Stop Dose Admin Acetaminophen 650 mg 04/18/20 22:06 05/01/20 22:24 Tylenol PO 650 mg Q4H PRN Administration Pain MILD(1-3)/Fever >100.5/[place] Atorvastatin Calcium 40 mg 04/19/20 22:00 05/04/20 21:14 Lipitor PO 40 mg QHS JOSELIN Administration Cholecalciferol 1,000 unit 04/19/20 10:00 05/05/20 11:15 Vitamin D3 PO 1,000 unit DAILY JOSELIN Administration Dextrose 50 ml 04/19/20 00:54 D50w (25gm) Syringe IV Q30MIN PRN Hypoglycemia Protocol Enoxaparin Sodium 40 mg 05/01/20 10:00 05/05/20 11:17 Enoxaparin SUB-Q 40 mg QDAY@1000 JOSELIN Administration Furosemide 20 mg 04/19/20 10:00 05/05/20 11:15 Lasix PO 20 mg DAILY JOSELIN Administration Sodium Chloride 1,000 mls @ 75 mls/hr 04/30/20 15:45 05/05/20 17:56 Nacl 0.9% 1000 Ml IV 75 mls/hr DIRECT JOSELIN Administration Sodium Chloride 500 mls @ 0 mls/hr 05/01/20 09:38 05/02/20 12:51 Nacl 0.9% 500 Ml IV 50 mls/hr ONCE JOSELIN Administration As Directed Insulin Glargine 15 units 04/19/20 22:00 05/04/20 23:52 Lantus SUB-Q 15 units QHS JOSELIN Administration Insulin Human Regular 0 units 04/19/20 01:15 05/05/20 17:55 Humulin R SUB-Q 3 units ACHS JOSELIN Administration Protocol Levothyroxine Sodium 50 mcg 04/20/20 06:00 05/05/20 05:16 Synthroid PO 50 mcg DAILY@0600 JOSELIN Administration Linagliptin 5 mg 04/20/20 10:00 05/05/20 11:16 Tradjenta PO 5 mg QDAY JOSELIN Administration Lisinopril 5 mg 04/19/20 10:00 05/05/20 11:16 Zestril PO Not Given DAILY [facility] Multivitamins/Minerals 1 each 05/01/20 10:00 05/05/20 11:15 Theragran-M Tab PO 1 each QDAY JOSELIN Administration Ondansetron HCl 4 mg 04/18/20 22:06 05/01/20 09:29 Zofran IV 4 mg Q8H PRN Administration Nausea And Vomiting Pantoprazole Sodium 40 mg 04/19/20 10:00 05/05/20 11:17 Protonix PO 40 mg DAILY JOSELIN Administration Risperidone 1 mg 05/03/20 22:00 05/05/20 11:15 Risperdal PO 1 mg BID JOSELIN Administration Senna 17.2 mg 04/30/20 22:00 05/04/20 21:13 Senokot PO 17.2 mg QHS JOSELIN Administration Sodium Chloride 10 ml 04/18/20 23:00 05/05/20 11:16 Sodium Chloride Flush Syringe 10 Ml IV 10 ml BID JOSELIN Administration Sodium Chloride 10 ml 04/18/20 22:06 04/19/20 01:19 Sodium Chloride Flush Syringe 10 Ml IV 10 ml PRN PRN Administration LINE FLUSH Nutrition/Malnutrition Assess - Dietary Evaluation Nutrition/Malnutrition Findings: Nutrition Notes Start: 04/24/20 12:48 Freq: Status: Active Protocol: Document 05/05/20 10:05 LP (Rec: 05/05/20 10:12 LP [id number]) Nutrition Notes Initial or Follow up Reassessment Current Diagnosis Diabetes,Hypertension,Heart Failure Other Pertinent Diagnosis coffee ground emesis, acute encephalopathy Current Diet Mechanical soft diet Labs/Tests Reviewed Pertinent Medications Reviewed Height 5 ft 6 in Weight 65.7 kg [place] Body Weight (kg) 64.54 BMI 23.3 Weight Status Appropriate Subjective/Other Information Pt noted with not eating much. About 25%. Pt was on puree but there was no GENERAL TELLER note in either visit. Percent of energy/protein needs met: 35%/34% Burn Absent Trauma Absent Difficulty In Swallowing,Chewing Current % PO Negligible Minimum of two criteria Yes Body Fat Depletion Mild depletion (non-severe) Muscle Mass Mild Depletion (non-severe) #1 Nutrition Diagnosis Malnutrition Diagnosis Progress(for reassessment Continues documentation) Is patient on ventilator? No Is Patient Ambulatory and/or Out of Bed No REE-([facility]-confined to bed) [phone] Calculation Used for Recommendations [facility] Additional Notes Protein: 73-92g (1.2-1.5g/kg) Fluid: 1ml/kcal Nutrition Intervention Change Diet Order: Continue mechanical soft Add Supplement/Snack (indicate name/kcal Ensure Enlive BID /protein ) Provides kCal: 700 Provides Protein (gm) 40 Goal #1 Meet at least 80% of kcal and protein needs Anticipated Discharge Needs: unable to determine at this time Follow-Up By: 05/08/20 Additional Comments Follow for intakes, ONS tolerance
[2020-05-05] MEDS: INSULIN GLARGINE 100 UNITS/ML SUB-Q SCH (23:20)
[2020-05-05] MEDS: SENNOSIDES 8.6 MG TAB PO SCH (23:20)
[2020-05-06] MEDS: LEVOTHYROXINE 50 MCG TAB PO SCH (05:41)
[2020-05-06] MEDS: SODIUM CHLORIDE 0.9% 1000 ML 1,000 ML IV SCH (05:45)
[2020-05-06] MEDS: INSULIN REGULAR, HUMAN 100 UNITS/1 ML SUB-Q SCH ×2 (07:30→11:30)
[2020-05-06] MEDS: LISINOPRIL 5 MG TAB PO SCH (09:56)
--- NOTE | 2020-05-06 11:07 | Progress Note ---
Assessment and Plan Abnormal ECG ECG shows a sinus rate at 85, with complete A-V dissociation, and an accelerated junctional rhythm at 65 Altered mental status Dementia Hypothyroidism TSH 12.5 Diabetes Severe Anemia Hypertension An echo this admission reveals 4 chamber dilation with a decreased left ventricular systolic function, ejection fraction 40-45%. Negative bubble study. The patient has no cardiac symptoms, is of advanced age, very frail with multiple comorbidities including advanced dementia. Continue thyroid replacement therapy. Avoid AV elisha blocking agents. Will continue a conservative cardiac management. Subjective Date of service: 05/06/20 Principal diagnosis: Iron Def Anemia Interval history: Patient is resting in bed comfortably. Objective Vital Signs Temp Pulse Resp BP BP Pulse Ox 05/06/20 09:56 100/60 05/06/20 05:09 97.4 F L 68 18 103/54 99 05/05/20 23:00 97.8 F 80 18 123/57 94 05/05/20 18:18 98.0 F 81 18 125/59 99 05/05/20 12:32 98.1 F 87 18 102/56 96 05/05/20 11:16 107/58 - Physical Examination General: No Apparent Distress HEENT: Positive: PERRL Neck: Positive: trachea midline Cardiac: Positive: Regular Rate Neuro: Positive: Other (altered mental status) Abdomen: Positive: Soft Extremities: Absent: edema - Imaging and Cardiology EKG: report reviewed
[2020-05-06] MEDS: ENOXAPARIN 40 MG/0.4 ML INJ SUB-Q SCH (11:14)
[2020-05-06] MEDS: FUROSEMIDE 20 MG TAB PO SCH (11:15)
[2020-05-06] MEDS: PANTOPRAZOLE 40 MG TAB PO SCH (11:15)
[2020-05-06] MEDS: risperiDONE 1 MG TAB PO SCH (11:15)
[2020-05-06] MEDS: CHOLECALCIFEROL (VIT D3) 1000 UNIT (25 mcg) TAB PO SCH (11:16)
[2020-05-06] MEDS: MULTIVITAMINS,THER W-MINERALS TAB PO SCH (11:16)
[2020-05-06] MEDS: LINAGLIPTIN 5 MG TAB PO SCH (11:16)
--- NOTE | 2020-05-06 14:42 | Discharge Summary ---
Providers - Providers Date of Admission: 04/18/20 14:09 Date of discharge: 05/06/20 Attending physician: CECILIA CHRISTINA 04/18/20 22:06 Consult to Physician [CONS] Routine Comment: Consulting Provider: JOSH PANDYA Physician Instructions: Reason For Exam: CVA 04/18/20 22:12 Occupational Therapy Evaluate and Treat [CONS] Routine Comment: Reason For Exam: Neuro deficits Physical Therapy Evaluation and Treat [CONS] Routine Comment: Reason For Exam: Neuro deficits 04/19/20 06:50 Consult to Physician [CONS] Routine Comment: Consulting Provider: CRISTINA SANTIAGO Physician Instructions: Reason For Exam: ARRYTHMIA 04/19/20 07:29 Consult to Mental Health [CONS] Routine Reason For Exam: ams 04/23/20 12:20 Consult to Dietitian/Nutrition [CONS] Routine Physician Instructions: Reason For Exam: Reason for Consult: Malnutrition 04/30/20 13:08 Consult to Physician [CONS] Routine Comment: Consulting Provider: NICK ADAMS Physician Instructions: Reason For Exam: Coffee-ground emesis Primary care physician: BUNNY VASQUEZ Hospitalization Reason for admission: Altered level of consciousness and neuro symptoms Condition: Fair Pertinent studies: CT head without contrast MRI brain Echocardiogram Abdominal x-ray EGD Hospital course: 89-year-old male patient was admitted through emergency room with altered level of consciousness, patient has history of admitted to [facility] and transfer to regular medical for further evaluation of neuro symptoms. Patient had extensive neuro work-up, evaluated by neurologistMedications optimized, received physical therapy occupational therapy, case management recommend longterm placement, Patient had an episode of coffee-ground emesis, evaluated by GI Underwent EGD. Patient received 2 units of PRBC with significant improvement of hemoglobin Today patient is comfortable back to his baseline mental status Vital signs stable, case management has set up SNF placement Patient is hemodynamically and clinically stable to be discharged and transferred to SNF today Patient is full CODE STATUS Final diagnosis: --Acute metabolic encephalopathy; Mild improvement, unable to do MRI due to metal pieces His baseline status --Acute blood loss anemia; Received 2 units PRBC Hb improved/low stable --Erosive esophagitis; Protonix and supportive care Coffee-ground emesis; s/p EGD 1. Mild erosive esophagitis 2. 5 cm hiatal hernia 3. Few gastric polyps 4. Otherwise normal upper endoscopy --History of chronic anemia; continue ferrous sulfate --History of cerebral amyloid angiopathy; MRI cerebral myeloid angiopathy, study not complete due to metallic pieces Neurology following continue supportive care No acute CVA. --Hypertension; moderate control, continue current antihypertensives and PRN medications --Type 2 diabetes mellitus; Accu-Chek sliding scale coverage ADA diet and Lantus insulin A1c 12.6,, supportive care, home health nurse for disease monitoring at discharge --Severe dementia; Continue current management, fall precautions --Mild malnutrition; nutrition supplements, supportive care Patient is being discharged and transferred to SNF today Hemodynamically and clinically stable at discharge - Disposition: DC-30 STILL A PATIENT Time spent for discharge: 35 min Core Measure Documentation - Palliative Care Palliative Care/ Comfort Measures: Not Applicable - Core Measures Any of the following diagnoses?: none Exam - Constitutional Vitals: Temp Pulse Resp BP Pulse Ox 97.6 F 100 H 18 90/52 97 05/06/20 11:07 05/06/20 11:07 05/06/20 11:07 05/06/20 11:07 05/06/20 11:07 General appearance: Present: no acute distress, well-nourished - EENT Eyes: Present: PERRL, EOM intact - Neck Neck: Present: supple, normal ROM - Respiratory Respiratory effort: normal Respiratory: bilateral: diminished, negative: rales, rhonchi, wheezing - Cardiovascular Rhythm: regular Heart Sounds: Present: S1 & S2 - Extremities Extremities: no ischemia, No edema - Abdominal General gastrointestinal: Present: soft, non-tender, non-distended, normal bowel sounds - Integumentary Integumentary: Present: clear, warm - Musculoskeletal Musculoskeletal: generalized weakness - Psychiatric Psychiatric: cooperative, other (Confused at times) - Neurologic Neurologic: moves all extremities Plan Activity: fall precautions Diet: other (Mechanical soft diet, advance as tolerated) Additional Instructions: Fall precautions. Aspiration precautions. Follow-up with GI as needed Follow up with: BUNNY VASQUEZ MD [Primary Care Provider] - 7 Days AGUS EGAN MD [Staff Physician] - 14 Days CHEO PAGE MD [Staff Physician] - 7 Days
[2020-05-06 16:28] VITALS: BP 101/51
== END 2020-05-06 17:55 | DRG 70 ==
LOC: UNDOADMIN 14:05 → 3A 14:05
PROVIDERS: ADMIT Internal Medicine; ATTEND Internal Medicine
PROC: 30233N1 Transfusion of Nonautologous Red Blood Cells into Peripheral Vein, Percutaneous Approach (ICD-10-PCS; principal; 2020-05-01)
PROC: 0DJ08ZZ Inspection of Upper Intestinal Tract, Via Natural or Artificial Opening Endoscopic (ICD-10-PCS; 2020-05-02)
DX: G93.41 Metabolic encephalopathy (principal); K22.11 Ulcer of esophagus with bleeding; E44.1 Mild protein-calorie malnutrition; I50.22 Chronic systolic (congestive) heart failure; D62 Acute posthemorrhagic anemia; F03.91 Unspecified dementia, unspecified severity, with behavioral disturbance; Z68.21 Body mass index [BMI] 21.0-21.9, adult; K44.9 Diaphragmatic hernia without obstruction or gangrene; K31.7 Polyp of stomach and duodenum; E11.9 Type 2 diabetes mellitus without complications; I11.0 Hypertensive heart disease with heart failure; Z82.49 Family history of ischemic heart disease and other diseases of the circulatory system; Z88.6 Allergy status to analgesic agent; E03.9 Hypothyroidism, unspecified; Z68.23 Body mass index [BMI] 23.0-23.9, adult; Z71.3 Dietary counseling and surveillance; Z86.69 Personal history of other diseases of the nervous system and sense organs; Z79.4 Long term (current) use of insulin
CPT/HCPCS: 36415; 70551; 74018; 80048; 80053; 80061; 80162; 82270; 82607; 82728; 82962; 83550; 83880; 84439; 84443; 85007; 85014; 85018; 85025; 85027; 85610; 86850; 86900; 86901; 86920; 93005; 93306; 93880; G0378; A9270-GY; J1650; J1815; J2060; J2405; J2704; J7030; J7040; J7050; J7100; P9016; U0003-CS